=== PATIENT | female | born 1935 | race Caucasian/White ===

== ENCOUNTER 2019-02-26 00:31 | Inpatient (IN) | payer OTHER ==
[~2019-02-26] VITALS: Ht 167.6 cm; Wt 78.0 kg
[2019-02-26] VITALS (73 sets, daily range): BP systolic 69–145; BP diastolic 30–91
[2019-02-26] MEDS ORDERED: KETAMINE 500 MG/5 ML VIAL ONE (01:07)
--- NOTE | 2019-02-26 01:08 | NUR ---
PT BIBA ALS S/P FOUND BY ALF STAFF ALOC NOT TALKING OR RESPONDING TO QUESTIONS. ON ARRIVE TO [facility] PT GCS 12, RESPONDING TO COMMANDS BUT INCOMPREHENSIBLE VERBAL RESPONSES, EYES OPEN SPONTANEOUSLY. RESPIRATIONS TACHYPNEIC AT 43, 90% ON RA PLACED ON 4L NC AT THIS TIME. PT FOUND IN AFIB RVR RATE 140-160. EDMD MADE AWARE. PT PLACED ON FULL MONITOR, 2 LARGE BORE IV'S ESTABLISHED AND PHYSICIAN AT BEDSIDE AT THIS TIME.
--- NOTE | 2019-02-26 01:08 | NUR ---
0028--PT BIB AMBULANCE TO ER BED 7 Addendum: 02/26/19 at 0110 by MEDPatJLuke 0031-- PT BIB AMBULANCE TO ER BED 7. DR. HANDLEY EVALUATING PT BEDSIDE WITH X-RAY AND RESPIRATORY.
[2019-02-26] MEDS ORDERED: DILTIAZEM 25 MG/5 ML VIAL IVP ONE (01:09)
--- NOTE | 2019-02-26 01:13 | NUR ---
0113-- SYNCHRONIZED CARDIOVERSION START, TIME OUT PERFORMED BY DR. HANDLEY AT THIS TIME 0114--40 MG OF KETAMINE GIVEN AT THIS TIME BY DR. HANDLEY HR AFIB RVR 0116-- 200 J SYNCHRONIZED SHOCK GIVEN AT THIS TIME 0118--PROCEDURE STOP, CARDIOVERSION UNSUCCESSFUL
[2019-02-26 01:25] LABS: HEMATOCRIT 43.5 % (36-48); HEMOGLOBIN 13.9 g/dL (12.0-16.0); MEAN CORPUSCULAR HEMOGLOBIN 30 pg (27-31); MEAN CORPUSCULAR HGB CONC 32 g/dL (33-37); MEAN CORPUSCULAR VOLUME 92.9 fL (80-94); PLATELET COUNT (AUTO) 268 K/uL (140-450); RED BLOOD CELL COUNT(AUTO) 4.68 MIL/uL (4.20-5.40); RED CELL DISTRIBUTION WIDTH 14.9 % (11.6-13.7); WHITE BLOOD COUNT (AUTO) 16.4 K/uL (4.8-10.8)
--- NOTE | 2019-02-26 01:26 | NUR ---
3.375 GM OF ZOSYN GIVEN AT 0126 OVER [address] EMMANUELLE TRAVIS.
[2019-02-26 01:27] LABS: APPEARANCE,URINE CLOUDY (CLEAR); BILIRUBIN,URINE 2+ (NEGATIVE); BLOOD, URINE 3+ (NEGATIVE); COLOR,URINE YELLOW (YELLOW); LEUKOCYTE ESTERASE ,URINE TRACE (NEGATIVE); NITRITE, URINE NEGATIVE (NEGATIVE); PH,URINE 5.5 (5.0-9.0); UGLUCOSE NEGATIVE (NEGATIVE)
[2019-02-26] MEDS ORDERED: PIPERACILLIN/TAZOBACTAM 3.375 GM VIAL IV ONE ×2 (01:32→06:23)
--- NOTE | 2019-02-26 01:36 | NUR ---
15MG OF DILTIAZEM GIVEN IVP OVER [address] EMMANUELLE TRAVIS.
[2019-02-26 01:40] LABS: RBC,URINE 11-20 (MOD) /HPF (0-5)
--- NOTE | 2019-02-26 01:41 | NUR ---
NSS 3 L BOLUS STARTED PER ORDER FROM DR. HANDLEY, DISCONTINUED AT 0340. 3000 ML INFUSED
--- NOTE | 2019-02-26 01:42 | NUR ---
PT CONVERTED TO SINUS RHYTHM AFTER DOSE OF DILTIAZEM
[2019-02-26 01:43] LABS: ALBUMIN 2.9 g/dL (3.4-5.0); ANION GAP 20.2 (8-16); ASPARTATE AMINOTRANSFERASE 179 U/L (15-37); CARBON DIOXIDE 19.3 mmol/L (21-32); CHLORIDE 112 mmol/L (98-107); CREATININE 1.9 mg/dL (0.6-1.3); GLUCOSE 150 mg/dL (74-106); POTASSIUM 4.5 mmol/L (3.5-5.1); SODIUM SERUM 147 mmol/L (136-145); TOTAL BILIRUBIN 1.1 mg/dL (0.0-1.0); UREA NITROGEN, BLOOD 31 mg/dL (7-18)
[2019-02-26 01:45] LABS: LYMPHOCYTES % (MANUAL) 2 % (20-46); MONOCYTES % (MANUAL) 6 % (5-12)
[2019-02-26] MEDS ORDERED: DILTIAZEM 125 MG in DEXTROSE 5% 100 ML IV ONE (01:45)
--- NOTE | 2019-02-26 01:53 | NUR ---
1:1000 MG EPI IN 1000 ML NSS STARTED AT 1000ML/HR PER DR. EMMANUELLE TRAVIS, DISCONTINUED AT 0253
[2019-02-26 01:54] LABS: THYROID STIMULATING HORMONE 4.28 uIU/mL (0.34-3.74)
[2019-02-26 01:56] LABS: PROTHROMBIN TIME 13.2 secs (10.8-13.4)
[2019-02-26] MEDS ORDERED: NOREPINEPHRINE 4 MG/4 ML VIAL IV ONE (01:58)
[2019-02-26] MEDS ORDERED: ACETAMINOPHEN 650 MG SUPP RC ONE (02:05)
[2019-02-26] MEDS ORDERED: ACETAMINOPHEN 325 MG SUPP RC ONE (02:09)
--- NOTE | 2019-02-26 02:12 | NUR ---
0130 INTUBATED PATIENT WITH 7.5 TUBE AT LIP 25. PLACED ON VENT AC 18 VT 600 PEEP 5 FIO2 AT 60% ABG PENDING
--- NOTE | 2019-02-26 02:12 | NUR ---
X-RAY AT BEDSIDE FOR OG PLACEMENT COMFIRMATION.
--- NOTE | 2019-02-26 02:14 | NUR ---
0202 ABG DRAWN AND RESULTS GIVEN TO DR HANDLEY. VENT SETTINGS CHANGED TO RR 14 AND INCREASED FIO2 TO 65%
[2019-02-26] MEDS ORDERED: SYN.05 PO (02:18)
[2019-02-26] MEDS ORDERED: TRAM50TA1 PO (02:18)
[2019-02-26] MEDS ORDERED: MULT1SGL58 PO (02:18)
[2019-02-26] MEDS ORDERED: MEMA10TA PO (02:18)
[2019-02-26] MEDS ORDERED: LACT1CAP59 PO (02:18)
[2019-02-26] MEDS ORDERED: MULTI (02:18)
[2019-02-26] MEDS ORDERED: DOCU-299 PO (02:18)
--- NOTE | 2019-02-26 02:21 | NUR ---
0126---RSI PROCEDURE START TIME TIME OUT BY DR FREED 0127-- 40 MG KETAMINE GIVEN BY DR. HANDLEY , 80 MG ROCURONIUM GIVEN BY DR. HANDLEY 0130--PT INTUBATED WITH 7.5 ETT. SEE RT NOTE FOR VENT SETTINGS. 0131--PROCEDURE STOP TIME
[2019-02-26] MEDS ORDERED: EPINEPHRINE IV ONE (02:45)
[2019-02-26] MEDS ORDERED: ROCURONIUM 50 MG/5 ML VIAL IV ONE (02:45)
[2019-02-26] MEDS ORDERED: NACL 0.9% IV ONE (02:45)
[2019-02-26] MEDS ORDERED: KETAMINE 10 MG/ML UD SYR **ER IVP ONE (02:45)
[2019-02-26] MEDS ORDERED: DOCUSATE SODIUM 100 MG GELCAP PO PRN (02:50)
[2019-02-26] MEDS ORDERED: ZOLPIDEM 5 MG TAB PO PRN (02:50)
[2019-02-26] MEDS ORDERED: MORPHINE SULFATE 2 MG/ML SYR IVP PRN (02:50)
[2019-02-26] MEDS ORDERED: ONDANSETRON 4 MG/2 ML VIAL IM/IVP PRN (02:50)
--- NOTE | 2019-02-26 02:54 | NUR ---
PT TAKEN TO CT WITH NURSE BUI AND RT
--- NOTE | 2019-02-26 03:00 | NUR ---
125 ML/HR OF NSS STARTED PER DR. HANDLEY VO. INFUSING ON TRANSFER
--- NOTE | 2019-02-26 03:12 | NUR ---
PT RETURNED FROM CT BACK TO ER BED 7
--- NOTE | 2019-02-26 03:23 | NUR ---
Selina urena in [facility] - 02/26/19 at 0354 by TIGIST REPORT GIVEN TO ROSEMARY CHANEY, TRANSFER OF CARE AT THIS TIME
[2019-02-26 03:33] LABS: MAGNESIUM 2.5 mg/dL (1.8-2.4); PHOSPHORUS 6.1 mg/dL (2.5-4.9); THYROID STIMULATING HORMONE 4.26 uIU/mL (0.34-3.74)
[2019-02-26] MEDS ORDERED: ROCURONIUM 50 MG/5 ML VIAL IV STA (03:38)
[2019-02-26] MEDS ORDERED: VANCOMYCIN 1,000 MG VIAL ONE (03:38)
[2019-02-26] MEDS ORDERED: KETAMINE 500 MG/5 ML VIAL IVP STA ×2 (03:38→03:58)
--- NOTE | 2019-02-26 03:40 | NUR ---
VANCOMYCIN 1000 MG IVPB STARTED ON PT PER DR EMMANUELLE CLAUDIO, INFUSING ON TRANSFER.
--- NOTE | 2019-02-26 03:41 | NUR ---
Patient will be admitted to care of DR. MCINTYRE. Admited to ICU Will go to room 1. Belongings list completed. Report to BEBO CHANEY.
--- NOTE | 2019-02-26 03:55 | NUR ---
RECEIVED REPORT FROM ER NURSE, PT ARRIVED ON GURNEY, ON AMBUBAG AND PLACED ON ETT TO VENT. FIO2 60 ET 7.5 RR 14 FLOW 40 02SAT 100%, S1S2 PRESENT, HR 79, REGULAR, BILATERAL EDEMA ON ANKLES +2 NON PITTING, CAP REFILL <3S, PULSES 2+ BILATERAL UPPER AND LOWER EXTREMITIES, SKIN INTACT, NON TENTING, APPROPRIATE TO ETHNICITY, PERRL 3 MM, SLUGGISH, PT ALOC, ABDOMEN SOFT, ROUND, NONDISTENDED, CHAUDHARI INSERTED AT BEDSIDE 16F, LUNG SOUNDS CLEAR THROUGHOUT, SEVERE WEAKNESS ON BILATERAL LOWER AND UPPER EXTREMITIES, 18 GAUGE AT LEFT AC, IV FLUIDS RUNNING, 22 GAUGE AT LEFT FA SL. HOB 30 DEGREES, SIDE RAILS UP X2, ALARMS IN PLACE, CALL LIGHT WITHIN REACH. Addendum: 02/26/19 at 0556 by Napoleon Azar RN ER NURSE REPORTED 3 LITERS NS BOLUS, 1:1000 EPI, ZOSYN GIVEN, DILTIAZEM 15MG GIVEN
[2019-02-26] MEDS ORDERED: DILTIAZEM 25 MG/5 ML VIAL IVP STA (03:58)
[2019-02-26] MEDS ORDERED: PIPERACILLIN/TAZOBACTAM 3.375 GM in DEXTROSE 5% 50 ML IV SCH (04:30)
[2019-02-26] MEDS: NACL 0.9% 1,000 ML IV SCH ×2 (05:00→07:00)
[2019-02-26] MEDS ORDERED: VANCOMYCIN 1,000 MG in DEXTROSE 5% 250 ML IV SCH (05:00)
[2019-02-26] MEDS ORDERED: MIDAZOLAM MDV 50 MG in NACL 0.9% 40 ML IV PRN (05:15)
--- NOTE | 2019-02-26 05:19 | NUR ---
CALLED BINDERY SUPERVISOR TO NOTIFY REGARDING NEW ORDER FOR VERSED AND FENTANYL DRIP. PER BINDERY SUPERVISOR, WILL CALL THE ON-CALL PHARMACIST. NOTIFIED DR. COATS, WHO IS IN THE UNIT, THAT WE ARE CURRENTLY WAITING OF ON-CALL PHARMACIST TO MIX MEDS.
[2019-02-26] MEDS ORDERED: VANCOMYCIN PER PHARMACY MC PRN (05:20)
--- NOTE | 2019-02-26 05:28 | NUR ---
DR. VERGARA IN THE UNIT TO SEE PT. DR. COATS IN THE UNIT WELL. WILL WAIT FOR ANY ORDERS AT THIS TIME.
--- NOTE | 2019-02-26 05:34 | NUR ---
PER DR. VERGARA, GIVE ONE DOSE OF PRN ATIVAN WHILE WAITING FOR THE VERSED AND FENTANYL TO BE MIXED BY THE PHARMACIST.
[2019-02-26] MEDS: LORazepam 2 MG/ML VIAL IM/IVP PRN (05:36)
--- NOTE | 2019-02-26 05:53 | NUR ---
CALLED DR. COATS TO NOTIFY THAT PT'S BP IS CURRENTLY LOW. WILL WAIT FOR ANY ORDERS.
--- NOTE | 2019-02-26 06:09 | NUR ---
FOLLOWED-UP WITH THE LOGGING RAFTER LABORER REGARDING THE PHARMACIST.
[2019-02-26] MEDS ORDERED: LORazepam 2 MG/ML VIAL IVP ONE (06:15)
[2019-02-26] MEDS ORDERED: HYDROmorphone 1 MG/ML AMP IVP ONE (06:15)
[2019-02-26] MEDS ORDERED: NACL 0.9% 1,000 ML IV ONE ×2 (06:20→07:20)
[2019-02-26] MEDS: PIPER/TAZO 3.375GM/D5W PREMIX 50 ML IV SCH ×3 (06:24→17:44)
--- NOTE | 2019-02-26 06:24 | NUR ---
CALLED THE PHARMACY TO FOLLOW-UP WITH THE NEW MEDICATIONS THAT NEEDS TO BE VERIFIED.
[2019-02-26] MEDS: PANTOPRAZOLE 40 MG INJ VIAL IVP SCH (06:27)
[2019-02-26] MEDS ORDERED: LORazepam 2 MG/ML VIAL ONE (06:56)
--- NOTE | 2019-02-26 07:10 | NUR ---
RECEIVED PT ON DOCUMENTED SETTINGS ALARMS SET AND AUDIBLE, NO DISTRESS NOTED AT THIS TIME, BVM AT BEDSIDE, VENTILATOR PLUGGED INTO RED OUTLET.
--- NOTE | 2019-02-26 07:15 | NUR ---
ADMINISTERED ATIVAN 1MG IVP, HEPARIN 300 UNITS, AND NS BOLUS PER ORDER OF DR. COATS; WAITING FOR PHARMACY TO VERIFY. WILL ATTEMPT AGAIN FOR PHARMACY TO VERIFY.
--- NOTE | 2019-02-26 07:29 | NUR ---
ATTEMPTED TO CALL PHARMACY (IN-HOUSE) TO ASK THEM TO VERIFY THE MEDICATIONS ORDERED.
--- NOTE | 2019-02-26 07:30 | NUR ---
REPORT GIVEN TO HEFLIN FOR CONTINUITY OF CARE.
--- NOTE | 2019-02-26 07:31 | NUR ---
RECEIVED REPORT FROM STREET CLEANING EQUIPMENT OPERATOR RN. PT RESTING IN BED. SEDATED. RESPONSE TO PAINFUL STIMULI. PUPILS REACTIVE TO LIGHT. ON ETT TO VENT. FIO2 50% TV 500 RR 14 PEEP 5. OG-TUBE IN PLACE. POSITIVE PLACEMENT. 0 RESIDUAL. RIJ TRIPLE LUMEN CATH NOTED IN PLACE. DRY DRESSING. PERIPHERAL LINES NOTED ON LAC 18G AND LFA 22G. NS INFUSING AT 160 ML/HR VIA LAC. INTACT LINES. LUNGS CLEAR. ABDOMEN SOFT, ROUND AND NON-TENDER. HYPOACTIVE BOWEL SOUND. BRUISE NOTED ON RIGHT HAND. EDEMATOUS BOTH UPPER AND LOWER EXTREMITIES. KEPT HOB ELEVATED. OFFLOADED PRESSURE AREAS. BED IN LOW POSITION LOCKED.
[2019-02-26] MEDS ORDERED: traMADol 50 MG TAB PO SCH (08:10)
--- NOTE | 2019-02-26 08:10 | NUR ---
PROVIDED MORNING CARE. REPOSITIONED.
--- NOTE | 2019-02-26 08:33 | NUR ---
PATIENT HAS BEEN SCREENED AND CATEGORIZED HIGH NUTRITION RISK. PATIENT WILL BE SEEN WITHIN 1-2 DAYS OF ADMISSION. 02/26/19-02/27/[address]
[2019-02-26] MEDS ORDERED: LEVOTHYROXINE 0.05 MG TAB PO SCH (09:00)
[2019-02-26] MEDS ORDERED: LEVOTHYROXINE 0.025 MG TAB PO SCH (09:00)
[2019-02-26] MEDS ORDERED: MEMANTINE 10 MG TAB PO SCH (09:00)
[2019-02-26] MEDS: LACTOBACILLUS RHAMNOSUS GG 1 EACH CAP PO SCH (09:08)
[2019-02-26] MEDS: VIT-B COMP/VIT-C/FOLIC ACID 1 TAB PO SCH (09:09)
[2019-02-26] MEDS: MEMANTINE 10 MG TAB PO SCH ×2 (09:09→20:25)
[2019-02-26] MEDS: DOCUSATE SODIUM 100 MG GELCAP PO SCH ×2 (09:10→20:25)
[2019-02-26] MEDS ORDERED: hePARIN / DEXT 5% PREMIX 250 ML IV SCH (09:15)
[2019-02-26] MEDS: MIDAZOLAM MDV 100 MG in NACL 0.9% 80 ML IV PRN (09:46)
--- NOTE | 2019-02-26 09:46 | NUR ---
FENTANYL DRIP NOT STARTED. PER DR. GODFREY.
--- NOTE | 2019-02-26 10:00 | NUR ---
NO SOB OR ACUTE RESPIRATORY DISTRESS NOTED. CONTINUE ON SAME VENT SETTING. VSS. CARE PROVIDED NEEDED. HOB ELEVATED. BED IN LOW POSITION LOCKED. CONTINUE TO MONITOR.
[2019-02-26 12:05] LABS: ANION GAP 18.5 (8-16); CARBON DIOXIDE 18.4 mmol/L (21-32); CHLORIDE 120 mmol/L (98-107); CREATININE 1.8 mg/dL (0.6-1.3); GLUCOSE 124 mg/dL (74-106); POTASSIUM 4.9 mmol/L (3.5-5.1); SODIUM SERUM 152 mmol/L (136-145); UREA NITROGEN, BLOOD 33 mg/dL (7-18)
[2019-02-26] MEDS ORDERED: DEXT 5% / NACL 0.45% 1,000 ML IV SCH (12:35)
--- NOTE | 2019-02-26 12:56 | NUR ---
02/26/19 RD INITIAL ASSESSMENT COMPLETED PLEASE REFER TO NUTRITION ASSESSMENT UNDER CARE ACTIVITY FOR ESTIMATED NUTRITIONAL NEEDS. RD RECOMMENDATIONS: 1. CONTINUE NPO MEDICALLY APPROPRIATE. 2. IF PT IS ABLE TO BE EXTUBATED, CONSIDER CONSULTING ST FOR APPROPRIATE DIET TEXTURE/MODIFICATION. 3. IF PT WILL NEED TUBE FEEDING, CONSIDER TWOCAL HN AT 40 ML/HR AND 200 ML OF FREE WATER Q4H TO PROVIDE 960 ML TOTAL VOLUME, 1920 KCAL, 80 GM OF PROTEIN, AND 1872 ML OF FREE WATER (ADEQUATE TO MEET 100% OF ESTIMATED ENERGY NEEDS AND 86% OF ESTIMATED PROTEIN NEEDS). 4. RD WILL F/U 2-3 DAYS; HIGH RISK. ALLEY MOHAMUD, RD
[2019-02-26 13:41] LABS: BASOPHILS % (AUTO) 0.3 % (0.0-2.0); HEMATOCRIT 39.8 % (36-48); HEMOGLOBIN 12.5 g/dL (12.0-16.0); LYMPHOCYTES # (AUTO) 0.7 K/uL (2.5-16.5); LYMPHOCYTES % (AUTO) 5.5 % (20.5-51.1); MEAN CORPUSCULAR HEMOGLOBIN 29 pg (27-31); MEAN CORPUSCULAR HGB CONC 32 g/dL (33-37); MEAN CORPUSCULAR VOLUME 92.6 fL (80-94); MONOCYTES % (AUTO) 8.1 % (1.7-9.3); NEUTROPHILS # (AUTO) 10.5 K/uL (1.8-7.7); NEUTROPHILS % (AUTO) 86.1 % (42.2-75.2); PLATELET COUNT (AUTO) 207 K/uL (140-450); RED CELL DISTRIBUTION WIDTH 14.6 % (11.6-13.7); WHITE BLOOD COUNT (AUTO) 12.2 K/uL (4.8-10.8)
--- NOTE | 2019-02-26 15:38 | NUR ---
CONTINUE ON VERSED DRIP AT 1MG/HR. RASS -3. NO SOB OR ACUTE RESPIRATORY DISTRESS NOTED. CARE PROVIDED NEEDED. HOB ELEVATED. BED IN LOW POSITION LOCKED. CONTINUE TO MONITOR.
[2019-02-26] MEDS: fentaNYL 1 MG in NACL 0.9% 80 ML IV PRN (15:59)
[2019-02-26] MEDS ORDERED: LACTATED RINGERS 1,000 ML IV SCH (16:20)
[2019-02-26] MEDS: DEXT 5% / LACT RING 500 ML IV SCH ×2 (17:10→20:25)
--- NOTE | 2019-02-26 17:20 | NUR ---
DR. GODFREY MADE AWARE OF DECREASING BP.
[2019-02-26] MEDS ORDERED: NOREPINEPHRINE 16 MG in DEXTROSE 5% 250 ML IV PRN (17:25)
--- NOTE | 2019-02-26 18:03 | NUR ---
CONTINUE ON VERSED AND FENTANYL DRIP. ETT TO VENT AC/VC FIO2 21% TV 500 RR 14 PEEP 5. AFEBRILE. FLACC 0. NO SOB OR ACUTE RESPIRATORY DISTRESS NOTED. CONTINUE TO MONITOR.
[2019-02-26] MEDS: HYDROcodone/APAP 5/325 MG 1 TAB TAB PO PRN (18:58)
--- NOTE | 2019-02-26 19:25 | NUR ---
REPORT GIVEN TO COATER OPERATOR RN FOR CONTINUITY OF CARE. PT STABLE.
--- NOTE | 2019-02-26 19:30 | NUR ---
RECEIVED REPORT FROM MORNING RN, LOCO, FOR CONTINUITY OF CARE. VS STABLE AT THIS TIME. AFEBRILE. FLACC 0. RASS -3. PT DOES NOT APPEAR TO BE EXPERIENCING ANY DISCOMFORT AT THIS TIME. EYES ARE CLOSED WITH HOB AT 30 DEGREES. PT SEDATED WITH VERSED RUNNING AT 2MG/HR AND FENTANYL RUNNING AT 40MCG/HR. PERRL. LUNG SOUNDS CLEAR. ETT TO VENT WITH SETTINGS AC14, FIO2 21%, VT 500, AND PEEP 5. RESPIRATIONS ARE EVEN AND UNLABORED. S1+S2 HEARD[address] ST ON MONITOR. PULSES ARE PALPABLE IN ALL EXTREMITIES. ABDOMEN ROUND, SOFT AND NONDISTENDED. HYPOACTIVE. OGT IN PLACE, DRAINING BY GRAVITY. PLACEMENT CHECKED. OGT SECURED IN PLACE. RECEIVED PT WITH RIGHT IJ CENTRAL LINE, LEFT AC 18G PERIPHERAL IV ACCESS AND LEFT FOREARM 22G PERIPHERAL IV ACCESS. ALL IV ACCESS ARE PATENT, INTACT AND ASYMPTOMATIC. PT HAS D5 LR AT 125ML/HR. HOB 30 DEGREES. ALL SAFETY PRECAUTIONS ARE IN PLACE. PT TURNED AND REPOSITIONED. BED AT LOWEST POSSIBLE POSITION. WILL CONTINUE TO MONITOR PT.
[2019-02-26] MEDS: ENOXAPARIN 80 MG/0.8 ML SYR SUBQ SCH (20:27)
--- NOTE | 2019-02-26 22:00 | NUR ---
RASS-3. RESPIRATIONS ARE EVEN AND UNLABORED. PT DOES NOT APPEAR TO BE EXPERIENCING ANY DISCOMFORT AT THIS TIME. PT WAS TURNED AND REPOSITIONED. IV ACCESS ARE PATENT AND ASYMPTOMATIC. WILL CONTINUE TO MONITOR PT.
[2019-02-27] VITALS (98 sets, daily range): BP systolic 83–155; BP diastolic 32–88
--- NOTE | 2019-02-27 00:19 | NUR ---
NO CHANGE IN PT'S CONDITION AT THIS TIME. VS REMAINS STABLE. RASS -3. PT TURNED AND REPOSITIONED. OGT DRAINING BY GRAVITY AND NO OUTPUT NOTED AT THIS TIME. NO BM. AFEBRILE. ORAL CARE PROVIDED. WILL CONTINUE TO MONITOR PT.
[2019-02-27] MEDS: DEXT 5% / LACT RING 500 ML IV SCH ×3 (00:25→08:25)
[2019-02-27] MEDS: PIPER/TAZO 3.375GM/D5W PREMIX 50 ML IV SCH ×5 (00:27→23:49)
--- NOTE | 2019-02-27 02:03 | NUR ---
VS STABLE. RASS -3. PT STILL ON VERSED AND FENTANYL DRIP. RESPIRATIONS ARE EVEN AND UNLABORED. PT DOES NOT APPEAR TO BE EXPERIENCING ANY DISCOMFORT. FLACC 0. ALL SAFETY PRECAUTIONS ARE IN PLACE. WILL CONTINUE TO MONITOR
--- NOTE | 2019-02-27 03:23 | NUR ---
FLACC 0. RESPIRATIONS EVEN AND UNLABORED. PT DOES NOT APPEAR TO BE EXPERIENCING ANY DISCOMFORT AT THIS TIME. RASS -3. PT TURNED AND REPOSITIONED. ALL SAFETY PRECAUTIONS REMAINS IN PLACE. WILL CONTINUE TO MONITOR PT.
--- NOTE | 2019-02-27 04:05 | NUR ---
MORNING CARE PROVIDED TO PT. CHAUDHARI CATHETER CARE WITH ORAL CARE PROVIDED. PT TOLERATED BEING TURNED AND REPOSITIONED FAIRLY. RASS -3. NO SOB OR RESPIRATORY DISTRESS NOTED. WILL CONTINUE TO MONITOR PT.
[2019-02-27] MEDS: PANTOPRAZOLE 40 MG INJ VIAL IVP SCH (05:34)
[2019-02-27] MEDS: LEVOTHYROXINE 0.025 MG TAB PO SCH (05:35)
--- NOTE | 2019-02-27 06:18 | NUR ---
DR. GODFREY IN THE UNIT. UPDATED HER REGARDING PT'S CONDITION. RECEIVED NO NEW ORDERS AT THIS TIME
[2019-02-27 06:49] LABS: BASOPHILS % (AUTO) 0.4 % (0.0-2.0); EOSINOPHILS # (AUTO) 0.2 K/uL (0-0.4); EOSINOPHILS % (AUTO) 1.9 % (0.0-4.0); HEMATOCRIT 33.8 % (36-48); HEMOGLOBIN 11.2 g/dL (12.0-16.0); LYMPHOCYTES # (AUTO) 1.5 K/uL (2.5-16.5); LYMPHOCYTES % (AUTO) 17.7 % (20.5-51.1); MEAN CORPUSCULAR HEMOGLOBIN 30 pg (27-31); MEAN CORPUSCULAR HGB CONC 33 g/dL (33-37); MEAN CORPUSCULAR VOLUME 90.6 fL (80-94); MONOCYTES # (AUTO) 0.6 K/uL (0.8-1.0); MONOCYTES % (AUTO) 7.2 % (1.7-9.3); NEUTROPHILS % (AUTO) 72.8 % (42.2-75.2); PLATELET COUNT (AUTO) 177 K/uL (140-450); RED BLOOD CELL COUNT(AUTO) 3.73 MIL/uL (4.20-5.40); RED CELL DISTRIBUTION WIDTH 14.7 % (11.6-13.7); WHITE BLOOD COUNT (AUTO) 8.3 K/uL (4.8-10.8)
--- NOTE | 2019-02-27 07:10 | NUR ---
RECEIVED REPORT FROM GRIZZLY WORKER RN. PT RESTING IN BED. ON SEDATION. RESPONSE TO STIMULI. NO SOB OR ACUTE RESPIRATORY DISTRESS NOTED. PUPILS REACTIVE TO LIGHT. ON ETT TO VENT. FIO2 21% TV 500 RR 14 PEEP 5. OG-TUBE IN PLACE. POSITIVE PLACEMENT. 0 RESIDUAL. RIJ TRIPLE LUMEN CATH NOTED IN PLACE. DRY DRESSING. PERIPHERAL LINES NOTED ON LAC 18G AND LFA 22G, SALINE LOCK. INTACT LINES. DEX%RL INFUSING AT 125 ML/HR VIA LAC. INTACT LINES. LUNGS CLEAR. ABDOMEN SOFT, ROUND AND NON-TENDER. HYPOACTIVE BOWEL SOUND. BRUISE NOTED ON RIGHT FOREARM AND HAND. EDEMATOUS BOTH UPPER AND LOWER EXTREMITIES. KEPT HOB ELEVATED. OFFLOADED PRESSURE AREAS. BED IN LOW POSITION LOCKED.
--- NOTE | 2019-02-27 07:10 | NUR ---
REPORT GIVEN TO MORNING RN, LOCO, FOR CONTINUITY OF CARE. VS STABLE AT THIS TIME.
[2019-02-27 07:14] LABS: ANION GAP 15.1 (8-16); CHLORIDE 117 mmol/L (98-107); CREATININE 1.7 mg/dL (0.6-1.3); GLUCOSE 80 mg/dL (74-106); POTASSIUM 3.1 mmol/L (3.5-5.1); SODIUM SERUM 148 mmol/L (136-145); UREA NITROGEN, BLOOD 29 mg/dL (7-18)
[2019-02-27 07:18] LABS: MAGNESIUM 1.8 mg/dL (1.8-2.4); PHOSPHORUS 2.4 mg/dL (2.5-4.9)
[2019-02-27] MEDS ORDERED: ALBUTEROL SULFATE/IPRATROPIU 3 ML SOL IH PRN (07:45)
--- NOTE | 2019-02-27 07:50 | NUR ---
PT EVALUATED BY DR. VERGARA. UPDATED PT STATUS.
[2019-02-27] MEDS ORDERED: POTASSIUM CHLORIDE 40 MEQ, LIDOCAINE MPF 1% - 5 mL VIAL 25 MG in NACL 0.9% 250 ML IV SCH (08:30)
--- NOTE | 2019-02-27 08:55 | NUR ---
PAGED DR. MARTITA VERGARA [phone] TO REVIEW [facility] REPORT
--- NOTE | 2019-02-27 08:58 | NUR ---
CALLED ICU [phone] REVIEWED ABG SAMPLE REPORT WITH DR. WORKMAN NO NEW ORDERS
[2019-02-27] MEDS: LACTOBACILLUS RHAMNOSUS GG 1 EACH CAP PO SCH (09:31)
[2019-02-27] MEDS: ENOXAPARIN 80 MG/0.8 ML SYR SUBQ SCH (09:31)
[2019-02-27] MEDS: MEMANTINE 10 MG TAB PO SCH ×2 (09:32→20:07)
[2019-02-27] MEDS: DOCUSATE SODIUM 100 MG GELCAP PO SCH ×2 (09:32→20:07)
[2019-02-27] MEDS: VIT-B COMP/VIT-C/FOLIC ACID 1 TAB PO SCH (09:33)
[2019-02-27] MEDS: VANCOMYCIN 500 MG in DEXTROSE 5% 100 ML IV SCH (09:33)
--- NOTE | 2019-02-27 09:40 | NUR ---
RECEIVED ON A Pneumoflex SystemsSCAPE R860 VENTILATOR PLUGGED INTO RED OUTLET TOLERATING WELL WITHOUT INCIDENT TO AN ENDOTRACHEAL TUBE #7.5 SECURED AT 25cm TEETH/GUM WITH AN ANCHOR FAST CUFF PRESSURE CHECKED NOTED AMBU BAG AT HOB LOC QUIET NO EVIDENCE OF PULMONARY DISTRESS BREATH SOUNDS CLEAR BILATERAL WITH GOOD EQUAL CHEST RISE AND AERATION THROUGHOUT BILATERAL LUNG CABRALES AIRWAY PATENT
--- NOTE | 2019-02-27 09:45 | NUR ---
SATURATION 90% ON FIO2 OF 21% PULSE OXIMETER PROBE CHECKED FOR ADEQUATE PLACEMENT INCREASED FIO2 TO 24% LOCO/RN NOTIFIED
--- NOTE | 2019-02-27 09:50 | NUR ---
RESIDUAL 0. ADMINISTERED MEDICINES PER ORDER. TOLERATING WELL. MAP >60. FIO2 INCREASED TO 24% BY RT. SPO2 92 %. NO SOB OR LABORED BREATHING NOTED. HOB ELEVATED. BED IN LOW POSITION LOCKED.
--- NOTE | 2019-02-27 11:01 | NUR ---
RESIDUAL 0. FEEDING STARTED PER ORDER. HOB ELEVATED TO 30 DEGREE.
[2019-02-27] MEDS: NACL 0.45% 1,000 ML IV SCH ×2 (11:33→21:37)
[2019-02-27] MEDS: BLOOD GLUCOSE MONITORING 1 DEV DEV FS SCH ×3 (11:33→23:49)
--- NOTE | 2019-02-27 12:00 | NUR ---
RESIDUAL 10 ML NOTED. RESUME FEEDING. HOB ELEVATED.
--- NOTE | 2019-02-27 12:01 | NUR ---
GOOD CHEST RISE ENDOTRACHEAL SUCTION FOR MODERATE THICK YELLOW SECRETIONS AIRWAY PATENT REVIEWED CXR DATED 02/26 AND 02/27 HHN PRN THERAPY GIVEN AT THIS TIME
[2019-02-27] MEDS: fentaNYL 1 MG in NACL 0.9% 80 ML IV PRN (12:24)
--- NOTE | 2019-02-27 12:25 | NUR ---
CONTINUE ON SEDATION. RASS -3. NO SOB OR ACUTE RESPIRATORY DISTRESS NOTED. CONTINUE ON SAME VENT SETTING. VSS. CONTINUE TO MONITOR. Addendum: 02/27/19 at 1558 by Katie Lowry RN RASS -2
--- NOTE | 2019-02-27 13:00 | NUR ---
PT EVALUATED BY DR. RODRIGUEZ. UPDATED PT STATUS.
--- NOTE | 2019-02-27 13:38 | NUR ---
RESTING COMFORTABLY GOOD EQUAL CHEST RISE NO SUCTIONING AT THIS TIME PROJECT DEVELOPMENT ENGINEER TO MONITOR
--- NOTE | 2019-02-27 14:29 | NUR ---
PT NOTED WITH BLOOD IN URINE. DR. GODFREY MADE AWARE.
[2019-02-27] MEDS: LORazepam 2 MG/ML VIAL IM/IVP PRN (14:49)
[2019-02-27] MEDS: ALBUTEROL SULFATE/IPRATROPIU 3 ML SOL IH SCH ×2 (15:48→19:07)
--- NOTE | 2019-02-27 15:49 | NUR ---
RESTING WELL NO DISTRESS NOTED GOOD EQUAL CHEST RISE ENDOTRACHEAL SUCTION FOR MODERATE THIN YELLOW SECRETIONS AIRWAY PATENT
[2019-02-27] MEDS: HYDROcodone/APAP 5/325 MG 1 TAB TAB PO PRN (17:26)
--- NOTE | 2019-02-27 17:33 | NUR ---
TOLERATING VENTILATORY SUPPORT WELL WITHOUT INCIDENT BREATH SOUNDS RHONCHI BILATERAL WITH GOOD EQUAL CHEST RISE ENDOTRACHEAL SUCTION FOR SMALL THIN YELLOW SECRETIONS AIRWAY PATENT
--- NOTE | 2019-02-27 17:35 | NUR ---
RT AT THE BEDSIDE.
[2019-02-27] MEDS: MIDAZOLAM MDV 100 MG in NACL 0.9% 80 ML IV PRN (18:10)
--- NOTE | 2019-02-27 18:35 | NUR ---
CONTINUE ON VERSED AND FENTANYL DRIP. RASS -3. NO SOB OR ACUTE RESPIRATORY DISTRESS NOTED. ON OG-TUBE FEEDING. TOLERATING WELL. HOB ELEVATED. BED IN LOW POSITION LOCKED.
--- NOTE | 2019-02-27 19:07 | NUR ---
REPORT GIVEN TO NEUROLOGICAL PHYSIOTHERAPIST RN FOR CONTINUITY OF CARE. PT ON STABLE CONDITION.
--- NOTE | 2019-02-27 19:30 | NUR ---
RECEIVED REPORT FROM MORNING RN, LOCO, FOR CONTINUITY OF CARE. VS STABLE AT THIS TIME. AFEBRILE. FLACC 0. RASS -3. PT DOES NOT APPEAR TO BE EXPERIENCING ANY DISCOMFORT AT THIS TIME. EYES ARE CLOSED WITH HOB AT 30 DEGREES. PT SEDATED WITH VERSED RUNNING AT 4MG/HR AND FENTANYL RUNNING AT 40MCG/HR. PERRL. LUNG SOUNDS CLEAR. ETT TO VENT WITH SETTINGS AC14, FIO2 24%, VT 500, AND PEEP 5. RESPIRATIONS ARE EVEN AND UNLABORED. NO SIGNS OF RESPIRATORY DISTRESS NOTED. S1+S2 HEARD[address] WITH PAC ON MONITOR. PULSES ARE PALPABLE IN ALL EXTREMITIES. ABDOMEN ROUND, SOFT AND NONDISTENDED. BS ACTIVE. OGT IN PLACE. PLACEMENT CHECKED. OGT SECURED IN PLACE. RECEIVED PT WITH VITAL AF RUNNING AT 40ML/HR. RESIDUAL CHECKED AND ASPIRATED 200ML. FEEDING PUT ON HOLD PER PARAMETERS SET. WILL RECHECK. RECEIVED PT WITH RIGHT IJ CENTRAL LINE THAT PATENT, INTACT AND ASYMPTOMATIC. PT HAS 0.45% NS AT 120ML/HR. HOB 30 DEGREES. CHAUDHARI CATHETER IS IN PLACE. URINE IS CLEAR AND YELLOW. ALL SAFETY PRECAUTIONS ARE IN PLACE. PT TURNED AND REPOSITIONED. BED AT LOWEST POSSIBLE POSITION. WILL CONTINUE TO MONITOR PT.
--- NOTE | 2019-02-27 21:58 | NUR ---
NO CHANGE IN PT'S CONDITION AT THIS TIME. MAP IS MORE THAN 60. RASS -3. THERE IS NO SIGN OF ANY DISCOMFORT OBSERVED. RESPIRATIONS ARE EVEN AND UNLABORED. CHEST RISE SYMMETRIC.
--- NOTE | 2019-02-27 23:50 | NUR ---
CHECKED OGT FOR RESIDUAL AND ASPIRATED 100ML OF GASTRIC CONTENTS. RESUMED FEEDING RESIDUAL IS LESS THAN SET IN PARAMETERS. WILL RECHECK AGAIN LATER. PT'S BG WAS 66 BUT THEN RECHECKED AND WAS 74. WILL MONITOR PT CLOSELY.
[2019-02-28] VITALS (97 sets, daily range): BP systolic 57–130; BP diastolic 26–88
--- NOTE | 2019-02-28 00:35 | NUR ---
VS STABLE. MAP REMAINS ABOVE 60. RESPIRATIONS ARE EVEN AND UNLABORED. CHEST RISE SYMMETRIC. NO CHANGE IN PT'S CONDITION. RASS -3 AND FLACC 0. CHAUDHARI CATHETER IS DRAINING CLEAR AND YELLOW URINE.
[2019-02-28] MEDS: ALBUTEROL SULFATE/IPRATROPIU 3 ML SOL IH SCH ×2 (02:30→06:36)
--- NOTE | 2019-02-28 02:50 | NUR ---
RESPIRATIONS ARE EVEN AND UNLABORED. SINUS ARRHYTHMIA ON MONITOR. OGT STILL TO FEEDING. HOB AT 30 DEGREES. FLACC 0. RASS -3. BED AT LOWEST POSSIBLE. ALL SAFETY PRECAUTIONS ARE IN PLACE. WILL CONTINUE TO MONITOR PT.
[2019-02-28] MEDS: NACL 0.45% 1,000 ML IV SCH ×2 (03:55→07:53)
--- NOTE | 2019-02-28 04:05 | NUR ---
MORNING CARE PROVIDED TO PT. TOLERATED BEING TURNED AND REPOSITIONED. CHECKED RESIDUAL AND ASPIRATED 100ML. CONTINUED FEEDING PER ORDER. RESPIRATIONS ARE EVEN AND UNLABORED. KEPT HOB AT 30 DEGREES. PT STILL HAS CLEAR AND YELLOW URINE DRAINING IN CHAUDHARI CATHETER. NO BM NOTED AT THIS TIME. WILL CONTINUE TO MONITOR PT.
[2019-02-28] MEDS: LEVOTHYROXINE 0.025 MG TAB PO SCH (05:46)
[2019-02-28] MEDS: PIPER/TAZO 3.375GM/D5W PREMIX 50 ML IV SCH (05:47)
[2019-02-28] MEDS: PANTOPRAZOLE 40 MG INJ VIAL IVP SCH (05:47)
--- NOTE | 2019-02-28 05:50 | NUR ---
DR. GODFREY AT BEDSIDE. INFORMED HER REGARDING THE PT'S CONDITION. ALSO INFORMED HER REGARDING THE PT'S HEART RATE THAT IS INCREASING. DR. GODFREY WANTS AN EKG
[2019-02-28] MEDS: HYDROcodone/APAP 5/325 MG 1 TAB TAB PO PRN (06:06)
[2019-02-28 06:08] LABS: BASOPHILS % (AUTO) 0.5 % (0.0-2.0); EOSINOPHILS # (AUTO) 0.2 K/uL (0-0.4); EOSINOPHILS % (AUTO) 2.4 % (0.0-4.0); HEMATOCRIT 36.5 % (36-48); LYMPHOCYTES # (AUTO) 1.5 K/uL (2.5-16.5); MEAN CORPUSCULAR HEMOGLOBIN 30 pg (27-31); MEAN CORPUSCULAR HGB CONC 33 g/dL (33-37); MEAN CORPUSCULAR VOLUME 90.2 fL (80-94); MONOCYTES # (AUTO) 0.7 K/uL (0.8-1.0); MONOCYTES % (AUTO) 8.3 % (1.7-9.3); NEUTROPHILS # (AUTO) 5.9 K/uL (1.8-7.7); NEUTROPHILS % (AUTO) 70.8 % (42.2-75.2); PLATELET COUNT (AUTO) 188 K/uL (140-450); RED BLOOD CELL COUNT(AUTO) 4.04 MIL/uL (4.20-5.40); RED CELL DISTRIBUTION WIDTH 14.6 % (11.6-13.7); WHITE BLOOD COUNT (AUTO) 8.3 K/uL (4.8-10.8)
[2019-02-28] MEDS: BLOOD GLUCOSE MONITORING 1 DEV DEV FS SCH ×4 (06:11→23:27)
--- NOTE | 2019-02-28 06:12 | NUR ---
CALLED RT TO NOTIFY THEM THAT THERE IS AN EKG ORDERED FOR PT
[2019-02-28 06:30] LABS: ANION GAP 12.5 (8-16); CARBON DIOXIDE 20.7 mmol/L (21-32); CHLORIDE 112 mmol/L (98-107); CREATININE 1.4 mg/dL (0.6-1.3); GLUCOSE 93 mg/dL (74-106); POTASSIUM 3.2 mmol/L (3.5-5.1); SODIUM SERUM 142 mmol/L (136-145); UREA NITROGEN, BLOOD 21 mg/dL (7-18)
[2019-02-28] MEDS ORDERED: DILTIAZEM 25 MG/5 ML VIAL IVP ONE ×2 (06:35→06:54)
--- NOTE | 2019-02-28 06:35 | NUR ---
DR. WORKMAN AT BEDSIDE. INFORMED HIM REGARDING THE EKG THAT WAS TAKE. RECEIVED NEW ORDERS.
--- NOTE | 2019-02-28 06:36 | NUR ---
RECEIVED ON A [employer] Power DynamicsAPE R860 VENTILATOR PLUGGED INTO RED OUTLET TOLERATING WELL WITHOUT ADVERSE REACTIONS NOTED TO AN ENDOTRACHEAL TUBE #7.5 SECURED AT 25cm WITH AN ANCHOR FAST AMBU BAG AT HOB LOC QUIET RESPONSOVE TO PHYSICAL STIMULUS BREATH SOUNDS COARSE RHONCHI BILATERAL WITH GOOD EQUAL CHEST RISE SUCTIONING WITH NO RETURN AIRWAY PATENT Addendum: 02/28/19 at 0651 by Karel Diaz RT RESPONSOVE = RESPONSIVE
[2019-02-28 06:37] LABS: MAGNESIUM 1.7 mg/dL (1.8-2.4); PHOSPHORUS 2.2 mg/dL (2.5-4.9)
--- NOTE | 2019-02-28 06:46 | NUR ---
CALLED RESIDENT DOCTORS, CLARIFIED IF CARDIZEM IS STILL TO BE GIVEN D/T PT'S CURRENT BP IS 97/63 AND HR STILL BETWEEN 150S TO 160S. WAS INSTRUCTED TO HOLD OFF FOR NOW, AND DOCTOR WILL CALL RIGHT BACK.
--- NOTE | 2019-02-28 06:48 | NUR ---
RECEIVED A CALL FROM DR. HARO, ACCORDING TO HIM OKAY TO GIVE CARDIZEM ALTHOUGH BP IS LOW AT THIS TIME.
--- NOTE | 2019-02-28 07:10 | NUR ---
GAVE REPORT TO MORNING RN, HERBERT, FOR CONTINUITY OF CARE. HR STILL ELEVATED AT THIS TIME.
--- NOTE | 2019-02-28 07:15 | NUR ---
RECEIVED REPORT FROM [facility] NURSE FISHER.
--- NOTE | 2019-02-28 08:25 | NUR ---
STARTED PT ON LEVOPHED 5 MCG/MIN PER LOW BLOOD PRESSURE 81/53.
[2019-02-28] MEDS ORDERED: POTASSIUM CHLORIDE 40 MEQ, LIDOCAINE 1% 25 MG in NACL 0.9% 250 ML IV SCH (08:30)
[2019-02-28] MEDS: MEMANTINE 10 MG TAB PO SCH ×2 (08:31→21:08)
[2019-02-28] MEDS: DOCUSATE SODIUM 100 MG GELCAP PO SCH (08:31)
[2019-02-28] MEDS: LACTOBACILLUS RHAMNOSUS GG 1 EACH CAP PO SCH (08:31)
[2019-02-28] MEDS: VIT-B COMP/VIT-C/FOLIC ACID 1 TAB PO SCH (08:31)
--- NOTE | 2019-02-28 08:40 | NUR ---
HELD TUBE FEEDING. RESIDUAL > 200ML.
--- NOTE | 2019-02-28 08:47 | NUR ---
SCREEN FOR LOW GANGA SCALE AT RISK, SKIN INTACT. PRESSURE INJURY PREVENTION INTERVENTIONS IN PLACE. -TURN AND REPOSITION PATIENT Q 2H OFFLOAD SACRALCOCCYX -ASSESS AND MONITOR SKIN CONDITION DURING POSITION CHANGE -OFFLOAD BILATERAL HEELS BY PLACING PILLOWS UNDER CALVES AT ALL TIMES, UNLESS OTHERWISE CONTRAINDICATED -PRESSURE REDISTRIBUTION BY PLACING PILLOWS -KEEP SKIN CLEAN AND DRY AT ALL TIMES.
[2019-02-28] MEDS ORDERED: MAGNESIUM OXIDE 400 MG TAB NG SCH (09:00)
[2019-02-28] MEDS ORDERED: SODIUM PHOS / POTASSIUM PHOS 1 PKT PDR NG SCH (09:00)
[2019-02-28] MEDS ORDERED: DILTIAZEM 30 MG TAB NG SCH ×2 (09:00→13:00)
[2019-02-28] MEDS: VANCOMYCIN 500 MG in DEXTROSE 5% 100 ML IV SCH (09:20)
[2019-02-28] MEDS: ENOXAPARIN 30 MG/0.3 ML SYR SUBQ SCH (09:22)
--- NOTE | 2019-02-28 09:30 | NUR ---
PER DR. CHA'S ORDER CHANGE FLUIDS TO TKO.
--- NOTE | 2019-02-28 09:54 | NUR ---
NO EVIDENCE OF PULMONARY DISTRESS NOTED GOOD CHEST RISE ENDOTRACHEAL TUBE SUCTION FOR SMALL THICK YELLOW SECRETIONS AIRWAY PATENT
--- NOTE | 2019-02-28 10:00 | NUR ---
CONTINUE TO WITHHOLD FEEDING, RESIDUAL = 300ML.
--- NOTE | 2019-02-28 10:15 | NUR ---
XRAY TECHS AT BEDSIDE FOR ORDERED CHEST XRAY.
--- NOTE | 2019-02-28 11:00 | NUR ---
CONTINUE TO WITHHOLD TUBE FEEDING, RESIDUAL >250ML.
[2019-02-28] MEDS ORDERED: DILTIAZEM 30 MG TAB PO SCH (11:15)
[2019-02-28] MEDS: PIPER/TAZO 2.25GM/D5W PREMIX 50 ML IV SCH ×3 (11:27→23:27)
[2019-02-28] MEDS ORDERED: IPRATROPIUM 0.02% 0.5 MG/2.5 ML NEBU INH PRN (11:55)
--- NOTE | 2019-02-28 11:55 | NUR ---
SEDATED RESTING WELL GOOD EQUAL CHEST RISE PATENT AIRWAY
[2019-02-28] MEDS ORDERED: AMIODARONE 150 MG in DEXTROSE 5% 100 ML IV SCH (12:00)
--- NOTE | 2019-02-28 12:00 | NUR ---
TEMPORARILY D/C FENTANYL AND VERSED FOR SEDATION VACATION PER DR. STRONG.
--- NOTE | 2019-02-28 12:00 | NUR ---
CONTINUE TO WITHHOLD TUBE FEEDING, RESIDUAL >200ML.
--- NOTE | 2019-02-28 12:55 | NUR ---
[facility] FOR CONTINUITY OF CARE. PT DOES NOT APPEAR TO BE EXPERIENCING ANY DISCOMFORT AT THIS TIME . EYES ARE CLOSED, FLACC 0, SEDATED RASS -3. FENTANYL RUNNING AT 40 MCG/HR, VERSED AT 4MG/HR. PT HAS RIJ TRIPLE LUMEN CATH. AFEBRILE. SKIN INTACT, DRY AND WARM. PERRL. CAP REFILL <3SEC. LUNG SOUNDS RHONCHI WITH INSPIRATION & EXPIRATION. BREATHING EFFORT/RHYTHM UNLABORED. ETT TO VENT, 23 LIPLINE, ACVC, 24% FI02, 500VT, FLOW 40, RATE 14, PEEP 5. S1S2 HEART SOUNDS, TACHYCARDIC-144. HYPOTENSIVE- 81/53. PULSES PALPABLE BUE/BLE. ABDOMEN ROUND, SOFT, NONTENDER, BOWEL SOUNDS HYPOACTIVE. PT HAS OGT TO FEEDING AT 40ML/HR. CHECKED FOR PLACEMENT, OGT SECURED IN PLACE. CHAUDHARI CATH IN PLACE, CLEAR YELLOW URINE NOTED. NO PERIPHERAL LINES AT THIS TIME. SCD'S IN PLACE. PT HAS GENERALIZED NONPITTING EDEMA. VAP PREVENTION ORAL CARE GIVEN. BED IN LOWEST POSITION WITH SIDERAILS UP. ALL SAFETY CHECKS ASSESSED. WILL CONTINUE TO MONITOR PT. Addendum: 02/28/19 at 1357 by Vera Mckay RN ABOVE WAS A DELAYED ENTRY, CORRECT TIME OF ASSESSMENT 0800
--- NOTE | 2019-02-28 13:00 | NUR ---
CONTINUE TO WITHHOLD TUBE FEEDING, RESIDUAL 180ML.
[2019-02-28] MEDS: IPRATROPIUM 0.02% 0.5 MG/2.5 ML NEBU INH SCH ×2 (13:10→18:48)
--- NOTE | 2019-02-28 13:11 | NUR ---
NO RESPIRATORY DISTRESS NOTED GOOD EQUAL CHEST RISE AIRWAY PATENT
--- NOTE | 2019-02-28 13:15 | NUR ---
DR. GODFREY AWARE THAT PT'S BP DROPPED TO 77/54 AND THE NEED TO INCREASE LEVOPHED DRIP TO 10 MCG/MIN AFTER AMIODARONE BOLUS. BP 80/49 HR [address] GODFREY, CONTINUE WITH AMIODARONE DRIP. ORDER NOTED.
[2019-02-28] MEDS: AMIODARONE 450 MG in DEXTROSE 5% 250 ML IV SCH (13:23)
--- NOTE | 2019-02-28 13:30 | NUR ---
RESUME PT ON FENTANYL AND VERSED. FOR SEDATION VACATION PT IS NOW EYE OPENING, LABORED BREATHING, AND HAVING MINOR EPISODES OF BODY SPASMS.
--- NOTE | 2019-02-28 14:00 | NUR ---
CONTINUE TO WITHHOLD TUBE FEEDING. RESIDUAL >150 ML.
--- NOTE | 2019-02-28 15:04 | NUR ---
CRITICAL LAB VALUE RECEIVED, PT IS POSITIVE FOR E.COLI OF THE URINE AND ESBL MDRO. REPORTED TO . Addendum: 02/28/19 at 1654 by Vera Mckay RN TEST TAKEN 02/26/19 0051.
--- NOTE | 2019-02-28 15:10 | NUR ---
GASTRIC RESIDUAL 30ML. PT TUBE FEEDING IS RESUMED AT 40 ML/HR, WITH 200 ML FLUSH Q4H. PATIENT TOLERATING WELL.
--- NOTE | 2019-02-28 16:26 | NUR ---
SEDATED NO SOB NOTED GOOD EQUAL CHEST RISE ENDOTRACHEAL SUCTION FOR SMALL THIN YELLOW SECRETIONS AIRWAY PATENT
--- NOTE | 2019-02-28 16:30 | NUR ---
PT'S GASTRIC RESIDUAL 250ML, WITHHOLD FEEDING AT THIS TIME. WILL RECHECK RESIDUAL.
[2019-02-28] MEDS: fentaNYL 1 MG in NACL 0.9% 80 ML IV PRN (16:57)
--- NOTE | 2019-02-28 17:30 | NUR ---
CONTINUE TO WITHHOLD PT. FEEDING, RESIDUAL >200ML.
--- NOTE | 2019-02-28 17:32 | NUR ---
SEDATED NO APPARENT SOB NOTED GOOD CHEST RISE BREATH SOUNDS DIFFUSED RHONCHI BILATERAL ENDOTRACHEAL TUBE SUCTION FOR SMALL THICK YELLOW SECRETIONS AIRWAY PATENT OROPHARYHGEAL SUCTION FOR COPIOUS THICK YELLOW SECRETIONS
--- NOTE | 2019-02-28 17:40 | NUR ---
CENTRAL LINE DRESSING CHANGE-RIJ. NO SIGNS OF DISTRESS AT THIS TIME.
--- NOTE | 2019-02-28 18:00 | NUR ---
CONTINUE TO WITHHOLD FEEDING. RESIDUAL >200.
--- NOTE | 2019-02-28 18:56 | NUR ---
RECEIVED INTUBATED PT WITH A 7.5 ETT SECURED @25 TEETH/GUMS ON VENT. SETTINGS AC/VC 14, VT 500, PEEP 5 AND FIO2 24%. PT NOT ALERT AT THIS TIME BUT NOT IN ANY DISTRESS. AIRWAY IS PATENT. VENT IS PLUGGED INTO A RED OUTLET WITH ALARMS ON AND FUNCTIONING. AMBU IS PRESENT NEAR BEDSIDE. WILL CONTINUE TO MONITOR.
--- NOTE | 2019-02-28 19:30 | NUR ---
REPORT GIVEN TO SPLICING TECHNICIAN RN FOR CONTINUITY OF CARE. NO SIGNS OF DISTRESS NOTED AT THIS TIME.
--- NOTE | 2019-02-28 19:31 | NUR ---
RECEIVED REPORT FROM DAY NURSE, NO ACUTE DISTRESS NOTED. WILL CONTINUE TO OBSERVE.
--- NOTE | 2019-02-28 19:45 | NUR ---
PT SEDATED; RASS -3 RESPONDING TO PAINFUL STIMULI, OPENS EYES OCCASSIONALLY, UNABLE TO FOLLOW COMMANDS. 7.5 ETT TO VENT 23CM @ TEETH, AC 24% TV500 R 14 PEEP 5 DIMINISHED BREATH SOUNDS, SCANT WHITE THIN SPUTUM NOTED. AFIB ON MONITOR 110-130, +2 GENERALIZED EDEMA, +3 BILATERAL HANDS. OGT IN PLACE, >200 ML RESIDUAL FROM TUBE FEEDING, ON HOLD; ACTIVE BOWEL SOUNDS. CHAUDHARI CATH IN PLACE, CLEAR YELLOW URINE. BRUISING TO BILATERAL UPPER EXTREMITIES NOTED, BLANCHABLE REDNESS TO BUTTOCKS AREA. TRIPLE LUMEN RIJ IN PLACE, PATENT INTACT. AMIODARONE DRIP INFUSING PER PROTOCOL @ 0.5 MG/MIN, LEVOPHED @ 10 MCG/MIN, FENTANYL DRIP @ 50 MCG/HR AND VERSED DRIP @ 3 MG/HR. SCDS IN PLACE GENERALIZED WEAKNESS NOTED, FLACC 0. BED LOCKED IN LOWEST POSITION, SAFETY PRECAUTIONS IN PLACE. WILL CONTINUE TO OBSERVE.
--- NOTE | 2019-02-28 21:00 | NUR ---
NOTIFIED DR VAUGHN ABOUT HIGH RESIDUALS >150 FROM OGT FEEDINGS AND +2-3 GENERALIZED EDEMA. MD AWARE, NEW MED ORDERS GIVEN FOR LASIX, REGLAN AND COLACE. ALSO INFORMED MD ABOUT CURRENT VITAL SIGNS; PT AFIB 120-130S ON AMIODARONE DRIP. LEVOPHED @ 10 MCG/MIN INFUSING TO KEEP MAP>65. WILL CONTINUE TO OBSERVE.
[2019-02-28] MEDS ORDERED: FUROSEMIDE 20 MG/2 ML VIAL IVP SCH (22:00)
--- NOTE | 2019-02-28 22:25 | NUR ---
RECHECKED OGT RESIDUALS <50 ML NOW. RESUMING TUBE FEEDING. WILL CONTINUE TO OBSERVE.
[2019-03-01] VITALS (106 sets, daily range): BP systolic 86–126; BP diastolic 37–92
[2019-03-01] MEDS ORDERED: AMIODARONE 450 MG/9 ML VIAL IV ONE (00:14)
[2019-03-01] MEDS: AMIODARONE 450 MG in DEXTROSE 5% 250 ML IV SCH ×2 (00:14→15:54)
[2019-03-01] MEDS: MIDAZOLAM MDV 100 MG in NACL 0.9% 80 ML IV PRN (00:15)
--- NOTE | 2019-03-01 00:15 | NUR ---
VAP ORAL CARE DONE. PT TURNED AND REPOSITIONED. VSS. FLACC 0 WILL CONTINUE TO OBSERVE.
[2019-03-01] MEDS: IPRATROPIUM 0.02% 0.5 MG/2.5 ML NEBU INH SCH ×4 (00:51→18:48)
--- NOTE | 2019-03-01 00:56 | NUR ---
PT SUCTIONED OBTAINED SMALL AMOUNT OF THIN CLEAR SECRETIONS, AIRWAY IS PATENT AND ETT IS SECURE.
--- NOTE | 2019-03-01 04:00 | NUR ---
AM CARE DONE, PT TURNED AND REPOSITIONED. WILL CONTINUE TO OBSERVE
--- NOTE | 2019-03-01 04:30 | NUR ---
DECREASED LEVOPHED TO 6 MCG/MIN, MAP>65. WILL CONTINUE TO OBSERVE
--- NOTE | 2019-03-01 05:18 | NUR ---
PT REMAINS ON DOCUMENTED VENT SETTINGS. PT NOT IN ANY DISTRESS AT THIS TIME. VENT ALARMS REMAIN ON AND FUNCTIONING. ETT REMAINS SECURE WITH PATENT AIRWAY.
--- NOTE | 2019-03-01 05:45 | NUR ---
>250 ML RESIDUALS NOTED FROM OGT, PRN REGLAN GIVEN. TUBE FEEDING ON HOLD. NO ACUTE DISTRESS NOTED @ THIS TIME WILL CONTINUE TO OBSERVE
[2019-03-01] MEDS: BLOOD GLUCOSE MONITORING 1 DEV DEV FS SCH ×3 (06:07→17:30)
[2019-03-01] MEDS: PIPER/TAZO 2.25GM/D5W PREMIX 50 ML IV SCH ×3 (06:07→17:07)
[2019-03-01] MEDS: DOCUSATE 100 MG/10 ML UDC GT PRN (06:08)
[2019-03-01] MEDS: PANTOPRAZOLE 40 MG INJ VIAL IVP SCH (06:08)
[2019-03-01] MEDS: LEVOTHYROXINE 0.025 MG TAB PO SCH (06:08)
[2019-03-01] MEDS: METOCLOPRAMIDE 10 MG/2 ML INJ VIAL IVP PRN ×2 (06:08→17:08)
--- NOTE | 2019-03-01 06:28 | NUR ---
DR GODFREY @ BEDSIDE. NOTIFIED DR GODFREY OF HIGH RESIDUALS. MD STATED TO HOLD TUBE FEEDING AND KUB XRAY TO FOLLOW. UPDATED MD REGARDING HR 90-100S TRENDING DOWN THROUGHOUT NIGHT. NO FURTHER ORDERS. WILL CONTINUE TO OBSERVE.
[2019-03-01 06:31] LABS: ANION GAP 22.5 (8-16); CARBON DIOXIDE 16.6 mmol/L (21-32); CHLORIDE 121 mmol/L (98-107); CREATININE 1.7 mg/dL (0.6-1.3); GLUCOSE 95 mg/dL (74-106); POTASSIUM 5.1 mmol/L (3.5-5.1); SODIUM SERUM 155 mmol/L (136-145); UREA NITROGEN, BLOOD 23 mg/dL (7-18)
--- NOTE | 2019-03-01 06:37 | NUR ---
RECEIVED PT ON CARESCAPE, ON DOCUMENTED SETTINGS, ALARMS ARE ON AND AUDIBLE, PTS ET TUBE SIZE 7.5 IS SECURE 25 CM ANCHOR FAST IN PLACE BS CLEAR , PT IN HF ASLEEP HHN GIVEN I\L WITH 0.5 MG ATROVENT, BMV HOB , VENT PLUGGED INTO RED OUTLET Addendum: 03/02/19 at 0802 by Della Penn RT CORRECT LIP LINE IS 21 CM
[2019-03-01 06:38] LABS: MAGNESIUM 2.1 mg/dL (1.8-2.4); PHOSPHORUS 4.5 mg/dL (2.5-4.9)
--- NOTE | 2019-03-01 07:10 | NUR ---
report given to day shift for continuity of care.
--- NOTE | 2019-03-01 07:13 | NUR ---
RECEIVED BEDSIDE REPORT FROM JAILER/TRAINING OFFICER RN, OSCAR, FOR CONTINUITY OF CARE. PATIENT IS SEDATED WITH FENTANYL AND VERSED, RASS -3, GAG REFLEX NOTED. PATIENT SKIN IS COOL, DRY, INTACT W/ DISCOLORATION TO BUE. PATIENT HAS CENTRAL LINE TO RIJ, TLC, ASYMPTOMATIC AND PATENT. SHE HAS ETT TO VENT, SETTINGS ARE AC MODE RATE 14, FIO2 24, TV 500, PEEP 5. BREATHING IS EVEN AND UNLABORED. PATIENT IS SR ON MONITOR, FLACC 0. PATIENT HAS OGT IN PLACE TO FEEDING. PATIENT HAS CHAUDHARI CATHETER IN PLACE TO YELLOW URINE. SAFETY PRECAUTIONS AND ALARMS ASSESSED AND ENFORCED. HOB IS 30 DEGREES, BED LOCKED, SIDE RAILS UP. NO SIGNS OF DISTRESS NOTED. WILL CONTINUE TO MONITOR
--- NOTE | 2019-03-01 07:40 | NUR ---
LACING CUTTER AT BEDSIDE FOR KUB, NO SIGNS OF DISTRESS NOTED.
[2019-03-01] MEDS: NACL 0.45% 1,000 ML IV SCH (07:44)
--- NOTE | 2019-03-01 07:58 | NUR ---
VAP ORAL CARE PROVIDED, PATIENT TOLERATED WELL
--- NOTE | 2019-03-01 08:00 | NUR ---
DR. MCINTYRE AND RESIDENT PHYSICIANS AT BEDSIDE TO ROUND ON PATIENT, UPDATED ON PATIENT'S CONDITION. WILL FOLLOW UP ON ANY ORDERS.
--- NOTE | 2019-03-01 08:27 | NUR ---
DR. REDMOND AND RESIDENT PHYSICIANS AT BEDSIDE, UPDATED ON PATIENT'S CONDITION. WILL FOLLOW UP ON ANY ORDERS.
--- NOTE | 2019-03-01 08:37 | NUR ---
DR. VERGARA IN TO SEE AND EXAMINE PATIENT, UPDATED ON PATIENT'S CONDITION. WILL FOLLOW UP ON ANY ORDERS.
[2019-03-01] MEDS: LACTOBACILLUS RHAMNOSUS GG 1 EACH CAP PO SCH (09:05)
[2019-03-01] MEDS: VANCOMYCIN 500 MG in DEXTROSE 5% 100 ML IV SCH (09:05)
[2019-03-01] MEDS: MEMANTINE 10 MG TAB PO SCH ×2 (09:06→20:36)
[2019-03-01] MEDS: VIT-B COMP/VIT-C/FOLIC ACID 1 TAB PO SCH (09:06)
[2019-03-01] MEDS: ENOXAPARIN 30 MG/0.3 ML SYR SUBQ SCH (09:07)
--- NOTE | 2019-03-01 09:20 | NUR ---
SCHEDULED MEDS ADMINISTERED, PATIENT TOLERATED WELL.
[2019-03-01] MEDS ORDERED: FUROSEMIDE 20 MG/2 ML VIAL IVP SCH (10:00)
--- NOTE | 2019-03-01 10:28 | NUR ---
DR. GODFREY IN TO EXAMINE PATIENT.
[2019-03-01 10:37] LABS: BASOPHILS % (AUTO) 0.1 % (0.0-2.0); HEMATOCRIT 42.9 % (36-48); HEMOGLOBIN 13.9 g/dL (12.0-16.0); LYMPHOCYTES # (AUTO) 1.1 K/uL (2.5-16.5); LYMPHOCYTES % (AUTO) 7.8 % (20.5-51.1); MEAN CORPUSCULAR HEMOGLOBIN 30 pg (27-31); MEAN CORPUSCULAR HGB CONC 33 g/dL (33-37); MEAN CORPUSCULAR VOLUME 90.9 fL (80-94); MONOCYTES # (AUTO) 1.1 K/uL (0.8-1.0); MONOCYTES % (AUTO) 7.9 % (1.7-9.3); NEUTROPHILS # (AUTO) 11.8 K/uL (1.8-7.7); NEUTROPHILS % (AUTO) 84.2 % (42.2-75.2); PLATELET COUNT (AUTO) 265 K/uL (140-450); RED BLOOD CELL COUNT(AUTO) 4.72 MIL/uL (4.20-5.40); RED CELL DISTRIBUTION WIDTH 14.4 % (11.6-13.7)
--- NOTE | 2019-03-01 11:01 | NUR ---
CHAUDHARI CATHETER CARE PROVIDED, PATIENT TOLERATED WELL.
--- NOTE | 2019-03-01 11:24 | NUR ---
ORAL CARE PROVIDED, PATIENT TOLERATED WELL. NO SIGNS OF DISTRESS NOTED.
--- NOTE | 2019-03-01 13:25 | NUR ---
PATIENT TURNED AND REPOSITIONED, TOLERATED WELL. 75 ML RESIDUAL NOTED FROM OGT.
--- NOTE | 2019-03-01 15:52 | NUR ---
03/01/19 RD FOLLOW UP COMPLETED PLEASE REFER TO NUTRITION ASSESSMENT UNDER CARE ACTIVITY FOR ESTIMATED NUTRITIONAL NEEDS. 1. RECOMMEND VITAL AT 55 ML/HR -THIS WILL PROVIDE 1320ML TOTAL VOLUME, 1584 KCAL, 99 GM OF PROTEIN. IT WILL MEET 100% OF ESTIMATED ENERGY NEEDS AND 100% OF ESTIMATED PROTEIN NEEDS. 2. RECOMMEND 80 ML FWF Q4H 3. WHEN PT IS MEDICALLY STABLE TO RECEIVE NUTRITION, RECOMMEND A REGULAR DIET WITH TEXTURE AND LIQUID CONSISTENCY SUGGESTED BY SWALLOW EVAL 4. RD TO FOLLOW-UP 2-3 DAYS, HIGH RISK JEREMIAS RAMOS RD
--- NOTE | 2019-03-01 16:05 | NUR ---
VAP ORAL CARE PROVIDED, PATIENT TOLERATED WELL.
--- NOTE | 2019-03-01 16:41 | NUR ---
200ML RESIDUAL NOTED FROM OGT, TUBE FEEDING HELD AT THIS TIME. WILL CHECK RESIDUAL IN 1 HR.
[2019-03-01] MEDS: FUROSEMIDE 40 MG/4 ML VIAL IVP SCH (17:08)
[2019-03-01] MEDS: fentaNYL 1 MG in NACL 0.9% 80 ML IV PRN (17:19)
--- NOTE | 2019-03-01 17:33 | NUR ---
SCHEDULED MEDS ADMINISTERED, PATIENT TOLERATED WELL.
--- NOTE | 2019-03-01 18:11 | NUR ---
100ML RESIDUAL NOTED, STARTED PATIENT BACK ON TUBE FEEDING.
[2019-03-01 18:21] LABS: ANION GAP 15.9 (8-16); CARBON DIOXIDE 18.8 mmol/L (21-32); CHLORIDE 108 mmol/L (98-107); CREATININE 1.8 mg/dL (0.6-1.3); GLUCOSE 136 mg/dL (74-106); POTASSIUM 3.7 mmol/L (3.5-5.1); SODIUM SERUM 139 mmol/L (136-145); UREA NITROGEN, BLOOD 24 mg/dL (7-18)
--- NOTE | 2019-03-01 19:02 | NUR ---
ENDORSED CONTINUITY OF CARE TO LICENSED ELECTRICIAN RNOSCAR. NO SIGNS OF DISTRESS AT THIS TIME
--- NOTE | 2019-03-01 19:48 | NUR ---
PT HAS EYES CLOSED; +3 SLUGGISH PERRL, SEDATED; RASS -3 RESPONDING TO PAINFUL STIMULI, OPENS EYES OCCASSIONALLY, UNABLE TO FOLLOW COMMANDS @ THIS TIME. 7.5 ETT TO VENT 23CM @ TEETH, AC 24% TV500 R 14 PEEP 5 DIMINISHED BREATH SOUNDS, SCANT WHITE THIN SPUTUM NOTED. NSR 70-80S WITH FREQUENT WITH PACS, +2-3 GENERALIZED EDEMA. OGT IN PLACE, TUBE FEEDING RUNNING @ 55ML/HR ACTIVE BOWEL SOUNDS. CHAUDHARI CATH IN PLACE, CLEAR YELLOW URINE. BRUISING TO BILATERAL UPPER EXTREMITIES NOTED, BLANCHABLE REDNESS TO BUTTOCKS AREA. TRIPLE LUMEN RIJ IN PLACE, PATENT INTACT. AMIODARONE DRIP INFUSING PER MD ORDER @ 0.5 MG/MIN, LEVOPHED @ 3 MCG/MIN, FENTANYL DRIP @ 50 MCG/HR AND VERSED DRIP @ 1 MG/HR. SCDS IN PLACE GENERALIZED WEAKNESS NOTED, FLACC 0. BED LOCKED IN LOWEST POSITION, SAFETY PRECAUTIONS IN PLACE. WILL CONTINUE TO OBSERVE.
[2019-03-01] MEDS ORDERED: FUROSEMIDE 20 MG/2 ML VIAL IVP ONE (20:05)
--- NOTE | 2019-03-01 20:05 | NUR ---
DR VAUGHN @ BEDSIDE; NEW ORDERS GIVEN. AMIODARONE DRIP D/C'D PT TO START PO AMIODARONE THIS EVENING, LASIX X1 ORDERED.
--- NOTE | 2019-03-01 20:25 | NUR ---
12 LEAD EKG DONE
[2019-03-01] MEDS: AMIODARONE 200 MG TAB PO SCH (21:16)
[2019-03-02] VITALS (102 sets, daily range): BP systolic 81–139; BP diastolic 31–106
--- NOTE | 2019-03-02 00:12 | NUR ---
PT TURNED REPOSITIONED, VAP ORAL CARE DONE. NO ACUTE DISTRESS. WILL CONTINUE TO OBSERVE
[2019-03-02] MEDS: BLOOD GLUCOSE MONITORING 1 DEV DEV FS SCH ×5 (00:28→23:20)
[2019-03-02] MEDS: PIPER/TAZO 2.25GM/D5W PREMIX 50 ML IV SCH ×5 (00:30→23:20)
[2019-03-02] MEDS: IPRATROPIUM 0.02% 0.5 MG/2.5 ML NEBU INH SCH ×4 (01:00→18:40)
--- NOTE | 2019-03-02 03:45 | NUR ---
AM CARE DONE, LINEN CHANGED. PT TURNED REPOSITIONED. VAP ORAL CARE DONE. PT OPENING EYES, UNABLE TO FOLLOW COMMANDS. NO ACUTE DISTRESS NOTED. WILL CONTINUE TO OBSERVE.
[2019-03-02] MEDS: LEVOTHYROXINE 0.025 MG TAB PO SCH (05:57)
[2019-03-02] MEDS: PANTOPRAZOLE 40 MG INJ VIAL IVP SCH (05:57)
--- NOTE | 2019-03-02 06:24 | NUR ---
DR GODFREY @ BEDSIDE. UPDATED MD ABOUT PT CONDITION. NO ACUTE DISTRESS WILL CONTINUE TO OBSERVE.
--- NOTE | 2019-03-02 06:29 | NUR ---
REC'D PT ON CARESCAPE VENT SETTINGS AC14VT 500 PEEP 5 FIO2 24% ALARM ON AND AUDIBLE, AMBU BAG AT HOB AND VENT IS PLUGGED INTO RED OUTLET, I\L TX GIVEN WITH ATROVENT 0.5MG WITH NO ADVERSE REACTION POST TX B\S ARE CLEAR BILATERALLY, SXN PT SMALL AMT OF THIN YELLOW SECRETIONS PT IS ORALLY INTUBATED WITH 7.5 ET TUBE SECURED WITH ANCHOR FAST AT 21 CM AT LIP AND SKIN INTEGRITY IS INTACT PT IS RESTING WITH NO SIGNS OF DISTRESS NOTED
[2019-03-02 06:30] LABS: BASOPHILS % (AUTO) 0.3 % (0.0-2.0); EOSINOPHILS # (AUTO) 0.2 K/uL (0-0.4); EOSINOPHILS % (AUTO) 1.7 % (0.0-4.0); HEMATOCRIT 38.4 % (36-48); HEMOGLOBIN 12.7 g/dL (12.0-16.0); LYMPHOCYTES # (AUTO) 1.1 K/uL (2.5-16.5); LYMPHOCYTES % (AUTO) 10.5 % (20.5-51.1); MEAN CORPUSCULAR HEMOGLOBIN 30 pg (27-31); MEAN CORPUSCULAR HGB CONC 33 g/dL (33-37); MEAN CORPUSCULAR VOLUME 89.9 fL (80-94); MONOCYTES # (AUTO) 0.9 K/uL (0.8-1.0); MONOCYTES % (AUTO) 8.5 % (1.7-9.3); NEUTROPHILS # (AUTO) 8.6 K/uL (1.8-7.7); PLATELET COUNT (AUTO) 239 K/uL (140-450); RED BLOOD CELL COUNT(AUTO) 4.28 MIL/uL (4.20-5.40); RED CELL DISTRIBUTION WIDTH 14.1 % (11.6-13.7); WHITE BLOOD COUNT (AUTO) 10.9 K/uL (4.8-10.8)
[2019-03-02 06:51] LABS: ALBUMIN 1.8 g/dL (3.4-5.0); ANION GAP 13.7 (8-16); ASPARTATE AMINOTRANSFERASE 803 U/L (15-37); CARBON DIOXIDE 22.3 mmol/L (21-32); CHLORIDE 109 mmol/L (98-107); CREATININE 1.7 mg/dL (0.6-1.3); GLUCOSE 143 mg/dL (74-106); MAGNESIUM 1.7 mg/dL (1.8-2.4); PHOSPHORUS 2.9 mg/dL (2.5-4.9); SODIUM SERUM 142 mmol/L (136-145); TOTAL BILIRUBIN 0.4 mg/dL (0.0-1.0); UREA NITROGEN, BLOOD 25 mg/dL (7-18)
--- NOTE | 2019-03-02 07:25 | NUR ---
REPORT GIVEN TO DAY SHIFT FOR CONTINUITY OF CARE.
--- NOTE | 2019-03-02 07:26 | NUR ---
RECEIVED REPORT FROM CHEESE CUTTER NURSE AT BEDSIDE, PT IS SEDATED, RASS -3, VSS, FLACC 0, ETT TO VENT WITH FIO2 24, TV 500, R 14, PEEP 5, CLEAR LUNG SOUNDS LENI, O2 SAT AT 99%, SR WITH PAC'S ON PLANT AND MACHINERY VALUER, SOFT ABDOMEN WITH ACTIVE BOWEL SOUNDS, OGT IN PLACE, 400ML RESIDUALS, MD AWARE, HOLD TUBE FEEDING AT THIS TIME, F/C IN PLACE WITH CLEAR YELLOW VIA GRAVITY, SKIN IS WARM AND DRY TO TOUCH, INTACT, PITTING EDEMA NOTED TO ALL EXTREMITIES, CENTRAL LINE TO RIJ, TLC, PATENT, RUNNING VERSED AT 1MG/HR, FENTANYL AT 50MCG/MIN, AND LEVOPHED AT 3MCG/MIN. HOB ELEVATED TO 30 DEGREES, ORAL CARE PROVIDED, SCD ON, SAFETY MEASURES IN PLACE, POSITION CHANGED FOR OFF LOAD PRESSURE, WILL CONTINUE TO MONITOR.
[2019-03-02] MEDS: NACL 0.9% 500 ML IV SCH (08:00)
--- NOTE | 2019-03-02 08:00 | NUR ---
DR. REDMOND CAME IN TO SEE PT AT BEDSIDE, UPDATED PT'S CONDITION, WILL FOLLOW UP WITH NEW ORDERS.
[2019-03-02] MEDS ORDERED: MAGNESIUM OXIDE 400 MG TAB NG SCH (08:30)
[2019-03-02] MEDS: FUROSEMIDE 40 MG/4 ML VIAL IVP SCH ×2 (08:47→17:29)
[2019-03-02] MEDS: VIT-B COMP/VIT-C/FOLIC ACID 1 TAB PO SCH (08:48)
[2019-03-02] MEDS: AMIODARONE 200 MG TAB PO SCH ×2 (08:48→20:28)
[2019-03-02] MEDS: MEMANTINE 10 MG TAB PO SCH ×2 (08:48→20:29)
[2019-03-02] MEDS: LACTOBACILLUS RHAMNOSUS GG 1 EACH CAP PO SCH (08:48)
[2019-03-02] MEDS: ENOXAPARIN 30 MG/0.3 ML SYR SUBQ SCH (08:50)
[2019-03-02] MEDS: VANCOMYCIN 500 MG in DEXTROSE 5% 100 ML IV SCH (08:59)
[2019-03-02] MEDS ORDERED: POTASSIUM CHLORIDE 40 MEQ, LIDOCAINE MPF 1% - 5 mL VIAL 25 MG in NACL 0.9% 250 ML IV SCH (09:00)
[2019-03-02] MEDS ORDERED: POTASSIUM CHLORIDE 20% 40 MEQ/15 ML UDC PO SCH (09:00)
--- NOTE | 2019-03-02 09:00 | NUR ---
SCHEDULED MEDICATION GIVEN, PT TOLERATED WELL.
--- NOTE | 2019-03-02 10:00 | NUR ---
NO CHANGE OF CONDITION AT THIS TIME, VSS, FLACC 0, POSITION CHANGED FOR OFF LOAD PRESSURE.
[2019-03-02] MEDS: NOREPINEPHRINE 16 MG in DEXTROSE 5% 250 ML IV PRN ×2 (11:05→19:54)
--- NOTE | 2019-03-02 12:00 | NUR ---
NO S/S OF DISTRESS, VSS, FLACC 0, ORAL CARE PROVIDED, POSITION CHANGED FOR OFF LOAD PRESSURE.
--- NOTE | 2019-03-02 12:55 | NUR ---
DR. VERGARA CAME IN TO SEE PT AT BEDSIDE, STOPPED THE VERSED AND FENTANYL DRIP, RT AT BEDSIDE, WILL TRY FOR C-PAP LATER, IF COULD NOT TOLERATED, SEDATED WITH PROPOFOL, WILL FOLLOW UP WITH NEW ORDERS.
[2019-03-02 13:03] LABS: CARBON DIOXIDE 25.2 mmol/L (21-32); CHLORIDE 112 mmol/L (98-107); CREATININE 1.7 mg/dL (0.6-1.3); GLUCOSE 128 mg/dL (74-106); POTASSIUM 4.2 mmol/L (3.5-5.1); SODIUM SERUM 145 mmol/L (136-145); UREA NITROGEN, BLOOD 25 mg/dL (7-18)
[2019-03-02] MEDS ORDERED: PROPOFOL 1000 MG/100 ML PREMIX 100 ML IV PRN (13:05)
--- NOTE | 2019-03-02 14:13 | NUR ---
PT BACK ON AC MODE DUE TO LOW MV SHIV CELAYA NOTIFIED
--- NOTE | 2019-03-02 14:15 | NUR ---
PER RT, PT WAS ON CPAP 4 MINS, COULD NOT TOLERATED, BACK ON AC MODE AGAIN, PT IS STILL LETHARGIC AT THIS TIME, VSS, FLACC 0, WILL CONTINUE TO MONITOR.
--- NOTE | 2019-03-02 16:00 | NUR ---
PM CARE AND F/C PROVIDED, ORAL CARE PROVIDED, SUCTION A LOT OF YELLOW MUCOUS NOTED, PT IS MORE AWARE, BUT NOT FOLLOW COMMANDS, POSITION CHANGED FOR OFF LOAD PRESSURE.
--- NOTE | 2019-03-02 16:05 | NUR ---
OGT CHECKING NO RESIDUALS AT THIS CYNTHIA, BACK ON TUBE FEEDING, STARTED WITH 20 ML/HR. DR. RONQUILLO.
--- NOTE | 2019-03-02 16:45 | NUR ---
PT IS BITING THE TUBES, ELEVATED HR, AND RR, START ON PROPOFOL DRIP, 90 KG DRY WEIGHT USED ON PUMP.
[2019-03-02] MEDS: PROPOFOL 1000 MG/100 ML PREMIX 100 ML IV PRN (16:47)
--- NOTE | 2019-03-02 18:00 | NUR ---
PT IS RESTING IN BED, NO S/S OF DISTRESS, VSS, FLACC 0, POSITION CHANGED FOR OFF LOAD PRESSURE.
--- NOTE | 2019-03-02 19:10 | NUR ---
RECEIVED PATIENT ENDOTRACHEALLY INTUBATED WITH 7.5 ETT AT 21 CM AT TEETH LINE. AIRWAY SECURE AND PATENT. SUCTIONED SMALL AMOUNT OF THICK, YELLOW/PINK TINGED SECRETIONS. VENT CHECK DONE. VENT PLUGGED INTO RED OUTLET. VENT ALARMS ON AND AUDIBLE. AMBU BAG AT [facility]. SCHEDULED BREATHING TREATMENT ADMINISTERED. TOLERATED TX WELL. NO ADVERSE SIDE EFFECTS. ORAL CARE DONE. SUCTION ADRIAN AND HME CHANGED. NO RESPIRATORY DISTRESS NOTED AT THIS TIME. WILL CONTINUE TO MONITOR.
--- NOTE | 2019-03-02 19:17 | NUR ---
REPORT GIVEN TO MILITARY SOURCE OPERATIONS SPECIALIST NURSE FOR CONTINUE OF CARE, PT IS IN STABLE CONDITION AT THIS TIME.
--- NOTE | 2019-03-02 19:20 | NUR ---
RECEIVED BEDSIDE REPORT FROM DAY SHIFT RN YOMI, PATIENT ON CONTACT ISOLATION ESBL/MDRO OF URINE. INTUBATED AND VENTILATED, HOB AT 30 DEGREES, 22 CM NOTED ON INTUBATION TUBING, ORAL CARE PROVIDED, SCANT BLEEDING SEEN, FIO2 24%, VT 500, RR 14, PMAX 40, PEEP 5, FLOW MAX 40, ON ASSISTED CONTROLLED, O2SAT 99%, RR 20, EVEN AND NON LABORED. OG-TUBE IN PLACE INFUSING VITAL AF AT 20 ML/HR WITH H20 FLUSH OF 150 ML Q4H, 20 ML RESIDUALS ASPIRATED. RIGHT IJ, TRIPLE LUMEN, DRESSING INTACT, INFUSING PROPOFOL AT 5 MCG/MIN, DRY WEIGHT 90 KG, RASS -3, LEVOPHED INFUSING AT 4 MCG/MIN, BP 107/49 HR 129 MAP 63. GENERALIZED EDEMA NOTED, LARGE ECCHYMOSIS BRUISE ON RIGHT AC, CHAUDHARI CATH IN PLACE DRAINING CLEAR YELLOW URINE AT 400 ML. REPOSITIONED FOR COMFORT.
--- NOTE | 2019-03-02 19:54 | NUR ---
STARTED NEW BAG LEVOPHED DRIP INFUSING IN RIGHT IJ, MAINTAINING AT 4 MCG/MIN. BP 107/55 HR 122 O2SAT 98%
--- NOTE | 2019-03-02 20:28 | NUR ---
SCHEDULED MEDICATIONS GIVEN, RESIDUALS AT 20 ML.
--- NOTE | 2019-03-02 20:30 | NUR ---
BP 128/69 MAP 86 HR 126, A-FIB ON MONITOR
--- NOTE | 2019-03-02 23:40 | NUR ---
BG 113, DUE ZOSYN GIVEN INFUSING AT 100 ML IN RIGHT IJ. RESIDUALS 0, INCREASED TUBE FEEDING TO 30 ML/HR WITH H20 FLUSH 80 ML Q4H. EMPTED 2000 ML FORM CHAUDHARI, CLEAR, YELLOW URINE. CHAUDHARI CARE PROVED. BP 100/69 MAP 88 HR 125.
[2019-03-03] VITALS (107 sets, daily range): BP systolic 85–143; BP diastolic 38–94
--- NOTE | 2019-03-03 01:17 | NUR ---
BP 97/85 MAP 73 HR 121
[2019-03-03] MEDS: IPRATROPIUM 0.02% 0.5 MG/2.5 ML NEBU INH SCH ×4 (01:31→19:12)
--- NOTE | 2019-03-03 03:05 | NUR ---
RESIDUALS AT 5 ML INCREASED TO 40 ML TUBE FEEDING.
--- NOTE | 2019-03-03 04:16 | NUR ---
AM CARES PROVIDED, MAXIMUM ASSIST X2, PT TOLERATED WELL. NO BM AT THIS TIME. RASS -3 MAINTAINED, VAP ORAL CARE AND SUCTIONING PROVIDED X1, THICK WHITE/YELLOW SECRETIONS NOTED. RT JUNIOR AWARE. URINE IS CLEAR/ YELLOW. HOB ELEVATED ABOVE 30 DEG. PROPOFOL AT 5MCG/MIN, AND LEVOPHED AT 2MCG/MIN.
--- NOTE | 2019-03-03 04:45 | NUR ---
CHANGED TUBE FEEDINGS INFUSING AT 55 ML/HR RESIDUALS AT 0 ML. CHANGED PROPOFOL TUBING, INFUSING AT 5 MCG/MIN.
--- NOTE | 2019-03-03 06:00 | NUR ---
BLOOD GLUCOSE 102, DUE MEDICATIONS GIVEN, EMPTIED 1000 CLEAR YELLOW URINE FROM CHAUDHARI.
[2019-03-03 06:04] LABS: ANION GAP 12.2 (8-16); CHLORIDE 110 mmol/L (98-107); CREATININE 1.6 mg/dL (0.6-1.3); GLUCOSE 109 mg/dL (74-106); POTASSIUM 3.2 mmol/L (3.5-5.1); SODIUM SERUM 145 mmol/L (136-145); UREA NITROGEN, BLOOD 24 mg/dL (7-18)
[2019-03-03] MEDS: PANTOPRAZOLE 40 MG INJ VIAL IVP SCH (06:04)
[2019-03-03] MEDS: LEVOTHYROXINE 0.025 MG TAB PO SCH (06:04)
[2019-03-03] MEDS: PIPER/TAZO 2.25GM/D5W PREMIX 50 ML IV SCH ×4 (06:04→23:08)
[2019-03-03] MEDS: BLOOD GLUCOSE MONITORING 1 DEV DEV FS SCH ×2 (06:08→12:08)
[2019-03-03] MEDS: PROPOFOL 1000 MG/100 ML PREMIX 100 ML IV PRN ×2 (06:08→18:49)
--- NOTE | 2019-03-03 06:08 | NUR ---
STARTED NEW BOTTLE PROPOFOL INFUSING @ 5 MCG IN RIGHT IJ, RASS -3. VSS.
[2019-03-03] MEDS: NACL 0.9% 500 ML IV SCH (06:09)
[2019-03-03 06:13] LABS: BASOPHILS % (AUTO) 0.2 % (0.0-2.0); EOSINOPHILS # (AUTO) 0.2 K/uL (0-0.4); EOSINOPHILS % (AUTO) 1.8 % (0.0-4.0); HEMATOCRIT 37.3 % (36-48); HEMOGLOBIN 12.3 g/dL (12.0-16.0); LYMPHOCYTES # (AUTO) 1.2 K/uL (2.5-16.5); LYMPHOCYTES % (AUTO) 13.1 % (20.5-51.1); MEAN CORPUSCULAR HEMOGLOBIN 29 pg (27-31); MEAN CORPUSCULAR HGB CONC 33 g/dL (33-37); MEAN CORPUSCULAR VOLUME 89.1 fL (80-94); MONOCYTES # (AUTO) 1.1 K/uL (0.8-1.0); MONOCYTES % (AUTO) 11.9 % (1.7-9.3); NEUTROPHILS # (AUTO) 6.8 K/uL (1.8-7.7); PLATELET COUNT (AUTO) 251 K/uL (140-450); RED BLOOD CELL COUNT(AUTO) 4.19 MIL/uL (4.20-5.40); RED CELL DISTRIBUTION WIDTH 14.1 % (11.6-13.7); WHITE BLOOD COUNT (AUTO) 9.3 K/uL (4.8-10.8)
[2019-03-03 06:15] LABS: MAGNESIUM 1.8 mg/dL (1.8-2.4)
--- NOTE | 2019-03-03 06:30 | NUR ---
CALL FROM PHARMACY REGARDING K RIDER WITH LIDOCAINE. CANT BE GIVEN DUE TO PHARMACY NOT OPEN UNTIL 0[address]. CALL[address] ROWELL, EXPLAINED SITUATION, TOLD THEY WILL CHANGE ORDER.
--- NOTE | 2019-03-03 07:00 | NUR ---
POTASSIUM NOT VERIFIED WILL ENDORSE TO DAY SHIFT NURSE
--- NOTE | 2019-03-03 07:10 | NUR ---
RECEIVED INTUBATED PT WITH A 7.5 ETT SECURED @21 TEETH/GUMS ON VENT. SETTINGS AC/VC 14, VT 500, PEEP 5 AND FIO2 24%. PT NOT ALERT AT THIS TIME BUT NOT IN ANY DISTRESS. AIRWAY IS PATENT. VENT IS PLUGGED INTO A RED OUTLET WITH ALARMS ON AND FUNCTIONING. AMBU IS PRESENT NEAR BEDSIDE. WILL CONTINUE TO MONITOR.
--- NOTE | 2019-03-03 07:29 | NUR ---
ENDORSED PATIENT TO DAY SHIFT NURSE FOR CONTINUITY OF CARE.
--- NOTE | 2019-03-03 07:30 | NUR ---
RECEIVED REPORT FROM [facility] NURSE FISHER.
[2019-03-03] MEDS ORDERED: POTASSIUM CHLORIDE 40 MEQ, LIDOCAINE MPF 1% - 5 mL VIAL 25 MG in NACL 0.9% 250 ML IV SCH (08:00)
--- NOTE | 2019-03-03 08:00 | NUR ---
RECEIVED REPORT FROM NIGHT TIME BABYSITTER NURSE NATALIA. PT IS SEDATED RASS -3 ON PROPOFOL @ 5 MCG/MIN. DRY WEIGHT IS 90 KG. PT SEEMS TO BE IN NO DISTRESS AT THIS TIME, SKIN IS WARM AND DRY AND INTACT, RIGHT SIDE BRUISING BY AC. PUPILS PERRL-SLUGGISH, PT IS SLIGHTLY AROUSED TO STIMULATION (SUCTION, ORAL CARE, POSITIONING). AFEBRILE, HR-113, 02-99%, RR-14, BP-87/45, FLACC 0. PT HAS CLEAR LUNG SOUNDS AND 7.5 ETT TO VENT AT 21 TEETH LINE. ACVC 14, FI02 24%, VT 500, RATE 14, PEEP 5. S1S2 HEARD. BILATERAL PULSES UPPER & LOWER EXTREMITIES, CAP REFILL <3 SECS, ABDOMEN ROUND AND SOFT, NONTENDER, HYPOACTIVE BOWEL SOUNDS, PATIENT HAS CHAUDHARI CATHETER, CLEAR YELLOW URINE. PT HAS GENERALIZED EDEMA, LEFT ARM IS SEEPING/OOZING OUT FLUIDS. PT HAS TRIPLE LUMEN RIJ. LEVOPHED 2 MCG/MIN, NS 10ML/HR. OGT TO FEEDING AT 55 ML AND 80 ML FLUSH Q4H. PLACEMENT CHECKED AND CONFIRMED BY AUSCULATION . BED RAILS ARE UP, BED IN LOWEST POSITION, HOB ELEVATED AT 30 DEGREES. WILL CONTINUE TO MONITOR PT.
[2019-03-03] MEDS: ENOXAPARIN 30 MG/0.3 ML SYR SUBQ SCH (08:11)
[2019-03-03] MEDS: VIT-B COMP/VIT-C/FOLIC ACID 1 TAB PO SCH (08:11)
[2019-03-03] MEDS: LACTOBACILLUS RHAMNOSUS GG 1 EACH CAP PO SCH (08:11)
[2019-03-03] MEDS: MEMANTINE 10 MG TAB PO SCH ×2 (08:12→20:06)
[2019-03-03] MEDS: FUROSEMIDE 40 MG/4 ML VIAL IVP SCH ×2 (08:12→16:28)
[2019-03-03] MEDS: SODIUM PHOS / POTASSIUM PHOS 1 PKT PDR NG SCH ×2 (08:12→20:05)
[2019-03-03] MEDS: AMIODARONE 200 MG TAB PO SCH ×2 (08:13→20:05)
--- NOTE | 2019-03-03 10:30 | NUR ---
PATIENT OFF PROPOFOL FOR SEDATION VACATION PER JAI. WILL CONTINUE TO MONITOR PT.
--- NOTE | 2019-03-03 10:33 | NUR ---
PT OFF SEDATION AND PLACED ON 30 MIN SBT, CPAP 5 PS 10 FIO2 24%. WILL CONTINUE TO MONITOR AND WILL OBTAIN WEANING PARAMETERS.
--- NOTE | 2019-03-03 10:59 | NUR ---
03/03/19 RD FOLLOW UP COMPLETED PLEASE REFER TO NUTRITION ASSESSMENT UNDER CARE ACTIVITY FOR ESTIMATED NUTRITIONAL NEEDS. 1. CONTINUE VITAL AT 55 ML/HR -THIS WILL PROVIDE 1320ML TOTAL VOLUME, 1584 KCAL, 99 GM OF PROTEIN. IT WILL MEET 100% OF ESTIMATED ENERGY NEEDS AND 100% OF ESTIMATED PROTEIN NEEDS. 2. CONTINUE 80 ML FWF Q4H 3. WHEN PT IS MEDICALLY STABLE TO RECEIVE NUTRITION, RECOMMEND A REGULAR DIET WITH TEXTURE AND LIQUID CONSISTENCY SUGGESTED BY SWALLOW EVAL 4. RD TO FOLLOW-UP 2-3 DAYS, HIGH RISK JEREMIAS RAMOS RD
--- NOTE | 2019-03-03 11:35 | NUR ---
PHONED DR. ROWELL ABOUT PT's CONDITION ONE HOUR AFTER D/C PROPOFOL, HR REMAINS THE SAME-120'S, BP 129/54 AND SATURATION 100. CONTINUE TO KEEP OFF PROPOFOL PER DR. ROWELL. WILL CONTINUE TO MONITOR PT.
--- NOTE | 2019-03-03 11:50 | NUR ---
PT 30 MIN SBT BECAME TACHYPNEIC WITH INADEQUATE WEANING PARAMETERS. PT OFF SEDATION UNABLE TO OPEN EYES OR FOLLOW COMMANDS. NURSE AWARE.
--- NOTE | 2019-03-03 12:44 | NUR ---
notified dr. dorantes, notified pt BS 153, per dr. Dorantes, we do not have to given humalog, she will d/c BS check.
--- NOTE | 2019-03-03 13:45 | NUR ---
BACK ON PROPOFOL @ 5MCG/MIN, PT IS STILL LETHARGIC, CANNOT OPEN EYES BUT SLUGGISHLY TRACKING, HEART RATE ELEVATED TO 149, 02SAT-77%, PT IS COUGHING, HAD TO SUCTION A LOT OF SECRETIONS, PT BITING TUBE. WILL CONTINUE TO MONITOR PT.
--- NOTE | 2019-03-03 14:15 | NUR ---
DR. TREVINO AND DR. ROWELL IN TO SEE PATIENT, WILL SWITCH OFF LEVOPHED TO MITRA-SYNEPHRINE AND WILL CONTINUE ON PROPOFOL BUT WILL START SEDATION VACATION EARLY 03/04/19. WILL START NEW ORDERS.
[2019-03-03] MEDS ORDERED: PHENYLEPHRINE 10 MG in NACL 0.9% 250 ML IV PRN (15:00)
--- NOTE | 2019-03-03 15:32 | NUR ---
PT SEDATED AT THIS TIME NOT IN ANY DISTRESS. WILL CONTINUE TO MONITOR.
--- NOTE | 2019-03-03 15:45 | NUR ---
PT OFF LEVOPHED PER ORDER.
--- NOTE | 2019-03-03 16:30 | NUR ---
PT STARTED ON MITRA-SYNEPHRINE @ 50 MCG/MIN FOR DROP IN BLOOD PRESSURE. WILL CONTINUE TO MONITOR.
[2019-03-03] MEDS ORDERED: PHENYLEPHRINE 40 MG in NACL 0.9% 250 ML IV PRN (16:50)
--- NOTE | 2019-03-03 17:24 | NUR ---
PT REMAINS ON DOCUMENTED VENT SETTINGS. ETT IS SECURE WITH A PATENT AIRWAY. VENT ALARMS ON AND FUNCTIONING. PT IS SEDATED AT THIS TIME NOT IN ANY DISTRESS.
--- NOTE | 2019-03-03 19:00 | NUR ---
PT RECEIVED FROM DAY SHIFT ON MECHANICAL VENTILATOR WITH SETTINGS VC-AC RR:14, VT: 500, PEEP:5, FIO2:24%. PT INTUBATED WITH A 7.5 ETT SECURED ON THE RIGHT SIDE WITH ANCHORFAST AT 21 CM LIP LINE, LEFT SIDE OF MOUTH. AIRWAY IS PATENT AND SECURE. PT IS SEDATED AND IS IN NO DISTRESS AT THIS TIME. TX WAS GIVEN INLINE PER ORDER WITH 0.5 MG UD ATROVENT VIA NEBULIZER. BREATH SOUNDS ARE COURSE/RHONCHI BILATERALLY. AIRWAY SUCTIONED WITH SMALL SCANT CLEAR/WHITE SECRETIONS RETURNED. VENT IS PLUGGED INTO RED OUTLET. WILL CONTINUE TO MONITOR PT. Addendum: 03/03/19 at 5 by Luis Ty RT ALARMS ARE SET APPROPRIATELY AND AUDIBLE.
--- NOTE | 2019-03-03 19:05 | NUR ---
ENDORSED CARE TO FUR TAILOR NURSE NATALIA.
--- NOTE | 2019-03-03 19:30 | NUR ---
RECEIVED REPORT FROM MORNING RN, YOMI/RAZ, FOR CONTINUITY OF CARE. VS STABLE AT THIS TIME. AFEBRILE. FLACC 0. RASS -3. PT DOES NOT APPEAR TO BE EXPERIENCING ANY DISCOMFORT AT THIS TIME. EYES ARE CLOSED WITH HOB AT 30 DEGREES. PT SEDATED WITH PROPOFOL DRIP RUNNING AT 5MCG/KG/MIN. CURRENT DRY WT 90KG. PERRL. LUNG SOUNDS CLEAR. ETT TO VENT WITH SETTINGS AC14, FIO2 24%, VT 500, AND PEEP 5. RESPIRATIONS ARE EVEN AND UNLABORED. NO SIGNS OF RESPIRATORY DISTRESS NOTED. S1+S2 HEARD. AFIB ON MONITOR. PULSES ARE PALPABLE IN ALL EXTREMITIES. ABDOMEN ROUND, SOFT AND NONDISTENDED. BS ACTIVE. OGT IN PLACE. PLACEMENT CHECKED. OGT SECURED IN PLACE. RECEIVED PT WITH VITAL AF RUNNING AT 55ML/HR. RESIDUAL CHECKED AND ASPIRATED 10ML. RECEIVED PT WITH RIGHT IJ CENTRAL LINE THAT PATENT, INTACT AND ASYMPTOMATIC. PT HAS 0.9% NS AT 10ML/HR. HOB 30 DEGREES. CHAUDHARI CATHETER IS IN PLACE. URINE IS CLEAR AND YELLOW. ALL SAFETY PRECAUTIONS ARE IN PLACE. PT TURNED AND REPOSITIONED. BED AT LOWEST POSSIBLE POSITION. WILL CONTINUE TO MONITOR PT.
--- NOTE | 2019-03-03 21:18 | NUR ---
NO CHANGE IN PT'S CONDITION AT THIS TIME. VS REMAINS STABLE. RESPIRATIONS ARE EVEN AND UNLABORED. CHEST RISE SYMMETRIC. DOES NOT APPEAR TO BE EXPERIENCING ANY DISCOMFORT AT THIS TIME. FLACC 0. RASS -3. WILL CONTINUE TO MONITOR PT.
[2019-03-04] VITALS (58 sets, daily range): BP systolic 82–139; BP diastolic 39–84
--- NOTE | 2019-03-04 00:09 | NUR ---
CHECKED OGT RESIDUAL AT THIS TIME. ONLY ASPIRATED 20ML. PT STILL TOLERATING FEEDING WELL AT THIS TIME. OGT REMAINS SECURE IN PLACE. ALL SAFETY PRECAUTIONS ARE IN PLACE. HOB 30 DEGREES. FLACC 0. RASS -3. PT DOES NOT APPEAR TO BE EXPERIENCING ANY DISCOMFORT AT THIS TIME.
--- NOTE | 2019-03-04 00:21 | NUR ---
DR. VAUGHN IN THE UNIT, DISCUSSED WITH HER THE EARLY SEDATION VACATION THAT WAS ENDORSED BY THE PREVIOUS SHIFT, BUT THERE IS CURRENTLY NO ORDER. DR. VAUGHN WILL FOLLOW-UP REGARDING THIS.
[2019-03-04] MEDS: IPRATROPIUM 0.02% 0.5 MG/2.5 ML NEBU INH SCH ×4 (00:51→19:07)
--- NOTE | 2019-03-04 02:16 | NUR ---
VS STABLE. NO CHANGE IN CONDITION. PT TURNED AND REPOSITIONED. TOLERATED BEING REPOSITIONED FAIRLY. PT REMAINS ON NEOSYNEPHRINE DRIP AND PROPOFOL. RESPIRATIONS ARE EVEN AND UNLABORED. NO BM. WILL CONTINUE TO MONITOR PT.
--- NOTE | 2019-03-04 03:00 | NUR ---
MORNING CARE PROVIDED TO PT. CHAUDHARI CATHETER CARE DONE. PT OPENS HER EYES. PT TOLERATED BEING TURNED FAIRLY. CHAUDHARI CATHETER BAG EMPTIED AND OUTPUT WAS 1800. WILL EMPTY CHAUDHARI CATHETER BAG AGAIN LATER. ALL SAFETY PRECAUTIONS ARE IN PLACE. HOB AT 30 DEGREES. WILL CONTINUE TO MONITOR PT.
--- NOTE | 2019-03-04 03:16 | NUR ---
PT BITING TUBE CAUSING HIGH PRESSURE ALARM. PLACED BITE BLOCK. AIRWAY SECURE AT 21 CM AT THE LIP. WILL MONITOR
--- NOTE | 2019-03-04 05:21 | NUR ---
RECEIVED A CALL FROM DR. VAUGHN, UPDATED HER REGARDING PT'S CONDITION. INFORMED HER THAT NEOSYNEPHRINE HAS BEEN OFF SINCE 299, AND THAT HR WOULD GO UP TO 130S BUT NOT SUSTAINING, SO NO LOPRESSOR WAS GIVEN.
[2019-03-04] MEDS: PANTOPRAZOLE 40 MG INJ VIAL IVP SCH (05:31)
[2019-03-04] MEDS: PIPER/TAZO 2.25GM/D5W PREMIX 50 ML IV SCH ×4 (05:31→23:44)
[2019-03-04] MEDS: LEVOTHYROXINE 0.025 MG TAB PO SCH (05:31)
[2019-03-04 05:38] LABS: BASOPHILS % (AUTO) 0.2 % (0.0-2.0); EOSINOPHILS # (AUTO) 0.2 K/uL (0-0.4); EOSINOPHILS % (AUTO) 1.8 % (0.0-4.0); HEMATOCRIT 36.8 % (36-48); HEMOGLOBIN 12.2 g/dL (12.0-16.0); MEAN CORPUSCULAR HEMOGLOBIN 30 pg (27-31); MEAN CORPUSCULAR HGB CONC 33 g/dL (33-37); MEAN CORPUSCULAR VOLUME 89.1 fL (80-94); MONOCYTES # (AUTO) 1.2 K/uL (0.8-1.0); MONOCYTES % (AUTO) 12.9 % (1.7-9.3); NEUTROPHILS % (AUTO) 74.1 % (42.2-75.2); PLATELET COUNT (AUTO) 252 K/uL (140-450); RED BLOOD CELL COUNT(AUTO) 4.13 MIL/uL (4.20-5.40); RED CELL DISTRIBUTION WIDTH 14.2 % (11.6-13.7); WHITE BLOOD COUNT (AUTO) 9.5 K/uL (4.8-10.8)
[2019-03-04 06:26] LABS: ANION GAP 10.8 (8-16); CARBON DIOXIDE 30.5 mmol/L (21-32); CHLORIDE 108 mmol/L (98-107); CREATININE 1.3 mg/dL (0.6-1.3); GLUCOSE 93 mg/dL (74-106); POTASSIUM 3.3 mmol/L (3.5-5.1); SODIUM SERUM 146 mmol/L (136-145); UREA NITROGEN, BLOOD 24 mg/dL (7-18)
[2019-03-04 06:27] LABS: MAGNESIUM 1.8 mg/dL (1.8-2.4); PHOSPHORUS 3.1 mg/dL (2.5-4.9)
--- NOTE | 2019-03-04 07:09 | NUR ---
RECEIVED BEDSIDE REPORT FROM OCEANOGRAPHER ASSISTANT RN, NATALIA, FOR CONTINUITY OF CARE. PATIENT IS SEDATED WITH PROPOFOL AT 5MCG, RASS -3, PATIENT'S DRY WEIGHT IS 90 KG. PATIENT SKIN IS WARM AND DRY, AFEBRILE, INTACT, + 1 PITTING EDEMA NOTED. SHE HAS CENTRAL LINE TO RIJ, TLC, ASYMPTOMATIC AND PATENT. SHE HAS ETT TO VENT, SETTINGS ARE AC MODE, RATE 14, FIO2 24%, VT 500, PEEP 5. BREATHING IS EVEN AND ASYMPTOMATIC. SHE IS A. FIB ON MONITOR WITH RATE OF 121, FLACC 0. PATIENT HAS OGT TO TUBE FEEDING, VITAL AF AT 55ML/HR WITH H20 FLUSH 80 ML Q4H. PATIENT HAS CHAUDHARI CATHETER IN PLACE WITH CLEAR YELLOW URINE. HOB IS 30 DEGREES, BED LOCKED, SIDE RAILS UP. SAFETY PRECAUTIONS AND ALARMS ASSESSED AND ENFORCED. NO DISTRESS AT THIS TIME, WILL CONTINUE TO MONITOR.
--- NOTE | 2019-03-04 07:11 | NUR ---
REPORT GIVEN TO MORNING RN, CINDY, FOR CONTINUITY OF CARE. VS STABLE AT THIS TIME.
[2019-03-04] MEDS: NACL 0.9% 500 ML IV SCH (07:17)
--- NOTE | 2019-03-04 07:28 | NUR ---
DR. MCINTYRE AND RESIDENT PHYSICIANS AT BEDSIDE, UPDATED ON PATIENT'S CONDITION. WILL FOLLOW UP ON ANY ORDERS.
--- NOTE | 2019-03-04 07:59 | NUR ---
VAP ORAL CARE PROVIDED, PATIENT TOLERATED WELL.
--- NOTE | 2019-03-04 08:11 | NUR ---
DR. VERGARA IN TO SEE PATIENT, UPDATED ON PATIENT'S CONDITION. STATES TO STOP PROPOFOL AND CONTROL SEDATION WITH IVP. PROPOFOL IS HELD AT THIS TIME.
[2019-03-04] MEDS: FUROSEMIDE 40 MG/4 ML VIAL IVP SCH ×2 (08:52→17:37)
[2019-03-04] MEDS: ENOXAPARIN 30 MG/0.3 ML SYR SUBQ SCH (08:56)
[2019-03-04] MEDS: LACTOBACILLUS RHAMNOSUS GG 1 EACH CAP PO SCH (08:56)
[2019-03-04] MEDS: SODIUM PHOS / POTASSIUM PHOS 1 PKT PDR NG SCH ×2 (08:56→20:50)
[2019-03-04] MEDS: VIT-B COMP/VIT-C/FOLIC ACID 1 TAB PO SCH (08:56)
[2019-03-04] MEDS: MEMANTINE 10 MG TAB PO SCH ×2 (08:57→20:50)
[2019-03-04] MEDS: AMIODARONE 200 MG TAB PO SCH ×2 (08:57→20:49)
[2019-03-04] MEDS ORDERED: POTASSIUM CHLORIDE 20% 40 MEQ/15 ML UDC NG SCH (09:20)
[2019-03-04] MEDS: METOPROLOL 5 MG/5 ML VIAL IV PRN (09:37)
[2019-03-04] MEDS: NACL 0.45% 500 ML IV SCH (10:00)
[2019-03-04] MEDS: DOCUSATE 100 MG/10 ML UDC GT PRN (10:00)
--- NOTE | 2019-03-04 10:01 | NUR ---
GAVE PRN LOPRESSOR DUE TO PATIENT'S HR 130-140'S, AND COLACE SINCE PATIENT HAS NOT HAD A BM SINCE THE . PATIENT TOLERATED WELL
--- NOTE | 2019-03-04 11:11 | NUR ---
DR. KNIGHT AND DR. JACKSON AT BEDSIDE TO ROUND ON PATIENT, UPDATED ON PATIENT'S CONDITION
[2019-03-04] MEDS: MORPHINE SULFATE 2 MG/ML SYR IVP PRN ×2 (11:27→15:03)
--- NOTE | 2019-03-04 12:00 | NUR ---
PT ASLEEP AT THIS TIME NOT IN ANY IN ANY DISTRESS. AIRWAYS REMAINS SECURE AND PATENT. WILL CONTINUE TO MONITOR.
--- NOTE | 2019-03-04 12:35 | NUR ---
PER PHARMACY, WE DO NOT HAVE INVANZ ABX. CALLED DR. SQUIRES, STATES OKAY TO USE ABX MERREM INSTEAD. Addendum: 03/04/19 at 1328 by Francy Bean RN WRONG PATIENT
--- NOTE | 2019-03-04 13:38 | NUR ---
PT OPENS EYES UNABLE TO FOLLOW COMMANDS. PT NOT IN ANY DISTRESS. WILL CONTINUE TO MONITOR.
--- NOTE | 2019-03-04 15:16 | NUR ---
PT PLACED ON SBT. CPAP 5 PS 10 FIO2 24%. PT AWAKE UNABLE TO FOLLOW COMMANDS. NURSE MADE AWARE OF SBT. WILL CONTINUE TO MONITOR. VENT ALARMS ON AND FUNCTIONING.
--- NOTE | 2019-03-04 15:24 | NUR ---
PATIENT IS ON CPAP MODE, NO SIGNS OF DISTRESS NOTED. WILL CONTINUE TO MONITOR
--- NOTE | 2019-03-04 15:37 | NUR ---
PT APNEIC DURING SBT VENT WENT INTO BACKUP MODE BACK INTO AC/VC 14, VT 500, PEEP 5 AND FIO2 24%. NURSE MADE AWARE.
--- NOTE | 2019-03-04 17:25 | NUR ---
PT REMAINS ON DOCUMENTED VENT SETTINGS. ETT SECURE WITH A PATENT AIRWAY. PT NOT AWAKE OR ALERT BUT IS NOT IN ANY DISTRESS. VENT ALARMS ON AND FUNCTIONING.
--- NOTE | 2019-03-04 19:10 | NUR ---
FOUND PT RESTING COMFORTABLY ON MECH VENT SETTINGS OF A/C: RR 14, TIDAL VOLUME 500, PEEP OF 5, FIO2 24%. ALARMS WERE ON & AUDIBLE. MECH VENT WAS CONNECTED TO A RED PLUG OUTLET. AMBU BAG AT HEAD OF PT'S BED.GAVE PT A HHNTX , PT ROSE WELL. SUCTIONED A SMALL AMOUNT OF SECRETIONS FROM PT
--- NOTE | 2019-03-04 19:19 | NUR ---
ENDORSED CONTINUITY OF CARE TO SURGICAL DRESSING MAKER RNBEBO. NO SIGNS OF DISTRESS NOTED.
--- NOTE | 2019-03-04 19:25 | NUR ---
RECEIVED REPORT FROM AM NURSE, PT ON ETT TO VENT. FIO2 24 ET 7.5 RR 14 FLOW 40 02SAT 100%, S1S2 PRESENT, HR 92, REGULAR, BILATERAL EDEMA ON ANKLES +2 NON PITTING, EDEMA ON LEFT FOREARM, PITTING +1, CAP REFILL <3S, PULSES 2+ BILATERAL UPPER AND LOWER EXTREMITIES, SKIN INTACT, NON TENTING, APPROPRIATE TO ETHNICITY, PERRLA 3 MM, SLUGGISH, PT AWAKE AT BED, A&O X1, ABDOMEN SOFT, ROUND, NONDISTENDED, TUBE FEEDING RUNNING AT 55 ML/HR, 150 ML WATER FLUSH Q6H, CHAUDHARI IN PLACE, LUNG SOUNDS CLEAR THROUGHOUT, SEVERE WEAKNESS ON BILATERAL LOWER AND UPPER EXTREMITIES, RIGHT IJ TRIPLE LUMEN IN PLACE, IV FLUIDS RUNNING, HOB 30 DEGREES, SIDE RAILS UP X2, ALARMS IN PLACE, CALL LIGHT WITHIN REACH.
--- NOTE | 2019-03-04 20:00 | NUR ---
PERFORMED ORAL CARE ON PT. SUCTIONED PT WITH SCANT AMOUNT OF CLEAR MUCOUS. PT TOLERATED PROCEDURE WELL.
--- NOTE | 2019-03-04 23:37 | NUR ---
RT AT BEDSIDE. SUCTIONED PT X2, MODERATE AMOUNT OF WHITE, CLEAR MUCOUS. PT TOLERATED PROCEDURE WELL. VS STABLE. WILL CONTINUE TO MONITOR.
[2019-03-05] VITALS (24 sets, daily range): BP systolic 94–152; BP diastolic 35–68
--- NOTE | 2019-03-05 | NUR ---
PERFORMED ORAL CARE ON PT. VS WNL. PT TOLERATED PROCEDURE WELL. SIDERAILS UP X2, CALL LIGHT WITHIN REACH, ALARMS IN PLACE. WILL CONTINUE TO MONITOR PT.
[2019-03-05] MEDS: IPRATROPIUM 0.02% 0.5 MG/2.5 ML NEBU INH SCH ×4 (01:24→19:11)
--- NOTE | 2019-03-05 01:38 | NUR ---
RT AT BEDSIDE. SUCTIONED PT X1, MODERATE AMOUNT OF WHITE, CLEAR MUCOUS. PT TOLERATED PROCEDURE WELL. VS STABLE. WILL CONTINUE TO MONITOR.
--- NOTE | 2019-03-05 03:31 | NUR ---
MADE AN ERROR OF DOCUMENTING PT'S TUBE PLACEMENT. PT'S TUBE PLACEMENT IS AT 23 AT THE TEETH NOT 21
--- NOTE | 2019-03-05 04:30 | NUR ---
PT AT BED EYES CLOSED, BREATHING REGULARLY, ETT TO VENT, VS WNL, SIDE RAILS UP X2, ALARMS IN PLACE, HOB AT 30 DEGREES, WILL CONTINUE TO MONITOR.
[2019-03-05] MEDS: PANTOPRAZOLE 40 MG INJ VIAL IVP SCH (06:32)
[2019-03-05] MEDS: LEVOTHYROXINE 0.025 MG TAB PO SCH (06:33)
[2019-03-05] MEDS: DOCUSATE 100 MG/10 ML UDC GT PRN (06:33)
[2019-03-05 06:35] LABS: ANION GAP 9.4 (8-16); CARBON DIOXIDE 31.8 mmol/L (21-32); CHLORIDE 107 mmol/L (98-107); CREATININE 1.3 mg/dL (0.6-1.3); GLUCOSE 109 mg/dL (74-106); POTASSIUM 3.2 mmol/L (3.5-5.1); SODIUM SERUM 145 mmol/L (136-145); UREA NITROGEN, BLOOD 31 mg/dL (7-18)
[2019-03-05 06:40] LABS: MAGNESIUM 1.8 mg/dL (1.8-2.4); PHOSPHORUS 3.6 mg/dL (2.5-4.9)
[2019-03-05 06:45] LABS: BASOPHILS % (AUTO) 0.4 % (0.0-2.0); EOSINOPHILS # (AUTO) 0.3 K/uL (0-0.4); EOSINOPHILS % (AUTO) 3.7 % (0.0-4.0); HEMATOCRIT 35.1 % (36-48); HEMOGLOBIN 11.6 g/dL (12.0-16.0); LYMPHOCYTES # (AUTO) 1.2 K/uL (2.5-16.5); LYMPHOCYTES % (AUTO) 14.2 % (20.5-51.1); MEAN CORPUSCULAR HEMOGLOBIN 30 pg (27-31); MEAN CORPUSCULAR HGB CONC 33 g/dL (33-37); MEAN CORPUSCULAR VOLUME 89.6 fL (80-94); MONOCYTES # (AUTO) 1.1 K/uL (0.8-1.0); MONOCYTES % (AUTO) 12.6 % (1.7-9.3); NEUTROPHILS # (AUTO) 5.9 K/uL (1.8-7.7); NEUTROPHILS % (AUTO) 69.1 % (42.2-75.2); PLATELET COUNT (AUTO) 238 K/uL (140-450); RED BLOOD CELL COUNT(AUTO) 3.91 MIL/uL (4.20-5.40); RED CELL DISTRIBUTION WIDTH 14.3 % (11.6-13.7); WHITE BLOOD COUNT (AUTO) 8.6 K/uL (4.8-10.8)
--- NOTE | 2019-03-05 07:05 | NUR ---
RECEIVED BEDSIDE REPORT FROM ASSEMBLY LINE INSPECTOR RN BEBO FOR CONTINUITY OF CARE. PATIENT IS NONVERBAL, ABLE TO FOLLOW SIMPLE COMMANDS SUCH SQUEEZING HANDS, UNABLE TO MAKE NEEDS KNOWN. PATIENT SKIN IS WARM DRY, AFEBRILE, INTACT, SHE HAS DISCOLORATION TO UPPER EXTREMITIES. PATIENT HAS CENTRAL LINE TO RIJ, TLC, ASYMPTOMATIC AND PATENT. SHE IS ETT TO VENT, SETTINGS ARE AC/VC 14, FIO2 24, TV 500, PEEP 5. PATIENT IS AFIB ON MONITOR, BP IS 108/59, FLACC 0. SHE HAS OGT TO FEEDING. CHAUDHARI CATHETER IN PLACE TO CLEAR YELLOW URINE. SCDS IN PLACE. HOB IS 30 DEGREES, BED LOCKED, SIDE RAILS UP. SAFETY PRECAUTIONS AND ALARMS ASSESSED AND ENFORCED. NO SIGNS OF DISTRESS NOTED. WILL CONTINUE TO MONITOR.
--- NOTE | 2019-03-05 07:15 | NUR ---
CHANGE OF SHIFT REPORT GIVEN TO AM NURSE FOR CONTINUITY OF CARE.
--- NOTE | 2019-03-05 07:47 | NUR ---
RECEIVED PT ON CARESCAPE ON DOCUMENTED PTS ETT SIZE 7.5 IS SECURE 23 CM ANCH[address] FAST IN PLACE, BS RHONCI HHN GVIEN I\L WITH 3 MG DUONEB PT IN HF ASLEEP BMV HOB , VENT PLUGGED INTO RED OUTLET
--- NOTE | 2019-03-05 08:00 | NUR ---
PT PLACED ON SBT NIF -13 VC 392 FOR 30 MINUTES
--- NOTE | 2019-03-05 08:00 | NUR ---
PT PLACED ON CPAP 5 PS 10 FIO2 24 NIF -13 VC 392
--- NOTE | 2019-03-05 08:03 | NUR ---
ORAL CARE PROVIDED, PATIENT TURNED AND REPOSITIONED. TOLERATED WELL. NO SIGNS OF DISTRESS NOTED
[2019-03-05] MEDS: NACL 0.45% 500 ML IV SCH (08:05)
[2019-03-05] MEDS: SODIUM PHOS / POTASSIUM PHOS 1 PKT PDR NG SCH ×2 (08:06→20:14)
[2019-03-05] MEDS: AMIODARONE 200 MG TAB PO SCH ×2 (08:06→20:15)
[2019-03-05] MEDS: LACTOBACILLUS RHAMNOSUS GG 1 EACH CAP PO SCH (08:06)
[2019-03-05] MEDS: MEMANTINE 10 MG TAB PO SCH ×2 (08:07→20:15)
[2019-03-05] MEDS: FUROSEMIDE 40 MG/4 ML VIAL IVP SCH ×2 (08:07)
[2019-03-05] MEDS: VIT-B COMP/VIT-C/FOLIC ACID 1 TAB PO SCH (08:07)
[2019-03-05] MEDS: ENOXAPARIN 30 MG/0.3 ML SYR SUBQ SCH (08:10)
--- NOTE | 2019-03-05 08:23 | NUR ---
SCHEDULED MEDS ADMINISTERED, PATIENT TOLERATED WELL.
[2019-03-05] MEDS ORDERED: BISACODYL 10 MG SUPP RC SCH (09:00)
[2019-03-05] MEDS: KCL 20 MEQ/WATER INJ PREMIX 100 ML IV SCH ×2 (09:52→11:20)
--- NOTE | 2019-03-05 12:00 | NUR ---
DR. ABRAHAM AND RESIDENT PHYSICIANS AT BEDSIDE TO ROUND ON PATIENT, UPDATED ON PATIENT'S CONDITION. WILL FOLLOW UP ON ANY ORDERS
--- NOTE | 2019-03-05 12:05 | NUR ---
VENTILATOR MODE CHANGED BY DR. ELIA ABRAHAM NOTED FOR WEANING TRIAL TOLERATED Addendum: 03/05/19 at 1254 by Karel Diaz RT LOC AWAKE PATIENT UNABLE TO FOLLOW COMMANDS FOR WEANING PARAMETERS
--- NOTE | 2019-03-05 12:17 | NUR ---
DR. NEWSOME IN TO SEE AND EXAMINE PATIENT, UPDATED ON PATIENT'S CONDITION. WILL FOLLOW UP ON ANY ORDERS
--- NOTE | 2019-03-05 12:22 | NUR ---
DANNY FROM DR. ELIA PEDRAZA AFTER 1 HOUR ON WEANING TRIAL CALL WITH RESULTS
--- NOTE | 2019-03-05 13:35 | NUR ---
PAGED DR. ELIA ABRAHAM [phone] TO REVIEW ABG SAMPLE REPORT
--- NOTE | 2019-03-05 13:38 | NUR ---
CALL BACK FROM DR. ELIA ABRAHAM REVIEWED ABG SAMPLE REPORT AND PATIENT STATUS ON WEANING TRIAL NEW ORDER DECREASE PS TO [id number] EXTEND TRIAL FOR [address] BACK ON AC RESUME WEANING TRIAL IN AM
--- NOTE | 2019-03-05 13:46 | NUR ---
03/05/19 RD FOLLOW UP COMPLETED PLEASE REFER TO NUTRITION PROGRESS NOTE UNDER CARE ACTIVITY FOR ESTIMATED NUTRITION NEEDS. RD RECOMMENDATIONS: 1. CONTINUE VITAL AT 55 ML/HR 150MLS H2O FLUSH Q6HRS -THIS WILL PROVIDE 1320ML TOTAL VOLUME, 1584 KCAL, 99 GM OF PROTEIN. IT WILL MEET 100% OF ESTIMATED ENERGY NEEDS AND 100% OF ESTIMATED PROTEIN NEEDS. 2. RD TO FOLLOW-UP 3-5 DAYS, MODERATE RISK BELEM CHURCHILL MBA, RD
--- NOTE | 2019-03-05 14:48 | NUR ---
PATIENT TURNED AND REPOSITIONED, TOLERATED WELL.
--- NOTE | 2019-03-05 16:26 | NUR ---
PT RETURNED T O A/C PER DR ABRAHAM PLACED ON CPAP AT 1205
--- NOTE | 2019-03-05 16:57 | NUR ---
PATIENT TURNED AND REPOSITIONED, ORAL CARE PROVIDED, PATIENT TOLERATED WELL.
[2019-03-05] MEDS: PIPER/TAZO 2.25GM/D5W PREMIX 50 ML IV SCH ×2 (17:08→23:36)
--- NOTE | 2019-03-05 19:15 | NUR ---
found pt resting comfortably on [facility] vent settings of a/c: rr 12, tidal volume of 500, peep of 5, fi02 of 24%. alarms are on and audible. vent is connected to a red plug outlet. ambu bag at bedside of pt. thick blood tinged secretions are being suctioned. will continue to monitor the pt
--- NOTE | 2019-03-05 19:15 | NUR ---
RECEIVED REPORT FROM AM NURSE, PT ON ETT TO VENT. FIO2 24 ET 7.5 RR 14 FLOW 40 02SAT 100%, S1S2 PRESENT, HR 107, REGULAR, BILATERAL EDEMA ON ANKLES +2 NON PITTING, EDEMA ON LEFT FOREARM, PITTING +1, CAP REFILL <3S, PULSES 2+ BILATERAL UPPER AND LOWER EXTREMITIES, SKIN INTACT, NON TENTING, APPROPRIATE TO ETHNICITY, PERRLA 3 MM, SLUGGISH, PT AWAKE AT BED, A&O X1, ABDOMEN SOFT, ROUND, NONDISTENDED, TUBE FEEDING RUNNING AT 55 ML/HR, 100 ML WATER FLUSH Q6H, CHAUDHARI IN PLACE, LUNG SOUNDS CLEAR THROUGHOUT, SEVERE WEAKNESS ON BILATERAL LOWER AND UPPER EXTREMITIES, RIGHT IJ TRIPLE LUMEN IN PLACE, IV FLUIDS RUNNING, HOB 30 DEGREES, SIDE RAILS UP X2, ALARMS IN PLACE, CALL LIGHT WITHIN REACH.
--- NOTE | 2019-03-05 20:30 | NUR ---
PASSED MEDICATIONS VIA OG TUBE, PERFORMED VAP ORAL CARE, SUCTIONED SCANT AMOUNT OF WHITE, THICK MUCOUS, PT GIVEN 0.5 MG ATIVAN PRN FOR SEDATION. PT TOLERATED PROCEDURE WELL. PT AT BED EYES CLOSED, BREATHING REGULARLY, HOB AT 30 DEGREES, SIDE RAILS UP X2, ALARMS IN PLACE, WILL CONTINUE TO MONITOR.
[2019-03-05] MEDS: LORazepam 2 MG/ML VIAL IM/IVP PRN (20:31)
--- NOTE | 2019-03-05 22:15 | NUR ---
PT SUCTIONED WITH SCANT THICK WHITE MUCOUS, PT TOLERATED PROCEDURE WELL. HOB AT 30 DEGREES, SIDE RAILS UP X2, WILL CONTINUE TO MONITOR PT.
[2019-03-06] VITALS (23 sets, daily range): BP systolic 93–140; BP diastolic 35–84
--- NOTE | 2019-03-06 00:27 | NUR ---
PT SUCTIONED X2 WITH MODERATE THICK WHITE MUCOUS, PT TOLERATED PROCEDURE WELL. PT AT BED, EYES CLOSED, BREATHING REGULARLY, HOB AT 30 DEGREES, SIDE RAILS UP X2, ALARMS IN PLACE, WILL CONTINUE TO MONITOR PT
[2019-03-06] MEDS: IPRATROPIUM 0.02% 0.5 MG/2.5 ML NEBU INH SCH ×4 (01:19→19:12)
--- NOTE | 2019-03-06 01:55 | NUR ---
RT AT BEDSIDE. PT SUCTIONED X1 WITH MODERATE THICK WHITE MUCOUS, PT TOLERATED PROCEDURE WELL. PT AT BED, EYES CLOSED, BREATHING REGULARLY, HOB AT 30 DEGREES, SIDE RAILS UP X2, ALARMS IN PLACE, WILL CONTINUE TO MONITOR P
--- NOTE | 2019-03-06 02:15 | NUR ---
PT SLEEP AT THIS TIME, NO S/S OF ANY DISTRESS. SUCTION GIVEN ORDER. Addendum: 03/06/19 at 0652 by Nani Frederick RN SUCTION PRN
--- NOTE | 2019-03-06 04:30 | NUR ---
AM CARE ,ORAL CARE,BED BATH AND F/C CARE GIVEN. KEPT PT CLEAN AND DRY. NO BM AT THIS TIME DULCOLAX SUPP GIVEN ORDER.
[2019-03-06] MEDS: PIPER/TAZO 2.25GM/D5W PREMIX 50 ML IV SCH ×4 (06:04→23:31)
[2019-03-06] MEDS: PANTOPRAZOLE 40 MG INJ VIAL IVP SCH (06:04)
[2019-03-06] MEDS: LEVOTHYROXINE 0.025 MG TAB PO SCH (06:05)
--- NOTE | 2019-03-06 06:49 | NUR ---
AM MEDS GIVEN TOLERATING WELL, NO S/S OF DISTRESS NOTED.
[2019-03-06] MEDS ORDERED: POTASSIUM CHLORIDE 20% 40 MEQ/15 ML UDC GT SCH (07:00)
--- NOTE | 2019-03-06 07:08 | NUR ---
RECEIVED BEDSIDE REPORT FROM CRITICAL POWER TECHNICIAN RNBEBO. PATIENT IS AWAKE, UNABLE TO MAKE NEEDS KNOWN, FOLLOWS SOME COMMANDS. PATIENT SKIN IS WARM, DRY, INTACT WITH DISCOLORATION TO BUE. PATIENT HAS CENTRAL LINE TO RIJ, TLC, ASYMPTOMATIC AND PATENT. PATIENT IS ETT TO VENT, SETTINGS ARE AC/VC 14, FIO2 24%, TV 500, PEEP 5. BREATHING EVEN AND UNLABORED. PATIENT IS A.FIB WITH RATE OF 130, WILL ADMINISTER LOPRESSOR. PATIENT HAS OGT TO FEEDING. PATIENT HAS CHAUDHARI CATHETER IN PLACE TO CLEAR YELLOW URINE. HOB IS 30 DEGREES, BED LOCKED, SIDE RAILS UP. WILL CONTINUE TO MONITOR
[2019-03-06] MEDS: LORazepam 2 MG/ML VIAL IM/IVP PRN (07:14)
[2019-03-06 07:15] LABS: BASOPHILS # (AUTO) 0.1 K/uL (0.00-0.22); BASOPHILS % (AUTO) 0.6 % (0.0-2.0); EOSINOPHILS # (AUTO) 0.4 K/uL (0-0.4); EOSINOPHILS % (AUTO) 3.7 % (0.0-4.0); HEMATOCRIT 36.6 % (36-48); HEMOGLOBIN 12.1 g/dL (12.0-16.0); MEAN CORPUSCULAR HEMOGLOBIN 30 pg (27-31); MEAN CORPUSCULAR HGB CONC 33 g/dL (33-37); MEAN CORPUSCULAR VOLUME 89.7 fL (80-94); NEUTROPHILS # (AUTO) 7.9 K/uL (1.8-7.7); PLATELET COUNT (AUTO) 270 K/uL (140-450); RED BLOOD CELL COUNT(AUTO) 4.08 MIL/uL (4.20-5.40); RED CELL DISTRIBUTION WIDTH 14.4 % (11.6-13.7); WHITE BLOOD COUNT (AUTO) 10.3 K/uL (4.8-10.8)
[2019-03-06 07:27] LABS: ANION GAP 10.9 (8-16); CARBON DIOXIDE 31.3 mmol/L (21-32); CHLORIDE 106 mmol/L (98-107); CREATININE 1.2 mg/dL (0.6-1.3); GLUCOSE 105 mg/dL (74-106); POTASSIUM 3.2 mmol/L (3.5-5.1); SODIUM SERUM 145 mmol/L (136-145); UREA NITROGEN, BLOOD 31 mg/dL (7-18)
--- NOTE | 2019-03-06 07:29 | NUR ---
REC'D PT ON CARESCAPE VENT SETTINGS AC 12 VT 500 PEEP 5 FIO2 24 % ALARMS ON AND AUDIBLE AND AMBU BAG AT HOB VENT IS PLUGGED INTO RED OUTLET AND I\L TX GIVEN WITH ATROVENT 0.5MG WITH NO ADVERSE REACTION POST TX, SXN PT SMALL AMT OF YELLOW SECRETIONS, B\S ARE RHONCHI BILATERALLY, PT IS ORALLY INTUBATED WITH 7.5 ET TUBE SECURED WITH ANCHOR FAST AT 23 CM AT LIP AND SKIN INTEGRITY IS INTACT PS IS NOW RESTING WITH NO SIGNS OF DISTRESS NOTED
[2019-03-06 07:30] LABS: MAGNESIUM 2.1 mg/dL (1.8-2.4); PHOSPHORUS 3.5 mg/dL (2.5-4.9)
[2019-03-06] MEDS: METOPROLOL 5 MG/5 ML VIAL IV PRN (07:34)
--- NOTE | 2019-03-06 07:50 | NUR ---
VENTILATOR RATE CHANGED BACK TO 14 BPM NO COMPELLING EVIDENCE FORM ORAL REPORT AND NOTES DICTATING CHANGE Katlin ELLIS BASEBALL COACH STATED DURING REPORT THAT "SHE DIDN'T KNOW HOW THE RATE WAS CHANGED" BEBO/RN STATED THAT NO MD WAS BESIDE MAKING CHANGES DURING NOC SHIFT DAY SHIFT 03/05 VENTILATOR FLOW SHEET AND NOTES REVIEWED
--- NOTE | 2019-03-06 07:50 | NUR ---
RESIDENT PHYSICIANS AT BEDSIDE, UPDATED ON PATIENT'S CONDITION. WILL FOLLOW UP ON ANY ORDERS
[2019-03-06 08:01] LABS: LYMPHOCYTES % (AUTO) 9.5 % (20.5-51.1); MONOCYTES % (AUTO) 9.9 % (1.7-9.3); NEUTROPHILS % (AUTO) 76.3 % (42.2-75.2)
[2019-03-06] MEDS ORDERED: BISACODYL 10 MG SUPP RC PRN (08:45)
[2019-03-06] MEDS: NACL 0.45% 500 ML IV SCH (09:00)
--- NOTE | 2019-03-06 09:20 | NUR ---
SCHEDULED MEDS ADMINISTERED, PATIENT TOLERATED WELL.
[2019-03-06] MEDS: ENOXAPARIN 30 MG/0.3 ML SYR SUBQ SCH (09:21)
[2019-03-06] MEDS: FUROSEMIDE 40 MG/4 ML VIAL IVP SCH (09:21)
[2019-03-06] MEDS: VIT-B COMP/VIT-C/FOLIC ACID 1 TAB PO SCH (09:22)
[2019-03-06] MEDS: SODIUM PHOS / POTASSIUM PHOS 1 PKT PDR NG SCH ×2 (09:22→20:13)
[2019-03-06] MEDS: AMIODARONE 200 MG TAB PO SCH ×2 (09:22→20:13)
[2019-03-06] MEDS: MEMANTINE 10 MG TAB PO SCH ×2 (09:22→20:13)
[2019-03-06] MEDS: LACTOBACILLUS RHAMNOSUS GG 1 EACH CAP PO SCH (09:22)
--- NOTE | 2019-03-06 10:25 | NUR ---
ASLEEP NO EVIDENCE OF PULMONARY DISTRESS NOTED BREATH SOUNDS DIFFUSED RALES BILATERAL WITH GOOD EQUAL CHEST RISE ENDOTRACHEAL SUCTION FOR SMALL THIN YELLOW SECRETIONS AIRWAY PATENT PLACED ENDOTRACHEAL TUBE AT 25cm REVIEWED ORIGINAL PLACEMENT ON 02/26 CONFIRMATION VIA CXR STARTED ON CPAP/SBT TRIALS OF PEEP 5cmH2O AND PS [id number] SET AT 6 HOURS PATIENT UNABLE TO FOLLOW COMMANDS AND PARTICIPATE IN WEANING PARAMETERS PER EIRENE/RN ATIVAN 0.5mg IVP GIVEN AT 0714
--- NOTE | 2019-03-06 11:15 | NUR ---
PATIENT HAD 1 LARGE SOFT BROWN BM, CLEANED AND REPOSITIONED FOR COMFORT. PATIENT TOLERATED WELL.
--- NOTE | 2019-03-06 12:08 | NUR ---
TOLERATING CPAP/SBT TRIALS WELL WITHOUT INCIDENT BREATH SOUNDS DIFFUSED RALES BILATERAL WITH GOOD EQUAL CHEST RISE ENDOTRACHEAL SUCTION FOR SMALL THIN YELLOW SECRETIONS AIRWAY PATENT
--- NOTE | 2019-03-06 12:23 | NUR ---
DR. ABRAHAM IN TO SEE PATIENT, UPDATED ON PATIENT'S CONDITION. STATES NOT GIVE PATIENT ANY SEDATION SO WE CAN WEAN PATIENT OFF VENT.
--- NOTE | 2019-03-06 13:22 | NUR ---
DUE TO APNEA VENTILATOR DEFAULTED AT 12:24 TO PREVIOUS SETTINGS OF AC 12 VT 500 PEEP 5 FIO2 24% PET CARE TECHNICIAN TO ATTEMPT CPAP/SBT TRIALS AT A LATER TIME
--- NOTE | 2019-03-06 16:31 | NUR ---
PATIENT CLEANED AND REPOSITIONED, ORAL CARE PROVIDED, PATIENT TOLERATED WELL.
--- NOTE | 2019-03-06 17:37 | NUR ---
NO APPARENT SOB NOTED BREATH SOUNDS CLEAR BILATERAL WITH EQUAL CHEST RISE AND AERATION THROUGHOUT LUNG CABRALES PLACED ON CPAP/SBT WEANING TRIALS NOTED EIRENE/RN NOTED
--- NOTE | 2019-03-06 19:09 | NUR ---
ENDORSED CONTINUITY OF CARE TO INSTRUCTOR PROGRAMMABLE CONTROLLERS RNJESSIE. PATIENT'S VITALS ARE STABLE, NO DISTRESS AT THIS TIME.
--- NOTE | 2019-03-06 19:10 | NUR ---
RECEIVED BEDSIDE REPORT FROM MORNING SHIFT RNCINDY. NONVERBAL, UNABLE TO MAKE NEEDS KNOWN, DOES NOT RESPOND TO COMMANDS. PERRL, VSS, BP 108/45, SATING 99%, RR=19, HR=98, TEMP 99.8. AFIB ON VOLUNTEER SERVICES SPECIALIST, ON SBT MODE ON ETT TO VENT, LUNG SOUND CLEAR/DIMINISHED ON UPPER LOWER BILATERAL LOBES. FIO2=24%, PEEP 5, PS 10. RT CHRISTINA AT BEDSIDE ADMINISTERED BREATHING TREATMENT/PROVIDED ORAL CARE. OGT IN PLACE, AUSCULTATED FOR PROPER PLACEMENT, NO RESIDUAL NOTED, ON VITAL AF AT 55ML/HR. BOWEL SOUNDS ACTIVE X4. RIGHT IJ TRIPLE LUMEN CATH IN PLACE, INFUSING 1/2 NS AT 10CC/HR. SKIN IS INTACT AND NORMAL IN COLOR, MILD GENERALIZED EDEMA/NON PITTING. ON CONTACT PRECAUTIONS, ALLERGY TO CHOCOLATE, FALL/ASPIRATION PRECAUTIONS MAINTAINED. HOB ELEVATED ABOVE 30 DEG. [address]ARI CATH IN PLACE, URINE IS YELLOW/CLEAR. SCDS ON BILATERAL LEGS, LEGS ELEVATED, AND PILLOW SUPPORT PROVIDED ON BONY PROMINENCES.
--- NOTE | 2019-03-06 20:28 | NUR ---
PO MEDS GIVEN VIA OGT, OGT FLUSHED NO SIGNS OF CLOGGING, NO RESIDUAL NOTED. SALINE FLUSHED RIGHT IJ TRIPLE LUMEN CATH, ADEQUATE BLOOD RETURN NOTED. PT TOLERATING SBT MODE ON VENT, NO INCREASED WORK OF BREATHING OR COUGHING NOTED, SATING 99%, RR-12. AFIB ON DEMOLITION ENGINEER WITH ELEVATED HR 110-112. AMIODARONE PO ADMINISTERED AT THIS TIME.
--- NOTE | 2019-03-06 22:51 | NUR ---
CHRISTINA INFORMED PT TOLERATING SBT MODE WELL, NO SIGNS OF DISTRESS. REQUESTED FOLLOW-UP ON PLAN OF CARE IF CONTINUE ON SBT MODE OR SWITCH TO AC MODE. CALLED RESIDENT DOC, DR. ARAMBULA REGARDING ISSUE, STATED TO FOLLOW-UP WITH DR SCHROEDER. DR SCHROEDER PAGED AND STATED OK TO SWITCH PT BACK TO AC MODE AND WILL PLAN TO WEAN IN THE MORNING. ENDORSED TO RT CHRISTINA, WILL SWITCH PT BACK TO AC MODE.
[2019-03-07] VITALS (22 sets, daily range): BP systolic 92–144; BP diastolic 38–87
--- NOTE | 2019-03-07 00:59 | NUR ---
PT HAD MODERATE, BOWEL MOVEMENT/LOOSE MUSHY STOOL. FLACC 0, AC MODE FIO2 24%, VSS. SPONGE BATH, AM CARES, AND VAP ORAL CARE PROVIDED.
[2019-03-07] MEDS: IPRATROPIUM 0.02% 0.5 MG/2.5 ML NEBU INH SCH ×4 (01:23→19:17)
--- NOTE | 2019-03-07 02:56 | NUR ---
PT HAD SECOND BOWEL MOVEMENT OF SHIFT, LOOSE/SOFT, LARGE, BROWN IN COLOR. URINE IS LOUISA IN COLOR. PT HAS WHITE THICK ORAL SECRETIONS, MOUTH SUCTIONING PROVIDED INTERMITTENTLY, VAP ORAL CARE GIVEN. PT REPOSITIONED. SKIN REMAINS IN INTACT, VSS. AFIB ON MANAGER NC.
[2019-03-07] MEDS: PIPER/TAZO 2.25GM/D5W PREMIX 50 ML IV SCH ×3 (05:48→17:00)
[2019-03-07] MEDS: PANTOPRAZOLE 40 MG INJ VIAL IVP SCH (05:48)
[2019-03-07] MEDS: LEVOTHYROXINE 0.025 MG TAB PO SCH (05:48)
--- NOTE | 2019-03-07 05:59 | NUR ---
URINE OUTPUT 400CC QSHIFT. FLACC 0, TOLERATED VENT WELL, WHITE THICK ORAL SECRETIONS SUCTIONED OUT. PT REPOSITIONED. SKIN REMAIN IN TACT, NO SIGNS OF PRESSURE SORE/ OPEN SKIN..
[2019-03-07 06:07] LABS: BASOPHILS # (AUTO) 0.1 K/uL (0.00-0.22); BASOPHILS % (AUTO) 0.4 % (0.0-2.0); EOSINOPHILS # (AUTO) 0.3 K/uL (0-0.4); EOSINOPHILS % (AUTO) 1.8 % (0.0-4.0); HEMATOCRIT 33.6 % (36-48); LYMPHOCYTES # (AUTO) 0.8 K/uL (2.5-16.5); LYMPHOCYTES % (AUTO) 5.2 % (20.5-51.1); MEAN CORPUSCULAR HEMOGLOBIN 29 pg (27-31); MEAN CORPUSCULAR HGB CONC 33 g/dL (33-37); MEAN CORPUSCULAR VOLUME 89.5 fL (80-94); MONOCYTES # (AUTO) 1.1 K/uL (0.8-1.0); MONOCYTES % (AUTO) 7.6 % (1.7-9.3); NEUTROPHILS # (AUTO) 12.4 K/uL (1.8-7.7); PLATELET COUNT (AUTO) 256 K/uL (140-450); RED BLOOD CELL COUNT(AUTO) 3.75 MIL/uL (4.20-5.40); RED CELL DISTRIBUTION WIDTH 14.6 % (11.6-13.7); WHITE BLOOD COUNT (AUTO) 14.6 K/uL (4.8-10.8)
[2019-03-07 06:21] LABS: ANION GAP 9.7 (8-16); CARBON DIOXIDE 30.3 mmol/L (21-32); CHLORIDE 108 mmol/L (98-107); CREATININE 1.2 mg/dL (0.6-1.3); GLUCOSE 105 mg/dL (74-106); SODIUM SERUM 145 mmol/L (136-145); UREA NITROGEN, BLOOD 32 mg/dL (7-18)
[2019-03-07 06:23] LABS: MAGNESIUM 2.2 mg/dL (1.8-2.4); PHOSPHORUS 2.7 mg/dL (2.5-4.9)
--- NOTE | 2019-03-07 06:45 | NUR ---
DR. GODFREY IN TO SEE PATIENT, UPDATED ON PT CONDITION.
--- NOTE | 2019-03-07 07:00 | NUR ---
RECEIVED PT ON CARESCAPE ON DOCUMENTED SETTINGS, ALARMS ARE ON AND AUDIBLE, PTS ETT IS SECURE 25 CM LIP ANCHOR FAST IN PLACE, BS DIMINISHED PT IN HF ASLEEP, HHN GIVEN I\L WITH 0.5 MG ATROVENT, BMV HOB, VENT PLUGGED INTO RED OUTLET
--- NOTE | 2019-03-07 07:14 | NUR ---
GAVE BEDSIDE REPORT TO MORNING SHIFT RNSILVIO.
--- NOTE | 2019-03-07 07:14 | NUR ---
PT PLACED ON CPAP 5 PS 10 FIO2 24
--- NOTE | 2019-03-07 07:30 | NUR ---
RECEIVED BEDSIDE REPORT FROM PM NURSE, PT NONVERBAL, UNABLE TO MAKE NEEDS KNOWN. BEDSIDE MONITOR SHOWS A-FIB, ON CPAP, SATING 99%. LUNG SOUND CLEAR. FIO2=24%.RIGHT IJ TRIPLE LUMEN CATH IN PLACE, INFUSING 1/2 NS AT 10CC/HR. . OGT IN PLACE, ON VITAL AF AT 55ML/HR. AUSCULTATED FOR PROPER PLACEMENT, 10CC RESIDUAL NOTED, RETURNED IT BACK. BOWEL SOUNDS ACTIVE X4. SKIN IS INTACT AND NORMAL IN COLOR. ON CONTACT PRECAUTIONS, ALLERGY TO CHOCOLATE. CHAUDHARI CATH IN PLACE, URINE IS YELLOW/CLEAR.HOB ELEVATED ABOVE 30 DEG. SCDS ON BILATERAL LEGS, OFF LOADING PRESSURE AREA. WILL CONTINUE TO MONITOR.
--- NOTE | 2019-03-07 08:10 | NUR ---
TURNED AND REPOSITIONED PT. ORAL CARE GIVEN. LUISA CARE GIVEN.
[2019-03-07] MEDS: VIT-B COMP/VIT-C/FOLIC ACID 1 TAB PO SCH (08:15)
[2019-03-07] MEDS: FUROSEMIDE 40 MG/4 ML VIAL IVP SCH (08:15)
[2019-03-07] MEDS: AMIODARONE 200 MG TAB PO SCH ×2 (08:15→20:29)
[2019-03-07] MEDS: LACTOBACILLUS RHAMNOSUS GG 1 EACH CAP PO SCH (08:16)
[2019-03-07] MEDS: SODIUM PHOS / POTASSIUM PHOS 1 PKT PDR NG SCH ×2 (08:16→20:29)
[2019-03-07] MEDS: MEMANTINE 10 MG TAB PO SCH ×2 (08:16→20:29)
[2019-03-07] MEDS: ENOXAPARIN 30 MG/0.3 ML SYR SUBQ SCH (08:19)
[2019-03-07] MEDS ORDERED: HYDRAGUARD CREAM TP PRN (09:00)
[2019-03-07] MEDS: NACL 0.45% 500 ML IV SCH (09:00)
[2019-03-07] MEDS ORDERED: POTASSIUM CHLORIDE 40 MEQ, LIDOCAINE MPF 1% - 5 mL VIAL 25 MG in NACL 0.9% 250 ML IV SCH (09:30)
--- NOTE | 2019-03-07 09:45 | NUR ---
turned and repositioned pt.pt had large amount of diarrhea, cleaned pt. will continue to monitor.
--- NOTE | 2019-03-07 11:28 | NUR ---
DR. GARCIA IN TO SEE PT. WILL FOLLOW UP. PER DR. GARCIA, PT UNABLE TO FOLLOW COMMANDS, CAN NOT EXTUBATE PT. KEEP SEDATION MEDS OFF. NOTIFIED DR. GARCIA NO SEDATION MEDS IN MY SHIFT.
--- NOTE | 2019-03-07 11:30 | NUR ---
PT RETURNED TO A/C PER DR VERGARA
--- NOTE | 2019-03-07 14:30 | NUR ---
PT HAD LARGE AMOUNT OF DIARRHEA AGAIN , CLEANED WHOLE BED AND PT. PUT CREAM AND RECTAL BAG ON .
[2019-03-07] MEDS: ACETAMINOPHEN 325 MG TAB PO PRN (17:00)
--- NOTE | 2019-03-07 17:00 | NUR ---
PT HAS MILD PAIN FROM HIS FACIAL EXPRESSION. TYLENOL GIVEN.
--- NOTE | 2019-03-07 18:30 | NUR ---
PT RESTING QUIETLY IN BED. NO DISCOMFORT NOTED.
--- NOTE | 2019-03-07 19:11 | NUR ---
ENDORSED PT TO PM NURSE.
--- NOTE | 2019-03-07 19:45 | NUR ---
RECEIVED BEDSIDE REPORT FROM MORNING SHIFT RN, SILVIO. VSS, TEMP 99.6, SATING 99%, BP 119/62, HR=94, RR=18. PT DOES NOT OPEN EYES SPONTANEOUSLY, DOES NOT RESPOND TO COMMANDS OR MAKE NEEDS KNOWN. AFIB ON E COMMERCE ARCHITECT, ETT TO VENT, AC VC MODE, FIO2=24, RU=661, RR=14, FLOW 40L/MIN, PEEP=5, PMAX=40. PT HAS RIGHT IJ, INFUSING 1/2 EARL 10CC/HR. LUNG SOUND CLEAR ON UPPER BILATERAL LOBES. OGT IN PLACE, VITALS AFT FEEDING AT 55CC/HR. CHAUDHARI IN PLACE, URINE IS CLEAR/YELLOW. RECTAL BAG IN PLACE, NO BM AT THIS TIME. CONTACT ISOLATION FOR ESBL/MDRO URINE, FALL RISK AND ASPIRATION PRECAUTIONS MAINTAINED. ALLERGY TO CHOCOLATE NOTED ON WRIST. HOB ABOVE 30 DEG. ORAL MOUTH SUCTIONING PROVIDED ,THICK WHITE SECRETIONS. SKIN IS INTACT, BRUISING ON UPPER BILATERAL EXTREMITIES. SCDS ON BILATERAL LEGS.
--- NOTE | 2019-03-07 22:30 | NUR ---
PT ABLE TO SQUEEZE HANDS PER COMMANDS, AND APPEARS TO OPEN EYES IN RESPONSE TO HEARING NAME. THICK ORAL SECRETIONS SUCTIONED FROM MOUTH . PT REPOSITIONED AND TOLERATED WELL.
[2019-03-08] VITALS (24 sets, daily range): BP systolic 93–134; BP diastolic 38–72
[2019-03-08] MEDS: ACETAMINOPHEN 325 MG TAB PO PRN (00:25)
[2019-03-08] MEDS: PIPER/TAZO 2.25GM/D5W PREMIX 50 ML IV SCH ×5 (00:25→23:46)
--- NOTE | 2019-03-08 01:00 | NUR ---
AM CARES PROVIDED TO PT, RECTAL BAG IN PLACE, EVIDENCE OF LOOSE STOOL BROWN/YELLOW IN COLOR. PT OPENS EYES SPONTANEOUSLY. MITT ON RIGHT ARM, HOB ABOVE 30 DEG. TYLENOL ADMINISTERED FOR MILD PAIN. FIO2 REMAINS AT 24%. ORAL MOUTH SUCTIONING PROVIDED X1. MAX ASSIST X2 FOR REPOSITIONING.
[2019-03-08] MEDS: IPRATROPIUM 0.02% 0.5 MG/2.5 ML NEBU INH SCH ×4 (01:18→18:48)
[2019-03-08] MEDS: METOPROLOL 5 MG/5 ML VIAL IV PRN (02:49)
--- NOTE | 2019-03-08 03:02 | NUR ---
5MG IVP LOPRESSOR GIVEN AT THIS TIME, PT HAD CONSISTENT ELEVATED HR OF 125-136 WITH AFIB ON SIEVE GRADER TENDER. OTHER VITALS REMAIN STABLE WITH BP 111/54, SATING 100%.
--- NOTE | 2019-03-08 04:35 | NUR ---
AT 0349 PT HR REMAINED ELLEVATED AT 112-115, HR IS COMING DOWN RANGING BETWEEN 98-108BPM.
[2019-03-08] MEDS: LEVOTHYROXINE 0.025 MG TAB PO SCH (05:47)
[2019-03-08] MEDS: PANTOPRAZOLE 40 MG INJ VIAL IVP SCH (05:47)
--- NOTE | 2019-03-08 06:12 | NUR ---
DR. GODFREY AT BEDSIDE TO SEE PATIENT, UPDATED THAT PATIENT IS ABLE TO FOLLOW COMMANDS. PLAN TO WEAN OFF ETT TODAY.
--- NOTE | 2019-03-08 06:24 | NUR ---
rec'd pt on carescape vent settings ac 14 vt 500 peep 5 fio2 24% alarms on and audible and vent is plugged into red outlet, ambu bag at [facility] i\l tx given with atrovent 0.5mg with no adverse reaction post tx, b\s are clear bilaterally, snx pt small amt of clear secretions, pt orally intubated with 7.5 et tube at 25 cm at right corner of mouth and secured with anchor fast, skin integrity is intact and pt is sleeping with no signs of distress noted at this time
[2019-03-08 06:50] LABS: MAGNESIUM 2.2 mg/dL (1.8-2.4); PHOSPHORUS 2.6 mg/dL (2.5-4.9)
[2019-03-08 06:52] LABS: BASOPHILS % (AUTO) 0.4 % (0.0-2.0); EOSINOPHILS # (AUTO) 0.3 K/uL (0-0.4); EOSINOPHILS % (AUTO) 2.3 % (0.0-4.0); HEMOGLOBIN 11.4 g/dL (12.0-16.0); LYMPHOCYTES # (AUTO) 0.6 K/uL (2.5-16.5); MEAN CORPUSCULAR HEMOGLOBIN 29 pg (27-31); MEAN CORPUSCULAR HGB CONC 33 g/dL (33-37); MEAN CORPUSCULAR VOLUME 90.3 fL (80-94); MONOCYTES % (AUTO) 7.5 % (1.7-9.3); NEUTROPHILS # (AUTO) 10.9 K/uL (1.8-7.7); NEUTROPHILS % (AUTO) 84.8 % (42.2-75.2); PLATELET COUNT (AUTO) 254 K/uL (140-450); RED BLOOD CELL COUNT(AUTO) 3.87 MIL/uL (4.20-5.40); RED CELL DISTRIBUTION WIDTH 14.8 % (11.6-13.7); WHITE BLOOD COUNT (AUTO) 12.9 K/uL (4.8-10.8)
[2019-03-08 06:56] LABS: ANION GAP 12.6 (8-16); CARBON DIOXIDE 27.1 mmol/L (21-32); CHLORIDE 109 mmol/L (98-107); CREATININE 1.2 mg/dL (0.6-1.3); GLUCOSE 108 mg/dL (74-106); SODIUM SERUM 146 mmol/L (136-145); UREA NITROGEN, BLOOD 32 mg/dL (7-18)
[2019-03-08 07:04] LABS: POTASSIUM 2.7 mmol/L (3.5-5.1)
--- NOTE | 2019-03-08 07:21 | NUR ---
GAVE BEDSIDE REPORT TO MORNING SHIFT YOMI CHANEY.
--- NOTE | 2019-03-08 07:22 | NUR ---
RECEIVED REPORT FROM THICKENER OPERATOR NURSE AT BEDSIDE, PT IS AWAKE, ABLE TO OPEN EYES AND FOLLOW COMMANDS SOMETIMES, VSS, FLACC 0, NO S/S OF DISTRESS, ETT TO VENT WITH FIO2 24, TV 500, R 14, PEEP 5, CLEAR LUNG SOUNDS LENI, O2 SAT AT 96%, A-FIB ON CHARGE COORDINATOR, SOFT ABDOMEN WITH ACTIVE BOWEL SOUNDS, OGT IN PLACE, 100ML RESIDUALS NOTED, FEEDING WITH VITAL AF AT 55 ML/HR, F/C IN PLACE WITH CLEAR YELLOW VIA GRAVITY, RECTAL BAG IN PLACE WITH YELLOW LOOSE STOOL VIA GRAVITY, SKIN IS WARM AND DRY TO TOUCH, INTACT, GENERALIZED NONPITTING EDEMA NOTED, CENTRAL LINE TO RIJ, TLC, PATENT, RUNNING 1/2 NS AT 10ML/HR. HOB ELEVATED TO 30 DEGREES, ORAL CARE PROVIDED, SCD ON, SAFETY MEASURES IN PLACE, POSITION CHANGED FOR OFF LOAD PRESSURE, WILL CONTINUE TO MONITOR.
[2019-03-08] MEDS: FUROSEMIDE 40 MG/4 ML VIAL IVP SCH (08:39)
[2019-03-08] MEDS: POTASSIUM CHLORIDE 20% 40 MEQ/15 ML UDC GT SCH ×2 (08:39→11:48)
[2019-03-08] MEDS: SODIUM PHOS / POTASSIUM PHOS 1 PKT PDR NG SCH ×2 (08:39→21:50)
[2019-03-08] MEDS: VIT-B COMP/VIT-C/FOLIC ACID 1 TAB PO SCH (08:40)
[2019-03-08] MEDS: MEMANTINE 10 MG TAB PO SCH ×2 (08:40→21:51)
[2019-03-08] MEDS: AMIODARONE 200 MG TAB PO SCH ×2 (08:40→21:51)
[2019-03-08] MEDS: ENOXAPARIN 30 MG/0.3 ML SYR SUBQ SCH (08:49)
[2019-03-08] MEDS: NACL 0.45% 500 ML IV SCH (08:51)
[2019-03-08] MEDS ORDERED: POTASSIUM CHLORIDE 40 MEQ, LIDOCAINE 1% 25 MG in NACL 0.9% 250 ML IV SCH (09:00)
--- NOTE | 2019-03-08 09:00 | NUR ---
SCHEDULED MEDICATION GIVEN VIA NGT, NO ADVERSE EFFECTS AT THIS TIME.
--- NOTE | 2019-03-08 09:12 | NUR ---
DR. VERGARA PLACED PT ON CPAP 5 PS 10 LEAVE FOR 45 MINUTES AND CONTINUE WEANING THEN DO ABG AND CALL WITH RESULTS
--- NOTE | 2019-03-08 09:12 | NUR ---
DR. VERGARA CAME IN TO SEE PT AT BEDSIDE, PT IS AWAKE, FOLLOW COMMANDS, DR. VERGARA PUT PT ON C-PAP MODE, RT NOTED, WILL FOLLOW UP WITH NEW ORDERS.
--- NOTE | 2019-03-08 10:00 | NUR ---
PT BACK ON AC DUE TO NOT ABLE TO DO WEANING SHIV KOTHARI NOTIFIED.ALSO NOTIFIED
--- NOTE | 2019-03-08 11:30 | NUR ---
DR. NUNEZ CAME IN TO SEE PT AT BEDSIDE, STATED NOT GOING TO DO SURGERY TODAY. Addendum: 03/08/19 at 1226 by Martín Esteban RN WILL DO ON 03/10 AT NOON.
--- NOTE | 2019-03-08 12:00 | NUR ---
PT IS RESTING IN BED, NO S/S OF DISTRESS, VSS, FLACC 0, ORAL CARE PROVIDED, POSITION CHANGED FOR OFF LOAD PRESSURE.
--- NOTE | 2019-03-08 14:00 | NUR ---
NO CHANGE OF CONDITION, VSS, FLACC 0, POSITION CHANGED FOR OFF LOAD PRESSURE.
[2019-03-08 14:33] LABS: ANION GAP 12.5 (8-16); CARBON DIOXIDE 26.1 mmol/L (21-32); CHLORIDE 112 mmol/L (98-107); CREATININE 1.3 mg/dL (0.6-1.3); GLUCOSE 126 mg/dL (74-106); POTASSIUM 4.6 mmol/L (3.5-5.1); SODIUM SERUM 146 mmol/L (136-145); UREA NITROGEN, BLOOD 30 mg/dL (7-18)
--- NOTE | 2019-03-08 14:33 | NUR ---
CALLED PT'S SON JEFF REGARDING THE CONSENT OF SURGERY, NO ONE ANSWERED, LEFT MESSAGE AT THIS TIME.
--- NOTE | 2019-03-08 15:28 | NUR ---
03/08/19 RD FOLLOW UP COMPLETED PLEASE REFER TO NUTRITION ASSESSMENT UNDER CARE ACTIVITY FOR ESTIMATED NUTRITIONAL NEEDS. 1. CONTINUE VITAL AT 55 ML/HR -THIS WILL PROVIDE 1320ML TOTAL VOLUME, 1584 KCAL, 99 GM OF PROTEIN. IT WILL MEET 100% OF ESTIMATED ENERGY NEEDS AND 100% OF ESTIMATED PROTEIN NEEDS. 2. CONTINUE [address] TO FOLLOW-UP 2-3 DAYS, HIGH RISK JEREMIAS RAMOS RD
--- NOTE | 2019-03-08 16:00 | NUR ---
PM CARE AND ORAL CARE PROVIDED, F/C CARE PROVIDED, POSITION CHANGED FOR OFF LOAD PRESSURE.
--- NOTE | 2019-03-08 18:00 | NUR ---
NO CHANGE OF CONDITION AT THIS TIME, POSITION CHANGED FOR OFF LOAD PRESSURE.
--- NOTE | 2019-03-08 18:56 | NUR ---
Received pt stable on vent support at documented settings, suctioned scant amount of thin clear blood tinged secretions, hhn tx given, tolerated well, no resp distress or SOB noted at this time, 7.5 ETT secured at 25 cm, alarms set and audible, ambu bag at bedside, vent plugged into red outlet, cont pulse ox on, will cont to monitor.
--- NOTE | 2019-03-08 19:14 | NUR ---
REPORT GIVEN TO EDI ARCHITECT NURSE AT BEDSIDE FOR CONTINUE OF CARE, PT IS IN STABLE CONDITION AT THIS TIME.
--- NOTE | 2019-03-08 19:48 | NUR ---
RECEIVED BEDSIDE REPORT FROM MORNING SHIFT RNYOMI. PT IS AWAKE, OPENS EYES SPONTANEOUSLY, OPENS EYES TO NAME. AFIB ON [employer]. TEMP 98.2 BP 109/61, RR=21, SATING 96%, HR 100-109. FLACC 0. ETT TO VENT, FIO2=24%, VT 500, FLOW 40L/MIN, RR=12, PEEP 5, PMAX 50. LUNG SOUNDS CLEAR UPPER BILAT LOBES, DIMINISHED ON LOWER BASES. BOWEL SOUND ACTIVE X4, OGT IN PLACE SET TO FEEDING VITALS AF AT 55CC/HR, NO RESIDUAL NOTED. PT HAS BM, LOOSE/WATER STOOL. HYDRAGUARD APPLIED, MAX ASSIST X2, REPOSITIONED WITH PILLOW SUPPORT. RIGHT IJ, INFUSING 1/2NS AT 10CC/HR, PORTS SALINE FLUSHED WITH BLOOD RETURN NOTED. ORAL CARE PROVIDED. DISCOLORATION ON BILAT UPPER ARMS, MILD GENERALIZED EDEMA. SKIN IS NORMAL IN COLOR. HOB ABOVE 30 DEG, ALLERGY BAND TO CHOCOLATE. CONTACT ISOLATION PRECAUTIONS MAINTAINED.
--- NOTE | 2019-03-08 23:44 | NUR ---
SECOND BM OF SHIFT, BROWN/YELLOW, MALODOROUS, AND LOOSE/MUSCUOSY STOOL. PT REPOSITIONED AND VAP ORAL CARE PROVIDED. FLACC 0, NO SIGNS OF GAGGING OR DISCOMFORT FROM ETT TUBE. AFIB WITH FLUCTUATING HR FROM 100-115.
[2019-03-09] VITALS (17 sets, daily range): BP systolic 90–126; BP diastolic 19–74
[2019-03-09] MEDS: IPRATROPIUM 0.02% 0.5 MG/2.5 ML NEBU INH SCH ×3 (01:04→21:46)
--- NOTE | 2019-03-09 03:29 | NUR ---
VAP ORAL CARE PROVIDED TO PATIENT, WHITE/CLEAR SECRETIONS NOTED. REPOSITIONED AND ELEVATED HOB. NS INFUSING AT 10CC/HR TO RIGHT IJ. AM CARES PROVIDED. NO PAIN MED OR SEDATION GIVEN, FLACC 0. AFEBRILE.
[2019-03-09] MEDS: PIPER/TAZO 2.25GM/D5W PREMIX 50 ML IV SCH ×4 (05:39→23:38)
[2019-03-09] MEDS: LEVOTHYROXINE 0.025 MG TAB PO SCH (05:40)
[2019-03-09] MEDS: PANTOPRAZOLE 40 MG INJ VIAL IVP SCH (05:40)
[2019-03-09 05:55] LABS: BASOPHILS # (AUTO) 0.1 K/uL (0.00-0.22); BASOPHILS % (AUTO) 0.7 % (0.0-2.0); EOSINOPHILS # (AUTO) 0.3 K/uL (0-0.4); EOSINOPHILS % (AUTO) 2.9 % (0.0-4.0); HEMATOCRIT 34.2 % (36-48); HEMOGLOBIN 11.2 g/dL (12.0-16.0); LYMPHOCYTES % (AUTO) 9.9 % (20.5-51.1); MEAN CORPUSCULAR HEMOGLOBIN 30 pg (27-31); MEAN CORPUSCULAR HGB CONC 33 g/dL (33-37); MONOCYTES # (AUTO) 0.9 K/uL (0.8-1.0); MONOCYTES % (AUTO) 9.6 % (1.7-9.3); NEUTROPHILS # (AUTO) 7.4 K/uL (1.8-7.7); NEUTROPHILS % (AUTO) 76.9 % (42.2-75.2); PLATELET COUNT (AUTO) 270 K/uL (140-450); RED CELL DISTRIBUTION WIDTH 14.4 % (11.6-13.7); WHITE BLOOD COUNT (AUTO) 9.6 K/uL (4.8-10.8)
--- NOTE | 2019-03-09 06:09 | NUR ---
THIRD BM OF SHIFT, SMALL/BROWN/MUCOUSY STOOL. HYDRAGUAD APPLIED, AM CARES/CHAUDHARI CATH CARE PROVIDED. REPOSITION ASSIST X2, ORAL SUCTIONING PROVIDED W/ THICK WHITE SECRETIONS.
[2019-03-09 06:24] LABS: ANION GAP 14.1 (8-16); CARBON DIOXIDE 25.2 mmol/L (21-32); CHLORIDE 112 mmol/L (98-107); CREATININE 1.2 mg/dL (0.6-1.3); GLUCOSE 100 mg/dL (74-106); POTASSIUM 3.3 mmol/L (3.5-5.1); SODIUM SERUM 148 mmol/L (136-145); UREA NITROGEN, BLOOD 32 mg/dL (7-18)
[2019-03-09 06:30] LABS: MAGNESIUM 2.2 mg/dL (1.8-2.4); PHOSPHORUS 2.8 mg/dL (2.5-4.9)
--- NOTE | 2019-03-09 07:43 | NUR ---
GAVE BEDSIDE REPORT MORNING SHIFT SHIV CELAYA
--- NOTE | 2019-03-09 07:44 | NUR ---
RECEIVED REPORT FROM CREDIT INTERVIEWER NURSE AT BEDSIDE, PT IS AWAKE, ABLE TO OPEN EYES AND FOLLOW COMMANDS SOMETIMES, VSS, FLACC 0, NO S/S OF DISTRESS, ETT TO VENT WITH FIO2 24, TV 500, R 14, PEEP 5, CLEAR LUNG SOUNDS LENI, O2 SAT AT 98%, A-FIB ON BAND SEWER, SOFT ABDOMEN WITH ACTIVE BOWEL SOUNDS, OGT IN PLACE, 5 ML RESIDUALS NOTED, FEEDING WITH VITAL AF AT 55 ML/HR, F/C IN PLACE WITH CLEAR YELLOW VIA GRAVITY, SKIN IS WARM AND DRY TO TOUCH, INTACT, GENERALIZED WEAKNESS TO ALL EXTREMITIES, CENTRAL LINE TO RIJ, TLC, PATENT, RUNNING 1/2 NS AT 10ML/HR. HOB ELEVATED TO 30 DEGREES, ORAL CARE PROVIDED, SCD ON, SAFETY MEASURES IN PLACE, POSITION CHANGED FOR OFF LOAD PRESSURE, WILL CONTINUE TO MONITOR.
[2019-03-09] MEDS: VIT-B COMP/VIT-C/FOLIC ACID 1 TAB PO SCH (08:23)
[2019-03-09] MEDS: SODIUM PHOS / POTASSIUM PHOS 1 PKT PDR NG SCH ×2 (08:23→21:00)
[2019-03-09] MEDS: MEMANTINE 10 MG TAB PO SCH ×2 (08:24→21:00)
[2019-03-09] MEDS: ENOXAPARIN 30 MG/0.3 ML SYR SUBQ SCH (08:28)
[2019-03-09] MEDS: NACL 0.45% 500 ML IV SCH (08:28)
--- NOTE | 2019-03-09 08:45 | NUR ---
SCHEDULED MEDICATION GIVEN, PT TOLERATED WELL.
[2019-03-09] MEDS ORDERED: POTASSIUM CHLORIDE 20% 40 MEQ/15 ML UDC GT SCH (09:00)
--- NOTE | 2019-03-09 10:00 | NUR ---
NO CHANGE OF CONDITION, VSS, FLACC 0, POSITION CHANGED FOR OFF LOAD PRESSURE
--- NOTE | 2019-03-09 10:26 | NUR ---
INITIATED CPAP/SBT TRIALS AT THIS TIME BREATH SOUNDS DIFFUSED RHONCHI BILATERAL WITH EQUAL CHEST RISE ENDOTRACHEAL SUCTION FOR SMALL THICK YELLOW SECRETIONS AIRWAY PATENT YOMI/RN NOTIFIED
--- NOTE | 2019-03-09 10:27 | NUR ---
ASLEEP EASILY AWAKENS PATIENT UNABLE TO FOLLOW COMMANDS FOR WEANING PARAMETERS
--- NOTE | 2019-03-09 12:12 | NUR ---
TOLERATING CPAP/SBT WELL WITHOUT DISTRESS NOTED BREATH SOUNDS CLEAR BILATERAL WITH EQUAL CHEST RISE AND AERATION THROUGHOUT LUNG CABRALES AIRWAY PATENT
--- NOTE | 2019-03-09 12:25 | NUR ---
DR. VERGARA CAME IN TO SEE PT AT BEDSIDE, STATED HOLD TUBE FEEDING, AND START C-PAP WEANING.
--- NOTE | 2019-03-09 12:25 | NUR ---
OROPHARYNGEAL SUCTION FOR COPIOUS SEMI THICK YELLOW SECRETIONS TOLERATED PROCEDURE WELL WITHOUT INCIDENT
--- NOTE | 2019-03-09 12:28 | NUR ---
ABG SAMPLE REPORT REVIEWED BY DR MARTITA VERGARA NEW ORDER: OK TO EXTUBATE
--- NOTE | 2019-03-09 12:53 | NUR ---
PATIENT EXTUBATED PLACED ON A COOL AEROSOL AT 28%/6LPM TO AEROSOL MASK VENTILATOR ON STANDBY
--- NOTE | 2019-03-09 12:55 | NUR ---
PT EXTUBATED BY RT, DR. VERGARA AND DR. GODFREY AT BEDSIDE, PT TOLERATED WELL ON THE PROCEDURE. Addendum: 03/09/19 at 1350 by Martín Esteban RN OGT PULLED OUT PER DR. VERGARA WELL.
--- NOTE | 2019-03-09 13:48 | NUR ---
PAGED DR MARTITA VERGARA [phone] TO REVIEW ABG SAMPLE REPORT POST EXTUBATION
--- NOTE | 2019-03-09 14:00 | NUR ---
CALLED DR. MARTITA VERGARA [phone] TO REVIEW ABG SAMPLE REPORT POST EXTUBATION
--- NOTE | 2019-03-09 14:00 | NUR ---
NO S/S OF DISTRESS, PT IS RESTING IN BED, VSS, FLACC 0, ON COOL MIST MASK AT FIO2 30, O2 SAT 98%. POSITION CHANGED FOR OFF LOAD PRESSURE.
--- NOTE | 2019-03-09 14:05 | NUR ---
CALL BACK FRO DR. MARTITA VERGARA REVIEWED [facility] SAMPLE REPORT POST EXTUBATION MD STATES "LOOKS GOOD JUST CONTINUE" Addendum: 03/09/19 at 1842 by Karel Diaz RT FRO = FROM
--- NOTE | 2019-03-09 14:07 | NUR ---
CALL DR. JANUSZ GODFREY [phone] REVIEWED ABG SAMPLE REPORT POST EXTUBATION INFORMED MD OF DR MARTITA VERGARA COMMENTS STATED AT 1100
--- NOTE | 2019-03-09 16:00 | NUR ---
NO S/S OF DISTRESS, VSS, FLACC 0, PM CARE AND F/C CARE PROVIDED, POSITION CHANGED FOR OFF LOAD PRESSURE.
[2019-03-09] MEDS: DEXT 5% / NACL 0.45% 500 ML IV SCH (16:19)
--- NOTE | 2019-03-09 18:00 | NUR ---
NO S/S OF DISTRESS, VSS, DENIES PAIN, POSITION CHANGED FOR OFF LOAD PRESSURE.
--- NOTE | 2019-03-09 19:14 | NUR ---
REPORT GIVEN TO CHAINMAN NURSE AT BEDSIDE FOR CONTINUE OF CARE. PT IS IN STABLE CONDITION AT THIS TIME.
--- NOTE | 2019-03-09 19:30 | NUR ---
RECEIVE PT FROM AM SHIFT . PT OPEN HER YES WHEN CALLING HER NAME,NO S/S OF PAIN OR DISCOMFORT NOTED. NO S/S OF RESP DISTRESS, NO SOB. PT EXTUBATED IN AM SHIFT AND TOLERATED WELL,OGT WAS OUT.MD AWARE. PT CONT ON AEROSOL MASK WITH O2 AT 6LPM TOLERATED WELL AT THIS TIME. BILATERAL LUNGS SOUND CLEAR.PRODUCTIVE COUGH NOTED,SUCTION GIVEN PRN. HOB UP 30-45 DEGREES AT ALL THE TIMES. SR ON TECHNOLOGY MANAGER WITH EPISODES OF AFIB. CENTRAL LINE TO RIGHT IJ TRIPLE LUMENS. NO S/S OF INFECTION ON THE SITE, CONT ON IV D5 IN 1/2 NS AT 50 CC/HR TOLERATED WELL.SKIN INTACT. WITH BUE DISCOLORATIONS. F/C IN PLACE WITH YELLOW URINE NOTED IN BSD BAG. GENTLE CARE GIVEN KEPT CLEAN AND DRY.
--- NOTE | 2019-03-09 21:15 | NUR ---
OGT WAS OUT IN AM DURING EXTUBATED, PER DR.FERNANDEZ RANDOLPH TO INSERT NGT. NGT WAS INSERTED TO RIGHT NARES.CONFIRM PLACEMENT WITH 2 RN. X-RAY FOR PLACEMENT IN ORDER WELL. PER PT NPO AT THIS TIME.
[2019-03-10] VITALS (10 sets, daily range): BP systolic 94–140; BP diastolic 35–87
[2019-03-10] MEDS ORDERED: DEXT 5% / NACL 0.45% 500 ML IV SCH
--- NOTE | 2019-03-10 00:05 | NUR ---
IV ABT ZOSYN GIVEN ORDER
--- NOTE | 2019-03-10 01:21 | NUR ---
X-RAY RESULT IS NGT ON THE TIP OF STOMACH. PT STILL NPO AT THIS TIME. PT SLEEP WELL. NO DISTRESS NOTED.
[2019-03-10] MEDS: IPRATROPIUM 0.02% 0.5 MG/2.5 ML NEBU INH SCH ×4 (02:01→19:13)
--- NOTE | 2019-03-10 02:10 | NUR ---
SCHEDULED BREATHING TREATMENT ADMINISTERED. TOLERATED TX WELL, NO ADVERSE SIDE EFFECTS. NO RESPIRATORY DISTRESS NOTED. WILL CONTINUE TO MONITOR.
--- NOTE | 2019-03-10 04:00 | NUR ---
AM CARE GIVEN,ORAL CARE,BED BATH AND PERINEAL CARE. F/C CARE GIVEN. DIARRHEA X1. KEPT PT CLEAN AND DRY.
[2019-03-10] MEDS: DEXT 5% / NACL 0.45% 500 ML IV SCH (05:02)
[2019-03-10] MEDS: PIPER/TAZO 2.25GM/D5W PREMIX 50 ML IV SCH (05:03)
--- NOTE | 2019-03-10 05:16 | NUR ---
IV ABT ZOSYN GIVEN TOLERATED WELL
[2019-03-10] MEDS: PANTOPRAZOLE 40 MG INJ VIAL IVP SCH (06:10)
[2019-03-10] MEDS: LEVOTHYROXINE 0.025 MG TAB PO SCH (06:10)
[2019-03-10 06:20] LABS: MAGNESIUM 2.3 mg/dL (1.8-2.4); PHOSPHORUS 2.9 mg/dL (2.5-4.9)
--- NOTE | 2019-03-10 06:21 | NUR ---
DR.POTLURI JANUSZ GARCIA SEE PT AND UP DATE PT CONDITION AND AWAE PT IS NPO, PER MD PT WILL HAVE SWALLOW EVAL TO DAY.
[2019-03-10 06:56] LABS: ANION GAP 11.8 (8-16); CARBON DIOXIDE 25.6 mmol/L (21-32); CHLORIDE 113 mmol/L (98-107); GLUCOSE 86 mg/dL (74-106); POTASSIUM 3.4 mmol/L (3.5-5.1); SODIUM SERUM 147 mmol/L (136-145); UREA NITROGEN, BLOOD 26 mg/dL (7-18)
--- NOTE | 2019-03-10 07:00 | NUR ---
PT ASLEEP, LETHARGIC, ON AEROSOL MASK AT 28% FIO2. BREATH SOUNDS CLEAR AND DIMINISHED. HHN TX GIVEN, PT IN NAD AT THIS TIME, WILL CONTINUE TO MONITOR.
[2019-03-10 07:08] LABS: BASOPHILS # (AUTO) 0.1 K/uL (0.00-0.22); BASOPHILS % (AUTO) 0.9 % (0.0-2.0); EOSINOPHILS # (AUTO) 0.3 K/uL (0-0.4); EOSINOPHILS % (AUTO) 4.4 % (0.0-4.0); HEMATOCRIT 34.7 % (36-48); HEMOGLOBIN 11.4 g/dL (12.0-16.0); LYMPHOCYTES % (AUTO) 13.9 % (20.5-51.1); MEAN CORPUSCULAR HEMOGLOBIN 30 pg (27-31); MEAN CORPUSCULAR HGB CONC 33 g/dL (33-37); MEAN CORPUSCULAR VOLUME 90.4 fL (80-94); MONOCYTES # (AUTO) 0.8 K/uL (0.8-1.0); MONOCYTES % (AUTO) 11.8 % (1.7-9.3); NEUTROPHILS # (AUTO) 4.8 K/uL (1.8-7.7); PLATELET COUNT (AUTO) 274 K/uL (140-450); RED BLOOD CELL COUNT(AUTO) 3.84 MIL/uL (4.20-5.40); RED CELL DISTRIBUTION WIDTH 14.9 % (11.6-13.7); WHITE BLOOD COUNT (AUTO) 6.9 K/uL (4.8-10.8)
--- NOTE | 2019-03-10 07:15 | NUR ---
RECEIVED REPORT FROM RESIDENTIAL DESIGNER RN. PT RESTING IN BED A/O X2. VERBALIZES NEEDS. ST ON MONITOR. NOTED ON AEROSOL MAS O2 AT 6LTR/MIN. NG TUBE NOTED ON RIGHT NARES. POSITIVE PLACEMENT. 0 RESIDUAL. SKIN DRY AND WARM TO TOUCH. LUNGS DIMINISHED. RIJ IN PLACE, INTACT. HAS GOOD BLOOD RETURNS. D5%1/2 NS INFUSING AT 50 ML/HR. BRUISES NOTED NO BOTH UPPER EXTREMITIES. ABDOMEN SOFT, ROUND AND NON-TENDER. ACTIVE BOWEL SOUND. F/C IN PLACE. EDEMATOUS BOTH LOWER EXTREMITIES. OFF LOADED PRESSURE AREAS. HOB ELEVATED. BED IN LOW POSITION LOCKED.
--- NOTE | 2019-03-10 07:15 | NUR ---
REPORT GIVEN TO LOCO CHANEY,PT IS STABLE AT THIS TIME ,STILL NPO AND WILL HAVE ST EVAL IN AM.
[2019-03-10] MEDS ORDERED: POTASSIUM CHLORIDE 20% 40 MEQ/15 ML UDC GT SCH (08:00)
--- NOTE | 2019-03-10 09:01 | NUR ---
PT EVALUATED BY DR. VERGARA AND DR. GODFREY. MADE AWARE OF HR. DC'D COOL MIST MASK AND PLACED PT ON O2 AT 2 LTR/MIN VIA NC PER DR. VERGARA. SPO2 98%. BREATHING NORMALLY. NO PEG TUBE PLACEMENT PER DR. GODFREY. OKAY TO ADMINISTER MEDS VIA NG-TUBE. MEDS WILL BE ADMINISTERED PER ORDER.
[2019-03-10] MEDS: MEMANTINE 10 MG TAB PO SCH ×2 (09:08→20:20)
[2019-03-10] MEDS: VIT-B COMP/VIT-C/FOLIC ACID 1 TAB PO SCH (09:08)
[2019-03-10] MEDS: ACETAMINOPHEN 325 MG TAB PO PRN ×2 (09:09→17:29)
[2019-03-10] MEDS: ENOXAPARIN 30 MG/0.3 ML SYR SUBQ SCH (09:10)
[2019-03-10] MEDS: SODIUM PHOS / POTASSIUM PHOS 1 PKT PDR NG SCH ×2 (09:11→20:20)
[2019-03-10] MEDS ORDERED: METOPROLOL 50 MG TAB PO SCH ×2 (09:15→21:00)
[2019-03-10] MEDS: DEXT 5% / NACL 0.45% 1,000 ML IV SCH ×2 (09:15→13:22)
--- NOTE | 2019-03-10 10:52 | NUR ---
SPOKE TO STEWART MARTIN [phone] [place] [facility]WARE THAT DC PLANNING FOR PATIENT IS TO GO BACK TOMORROW FOR PT. ALL CLINICALS FAXED AT [phone].
--- NOTE | 2019-03-10 12:56 | NUR ---
PT ALERT. VERBALIZES NEEDS. NO SOB OR ACUTE RESPIRATORY DISTRESS NOTED. AFEBRILE. CONTINUE ON O2 AT 2 LTR/MIN VIA NC. RIJ INTACT.
--- NOTE | 2019-03-10 16:42 | NUR ---
SLEEPING, AROUSABLE. CONTINUE ON O2 AT 2 LTR/MIN VIA NC. VSS. NO SOB OR RESPIRATORY DISTRESS NOTED. NO C/O PAIN.
--- NOTE | 2019-03-10 18:46 | NUR ---
DR. VAUGHN MADE AWARE ABOUT PT STATUS AND URINE OUTPUT.
--- NOTE | 2019-03-10 19:15 | NUR ---
S.T. BEDSIDE SWALLOW EVAL COMPLETED See report for details. Pt presents with moderate-severe oropharyngeal dysphagia c/b disorganized oral phase of swallow with difficulty procuring bolus and propelling posteriorly, delayed pharyngeal swallow initiation resulting in audible (slushy) swallow and throat clearing after swallows of both thin and nectar thick liquids. Pt is at mod-high risk of aspiration. Recommend: 1) Advance to pureed diet, honey thick liquids via spoon only. No straws. 2) P.O. meds crushed and mixed w/ puree. 3) 1:1 feeder w/ aspiration precautions. D/w discharge specialist Mireya results/recommendations. No further tx indicated at this time. DC to [facility]. Time [id number]
[2019-03-10] MEDS ORDERED: NACL 0.9% 2,000 ML IV ONE (19:25)
--- NOTE | 2019-03-10 19:25 | NUR ---
BOLUS ORDERED NOT GIVEN D/T PER ADDITIONAL NOTES, IT WAS ADMINISTERED IN THE AM.
--- NOTE | 2019-03-10 19:30 | NUR ---
RECEIVED REPORT FROM MORNING RN, LOCO, FOR CONTINUITY OF CARE. VS STABLE AT THIS TIME. PERRL. AFEBRILE. DENIES PAIN AT THIS TIME. LUNG SOUNDS CLEAR. PT ON OXYGEN VIA NC AT 2L/MIN. NO SOB NOTED. RESPIRATIONS ARE EVEN AND UNLABORED. S1+S2 HEARD. SR ON MONITOR. BP WNL. ABDOMEN ROUND, SOFT AND NONDISTENDED. BS ACTIVE IN ALL QUADRANTS. NGT IN PLACE. PLACEMENT CHECKED. NO RESIDUAL NOTED. CHAUDHARI CATHETER IN PLACE DRAINING CLEAR AND YELLOW URINE. PT HAS RIGHT IJ TRIPLE LUMEN CENTRAL LINE. LINE IS PATENT, INTACT, AND ASYMPTOMATIC. PT HAS D5 0.45% NS AT 50MLS/HR. BED AT LOWEST POSSIBLE POSITION. HOB AT 30 DEGREES. ALL SAFETY PRECAUTIONS ARE IN PLACE. WILL CONTINUE TO MONITOR PT.
--- NOTE | 2019-03-10 19:35 | NUR ---
REPORT GIVEN TO STRIPPER AND PRINTER RN FOR CONTINUITY OF CARE.
--- NOTE | 2019-03-10 20:30 | NUR ---
PT'S CENTRAL LINE DRESSING WAS CHANGED. NO BLEEDING ON SITE NOTED. LINE WAS FLUSHED AND HAS GOOD BLOOD RETURN. PT DENIES ANY DISCOMFORT AT THIS TIME. NO SOB NOTED.
--- NOTE | 2019-03-10 22:15 | NUR ---
NO CHANGE IN PT'S CONDITION AT THIS TIME. PT TURNED AND REPOSITIONED. DENIES PAIN. VS STABLE AT THIS TIME.
--- NOTE | 2019-03-10 23:59 | NUR ---
VS STABLE AT THIS TIME. PT'S EYES ARE CLOSED. DENIES ANY PAIN. PT DOES NOT APPEAR TO BE EXPERIENCING ANY DISCOMFORT. SR ON MONITOR. BP WNL. PT AFEBRILE. ALL SAFETY PRECAUTIONS ARE IN PLACE. HOB AT 30 DEGREES. WILL CONTINUE TO MONITOR PT.
[2019-03-11 00:09] VITALS: BP 127/66
[2019-03-11] MEDS: IPRATROPIUM 0.02% 0.5 MG/2.5 ML NEBU INH SCH ×3 (01:35→13:54)
--- NOTE | 2019-03-11 02:02 | NUR ---
RESPIRATIONS ARE EVEN AND UNLABORED. PT'S EYES ARE CLOSED. PT DENIES ANY DISCOMFORT AT THIS TIME. ALL SAFETY PRECAUTIONS ARE KEPT IN PLACE. VS STABLE AT THIS TIME. BED AT THE LOWEST POSSIBLE POSITION. WILL CONTINUE TO MONITOR PT.
[2019-03-11 04:00] VITALS: BP 123/55
[2019-03-11 06:29] LABS: ANION GAP 14.1 (8-16); CARBON DIOXIDE 24.6 mmol/L (21-32); CHLORIDE 110 mmol/L (98-107); GLUCOSE 78 mg/dL (74-106); POTASSIUM 3.7 mmol/L (3.5-5.1); SODIUM SERUM 145 mmol/L (136-145); UREA NITROGEN, BLOOD 25 mg/dL (7-18)
[2019-03-11 06:32] LABS: MAGNESIUM 2.1 mg/dL (1.8-2.4); PHOSPHORUS 3.3 mg/dL (2.5-4.9)
[2019-03-11] MEDS: LEVOTHYROXINE 0.025 MG TAB PO SCH (06:33)
[2019-03-11] MEDS: PANTOPRAZOLE 40 MG INJ VIAL IVP SCH (06:33)
[2019-03-11 06:48] LABS: BASOPHILS # (AUTO) 0.1 K/uL (0.00-0.22); EOSINOPHILS # (AUTO) 0.3 K/uL (0-0.4); EOSINOPHILS % (AUTO) 3.9 % (0.0-4.0); HEMATOCRIT 35.8 % (36-48); HEMOGLOBIN 11.5 g/dL (12.0-16.0); LYMPHOCYTES # (AUTO) 1.2 K/uL (2.5-16.5); LYMPHOCYTES % (AUTO) 17.5 % (20.5-51.1); MEAN CORPUSCULAR HEMOGLOBIN 29 pg (27-31); MEAN CORPUSCULAR HGB CONC 32 g/dL (33-37); MEAN CORPUSCULAR VOLUME 91.2 fL (80-94); MONOCYTES # (AUTO) 0.6 K/uL (0.8-1.0); MONOCYTES % (AUTO) 9.4 % (1.7-9.3); NEUTROPHILS # (AUTO) 4.7 K/uL (1.8-7.7); NEUTROPHILS % (AUTO) 68.2 % (42.2-75.2); PLATELET COUNT (AUTO) 337 K/uL (140-450); RED BLOOD CELL COUNT(AUTO) 3.93 MIL/uL (4.20-5.40); RED CELL DISTRIBUTION WIDTH 14.9 % (11.6-13.7); WHITE BLOOD COUNT (AUTO) 6.9 K/uL (4.8-10.8)
--- NOTE | 2019-03-11 07:25 | NUR ---
RECEIVED TELEPHONE REPORT FROM GRADES 7 AND 8 TEACHER NATALIA. WAITING FOR PT TO TRANSFER TO THE UNIT.
[2019-03-11 08:00] VITALS: BP 103/86
[2019-03-11] MEDS ORDERED: NACL 0.9% 1,000 ML IV SCH (08:00)
--- NOTE | 2019-03-11 08:00 | NUR ---
RECEIVED PT FROM ICU. PT STABLE, AWAKE, ALERT AND ORIENTED X1. NO SIGNS OF DISTRESS NOTED. ON 2L O2 VIA NC. NO REDNESS, SWELLING, OR INFLAMMATION NOTED ON IV SITE. CALL BLACKMAN WITHIN REACH. BED IN LOWEST POSITION, BED ALARM ON. SAFETY MEASURES IN PLACE. PLAN OF CARE REVIEWED.
--- NOTE | 2019-03-11 08:25 | NUR ---
[facility] THERAPY AND RESPIRATORY DRUG GIVEN LATE DUE TO PATIENT TRANSFER FROM ICU-1 TO [facility] 107-A
[2019-03-11] MEDS: SODIUM PHOS / POTASSIUM PHOS 1 PKT PDR NG SCH (08:53)
[2019-03-11] MEDS: MEMANTINE 10 MG TAB PO SCH (08:53)
[2019-03-11] MEDS: VIT-B COMP/VIT-C/FOLIC ACID 1 TAB PO SCH (08:54)
[2019-03-11] MEDS: ENOXAPARIN 30 MG/0.3 ML SYR SUBQ SCH (08:56)
[2019-03-11] MEDS ORDERED: AMIODARONE 200 MG TAB PO SCH (09:00)
--- NOTE | 2019-03-11 09:00 | NUR ---
PHYSICAL THERAPIST AT THE BEDSIDE. ADMINISTERED SCHEDULED MEDICATIONS, PT TOLERATED WELL. NO OTHER NEEDS AT THIS TIME. BP TAKEN, 139/63 HR 83. PT STABLE.
--- NOTE | 2019-03-11 10:45 | NUR ---
CALLED NATHAN MARTIN, [facility] [place] [phone], FAXED CLINICALS [phone], PER NATHAN SHE WILL CALL BACK FOR ROOM.
[2019-03-11] MEDS ORDERED: LOV40I SUBQ (10:59)
[2019-03-11] MEDS ORDERED: AMIO200T5 PO (10:59)
--- NOTE | 2019-03-11 11:30 | NUR ---
PT REPOSITIONED, LINENS AND GOWN CHANGED. PT STABLE.
--- NOTE | 2019-03-11 11:30 | NUR ---
CALLED [facility] SPOKE TO NATHAN, TO FOLLOW-UP WITH THE ROOM, SHE SAID SHE WILL CALL BACK.
[2019-03-11 12:00] VITALS: BP 98/52
--- NOTE | 2019-03-11 12:30 | NUR ---
VITAL SIGNS TAKEN, PT STABLE. NO SIGNS OF DISTRESS NOTED. WILL CONTINUE TO MONITOR.
--- NOTE | 2019-03-11 14:00 | NUR ---
CALLED AND SPOKE WITH NATHAN [facility] [phone], PATIENT WILL GO TO ROOM 40B, ACCEPTING MD IS DR CAMARENA.
--- NOTE | 2019-03-11 14:28 | NUR ---
CALLED [facility] [phone] SPOKE TO TOOTIE ORANTES ARRANGE TO [place] [facility] ESTIMATED PRACTICE DIRECTOR TIME IS 1530, RN NICK NANCE MADE AWARE. PCS FAX TO [facility] [phone].
--- NOTE | 2019-03-11 14:30 | NUR ---
PT STABLE, SLEEPING, BUT EASILY AROUSABLE. CHEST RISE AND FALL VISIBLY NOTED.
--- NOTE | 2019-03-11 15:05 | NUR ---
GAVE REPORT TO SANTIAGO FROM [facility]. Addendum: 03/11/19 at 1525 by Rajan Cruz RN LEFT A MESSAGE TO PT'S SON JEFF BENAVIDES ([phone]) REGARDING PT'S TRANSFER BACK TO [facility] TODAY.
--- NOTE | 2019-03-11 15:54 | NUR ---
D/C INSTRUCTIONS AND PAPERWORK GIVEN TO [facility]. PT STABLE, A&OX1, UNABLE TO FOLLOW COMMANDS. ON 2L O2 VIA NC. D/C RIGHT IJ CENTRAL LINE PER MD ORDER, CATHETER TIP INTACT, BLEEDING CONTROLLED. D/C CHAUDHARI CATHETER PER MD ORDER, NO BLEEDING NOTED. SKIN INTACT, PT HAS ALL OF BELONGINGS TO TAKE BACK TO [facility]. PT PICKED UP BY [facility] TRANSPORT TO BE TAKEN BACK TO [facility].
== END 2019-03-11 16:00 | DRG 870 ==
LOC: MED 00:31 → MIC 02:30 → MTU 03-11 07:10
PROVIDERS: ADMIT General Practice; ATTEND General Practice
PROC: 5A1955Z Respiratory Ventilation, Greater than 96 Consecutive Hours (ICD-10-PCS; principal; 2019-02-26)
PROC: 0BH17EZ Insertion of Endotracheal Airway into Trachea, Via Natural or Artificial Opening (ICD-10-PCS; 2019-02-26)
PROC: 02HV33Z Insertion of Infusion Device into Superior Vena Cava, Percutaneous Approach (ICD-10-PCS; 2019-02-26)
PROC: 5A2204Z Restoration of Cardiac Rhythm, Single (ICD-10-PCS; 2019-02-26)
DX: A41.9 Sepsis, unspecified organism (principal); J18.9 Pneumonia, unspecified organism; N17.0 Acute kidney failure with tubular necrosis; J96.01 Acute respiratory failure with hypoxia; I21.A1 Myocardial infarction type 2; E43 Unspecified severe protein-calorie malnutrition; G93.41 Metabolic encephalopathy; J96.21 Acute and chronic respiratory failure with hypoxia; I50.43 Acute on chronic combined systolic (congestive) and diastolic (congestive) heart failure; N39.0 Urinary tract infection, site not specified; E87.1 Hypo-osmolality and hyponatremia; E87.2 Acidosis; R65.20 Severe sepsis without septic shock; E03.9 Hypothyroidism, unspecified; E83.39 Other disorders of phosphorus metabolism; E87.6 Hypokalemia; F02.80 Dementia in other diseases classified elsewhere, unspecified severity, without behavioral disturbance, psychotic disturbance, mood disturbance, and anxiety; G30.9 Alzheimer's disease, unspecified; I48.2 Chronic atrial fibrillation; I50.9 Heart failure, unspecified; N18.9 Chronic kidney disease, unspecified; E83.41 Hypermagnesemia; K59.00 Constipation, unspecified; R13.10 Dysphagia, unspecified; B96.20 Unspecified Escherichia coli [E. coli] as the cause of diseases classified elsewhere; Z68.30 Body mass index [BMI] 30.0-30.9, adult; Z79.01 Long term (current) use of anticoagulants; Z86.711 Personal history of pulmonary embolism; Z86.718 Personal history of other venous thrombosis and embolism
CPT/HCPCS: 36415; 36600; 70450; 71045; 74018; 76604; 76700; 76705; 80048; 80053; 80202; 81001; 82140; 82550; 82553; 82803; 82948; 83036; 83605; 83690; 83735; 83874; 83880; 84100; 84134; 84443; 84484; 85025; 85610; 85730; 87040; 87070; 87081; 87086; 87186; 87205; 89220; 92610; 93005; 94002; 94003; 94640; 96365; 97530; 99291; C9113; J0282; J1642; J1644; J1650; J1940; J2001; J2060; J2250; J2270; J2370; J2543; J2704; J2765; J3010; J3370; J3480; J3490; J7030; J7042; J7060; J7620; J7644; Q0092

== ENCOUNTER 2019-03-22 11:17 | Inpatient (IN) | payer OTHER ==
[~2019-03-22] VITALS: Ht 167.6 cm; Wt 76.2 kg
[~2019-03-22 11:17] MED LIST: AMIO200T5 PO; DOCU-299 PO; LACT1CAP59 PO; LOV40I SUBQ; MEMA10TA PO; MULT1SGL58 PO; SYN.05 PO; TRAM50TA1 PO
--- NOTE | 2019-03-22 11:18 | NUR ---
PATIENT BIBA TO BED 6 AT THIS TIME.
--- NOTE | 2019-03-22 11:43 | NUR ---
URINE COLLECTED AND SENT TO LAB
[2019-03-22 11:44] VITALS: BP 133/76
--- NOTE | 2019-03-22 11:50 | NUR ---
DR. NOEL AT BEDSIDE
--- NOTE | 2019-03-22 11:50 | NUR ---
BERRY FROM [facility] W C/O RESP. DISTRESS 02 SAT 80S ON RA. PER EMS, PT IS SHOWING ALOC, LAST SEEN NORMAL 0900 TODAY. PER EMS, PT TYPICALLY RESPONDS TO COMMUNICATION. PT HAS SHALLOW RESPIRATIONS WITH LABORED BREATHING, TACHYPNEA, TACHYCARDIA: AFIB RVR. INCREASED ALOC. PT IS WARM TO TOUCH W RECTAL TEMP OF 101.3 AT THIS TIME. SKIN IS DRY/PINK. LUNG SOUNDS DIMINISHED IN BILAT BASES, CRACKLES PRESENT IN ANNA, MOIST COUGH PRESENT. PT ON 2LPM NC W O2 SAT 97%. GCS 9 (E4.M4.V1). BED IN LOW POSITION, SIDE RAILS UP X2 FOR PT SAFTEY.
[2019-03-22] MEDS ORDERED: NACL 0.9% 500 ML IV SCH ×2 (11:53→14:05)
[2019-03-22 12:09] LABS: BASOPHILS % (AUTO) 0.3 % (0.0-2.0); HEMATOCRIT 39.4 % (36-48); HEMOGLOBIN 12.6 g/dL (12.0-16.0); LYMPHOCYTES # (AUTO) 1.8 K/uL (2.5-16.5); LYMPHOCYTES % (AUTO) 11.6 % (20.5-51.1); MEAN CORPUSCULAR HEMOGLOBIN 29 pg (27-31); MEAN CORPUSCULAR HGB CONC 32 g/dL (33-37); MEAN CORPUSCULAR VOLUME 89.5 fL (80-94); MONOCYTES # (AUTO) 2.1 K/uL (0.8-1.0); MONOCYTES % (AUTO) 13.4 % (1.7-9.3); NEUTROPHILS # (AUTO) 11.8 K/uL (1.8-7.7); NEUTROPHILS % (AUTO) 74.7 % (42.2-75.2); PLATELET COUNT (AUTO) 403 K/uL (140-450); RED CELL DISTRIBUTION WIDTH 15.5 % (11.6-13.7); WHITE BLOOD COUNT (AUTO) 15.8 K/uL (4.8-10.8)
--- NOTE | 2019-03-22 12:10 | NUR ---
PT HR 134, DR. NOEL AWARE
[2019-03-22 12:15] LABS: BILIRUBIN,URINE NEGATIVE (NEGATIVE); BLOOD, URINE 2+ (NEGATIVE); COLOR,URINE YELLOW (YELLOW); LEUKOCYTE ESTERASE ,URINE 1+ (NEGATIVE); NITRITE, URINE NEGATIVE (NEGATIVE); PH,URINE 5.5 (5.0-9.0); UGLUCOSE NEGATIVE (NEGATIVE)
[2019-03-22 12:20] LABS: PROTHROMBIN TIME 11.9 secs (10.8-13.4)
[2019-03-22 12:31] LABS: ALBUMIN 2.7 g/dL (3.4-5.0); ANION GAP 18.2 (8-16); ASPARTATE AMINOTRANSFERASE 43 U/L (15-37); CARBON DIOXIDE 22.9 mmol/L (21-32); CHLORIDE 119 mmol/L (98-107); CREATININE 1.4 mg/dL (0.6-1.3); GLUCOSE 122 mg/dL (74-106); POTASSIUM 4.1 mmol/L (3.5-5.1); TOTAL BILIRUBIN 0.5 mg/dL (0.0-1.0); UREA NITROGEN, BLOOD 27 mg/dL (7-18)
[2019-03-22 12:34] LABS: SODIUM SERUM 156 mmol/L (136-145)
[2019-03-22] MEDS ORDERED: NACL 0.9% 1,000 ML IV ONE (12:50)
[2019-03-22] MEDS ORDERED: LEVOFLOXACIN 500 MG/D5W PREMIX 100 ML IV ONE (12:50)
[2019-03-22 12:54] LABS: APPEARANCE,URINE HAZY (CLEAR)
[2019-03-22 12:56] LABS: RBC,URINE 0-5 /HPF (0-5)
[2019-03-22 12:57] LABS: URIC ACID CRYSTALS,URINE 0-10 /HPF (None Seen); URINE AMORPHOUS URATE 1+ /HPF (None Seen)
[2019-03-22] MEDS ORDERED: ACETAMINOPHEN 650 MG SUPP RC ONE (13:15)
[2019-03-22] MEDS ORDERED: METOPROLOL 5 MG/5 ML VIAL IVP ONE (13:15)
[2019-03-22] MEDS ORDERED: NACL 0.9% 1,000 ML IV SCH (13:24)
[2019-03-22] MEDS ORDERED: HYDROcodone/APAP 7.5/325 MG 1 TAB PO PRN (13:25)
--- NOTE | 2019-03-22 14:00 | NUR ---
Patient will be admitted to care of DR. MCINTYRE. Admited to TELEMETRY. Will go to room 115A. Belongings list completed. Report to BRIANNA CHANEY.
--- NOTE | 2019-03-22 14:00 | NUR ---
RECEIVED PATIENT FROM ER VIA ARISTEO, REPORT PROVIDED BY SHIV AGUILAR. PATIENT IS RESPONSIVE TO PAIN ONLY, RESPIRATIONS ARE RAPID AT 32 AND LABORED, PATIENT SATURATION IS 95% ON 2L O2 VIA NC. 20 GAUGE IV CATHETER INFUSING WELL. SKIN INTACT BUT REDNESS PRESENT ON INNER THIGHS BILATERALLY. PLACED PATIENT IN FALL RISK YELLOW GOWN, SOCKS, AND WRIST BAND. PATIENT HAS HISTORY OF LEFT MASTECTOMY, PLACED RESTRICTED EXTREMITY WRIST BAND ON LEFT ARM AND NO BP OR LABS ON LEFT ARE SIGN ABOVE BED. PLACED CONTACT PRECAUTIONS AND FALL RISK SIGN ON DOORWAY. SAFETY PRECAUTIONS IN PLACE. CALL LIGHT IN REACH WILL ROUND FREQUENTLY.
--- NOTE | 2019-03-22 15:00 | NUR ---
PATIENT BREATHING REMAINS LABORED. PLACED ON CONTINUOUS SPO2. SPO2 93% ON 2L O2 NC. WILL CONTINUE TO MONITOR. PATIENT IS TACHYCARDIC WITH A-FIB RVR.
[2019-03-22 15:23] LABS: MAGNESIUM 2.4 mg/dL (1.8-2.4); PHOSPHORUS 3.8 mg/dL (2.5-4.9)
[2019-03-22] MEDS: ALBUTEROL SULFATE/IPRATROPIU 3 ML SOL IH PRN (15:34)
[2019-03-22 16:12] LABS: FREE T4 (FREE THYROXINE) 1.96 ng/dL (0.76-1.46); THYROID STIMULATING HORMONE 2.37 uIU/mL (0.34-3.74)
--- NOTE | 2019-03-22 17:12 | NUR ---
PLACED PT ON 5L OXYMIZER PER DR JACKSON SPO2 98 SX PT
[2019-03-22] MEDS ORDERED: DILTIAZEM 25 MG/5 ML VIAL IVP SCH (17:30)
[2019-03-22] MEDS ORDERED: FUROSEMIDE 100 MG/10 ML VIAL IVP SCH (17:30)
--- NOTE | 2019-03-22 17:30 | NUR ---
PATIENT HEART RATE IS NOW CONTROLLED A-FIB. TO DISCONTINUE THE CARDIZEM. PATIENT VITALS ARE STABLE ON 5L O2 VIA OXYMIZER, BUT RESPIRATIONS REMAIN RAPID, IRREGULAR, AND LABORED. DR. RONQUILLO.
--- NOTE | 2019-03-22 18:15 | NUR ---
DR. ABRAHAM AT BEDSIDE. TRANSFERRING PATIENT TO ICU DUE TO RESPIRATORY COMPROMISE. WILL TRANSPORT PATIENT.
--- NOTE | 2019-03-22 18:41 | NUR ---
GAVE REPORT TO ICU NURSE. PATIENT TRANSFERRED VIA GURNEY. PATIENT'S RESPIRATIONS WERE RAPID AND LABORED AND IRREGULAR. PATIENT IS UNRESPONSIVE TO VERBAL COMMANDS BUT RESPONDS TO PAINFUL STIMULI. PATIENT HAS RIGHT AC 20 G IV AND CHAUDHARI IN PLACE.
[2019-03-22 18:50] VITALS: BP 123/61
--- NOTE | 2019-03-22 18:50 | NUR ---
RECEIVED PT TRANSFERRED FROM TELEMETRY ROOM 115, PT OPEN EYES, APHASIC, UNABLE TO FOLLOW COMMANDS, VSS, FLACC 0, LABORED BREATHING NOTED, RT AT BEDSIDE, A-FIB ON MANAGER AUDIT, SOFT ABDOMEN WITH ACTIVE BOWEL SOUNDS, CHAUDHARI CATHETER IN PLACE WITH CLEAR YELLOW URINE VIA GRAVITY, UNABLE TO MOVE ALL EXTREMITIES, SKIN IS WARM AND DRY TO TOUCH, INCONTINENT DERMATITIS NOTED TO LUISA AREA, HOB ELEVATED TO 30 DEGREES, SAFETY MEASURES IN PLACE, ON CONTACT ISOLATION, WILL CONTINUE TO MONITOR.
--- NOTE | 2019-03-22 19:15 | NUR ---
REPORT GIVEN TO INSURANCE SALES AGENT NURSE AT BEDSIDE FOR CONTINUE OF CARE.
--- NOTE | 2019-03-22 19:30 | NUR ---
RECEIVED REPORT FROM MORNING RN, YOMI, FOR CONTINUITY OF CARE. PT AFEBRILE. FLACC 0. PERRL. PT OPENS EYES TO NAME. UNABLE TO COMMUNICATE NEEDS. PT ABLE TO SLIGHTLY MOVE BILATERAL UPPER EXTREMITIES. S1+S2 HEARD. AFIB ON MONITOR. PULSES ARE PALPABLE IN ALL EXTREMITIES. PT HAS EDEMA ON BILATERAL LOWER EXTREMITIES, NON-PITTING. PT ON VENTURI MASK AT 35%. RESPIRATIONS ARE LABORED AND SHALLOW. OXYGEN SATURATION REMAINS WNL AT THIS TIME. PT TACHYPNEIC. LUNG SOUNDS COARSE AND CRACKLES HEARD. ABDOMEN ROUND, SOFT AND NONDISTENDED. CHAUDHARI CATHETER IN PLACE DRAINING CLOUDY, DARK LOUISA URINE. RECEIVED PT WITH PERIPHERAL IV ACCESS ON RIGHT FOREARM 20G. LINE IS PATENT, INTACT, AND ASYMPTOMATIC. HOB KEPT AT 30 DEGREES. ALL SAFETY PRECAUTIONS REMAINS IN PLACE. WILL CONTINUE TO MONITOR PT.
[2019-03-22] MEDS: DEXT 5% / NACL 0.45% 1,000 ML IV SCH (19:45)
--- NOTE | 2019-03-22 19:48 | NUR ---
DR. NEGRO AT BEDSIDE TO SEE PT; ACCORDING TO HER PT TO BE INTUBATED.
[2019-03-22] MEDS ORDERED: MIDAZOLAM MDV 50 MG in NACL 0.9% 40 ML IV PRN (19:55)
[2019-03-22 20:00] VITALS: BP 110/84
--- NOTE | 2019-03-22 20:01 | NUR ---
PATIENT OBTUNDED AND PRESENTS WITH TACHYPNEA WITH AUDIBLE SECRETIONS. DR. NEGRO AND DR. TREVINO AT BEDSIDE. PATIENT PREOXYGENATED WITH 100% OXYGEN VIA AMBU BAG. INTUBATED WITH 7.5 ETT AT 23 CM AT LIP WITHOUT INCIDENT. ETT PLACEMENT CONFIRMED WITH CO2 DETECTOR, EQUAL BILATERAL BREATH SOUNDS AND STAT CHEST XRAY. PLACED ON VENTILATOR AT INITIAL SETTINGS OF 450, 14, +5, 60%. WILL CONTINUE TO MONITOR.
--- NOTE | 2019-03-22 20:05 | NUR ---
PT WAS SUCCESSFULLY INTUBATED AT 2000; OGT INSERTED AT THIS TIME WITH PLACEMENT TO BE CONFIRMED WITH X-RAY. PT SETTLED IN BED AND DOES NOT APPEAR TO BE IN ANY DISTRESS NOR EXPERIENCING ANY DISCOMFORT. PT TO BE MONITORED CLOSELY.
[2019-03-22] MEDS ORDERED: ETOMIDATE 20 MG/10 ML VIAL IVP ONE (20:10)
[2019-03-22] MEDS ORDERED: SUCCINYLCHOLINE CHLORIDE 200 MG/10 ML VIAL IVP ONE (20:10)
[2019-03-22] MEDS ORDERED: LORazepam 2 MG/ML VIAL IVP PRN (20:15)
--- NOTE | 2019-03-22 20:15 | NUR ---
NEW PERIPHERAL IV ACCESS STARTED ON PT'S RIGHT HAND. ATTEMPTED 1X AND SUCCESSFUL.
[2019-03-22 20:40] VITALS: BP 110/84
[2019-03-22] MEDS: ALBUTEROL SULFATE/IPRATROPIU 3 ML SOL IH SCH (20:40)
--- NOTE | 2019-03-22 20:53 | NUR ---
VENT CHECK DONE. VENT ALARMS ON AND AUDIBLE. VENT PLUGGED INTO RED OUTLET. AMBU BAG AT BEDSIDE. SCHEDULED BREATHING TREATMENT DONE. TOLERATED TX WELL WITHOUT ADVERSE SIDE EFFECTS. AIRWAY SECURE AND PATENT. SUCTIONED LARGE AMOUNT OF THICK, YELLOW SECRETIONS. NO ACUTE RESPIRATORY DISTRESS NOTED AT THIS TIME. WILL CONTINUE TO MONITOR.
--- NOTE | 2019-03-22 21:07 | NUR ---
CALLED DR. NEGRO TO INFORM THAT LASIX WAS NOT GIVEN PRIOR TO PT GETTING TRANSFERRED TO THE UNIT FROM THE FLOOR. INFORMED DR. NEGRO THAT PT'S SBP IS AT [address] NEGRO, DO NOT GIVE LASIX AT THIS TIME.
[2019-03-22] MEDS: MEMANTINE 10 MG TAB PO SCH (21:17)
[2019-03-22] MEDS: MEROPENEM 500 MG in NACL 0.9% 50 ML IV SCH (21:17)
--- NOTE | 2019-03-22 21:25 | NUR ---
OGT ADVANCED 10CM PER DR. NEGRO'S ORDER. PT TOLERATED WELL. OGT SECURED IN PLACE.
[2019-03-22] MEDS ORDERED: PIPERACILLIN/TAZOBACTAM 3.375 GM VIAL IV ONE (21:30)
[2019-03-22] MEDS: PIPER/TAZO 3.375GM/D5W PREMIX 50 ML IV SCH (21:55)
[2019-03-22 22:00] VITALS: BP 135/69
--- NOTE | 2019-03-22 23:33 | NUR ---
PT EYES ARE CLOSED. RESPIRATIONS EVEN AND UNLABORED. NO SOB NOTED. CHEST RISE SYMMETRIC. PT DOES NOT APPEAR TO BE EXPERIENCING ANY DISCOMFORT AT THIS TIME. FLACC 0. PT NOT SEDATED AT THIS TIME; WAITING FOR MEDICATIONS FROM PHARMACY.
[2019-03-22 23:43] VITALS: BP 98/67
[2019-03-22] MEDS: fentaNYL 1 MG in NACL 0.9% 80 ML IV PRN (23:51)
[2019-03-23] VITALS (105 sets, daily range): BP systolic 73–149; BP diastolic 36–102
[2019-03-23 00:28] LABS: ANION GAP 14.2 (8-16); CARBON DIOXIDE 26.4 mmol/L (21-32); CHLORIDE 118 mmol/L (98-107); CREATININE 1.4 mg/dL (0.6-1.3); GLUCOSE 151 mg/dL (74-106); POTASSIUM 3.6 mmol/L (3.5-5.1); SODIUM SERUM 155 mmol/L (136-145); UREA NITROGEN, BLOOD 25 mg/dL (7-18)
--- NOTE | 2019-03-23 01:12 | NUR ---
RESPIRATIONS REMAIN EVEN AND UNLABORED. NO SIGNS OF DIFFICULTY BREATHING NOTED. VS STABLE. PT SEDATED WITH VERSED AND FENTANYL. RASS -3. FLACC 0.
[2019-03-23] MEDS: ALBUTEROL SULFATE/IPRATROPIU 3 ML SOL IH SCH ×4 (01:17→19:26)
--- NOTE | 2019-03-23 01:27 | NUR ---
VENT CHECK DONE. VENT ALARMS ON AND AUDIBLE. SCHEDULED BREATHING TREATMENT ADMINISTERED. TOLERATED TX WELL WITHOUT ADVERSE SIDE EFFECT. SUCTIONED LARGE AMOUNT OF THICK, YELLOW SECRETIONS. WILL CONTINUE TO MONITOR.
--- NOTE | 2019-03-23 03:30 | NUR ---
MORNING CARE PROVIDED TO PT. NO BM NOTED AT THIS TIME. PT TOLERATED BEING TURNED AND REPOSITIONED FAIRLY. VS REMAINS STABLE. AFIB TO SR ON MONITOR. RESPIRATIONS EVEN AND UNLABORED. FLACC 0 AND RASS -3. NO CHANGE IN PT'S CONDITION. WILL CONTINUE TO MONITOR.
--- NOTE | 2019-03-23 03:55 | NUR ---
CALLED RESIDENT DOCTORS, SPOKE WITH DR. ARAMBULA; NEEDED AN ORDER FOR GI PROPHYLAXIS PART OF VAP BUNDLE. ALSO INFORMED THEM REGARDING THE NEED FOR FNS/WOUND CONSULT D/T LOW GANGA SCORE.
[2019-03-23] MEDS: PIPER/TAZO 3.375GM/D5W PREMIX 50 ML IV SCH ×2 (04:55→12:18)
--- NOTE | 2019-03-23 05:00 | NUR ---
STARTED PT ON FEEDING. VITAL AF RUNNING AT 35ML/HR WITH WATER FLUSH ON 200ML Q4H. WILL REASSESS RESIDUAL
[2019-03-23] MEDS: LEVOTHYROXINE 0.025 MG TAB PO SCH (05:58)
[2019-03-23 06:10] LABS: T4 (THYROXINE) 9.8 ug/dL (4.5-12.0)
--- NOTE | 2019-03-23 06:14 | NUR ---
CHECKED FOR RESIDUAL AT THIS TIME. NONE ASPIRATED. PT TOLERATING FEEDING WELL SO FAR. WILL CONTINUE TO MONITOR.
--- NOTE | 2019-03-23 06:20 | NUR ---
DR. JACKSON AT BEDSIDE TO SEE PT. UPDATED HIM REGARDING PT'S CONDITION.
[2019-03-23] MEDS ORDERED: NOREPINEPHRINE 4 MG in DEXTROSE 5% 250 ML IV PRN (06:25)
[2019-03-23 07:01] LABS: BASOPHILS % (AUTO) 0.3 % (0.0-2.0); EOSINOPHILS # (AUTO) 0.1 K/uL (0-0.4); EOSINOPHILS % (AUTO) 0.4 % (0.0-4.0); HEMATOCRIT 35.9 % (36-48); HEMOGLOBIN 11.2 g/dL (12.0-16.0); LYMPHOCYTES # (AUTO) 1.8 K/uL (2.5-16.5); LYMPHOCYTES % (AUTO) 14.2 % (20.5-51.1); MEAN CORPUSCULAR HEMOGLOBIN 28 pg (27-31); MEAN CORPUSCULAR HGB CONC 31 g/dL (33-37); MEAN CORPUSCULAR VOLUME 90.2 fL (80-94); MONOCYTES # (AUTO) 1.4 K/uL (0.8-1.0); MONOCYTES % (AUTO) 10.9 % (1.7-9.3); NEUTROPHILS # (AUTO) 9.3 K/uL (1.8-7.7); NEUTROPHILS % (AUTO) 74.2 % (42.2-75.2); PLATELET COUNT (AUTO) 294 K/uL (140-450); RED BLOOD CELL COUNT(AUTO) 3.98 MIL/uL (4.20-5.40); RED CELL DISTRIBUTION WIDTH 15.7 % (11.6-13.7); WHITE BLOOD COUNT (AUTO) 12.5 K/uL (4.8-10.8)
[2019-03-23 07:24] LABS: POTASSIUM 3.7 mmol/L (3.5-5.1); SODIUM SERUM 159 mmol/L (136-145)
[2019-03-23 07:25] LABS: CARBON DIOXIDE 26.7 mmol/L (21-32); CHLORIDE 121 mmol/L (98-107); CREATININE 1.3 mg/dL (0.6-1.3); GLUCOSE 100 mg/dL (74-106); UREA NITROGEN, BLOOD 24 mg/dL (7-18)
--- NOTE | 2019-03-23 07:25 | NUR ---
RECEIVED BEDSIDE REPORT FROM DIRECTOR PRODUCT NATALIA CHANEY. PT IS SEDATED, RESPONDS TO TOUCH. ETT TO VENT, AFEBRILE 97.8F TEMPORAL. NO S/S OF RESPIRATORY DISTRESS AT THIS TIME, FLACC 0. PERRL. LUNG SOUND CLEAR BILATERALLY, HR 99, S1+S2 HEARD. AFIB ON MONITOR. PULSES ARE PALPABLE IN ALL EXTREMITIES. ABDOMEN SOUNDS ACTIVE ALL QUADRANTS, SOFT AND NONDISTENDED. CHAUDHARI CATHETER IN PLACE DRAINING CLOUDY YELLOW URINE WITH SEDIMENTS. PERIPHERAL IV ACCESS ON RIGHT FOREARM 20G, FLUSHED, INFILTRATED, DC'D, TIP INTACT. 2ND IV ON RIGHT HAND 22G, ASYMPTOMATIC AND PATENT, RUNNING VERSED 3MG/HR, FENTANYL 2.9ML/HR. HOB AT 30 DEGREES. ALL SAFETY PRECAUTIONS IN PLACE. WILL CONTINUE TO MONITOR PT. Addendum: 03/23/19 at 1210 by Kingsley Adrian RN SKIN INTACT Addendum: 03/23/19 at 1804 by Kingsley Adrian RN DRY WEIGHT 73KG
--- NOTE | 2019-03-23 07:26 | NUR ---
REPORT GIVEN TO MORNING RN, HERBERT/BILLIE, FOR CONTINUITY OF CARE. VS STABLE AT THIS TIME.
--- NOTE | 2019-03-23 07:30 | NUR ---
G TUBE FEEDING IS RUNNING VITAL AF 1.2 AT 35 ML/HR, RESIDUAL 0ML. PT TOLERATED WELL.
--- NOTE | 2019-03-23 08:10 | NUR ---
ORAL CARE DONE, CHAUDHARI CARE DONE.
[2019-03-23] MEDS: MEMANTINE 10 MG TAB PO SCH ×2 (08:20→21:04)
--- NOTE | 2019-03-23 08:30 | NUR ---
WOUND CARE EVAL. PENDING. PT. IS PREPING FOR A PROCEDURE
--- NOTE | 2019-03-23 08:44 | NUR ---
PATIENT HAS BEEN SCREENED AND CATEGORIZED HIGH NUTRITION RISK. PATIENT WILL BE SEEN WITHIN 1-2 DAYS OF ADMISSION. 03/23/19-03/24/[address]
[2019-03-23] MEDS ORDERED: AMIODARONE 200 MG TAB PO SCH (09:00)
[2019-03-23] MEDS ORDERED: LEVOTHYROXINE 0.05 MG TAB PO SCH (09:00)
[2019-03-23] MEDS ORDERED: CLINICAL MONITORING MC SCH (09:00)
--- NOTE | 2019-03-23 09:30 | NUR ---
DR JACKSON CAME AND WAS DOING CENTRAL LINE INSERTION. TIME OUT DONE, ALL STERIL TECHNIQUES USED BY .
[2019-03-23] MEDS: FUROSEMIDE 40 MG/4 ML VIAL IVP SCH ×2 (09:42→16:15)
[2019-03-23] MEDS: FAMOTIDINE 20 MG/2 ML VIAL IV SCH (09:42)
[2019-03-23] MEDS: ENOXAPARIN 30 MG/0.3 ML SYR SUBQ SCH (09:49)
[2019-03-23] MEDS: MEROPENEM 500 MG in NACL 0.9% 50 ML IV SCH ×2 (09:53→20:43)
--- NOTE | 2019-03-23 10:30 | NUR ---
PT'S HR FLUCTUATING B/T 130 TO 150 A FIB, NOTIFIED MD DR GODFREY. WILL PUT IN ORDER.
[2019-03-23] MEDS ORDERED: DILTIAZEM 25 MG/5 ML VIAL IVP SCH (11:00)
--- NOTE | 2019-03-23 11:14 | NUR ---
CALLED PHARM TO GET LEVOPHED
--- NOTE | 2019-03-23 11:30 | NUR ---
WOUND CARE NURSE YOMI WISE, EVALUATED PT.
[2019-03-23] MEDS: NOREPINEPHRINE 8 MG in DEXTROSE 5% 250 ML IV PRN (11:46)
--- NOTE | 2019-03-23 11:55 | NUR ---
LEVOPHED HAS BEEN STARTED TO MAINTAIN SBP>90. DR JACKSON CAME, ORDERED AMIODARONE DRIP TO CONTROL HR. WILL START SOON PHARM DELIVER IT.
--- NOTE | 2019-03-23 12:06 | NUR ---
WOUND CARE EVALUATION NOTE: REASON FOR EVALUATION: LOW GANGA SCALE SKIN ASSESSMENT DONE WITH PRIMARY RN ON THIS 83 Y/O FEMALE PT ADMITTED FROM [facility] [place] [facility] WITH INITIAL DX ALOC. PAST MEDICAL HX INCLUDES HYPOTHYROIDISM, LEFT LE DVT, ALZHEIMER DEMENTIA, CHF, A-fib, Type II NM. ALL ABOVE INFORMATION OBTAINED FROM ADMISSION H&P. PT IS SEDATED, TF WITH CENTRAL LINE TO LEFT JV, DRESSING DCI. PT. SKIN IS WARM AND DRY, BLE NO HAIR GROWTH, GENERAL EDEMA TO UPPER AND LOWER EXTREMITIES. DORSAL PEDAL PULSES PRESENT AND NORMAL. CAPILLARY REFILLED < 2 SEC. X 10 TOES. F/C PATENT WITH SMALL AMOUNT YELLOW COLOR URINE OUT PUT OBSERVED. PLAN OF CARE DISCUSSED WITH PRIMARY RN. INTEGUMENTARY: -LEFT BUTTOCK BLANCHABLE REDNESS -INCONTINENT ASSOCIATE DERMATITIS (IAD) TO: PERINEUM, LUISA-ANAL SKIN REDNESS, INTACT -R/L HEELS BLANCHABLE REDNESS RECOMMENDATIONS: -FREQUENT LUISA-CARE, KEEP DRY AND CLEAN -APPLY Z-GUARD TO PERINEUM AND LUISA-ANAL IAD BIDWC AND PRN IF SOILING -APPLY FORM DRESSING TO SACROCOCCYX AND RIGHT HEEL Q7 DAYS AND PRN IF SOILING PREVENTION -APPLY HEEL PROTECTORS TO BOTH HEELS AT ALL TIMES -OFFLOAD BILATERAL HEELS BY PLACING PILLOWS UNDER CALVES UNLESS OTHERWISE CONTRAINDICATED -PRESSURE REDISTRIBUTION SURFACE THERAPY -TURN AND REPOSITION Q2H, OFFLOAD SACRALCOCCYX AND BUTTOCKS BY TURNING RIGHT AND LEFT -CONTINUE TO FOLLOW RD RECOMMENDATIONS ALL ABOVE RECOMMENDATIONS DISCUSSED WITH PRIMARY RN. WILL FOLLOW UP PT Q7-10 DAYS. PLEASE CONTACT WOUND CARE NURSE FOR ANY QUESTION AND CHANGE OF WOUND CONDITION
[2019-03-23] MEDS: Z-GUARD PASTE TP SCH (12:13)
--- NOTE | 2019-03-23 12:28 | NUR ---
ORAL CARE DONE. SUCTION PERFORMED WITH YELLOW SPUTUM CAME OUT.
--- NOTE | 2019-03-23 12:33 | NUR ---
PHARM ONLY SENT THE MAINTENANCE DOSE OF AMIODARONE. CALLED PHARM ASKING FOR BOLUS DOSE OF AMIODARONE. PHARM STATED THEY NEED AN ORDER. CALLED DR JACKSON FOR ORDER. WILL PUT IT IN.
--- NOTE | 2019-03-23 12:45 | NUR ---
CALLED PHARM TO VERIFY AMIODARONE AND SEND MAGY.
[2019-03-23] MEDS ORDERED: AMIODARONE 150 MG in DEXTROSE 5% 100 ML IV SCH (12:50)
[2019-03-23] MEDS: AMIODARONE 450 MG in DEXTROSE 5% 250 ML IV SCH ×2 (13:25→20:48)
[2019-03-23] MEDS: MIDAZOLAM MDV 100 MG in NACL 0.9% 80 ML IV PRN (14:25)
[2019-03-23] MEDS: DEXT 5% / NACL 0.45% 1,000 ML IV SCH ×2 (14:27→16:14)
--- NOTE | 2019-03-23 14:49 | NUR ---
03/23/19 RD INITIAL ASSESSMENT COMPLETED PLEASE REFER TO NUTRITION ASSESSMENT UNDER CARE ACTIVITY FOR ESTIMATED NUTRITIONAL NEEDS. 1. RECOMMEND VITAL 1.2 AT 55 ML/HR -THIS WILL PROVIDE 1320 ML OF VOLUME, 1584 KCAL, AND 99 GM OF PROTEIN. IT MEETS 100% OF PT�S ESTIMATED ENERGY AND PROTEIN NEEDS. 2. RECOMMEND FWF [address] TO FOLLOW-UP 2-3 DAYS, HIGH RISK JEREMIAS RAMOS RD
--- NOTE | 2019-03-23 15:35 | NUR ---
DR REDMOND CAME TO SEE THE PT.
--- NOTE | 2019-03-23 15:45 | NUR ---
CALLED RT KAMERON, MADE HER AWARE THAT VENTILATOR METAL ARM DOESN'T HOLD IN PLACE AND IT KEEPS FALLING DOWN. KAMERON CAME AND ASSESSED, STATED IT STILL OK BUT ONLY ENGINEERING CAN FIX THE METAL ARM. TOLD CHARGE NURSE JN, ENGINEERING WAS PAGED.
--- NOTE | 2019-03-23 15:50 | NUR ---
ADJUSTED IVF D5NS FROM 50ML TO 75ML/HR
--- NOTE | 2019-03-23 16:00 | NUR ---
ADJUSTED G TUBE FEEDING RATE TO 55ML/HR, AND H2O FLUSH TO 200ML Q6H.
--- NOTE | 2019-03-23 16:26 | NUR ---
CALLED TOMASA BURGOS TO HOLD LASIX.
--- NOTE | 2019-03-23 16:44 | NUR ---
ORAL CARE DONE. PT TOLERATED OK. G TUBE RESIDUAL 25ML AT THIS TIME.
--- NOTE | 2019-03-23 18:50 | NUR ---
DR NEGRO CAME AND ASSESSED PT. Addendum: 03/23/19 at 1923 by Kingsley Adrian RN NO NEW ORDERS AT THIS TIME
--- NOTE | 2019-03-23 19:20 | NUR ---
REPORT GIVEN TO FINAL CANOE INSPECTOR SHIV STALEY. PT IN STABLE CONDITION.
--- NOTE | 2019-03-23 19:30 | NUR ---
RECEIVED BEDSIDE REPOT FROM MORNING SHIFT RN, MERCEDES. PT IS NONVERBAL, DOES NOT RESPOND TO COMMANDS. 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 BP 88/56, HR 103, SATING 99%, RR=16. ETT TO VENT, [id number] VT 450, RR=14, FLOW 35L/MIN, PEEP 5. LUNG SOUNDS CLEAR ON UPPER-LOWER BILATERAL LOBES. HOB ABOVE 30 DEG, VAP ORAL CARE PROVIDED. BOWEL SOUNDS ACTIVE X4, NO RESIDUAL, ON VITALS AF AT 55ML/HR TO OGT. AUSCULTATED FOR PROPER PLACEMENT. CHAUDHARI IN PLACE, URINE IS YELLOW/CLOUDY. PT HAS LEFT IJ AND RIGHT HAND 22 GAUGE, INFUSING FENTANYL AT 29MCG/MIN, VERSED AT 3MG/HR, LEVOPHED AT 4MCG/MIN, AND D51/2 NS AT 75CC/HR, AND AMIODARONE AT 33ML/HR. SKIN IS NORMAL IN COLOR, MILD GENERALIZED NON PITTING EDEMA. CONTACT ISOLATION, FALL, ASPIRATION PRECAUTIONS MAINTAINED. ALLERGY BAND TO CHOCOLOATE. ON CONTACT ISOLATION
--- NOTE | 2019-03-23 19:37 | NUR ---
RECEIVED PATIENT ENDOTRACHEALLY INTUBATED WITH 7.5 ETT AT 23 CM AT LIP LINE TO MECHANICAL VENTILATOR AT SETTINGS: AC/VC 450, 14, +5, 30%. VENT CHECK DONE. VENT PLUGGED INTO RED OUTLET. VENT ALARMS ON AND AUDIBLE. AMBUBAG AT BEDSIDE. AIRWAY SECURE AND PATENT. SCHEDULED BREATHING TREATMENT ADMINISTERED. TOLERATED TREATMENT WELL WITHOUT ADVERSE SIDE EFFECTS. NO RESPIRATORY DISTRESS NOTED AT THIS TIME. WILL CONTINUE TO MONITOR.
--- NOTE | 2019-03-23 19:45 | NUR ---
DR JON AND DR. HOOVER AT BEDSIDE TO SEE PATIENT, UPDATED ON PT CONDITIONS. AMIODARONE TITRATED TO 17ML/HR PER PROTOCOL. BP 96/57, HR 122, SATING 99%, RR=24.
[2019-03-24] VITALS (108 sets, daily range): BP systolic 91–134; BP diastolic 39–72
--- NOTE | 2019-03-24 00:27 | NUR ---
AFEBRILE, BP 118/42 ON 6MCG/MIN LEVOPHED DRIP. VAP ORAL CARE PROVIDED. FLACC 0, PT DOES NOT RESPOND TO NAME. SKIN REMAINS INTACT, HYDRAGUARD APPLIED AND PT REPOSITIONED. HOB ABOVE 30 DEG.
[2019-03-24] MEDS: Z-GUARD PASTE TP SCH ×2 (01:36→13:33)
[2019-03-24] MEDS: ALBUTEROL SULFATE/IPRATROPIU 3 ML SOL IH SCH ×4 (01:53→20:05)
--- NOTE | 2019-03-24 02:49 | NUR ---
TOLERATED TUBE FEEDINGS WITH NO RESIDUAL NOTED, PT REPOSITOINED, HOB ELEVATED. VSS.
[2019-03-24] MEDS: DEXT 5% / NACL 0.45% 1,000 ML IV SCH ×3 (03:19→23:59)
[2019-03-24] MEDS: LEVOTHYROXINE 0.025 MG TAB PO SCH (05:41)
[2019-03-24] MEDS: fentaNYL 1 MG in NACL 0.9% 80 ML IV PRN (05:43)
--- NOTE | 2019-03-24 05:45 | NUR ---
NO BM, URINE OUTPUT IS YELLOW/CLOUDY 435ML QSHIFT. Addendum: 03/24/19 at 0631 by Anay German RN CORRECTION, URINE OUTPUT OF 500ML QSHIFT.
[2019-03-24 06:36] LABS: ANION GAP 12.1 (8-16); CARBON DIOXIDE 25.9 mmol/L (21-32); CHLORIDE 115 mmol/L (98-107); CREATININE 1.2 mg/dL (0.6-1.3); GLUCOSE 140 mg/dL (74-106); SODIUM SERUM 150 mmol/L (136-145); UREA NITROGEN, BLOOD 26 mg/dL (7-18)
[2019-03-24 06:39] LABS: MAGNESIUM 2.1 mg/dL (1.8-2.4); PHOSPHORUS 2.6 mg/dL (2.5-4.9)
[2019-03-24 06:57] LABS: BASOPHILS # (AUTO) 0.1 K/uL (0.00-0.22); BASOPHILS % (AUTO) 0.4 % (0.0-2.0); EOSINOPHILS # (AUTO) 0.6 K/uL (0-0.4); EOSINOPHILS % (AUTO) 3.8 % (0.0-4.0); HEMATOCRIT 35.2 % (36-48); HEMOGLOBIN 11.3 g/dL (12.0-16.0); LYMPHOCYTES # (AUTO) 1.5 K/uL (2.5-16.5); MEAN CORPUSCULAR HEMOGLOBIN 29 pg (27-31); MEAN CORPUSCULAR HGB CONC 32 g/dL (33-37); MEAN CORPUSCULAR VOLUME 89.8 fL (80-94); MONOCYTES % (AUTO) 6.9 % (1.7-9.3); NEUTROPHILS # (AUTO) 11.7 K/uL (1.8-7.7); NEUTROPHILS % (AUTO) 78.9 % (42.2-75.2); PLATELET COUNT (AUTO) 282 K/uL (140-450); RED BLOOD CELL COUNT(AUTO) 3.92 MIL/uL (4.20-5.40); WHITE BLOOD COUNT (AUTO) 14.8 K/uL (4.8-10.8)
--- NOTE | 2019-03-24 07:32 | NUR ---
RECEIVED INTUBATED PT WITH A 7.5 ETT SECURED @22 TEETH/GUMS ON VENT. SETTINGS AC/VC 14, VT 450, PEEP 5 AND FIO2 30%. PT SUCTIONED OBTAINED SMALL AMOUNT OF THICK YELLOW SECRETIONS, AIRWAY IS PATENT AND ETT IS SECURE. THERE IS NO BITING OR KINKING OF ETT. VENT IS PLUGGED INTO A RED OUTLET WITH ALARMS ON AND FUNCTIONING. WILL CONTINUE TO MONITOR.
--- NOTE | 2019-03-24 07:32 | NUR ---
GAVE BEDSIDE REPORT TO MORNING SHIFT MISAEL CHANEY.
--- NOTE | 2019-03-24 08:00 | NUR ---
PATIENT INTUBATED 7.5 ETT 23 IN THE TEETH, ON VENTILATOR AC 14 FIO2 30% VT 450 PEEP5, WHOLE BODY SHAKES TO LIGHT PAIN, NO EYE OPENING, ON VERSED 3MGS/HR, FENTANYL 29MCG/HR., SINUS RHYTHM AT THIS TIME ON AMIODARONE DRIP MAINTENANCE DOSE, LEVOPHED 4 MCG/MIN., WITH OGT TUBE ON ENTERAL VITAL AF 55ML/HR., SOFT ABDOMEN, CHAUDHARI CATHETER IN SITU, LEFT INTERNAL JUGULAR CENTRAL LINE, ON D5 HALF NS 75ML/HR., GAUGE 22 At RIGHT HAND, BILATERAL HEEL PROTECTORS ON, SKIN INTACT
--- NOTE | 2019-03-24 08:56 | NUR ---
DR. MEYER AT BEDSIDE. ACCORDING TO PHYSICIAN MAY CONTINUE CURRENT RATE OF IV AMIODARONE DRIP OVER 24 HOURS AND WILL RE ASSESS TOMORROW Addendum: 03/24/19 at 1057 by Jennifer Morin RN [id number] HEALTH SERVICESMarita HEEL BUILDER AWARE PATIENT HAS EPISODES OF SINUS, PAROXYSMAL ATRIAL FIBRILLATION, HEART RATE 60-70s BPM
[2019-03-24] MEDS: FAMOTIDINE 20 MG/2 ML VIAL IV SCH (09:08)
[2019-03-24] MEDS: FUROSEMIDE 40 MG/4 ML VIAL IVP SCH ×2 (09:08→17:09)
[2019-03-24] MEDS: MEMANTINE 10 MG TAB PO SCH ×2 (09:08→20:24)
[2019-03-24] MEDS: ENOXAPARIN 30 MG/0.3 ML SYR SUBQ SCH (09:11)
[2019-03-24] MEDS: KCL 20 MEQ/WATER INJ PREMIX 100 ML IV SCH ×2 (09:12→11:29)
[2019-03-24] MEDS: MEROPENEM 500 MG in NACL 0.9% 50 ML IV SCH ×2 (09:14→20:24)
[2019-03-24] MEDS ORDERED: CLINICAL MONITORING MC PRN (09:33)
[2019-03-24] MEDS ORDERED: PROBIOTIC SCREEN 1 EA MISC MC PRN (09:50)
--- NOTE | 2019-03-24 10:56 | NUR ---
ECHO BEING DONE AT BEDSIDE. CO DIRECTOR AT BEDSIDE
[2019-03-24] MEDS: AMIODARONE 450 MG in DEXTROSE 5% 250 ML IV SCH (11:29)
--- NOTE | 2019-03-24 11:38 | NUR ---
VENT CHECK COMPLETED. PT NOT IN ANY DISTRESS AT THIS TIME. WILL CONTINUE TO MONITOR.
[2019-03-24] MEDS: NOREPINEPHRINE 8 MG in DEXTROSE 5% 250 ML IV PRN (13:35)
--- NOTE | 2019-03-24 14:06 | NUR ---
SW attempted to conduct assessment with patient. Patient was on a mechanical ventilator and was unable to respond to verbal stimuli. SW called [facility] and spoke to Shannon. Shannon stated that patient is on a 7-day bed hold. Patient does not have an existing Advance Directive for healthcare and that patient�s son, Kingston Cotto [phone], is her healthcare decision maker. SW attempted to call patient�s son, Kingston Cotto. SW called Kingston schwartz and left a voice mail. ALBA/MARIO will follow up as needed.
--- NOTE | 2019-03-24 16:26 | NUR ---
PHARMACIST JIM MADE AWARE THAT IN EMAR AMIODARONE ORDERED AT 17 ML/HR. IN THE IV PUMP 17ML/HR WILL REVEAL 0.51 MG/MIN. PER JIM "IT'S A ROUND OFF 17 ML OR 16.66 ML/HR BOTH SHOULD BE FINE"
--- NOTE | 2019-03-24 17:15 | NUR ---
PT REMAINS ON DOCUMENTED VENT SETTINGS TOLERATING WELL. PT NOT IN ANY DISTRESS AT THIS TIME. VENT ALARMS ON AND FUNCTIONING. Addendum: 03/24/19 at 1716 by Forrest Bear RT AIRWAY IS PATENT AND SECURE.
--- NOTE | 2019-03-24 18:00 | NUR ---
ROUTINE PM CARE RENDERED, ORAL CARE AND REPOSITIONING Q 2HOURLY. SKIN INTACT
--- NOTE | 2019-03-24 19:01 | NUR ---
REPORT GIVEN TO NIGHT RN
--- NOTE | 2019-03-24 19:15 | NUR ---
RECEIVED REPORT FROM DAY SHIFT NURSE AT BEDSIDE, WILL CONTINUE TO MONITOR.
--- NOTE | 2019-03-24 19:35 | NUR ---
DR. NEGRO AT BEDSIDE TO ASSESS PATIENT, WILL FOLLOWUP ON ANY NEW ORDERS.
--- NOTE | 2019-03-24 19:50 | NUR ---
PATIENT IS RESTING COMFORTABLY IN BED, SEDATED WITH FENTANYL 29 MCG/HR, VERSED 3MGAL/HR. PATIENT ANOx0, DOES NOT OPEN EYES, PERRL, BRISK 3MM. PATIENT IS AFEBRILE, SR ON MONITOR WITH PAC'S, BLOOD PRESSURE WNL, PATIENT IS ON AMIODARONE @ 0.5MG/MIN AND LEVOPHED @4 MCG/MIN. S1S2 AUSCULTATED, CAP REFILL <3SEC. PATIENT HAS GENERALIZED NONPITTING EDEMA IN LOWER EXTREMITIES. LUNG SOUNDS CLEAR, LOWER LOBES DIMINISHED. PATIENT IS 7.5 ETT TO VENT, 23 @ THE LIP LINE, FI02 30%, TV 450, RATE 14 PEEP 5. PATIENT SATURATING 98%. BOWELS ACTIVE IN ALL QUADRANTS, ABDOMEN SOFT AND TENDER, OGT IN PLACE TO FEEDING-VITAL AF AT 55ML/HR WITH 200 ML FWF Q6H. POSITIVE PLACEMENT BY AUSCULTATION, RESIDUAL 50 ML AT THIS TIME. PATIENT HAS A LEFT IJ TRIPLE LUMEN CENTRAL LINE, AND A PERIPHERAL RT HAND 22 G. CHAUDHARI CATHETER IN PLACE, URINE CLEAR, AND YELLOW. SCD'S IN PLACE, FALL RISK BANDS APPLIED AND SIGNS POSTED, BEDRAILS UP AND BED IN LOWEST POSITION, HOB ELEVATED 30 DEGREES. SAFETY ALARMS CHECKED, WILL CONTINUE TO MONITOR PATIENT.
--- NOTE | 2019-03-24 20:00 | NUR ---
DR. VERGARA IN TO ASSESS PATIENT. WILL FOLLOWUP ON ANY NEW ORDERS.
--- NOTE | 2019-03-24 20:20 | NUR ---
RECEIVED PATIENT ENDOTRACHEALLY INTUBATED WITH 7.5 ETT AT 22 CM AT TEETH/GUM LINE TO MECHANICAL VENTILATOR AT SETTINGS: AC/VC450, 14, +5, 30%. VENT CHECK DONE. VENT ALARMS ON AND AUDIBLE. VENT PLUGGED INTO RED OUTLET. AMBU BAG AT [facility]. SCHEDULED BREATHING TREATMENT ADMINISTERED. TOLERATED TX WELL, NO ADVERSE SIDE EFFECTS. AIRWAY SECURE AND PATENT. SUCTIONED MODERATE AMOUNT OF THICK, YELLOW SECRETIONS. NO RESPIRATORY DISTRESS NOTED AT THIS TIME. WILL CONTINUE TO MONITOR.
--- NOTE | 2019-03-24 21:20 | NUR ---
VENT CHECK DONE. VENT ALARMS ON AND AUDIBLE. AMBUBAG AT BEDSIDE. FIO2 TITRATED TO 28%, PULSE OX SAT 98%. RN NOTIFIED. NO RESPIRATORY DISTRESS NOTED AT THIS TIME. WILL CONTINUE TO MONITOR.
--- NOTE | 2019-03-24 22:30 | NUR ---
VAP PROTOCOL ORAL CARE PROVIDED FOR PATIENT. SUCTIONED NEEDED-WHITE TO CLEAR THICH SECRETIONS. PATIENTS SKIN IS WARM AND DRY, AFEBRILE. NO SIGNS OF DISTRESS NOTED AT THIS TIME.
--- NOTE | 2019-03-24 23:51 | NUR ---
VENT CHECK DONE; ALARMS ON AND AUDIBLE. SUCTIONED SMALL AMOUNT OF THICK, YELLOW SECRETIONS. NO RESPIRATORY DISTRESS NOTED AT THIS TIME. WILL CONTINUE TO MONITOR.
[2019-03-25] VITALS (107 sets, daily range): BP systolic 86–165; BP diastolic 38–84
[2019-03-25] MEDS: MIDAZOLAM MDV 100 MG in NACL 0.9% 80 ML IV PRN (00:02)
--- NOTE | 2019-03-25 00:10 | NUR ---
PATIENT IS REPOSITIONED AT THIS TIME, BACK AND BONY PROMINENCES ARE ASSESSED FOR PRESSURE INJURIES, SKIN CARE PROVIDED TO THE BACK AND BOTTOM OF HEELS AND FEET. PATIENT RESTING COMFORTABLY, WILL CONTINUE TO MONITOR.
[2019-03-25] MEDS: ALBUTEROL SULFATE/IPRATROPIU 3 ML SOL IH SCH ×4 (01:24→19:35)
--- NOTE | 2019-03-25 01:33 | NUR ---
VENT CHECK DONE. ALARMS ON AND AUDIBLE. SCHEDULED BREATHING TREATMENT ADMINISTERED. TOLERATED TX WELL WITHOUT ADVERSE SIDE EFFECTS. NO RESPIRATORY DISTRESS NOTED AT THIS TIME. WILL CONTINUE TO MONITOR.
--- NOTE | 2019-03-25 02:30 | NUR ---
REPOSITIONED PATIENT, SUCTIONED NEEDED AND CHECKED OGT FOR GASTRIC RESIDUAL, < 60 ML. PATIENT IS SATURATING WELL ON 28% FI02, HEART RATE IS CONSISTENTLY <110, AND SBP IS > 90. WILL CONTINUE TO FOLLOWUP CARE.
[2019-03-25] MEDS: Z-GUARD PASTE TP SCH ×2 (02:38→13:22)
[2019-03-25] MEDS: AMIODARONE 450 MG in DEXTROSE 5% 250 ML IV SCH ×2 (02:42→17:54)
[2019-03-25] MEDS ORDERED: AMIODARONE 450 MG/9 ML VIAL IV ONE (03:20)
--- NOTE | 2019-03-25 04:00 | NUR ---
PROVIDED WARM SPONGE BATH, CHANGED GOWN AND LINENS, REPOSITIONED PATIENT TO OFFLOAD PRESSURE AND CHECKED GASTRIC RESIDUAL-0. PATIENT IS TOLERATING WELL, CANNOT OPEN EYES OR MAKE NEEDS KNOWN. PATIENT HAS SLIGHT COUGH REFLEX WHEN SUCTIONING AND GRIMACES TO LIGHT PAIN. WILL CONTINUE TO MONITOR.
--- NOTE | 2019-03-25 05:10 | NUR ---
CHANGED PATIENTS FEEDING TUBES PER PROTOCOL AND VAP ORAL CARE WAS GIVEN. PATIENT'S VITAL SIGNS ARE WITHIN NORMAL LIMITS AND PATIENT IS AFEBRILE.
[2019-03-25] MEDS: LEVOTHYROXINE 0.025 MG TAB PO SCH (05:53)
[2019-03-25 06:19] LABS: PHOSPHORUS 2.5 mg/dL (2.5-4.9)
--- NOTE | 2019-03-25 06:20 | NUR ---
DR. JACKSON IN TO ASSESS PATIENT, CONFIRMED TO DECREASE LEVOPHED TO 2 MCG/MIN
[2019-03-25 06:25] LABS: BASOPHILS % (AUTO) 0.3 % (0.0-2.0); EOSINOPHILS # (AUTO) 0.5 K/uL (0-0.4); EOSINOPHILS % (AUTO) 3.6 % (0.0-4.0); HEMATOCRIT 34.9 % (36-48); HEMOGLOBIN 11.5 g/dL (12.0-16.0); LYMPHOCYTES # (AUTO) 1.5 K/uL (2.5-16.5); LYMPHOCYTES % (AUTO) 11.4 % (20.5-51.1); MEAN CORPUSCULAR HEMOGLOBIN 29 pg (27-31); MEAN CORPUSCULAR HGB CONC 33 g/dL (33-37); MONOCYTES # (AUTO) 1.1 K/uL (0.8-1.0); MONOCYTES % (AUTO) 7.8 % (1.7-9.3); NEUTROPHILS # (AUTO) 10.4 K/uL (1.8-7.7); NEUTROPHILS % (AUTO) 76.9 % (42.2-75.2); PLATELET COUNT (AUTO) 308 K/uL (140-450); RED BLOOD CELL COUNT(AUTO) 3.96 MIL/uL (4.20-5.40); RED CELL DISTRIBUTION WIDTH 15.4 % (11.6-13.7); WHITE BLOOD COUNT (AUTO) 13.5 K/uL (4.8-10.8)
--- NOTE | 2019-03-25 08:00 | NUR ---
PATIENT INTUBATED 7.5 ETT 23 IN THE TEETH, ON VENTILATOR AC 14 FIO2 30% VT 450 PEEP5, WITHDRAWS TO LIGHT PAIN, SLIGHT BILATERAL EYE OPENING, ON VERSED 3MGS/HR, FENTANYL 29MCG/HR., SINUS RHYTHM WITH PACs AT THIS TIME ON AMIODARONE DRIP MAINTENANCE DOSE 0.5 MG/MIN., LEVOPHED 2 MCG/MIN., WITH OGT TUBE ON ENTERAL VITAL AF 55ML/HR., SOFT ABDOMEN, CHAUDHARI CATHETER IN SITU, LEFT INTERNAL JUGULAR CENTRAL LINE, ON D5 HALF NS 75ML/HR., GAUGE 22 At RIGHT HAND, BILATERAL HEEL PROTECTORS ON, SKIN INTACT
[2019-03-25 08:38] LABS: ANION GAP 13.7 (8-16); CARBON DIOXIDE 27.2 mmol/L (21-32); CHLORIDE 112 mmol/L (98-107); GLUCOSE 125 mg/dL (74-106); SODIUM SERUM 150 mmol/L (136-145); UREA NITROGEN, BLOOD 19 mg/dL (7-18)
--- NOTE | 2019-03-25 08:41 | NUR ---
DR. MEYER AT BEDSIDE. INFORMED PATIENT BEEN SINUS RHYTHM THE WHOLE NIGHT WITH PACs. PER PHYSICIAN "KEEP AMIODARONE IV PATIENT STILL ON PRESSORS WITH ONGOING PNEUMONIA"
--- NOTE | 2019-03-25 08:41 | NUR ---
RECEIVED ON A [email or web address] R860 PLUGGED INTO RED OUTLET TOLERATING WELL WITHOUT ADVERSE REACTIONS NOTED TO AN ENDOTRACHEAL TUBE #7.5 SECURED AT 22cm WITH ANCHOR FAST CUFF PRESSURE CHECKED NOTED AMBU BAG AT BEDSIDE RESTING COMFORTABLY NO EVIDENCE OF PULMONARY DISTRESS NOTED EQUAL CHEST RISE ENDOTRACHEAL SUCTION FOR SMALL THICK YELLOW SECRETIONS AIRWAY PATENT
[2019-03-25 08:45] LABS: POTASSIUM 2.9 mmol/L (3.5-5.1)
[2019-03-25] MEDS: MEROPENEM 500 MG in NACL 0.9% 50 ML IV SCH ×2 (08:50→20:37)
[2019-03-25] MEDS: FAMOTIDINE 20 MG/2 ML VIAL IV SCH (08:53)
[2019-03-25] MEDS: FUROSEMIDE 40 MG/4 ML VIAL IVP SCH (08:53)
[2019-03-25] MEDS: DOCUSATE SODIUM 100 MG GELCAP PO PRN (08:55)
[2019-03-25] MEDS: MEMANTINE 10 MG TAB PO SCH ×2 (08:56→20:38)
[2019-03-25] MEDS: ENOXAPARIN 30 MG/0.3 ML SYR SUBQ SCH (08:57)
[2019-03-25] MEDS: NACL 0.45% 1,000 ML IV SCH ×2 (10:05→13:52)
--- NOTE | 2019-03-25 10:27 | NUR ---
RESTING WELL NO EVIDENCE OF PULMONARY DISTRESS NOTED EQUAL CHEST RISE ENDOTRACHEAL SUCTION FOR LARGE THICK YELLOW SECRETIONS AIRWAY PATENT
[2019-03-25] MEDS: KCL 20 MEQ/WATER INJ PREMIX 100 ML IV SCH ×2 (10:35→12:40)
[2019-03-25] MEDS: FLUCONAZOLE 100 MG/NS PREMIX 50 ML IV SCH (11:12)
--- NOTE | 2019-03-25 11:53 | NUR ---
NO DISTRESS NOTED AT THIS TIME EQUAL CHEST RISE AIRWAY PATENT
--- NOTE | 2019-03-25 11:57 | NUR ---
DR. REDMOND AT BEDSIDE. INFORMED PHYSICIAN OF PATIENT'S Na AND K+ LEVELS TODAY AND POTASSIUM CORRECTION. CONTINUE SAME TREATMENT PER DR. REDMOND
--- NOTE | 2019-03-25 13:22 | NUR ---
03/25/19 RD FOLLOW UP COMPLETED PLEASE REFER TO NUTRITION ASSESSMENT UNDER CARE ACTIVITY FOR ESTIMATED NUTRITIONAL NEEDS. 1. CONTINUE VITAL 1.2 AT 55 ML/HR -THIS WILL PROVIDE 1320 ML OF VOLUME, 1584 KCAL, AND 99 GM OF PROTEIN. IT MEETS 100% OF PT�S ESTIMATED ENERGY AND PROTEIN NEEDS. 2. CONTINUE FWF [address] TO FOLLOW-UP 2-3 DAYS, HIGH RISK JEREMIAS RAMOS RD
--- NOTE | 2019-03-25 16:05 | NUR ---
NO APPARENT RESPIRATORY DISTRESS NOTED GOOD CHEST RISE AND AERATION THROUGHOUT BILATERAL LUNG CABRALES AIRWAY PATENT
[2019-03-25] MEDS: FUROSEMIDE 20 MG/2 ML VIAL IVP SCH (17:20)
--- NOTE | 2019-03-25 17:29 | NUR ---
RESTING WELL WITHOUT SOB NOTED EQUAL CHEST RISE ENDOTRACHEAL SUCTION FOR MODERATE THICK YELLOW SECRETIONS AIRWAY PATENT
--- NOTE | 2019-03-25 17:35 | NUR ---
PM CARE RENDERED
--- NOTE | 2019-03-25 18:46 | NUR ---
DR. VERGARA AT BEDSIDE. CONTINUE SAME TREATMENT PER PHYSICIAN.
--- NOTE | 2019-03-25 19:30 | NUR ---
RECEIVED REPORT FROM MORNING RN, MISAEL, FOR CONTINUITY OF CARE. VS STABLE AT THIS TIME. AFEBRILE. FLACC 0. PT DOES NOT APPEAR TO BE EXPERIENCING ANY DISCOMFORT AT THIS TIME. PERRL. RECEIVED PT ON FENTANYL AT 29MCG/HR AND VERSED AT 3MG/HR. RASS -3. LUNG SOUNDS CLEAR. ETT TO VENT WITH SETTINGS: AC14, FIO2 28%, TV 450 AND PEEP 5. RESPIRATIONS EVEN AND UNLABORED. CHEST RISE SYMMETRIC. S1+S2 HEARD. SR ON MONITOR. PULSES PALPABLE IN ALL EXTREMITIES. ABDOMEN ROUND, SOFT AND NONDISTENDED. OGT IN PLACE. RECEIVED PT ON VITAL AF AT 55ML/HR. RESIDUAL CHECKED AND WAS 180ML. FEEDING HELD PER PARAMETER AT THIS TIME. NO BM NOTED AT THIS TIME. CHAUDHARI CATHETER IN PLACE THAT IS DRAINING CLEAR AND YELLOW URINE. SCD IN PLACE. RECEIVED PT WITH 0.45% NS AT 40ML/HR. PT HAS LEFT IJ CENTRAL LINE. LINE IS PATENT, INTACT, AND ASYMPTOMATIC. SKIN IS WARM, DRY, AND ASYMPTOMATIC. ALL SAFETY PRECAUTIONS ARE IN PLACE. HOB 30 DEGREES. WILL CONTINUE TO MONITOR PT.
[2019-03-25] MEDS: fentaNYL 1 MG in NACL 0.9% 80 ML IV PRN (22:07)
--- NOTE | 2019-03-25 22:32 | NUR ---
NO CHANGE IN PT'S CONDITION AT THIS TIME. ALL SAFETY PRECAUTIONS REMAINS IN PLACE. RASS -3. VS REMAINS STABLE. WILL CONTINUE TO MONITOR PT.
[2019-03-26] VITALS (101 sets, daily range): BP systolic 84–133; BP diastolic 35–78
--- NOTE | 2019-03-26 00:08 | NUR ---
RESPIRATIONS EVEN AND UNLABORED. CHEST RISE SYMMETRIC. VS STABLE. FLACC 0. RASS -3. FEEDING RESUMED AT THIS TIME. RESIDUAL AT 40ML ONLY. WILL RECHECK AGAIN LATER. ALL SAFETY PRECAUTIONS ARE IN PLACE WITH BED AT LOWEST POSSIBLE POSITION.
[2019-03-26] MEDS: Z-GUARD PASTE TP SCH ×2 (01:16→14:00)
[2019-03-26] MEDS: ALBUTEROL SULFATE/IPRATROPIU 3 ML SOL IH SCH ×4 (01:44→19:15)
[2019-03-26] MEDS: NOREPINEPHRINE 8 MG in DEXTROSE 5% 250 ML IV PRN (01:55)
--- NOTE | 2019-03-26 02:20 | NUR ---
ALL SAFETY PRECAUTIONS ARE IN PLACE. FLACC 0. NO SIGNS OF ANY DISCOMFORT OBSERVED. PT'S EYES ARE CLOSED. RASS REMAINS -3.
--- NOTE | 2019-03-26 04:00 | NUR ---
MORNING CARE PROVIDED TO PT. TOLERATED BEING TURNED AND REPOSITIONED FAIRLY. NO BM NOTED AT THIS TIME. RASS -3. PT REMAINS ON FENTANYL AND VERSED DRIP. ALL SAFETY PRECAUTIONS ARE IN PLACE. NO CHANGE IN VS. WILL CONTINUE TO MONITOR.
[2019-03-26] MEDS: LEVOTHYROXINE 0.025 MG TAB PO SCH (05:49)
[2019-03-26 06:17] LABS: BASOPHILS # (AUTO) 0.1 K/uL (0.00-0.22); BASOPHILS % (AUTO) 0.4 % (0.0-2.0); EOSINOPHILS # (AUTO) 0.6 K/uL (0-0.4); EOSINOPHILS % (AUTO) 3.6 % (0.0-4.0); HEMATOCRIT 35.8 % (36-48); HEMOGLOBIN 11.4 g/dL (12.0-16.0); LYMPHOCYTES # (AUTO) 1.9 K/uL (2.5-16.5); LYMPHOCYTES % (AUTO) 11.4 % (20.5-51.1); MEAN CORPUSCULAR HEMOGLOBIN 28 pg (27-31); MEAN CORPUSCULAR HGB CONC 32 g/dL (33-37); MEAN CORPUSCULAR VOLUME 89.1 fL (80-94); MONOCYTES # (AUTO) 1.2 K/uL (0.8-1.0); MONOCYTES % (AUTO) 7.5 % (1.7-9.3); NEUTROPHILS # (AUTO) 12.5 K/uL (1.8-7.7); NEUTROPHILS % (AUTO) 77.1 % (42.2-75.2); PLATELET COUNT (AUTO) 292 K/uL (140-450); RED BLOOD CELL COUNT(AUTO) 4.02 MIL/uL (4.20-5.40); RED CELL DISTRIBUTION WIDTH 15.5 % (11.6-13.7); WHITE BLOOD COUNT (AUTO) 16.3 K/uL (4.8-10.8)
--- NOTE | 2019-03-26 06:28 | NUR ---
RECEIVED A CALL FROM DR. GODFREY AT THIS TIME. UPDATED HER REGARDING THE DRIPS THAT PT IS ON. PER DR. GODFREY, SHE WILL COME TO SEE THE PT LATER.
[2019-03-26 06:37] LABS: ANION GAP 10.2 (8-16); CARBON DIOXIDE 30.3 mmol/L (21-32); CHLORIDE 110 mmol/L (98-107); CREATININE 0.9 mg/dL (0.6-1.3); GLUCOSE 83 mg/dL (74-106); POTASSIUM 3.5 mmol/L (3.5-5.1); SODIUM SERUM 147 mmol/L (136-145); UREA NITROGEN, BLOOD 17 mg/dL (7-18)
[2019-03-26 06:40] LABS: PHOSPHORUS 2.9 mg/dL (2.5-4.9)
--- NOTE | 2019-03-26 07:06 | NUR ---
RECEIVED INTUBATED PT WITH A 7.5 ETT SECURED @22 TEETH/GUMS ON VENT. SETTINGS AC/VC 14, VT 450, PEEP 5 AND FIO2 28%. PT NOT ALERT BUT NOT IN ANY DISTRESS AT THIS TIME. AIRWAY IS SECURE WITH ANCHOR FAST DEVICE, AIRWAY IS PATENT. THERE IS NO BITING OR KINKING OF ETT. VENT IS PLUGGED INTO A RED OUTLET WITH ALARMS ON AND FUNCTIONING. AMBU BAG IS PRESENT NEAR BEDSIDE. WILL CONTINUE TO MONITOR.
--- NOTE | 2019-03-26 07:18 | NUR ---
REPORT GIVEN TO MORNING RNBRIANNE, FOR CONTINUITY OF CARE. VS STABLE AT THIS TIME.
--- NOTE | 2019-03-26 08:00 | NUR ---
PATIENT INTUBATED 7.5 ETT 23 IN THE TEETH, ON VENTILATOR AC 14 FIO2 28% VT 450 PEEP5, WITHDRAWS TO LIGHT PAIN, SLIGHT BILATERAL EYE OPENING, ON VERSED 3MGS/HR, FENTANYL 29MCG/HR., SINUS RHYTHM AT THIS TIME ON AMIODARONE DRIP MAINTENANCE DOSE 0.5 MG/MIN., LEVOPHED 1 MCG/MIN., WITH OGT TUBE ON ENTERAL VITAL AF 55ML/HR., SOFT ABDOMEN, CHAUDHARI CATHETER IN SITU, LEFT INTERNAL JUGULAR CENTRAL LINE, ON HALF NS 40ML/HR., GAUGE 22 At RIGHT HAND, BILATERAL HEEL PROTECTORS ON
[2019-03-26] MEDS: DOCUSATE SODIUM 100 MG GELCAP PO PRN (08:38)
[2019-03-26] MEDS: FUROSEMIDE 20 MG/2 ML VIAL IVP SCH ×2 (08:38→17:25)
[2019-03-26] MEDS: MEMANTINE 10 MG TAB PO SCH ×2 (08:38→20:23)
[2019-03-26] MEDS: MEROPENEM 500 MG in NACL 0.9% 50 ML IV SCH ×2 (08:39→20:22)
[2019-03-26] MEDS: FAMOTIDINE 20 MG/2 ML VIAL IV SCH (08:39)
[2019-03-26] MEDS: ENOXAPARIN 30 MG/0.3 ML SYR SUBQ SCH (08:42)
--- NOTE | 2019-03-26 09:03 | NUR ---
DR. GODFREY MADE AWARE POTASSIUM TODAY IS 3.5 AND PATIENT WILL BE GIVEN LASIX THIS MORNING, PATIENT'S HAS NO BM IN THE LAST 3 DAYS. PER PHYSICIAN "OK I WILL ORDER ULTRASOUND AND CHECK SERUM POTASSIUM THIS AFTERNOON"
--- NOTE | 2019-03-26 09:15 | NUR ---
COSMETIC CONSULTANT AT BEDSIDE FOR ABDOMINAL XRAY
--- NOTE | 2019-03-26 10:18 | NUR ---
DR. MEYER AT BEDSIDE. UOPDATED OF PATIENT'S STATUS. PER PHYSICIAN " CONTINUE AMIODARONE DRIP UNTIL PATIENT IS OFF LEVOPHED. IF PATIENT IS WEANED OFF LEVOPHED LATER MAY KEEP AMIODARONE DRIP OVERNIGHT AND MAY TURN OFF AMIODARONE TOMORROW. WILL REASSESS"
[2019-03-26] MEDS: AMIODARONE 450 MG in DEXTROSE 5% 250 ML IV SCH (10:24)
[2019-03-26] MEDS: FLUCONAZOLE 100 MG/NS PREMIX 50 ML IV SCH (10:27)
--- NOTE | 2019-03-26 12:00 | NUR ---
CHECKED GASTRIC RESIDUAL ASPIRATED 50 ML OF FEEDING WILL CONTINUE TO MONITOR
--- NOTE | 2019-03-26 12:29 | NUR ---
RECEIVED CALL FROM DR. FARRAR. UPDATED PT STATUS. SAID WILL BE HERE TO SEE THE PT LATER.
[2019-03-26] MEDS ORDERED: BISACODYL 10 MG SUPP RC SCH (13:00)
--- NOTE | 2019-03-26 13:40 | NUR ---
PT SUCTIONED OBTAINED SMALL AMOUNT OF THICK CLEAR SECRETIONS, AIRWAY IS PATENT AND ETT IS SECURE.PT SEDATED AT THIS TIME NOT IN ANY DISTRESS. WILL CONTINUE TO MONITOR.
--- NOTE | 2019-03-26 15:00 | NUR ---
FENTANYL DRIP ON HOLD DR. ABRAHAM AT BEDSIDE AND ASSESSED THE PATIENT. PER PHYSICIAN PATIENT IS NOT MOVING, MAY TURN OFF FENTANYL AT THIS TIME AND RESUME IF NEEDED
[2019-03-26] MEDS: MIDAZOLAM MDV 100 MG in NACL 0.9% 80 ML IV PRN (15:20)
--- NOTE | 2019-03-26 15:20 | NUR ---
PATIENT BARELY OPENING EYES AND MOVING TO PAIN SO DECREASED VERSED TO 2MGS/HR. WILL CONTINUE TO MONITOR
--- NOTE | 2019-03-26 16:00 | NUR ---
DR. FARRAR AT BEDSIDE
--- NOTE | 2019-03-26 17:05 | NUR ---
PT REMAINS ON DOCUMENTED VENT SETTINGS. ALARMS ON AND FUNCTIONING. ETT IS SECURE WITH A PATENT AIRWAY. PT IS NOT IN ANY DISTRESS AT THIS TIME.
--- NOTE | 2019-03-26 18:30 | NUR ---
CHECKED GASTRIC RESIDUAL ASPIRATED 150 ML OF FEEDING. WILL TURN OFF FEEDING FOR NOW
[2019-03-26 18:53] LABS: ANION GAP 10.3 (8-16); CHLORIDE 107 mmol/L (98-107); CREATININE 0.9 mg/dL (0.6-1.3); GLUCOSE 127 mg/dL (74-106); POTASSIUM 3.3 mmol/L (3.5-5.1); SODIUM SERUM 143 mmol/L (136-145); UREA NITROGEN, BLOOD 18 mg/dL (7-18)
--- NOTE | 2019-03-26 19:10 | NUR ---
RECEIVED PATIENT ON CURRENT SETTINGS: AC/VC 450 RATE 14 PEEP 5 FIO2 28%. PATIENT IS INTUBATED WITH A SIZE 7.5 ET TUBE THAT IS SECURED AT 22CM AT THE LIP WITH AN ANCHORFAST. ET TUBE IS AT ORAL RIGHT, OBSERVED NO REDNESS OR SKIN BREAKDOWN. B/S: CLEAR IN THE UPPER LOBES, DIMINISHED IN THE BASES. SUCTIONED PATIENT AND RECEIVED SMALL, THICK, GUZMAN SECRETIONS. INLINE TREATMENT GIVEN WITH NO INCIDENT. VENT AND ALARM SETTINGS VERIFIED. AMBU BAG AT BEDSIDE.
--- NOTE | 2019-03-26 19:17 | NUR ---
REPORT GIVEN TO NIGHT RN
--- NOTE | 2019-03-26 19:25 | NUR ---
RECEIVED REPORT FROM AM NURSE. PT AT BED EYES CLOSED, BREATHING REGULARLY, PERRL 3MM, SLUGGISH, PT IS LETHARGIC, HR IRREGULAR, A. FIB ON MONITOR, S1S2 PRESENT, PULSES 2+ BILATERAL UPPER AND LOWER EXTREMITIES, ETT TO VENT, 7.5, FIO2 28%, TV 450, RR 14, PEEP 5, LUNG SOUNDS CLEAR THROUGHOUT, ABDOMEN SOFT, ROUND, NONDISTENDED, BOWEL SOUNDS HYPOACTIVE IN ALL QUADRANTS, BLADDER NONDISTENDED, FC IN PLACE, CLEAR YELLOW URINE, SKIN INTACT, COLOR APPROPRIATE TO ETHNICITY, GENERALIZED WEAKNESS, RIGHT IJ IN PLACE, IV FLUIDS RUNNING, RIGHT HAND IV 22 GAUGE, HOB AT 30 DEGREES, SIDERAILS UP X2, CALL LIGHT WITHIN REACH, WILL CONTINUE TO MONITOR PT. Addendum: 03/26/19 at 2249 by Napoleon Azar RN DRY WEIGHT. 74 KG Addendum: 03/26/19 at 2315 by Napoleon Azar RN AMIODARONE DRIP RUNNING AT 0.5 MG/MIN, VERSED RUNNING AT 2MG/HR LEVOPHED RUNNING AT 2MCG/MIN Addendum: 03/27/19 at 0429 by Napoleon Azar RN BILATERAL HEEL PROTECTORS ON Addendum: 03/27/19 at 0431 by Napoleon Azar RN CORRECTION. PT HAS LEFT INTRAJUGULAR CENTRAL LINE WITH TRIPLE LUMEN.
--- NOTE | 2019-03-26 20:10 | NUR ---
PERFORMED VAP ORAL CARE. SUCTIONED PT WITH SCANT, WHITE MUCOUS, PT TOLERATED PROCEDURE WELL. VS WNL. HOB 30 DEGREES, SIDE RAILS UP X2, CALL LIGHT WITHIN REACH.
[2019-03-26] MEDS: DOCUSATE SODIUM 100 MG GELCAP PO SCH (20:23)
--- NOTE | 2019-03-26 21:10 | NUR ---
CHECKED OG TUBE RESIDUAL. 5 ML. RESTARTED FEEDING AT 55 ML/HR, WATER FLUSH 200 CC Q6H. PT AT STABLE CONDITION AT THIS TIME. WILL CONTINUE TO MONITOR.
--- NOTE | 2019-03-26 21:43 | NUR ---
CALLED [facility], SPOKE WITH DR. KOCH. INFORMED HER REGARDING THE CURRENT POTASSIUM LEVEL OF THE PT. PER DR. KOCH, SHE WILL ORDER POTASSIUM REPLACEMENT
[2019-03-26] MEDS ORDERED: KCL 20 MEQ/WATER INJ PREMIX 100 ML IV SCH (22:00)
[2019-03-27] VITALS (105 sets, daily range): BP systolic 92–147; BP diastolic 41–97
[2019-03-27] MEDS: Z-GUARD PASTE TP SCH ×2 (00:50→13:40)
--- NOTE | 2019-03-27 01:30 | NUR ---
ROUTINE VENT CHECK AND PATIENT ASSESSMENT. B/S: CLEAR IN THE UPPER LOBES AND DIMINISHED IN THE BASES. SUCTIONED PATIENT AND RECEIVED SMALL, THIN, PALE YELLOW SECRETIONS. MOVED ET TUBE FROM RIGHT TO MIDLINE, OBSERVED A SMALL RED SPOT ON TOP LIP IN THE RIGHT CORNER, ADVISED RN BEBO. PLACED PROTECTIVE MICRO FOAM BETWEEN TOP LIP AND ANCHORFAST. TREATMENT GIVEN INLINE WITH NO INCIDENT. CHANGED HME.
[2019-03-27] MEDS: ALBUTEROL SULFATE/IPRATROPIU 3 ML SOL IH SCH ×4 (01:36→19:29)
--- NOTE | 2019-03-27 02:20 | NUR ---
PT AT BED EYES CLOSED, BREATHING REGULARLY. PT IS AT STABLE CONDITION AT THIS TIME. WILL CONTINUE TO MONITOR. HOB 30 DEGREES, SIDE RAILS UP X2, CALL LIGHT WITHIN REACH.
--- NOTE | 2019-03-27 03:36 | NUR ---
ROUTINE VENT CHECK AND PATIENT ASSESSMENT. B/S: COARSE IN THE UPPER LOBES AND DIMINISHED IN THE BASES. SUCTIONED PATIENT AND RECEIVED SMALL, THIN, PALE YELLOW/BLOOD TINGED SECRETIONS. NO CHANGES TO VENT SETTINGS.
[2019-03-27] MEDS: AMIODARONE 450 MG in DEXTROSE 5% 250 ML IV SCH ×2 (04:48→16:39)
[2019-03-27] MEDS: LEVOTHYROXINE 0.025 MG TAB PO SCH (05:33)
[2019-03-27 05:46] LABS: ANION GAP 9.4 (8-16); CARBON DIOXIDE 30.5 mmol/L (21-32); CHLORIDE 106 mmol/L (98-107); CREATININE 0.8 mg/dL (0.6-1.3); GLUCOSE 113 mg/dL (74-106); POTASSIUM 3.9 mmol/L (3.5-5.1); SODIUM SERUM 142 mmol/L (136-145); UREA NITROGEN, BLOOD 20 mg/dL (7-18)
[2019-03-27 05:49] LABS: MAGNESIUM 2.1 mg/dL (1.8-2.4); PHOSPHORUS 3.5 mg/dL (2.5-4.9)
[2019-03-27 05:54] LABS: BASOPHILS % (AUTO) 0.2 % (0.0-2.0); EOSINOPHILS # (AUTO) 0.3 K/uL (0-0.4); EOSINOPHILS % (AUTO) 2.4 % (0.0-4.0); HEMATOCRIT 33.9 % (36-48); LYMPHOCYTES # (AUTO) 1.3 K/uL (2.5-16.5); LYMPHOCYTES % (AUTO) 9.3 % (20.5-51.1); MEAN CORPUSCULAR HEMOGLOBIN 29 pg (27-31); MEAN CORPUSCULAR HGB CONC 32 g/dL (33-37); MEAN CORPUSCULAR VOLUME 88.3 fL (80-94); MONOCYTES % (AUTO) 7.7 % (1.7-9.3); NEUTROPHILS # (AUTO) 10.9 K/uL (1.8-7.7); NEUTROPHILS % (AUTO) 80.4 % (42.2-75.2); PLATELET COUNT (AUTO) 265 K/uL (140-450); RED BLOOD CELL COUNT(AUTO) 3.84 MIL/uL (4.20-5.40); RED CELL DISTRIBUTION WIDTH 15.3 % (11.6-13.7); WHITE BLOOD COUNT (AUTO) 13.6 K/uL (4.8-10.8)
[2019-03-27] MEDS ORDERED: SODIUM PHOSPHATE 118 ML ENEM RC SCH (07:00)
--- NOTE | 2019-03-27 07:10 | NUR ---
RECEIVED REPORT FROM GIS ADMINISTRATOR SHIV LAGUNAS. PT IN BED, NO SIGNS OF ACUTE RESPIRATORY DISTRESS AT THIS TIME. LUNG SOUNDS CLEAR THROUGHOUT, ABDOMEN SOFT, ROUND, NONDISTENDED, BOWEL SOUNDS HYPOACTIVE IN ALL QUADRANTS. PERRL, BRISK 3MM. PT IS SEDATED WITH VERSED DRIP. SR ON MONITOR. RIGHT HAND IV 22 GAUGE, PATENT AND INTACT, SL. LEFT IJ TRIPLE LUMEN, PATENT AND INTACT. AMIODARONE 450MG/250ML DRIP RUNNING AT 16.66 ML/HR. PULSES 2+ BILATERAL UPPER AND LOWER EXTREMITIES. NON PITTING EDEMA BLE. ETT TO VENT, 7.5, FIO2 28%, TV 450, RR 14, PEEP 5, BLADDER NONDISTENDED, FC IN PLACE, DRAINING CLOUDY YELLOW URINE. SKIN INTACT. GENERALIZED WEAKNESS, RIGHT IJ IN PLACE, IVF 1/2NS RUNNING. HOB AT 30 DEGREES, SIDERAILS UP X2, CALL LIGHT WITHIN REACH, WILL CONTINUE TO MONITOR PT. Addendum: 03/31/19 at 1028 by Kingsley Adrian RN LEFT IJ ONLY.
--- NOTE | 2019-03-27 07:26 | NUR ---
CHANGE OF SHIFT REPORT GIVEN TO NURSE GODINEZ FOR CONTINUITY OF CARE.
--- NOTE | 2019-03-27 08:01 | NUR ---
ORAL CARE DONE. CHAUDHARI CARE DONE. OGT AUSCULTATED, POSITIVE PLACEMENT, RESIDUAL 50ML.
[2019-03-27] MEDS: DOCUSATE SODIUM 100 MG GELCAP PO SCH (08:40)
[2019-03-27] MEDS: MEMANTINE 10 MG TAB PO SCH ×2 (08:40→20:04)
[2019-03-27] MEDS: FAMOTIDINE 20 MG/2 ML VIAL IV SCH (08:40)
[2019-03-27] MEDS: FUROSEMIDE 20 MG/2 ML VIAL IVP SCH ×2 (08:41→16:40)
[2019-03-27] MEDS: ENOXAPARIN 30 MG/0.3 ML SYR SUBQ SCH (08:43)
[2019-03-27] MEDS: MEROPENEM 500 MG in NACL 0.9% 50 ML IV SCH (08:54)
--- NOTE | 2019-03-27 10:10 | NUR ---
PT SEEN AND EXAMINED BY DR. MEYER. PER DR. MEYER, CONTINUE AMIODARONE DRIP UNTIL TOMORROW MORNING, AND WILL START PO AMIODARONE AFTER. DR. GODFREY IN THE UNIT AWARE.
[2019-03-27] MEDS: FLUCONAZOLE 100 MG/NS PREMIX 50 ML IV SCH (11:19)
--- NOTE | 2019-03-27 12:00 | NUR ---
VAP ORAL CARE GIVEN. TURNED AND REPOSITIONED FOR COMFORT AND OFF LOADED PRESSURE AREAS.
--- NOTE | 2019-03-27 12:21 | NUR ---
VENT CHECK COMPLETED.PT NOT IN ANY DISTRESS AT THIS TIME. WILL CONTINUE TO MONITOR.
--- NOTE | 2019-03-27 14:10 | NUR ---
PT HAD A SMEAR OF LIQUID BOWEL MOVEMENT. CLEANED AND REPOSITIONED. Z-GUARD APPLIED. SKIN INTACT, BLANCHABLE REDNESS TO SACROCOCCYX AREA NOTED. WILL CONTINUE TO MONITOR.
[2019-03-27] MEDS: NACL 0.45% 1,000 ML IV SCH (14:29)
[2019-03-27] MEDS: MIDAZOLAM MDV 100 MG in NACL 0.9% 80 ML IV PRN (15:26)
--- NOTE | 2019-03-27 16:50 | NUR ---
MADE DR GODFREY AWARE THAT PT HAD VERY TINY BM WHICH IS A SMEAR OF YELLOW LIQ. DR GODFREY SAID MIGHT TRY FLEET ENEMA AGAIN TOMORROW.
--- NOTE | 2019-03-27 17:23 | NUR ---
NO CHANGE IN CONDITION AT THIS TIME. VSS. BREATHING EVEN AND UNLABORED. NO S/SX OF DISTRESS NOTED. ALL SAFETY PRECAUTIONS IN PLACE.
--- NOTE | 2019-03-27 18:00 | NUR ---
PT REMAINS ON DOCUMENTED VENT SETTINGS. ETT IS SECURE WITH A PATENT AIRWAY. VENT ALARMS ON AND FUNCTIONING. PT IS NOT ALERT BUT NOT IN ANY DISTRESS.
--- NOTE | 2019-03-27 18:05 | NUR ---
G TUBE RESIDUAL CHECKED, 10ML RESIDUAL.
--- NOTE | 2019-03-27 19:20 | NUR ---
REPORT GIVEN TO FRONT DESK SPECIALIST CLAIRE. PT IN STABLE CONDITION.
--- NOTE | 2019-03-27 19:25 | NUR ---
RECEIVED PATIENT ON CURRENT SETTINGS: AC/VC 450 RATE 14 PEEP 5 FIO2 28%. PATIENT IS INTUBATED WITH A SIZE 7.5 ET TUBE THAT IS SECURED AT 22CM AT THE LIP WITH AN ANCHORFAST. ET TUBE IS AT ORAL MIDLINE, OBSERVED NO REDNESS OR SKIN BREAKDOWN AT LOCATION OF ET TUBE. B/S: CLEAR IN THE UPPER LOBES, DIMINISHED IN THE BASES. SUCTIONED PATIENT AND RECEIVED SCANT, WHITE, THIN SECRETIONS. INLINE TREATMENT GIVEN WITH NO INCIDENT. VENT AND ALARM SETTINGS VERIFIED. AMBU BAG AT BEDSIDE.
--- NOTE | 2019-03-27 19:30 | NUR ---
RECEIVED REPORT FROM MORNING RN, HERBERT, FOR CONTINUITY OF CARE. VS STABLE AT THIS TIME. FLACC 0. PT UNABLE TO FOLLOW VERBAL COMMANDS OR MAKE NEEDS KNOWN. RASS -3. PT SEDATED WITH VERSED 100MG/ NS 80ML THAT IS RUNNING AT 2MG/HR. LUNG SOUNDS CLEAR. ETT TO VENT WITH SETTINGS: FIO2 28%, TV 450, RR14, AND PEEP 5. RESPIRATIONS EVEN AND UNLABORED. CHEST RISE SYMMETRIC. S1+S2 HEARD. PULSES ARE PALPABLE. SR ON MONITOR. PT STILL ON AMIODARONE 450MG/ D5W 250ML RUNNING AT 0.5MG/MIN. ABDOMEN ROUND, SOFT AND NONDISTENDED. BS ACTIVE IN ALL QUADRANTS. OGT IN PLACE. RESIDUAL 15ML. RESUMED FEEDING. PT ON VITAL AF AT 55ML/HR WITH WATER FLUSH 200ML Q6H. NO BM NOTED AT THIS TIME. CHAUDHARI CATHETER IN PLACE. DRAINING CLEAR AND YELLOW URINE. CHAUDHARI CATHETER SECURED IN PLACE. RECEIVED PT WITH LEFT IJ CENTRAL LINE TRIPLE LUMEN. DRESSING CLEAN, DRY AND INTACT. PT HAS PERIPHERAL IV ACCESS ON RIGHT HAND 22G. HOB 30 DEGREES. ALL SAFETY PRECAUTIONS ARE IN PLACE. BED AT LOWEST POSSIBLE POSITION. WILL CONTINUE TO MONITOR PT.
[2019-03-27] MEDS ORDERED: DOCUSATE 100 MG/10 ML UDC GT PRN (20:00)
--- NOTE | 2019-03-27 20:00 | NUR ---
CALLED RESIDENT DOCTORS, SPOKE WITH DR. KOCH. CLARIFIED COLACE ORDER.
--- NOTE | 2019-03-27 20:15 | NUR ---
REMOVED PERIPHERAL IV ACCESS ON RIGHT HAND. CATHETER WAS INTACT. NO BLEEDING NOTED FROM THE INSERTION SITE. COVERED WITH GAUZE AND APPLIED A BIT OF PRESSURE. SECURED GAUZE IN PLACE.
--- NOTE | 2019-03-27 21:24 | NUR ---
VS STABLE. REMAINS SR ON MONITOR. FLACC 0. RASS -3. NO CHANGE IN PT'S CONDITIONS. RESPIRATIONS EVEN AND UNLABORED. PT TURNED AND REPOSITIONED. ALL SAFETY PRECAUTIONS REMAINS IN PLACE.
--- NOTE | 2019-03-27 21:46 | NUR ---
DR. FARRAR IN THE UNIT. UPDATED HIM REGARDING PT'S CONDITION. INFORMED DR. FARRAR THAT MERREM WAS D/C IN THE AM. PER DR. FARRAR, MERREM TO BE CONTINUED. MERREM 500MG IV Q12H. NOTED AND CARRIED OUT
[2019-03-27] MEDS ORDERED: MEROPENEM 500 MG VIAL IV ONE (22:49)
[2019-03-27] MEDS ORDERED: MEROPENEM 500 MG in NACL 0.9% 50 ML IV SCH (23:00)
--- NOTE | 2019-03-27 23:42 | NUR ---
ROUTINE VENT CHECK AND PATIENT ASSESSMENT. CHANGED HME. NO CHANGES TO VENT SETTINGS. AIRWAY IS PATENT.
[2019-03-28] VITALS (89 sets, daily range): BP systolic 104–158; BP diastolic 41–97
--- NOTE | 2019-03-28 00:09 | NUR ---
NO CHANGE IN PT'S CONDITION AT THIS TIME. PT REMAINS SR ON MONITOR. VS STABLE. RESPIRATIONS ARE EVEN AND UNLABORED. FLACC 0. PT DOES NOT APPEAR TO BE EXPERIENCING ANY DISCOMFORT AT THIS TIME. RASS -3. ALL SAFETY PRECAUTIONS ARE IN PLACE. HOB AT 30 DEGREES. NO RESIDUAL NOTED. WILL CONTINUE TO MONITOR
--- NOTE | 2019-03-28 01:10 | NUR ---
ROUTINE VENT CHECK AND PATIENT ASSESSMENT. SUCTIONED PATIENT AND RECEIVED SMALL, THIN, WHITE/PALE YELLOW SECRETIONS. MOVED ET TUBE FROM MIDLINE TO ORAL LEFT. TREATMENT GIVEN INLINE WITH NO INCIDENT.
[2019-03-28] MEDS: ALBUTEROL SULFATE/IPRATROPIU 3 ML SOL IH SCH ×4 (01:12→19:08)
[2019-03-28] MEDS: Z-GUARD PASTE TP SCH ×2 (01:31→13:05)
--- NOTE | 2019-03-28 01:52 | NUR ---
RESPIRATIONS EVEN AND UNLABORED. CHEST RISE SYMMETRIC. PT DOES NOT APPEAR TO BE HAVING DIFFICULTY BREATHING. NO SOB. VS STABLE. SR ON MONITOR WITH OCCASIONAL PAC. PT REMAINS ON AMIODARONE DRIP. PT STILL ADEQUATELY SEDATED EVIDENCED BY RASS -3. WILL CONTINUE TO MONITOR PT.
--- NOTE | 2019-03-28 03:12 | NUR ---
MORNING CARE PROVIDED TO PT. TOLERATED BEING TURNED AND REPOSITIONED FAIRLY. RESPIRATIONS REMAIN EVEN AND UNLABORED. PT SUCTION THROUGH ETT AND SCANT CREAMY SPUTUM ASPIRATED. VS REMAINS STABLE. WILL CONTINUE TO MONITOR PT.
--- NOTE | 2019-03-28 04:13 | NUR ---
CALLED DR. KOCH TO CLARIFY THE AMIODARONE DRIP. PER DR. KOCH, AMIODARONE PO AND THE DRIP SHOULD OVERLAP. TO FOLLOW-UP WITH TEMPER MILL OPERATOR.
--- NOTE | 2019-03-28 05:30 | NUR ---
RECHECKED OGT RESIDUAL. ONLY ASPIRATED 30ML. PT TOLERATING FEEDING WELL. VS STABLE. FLACC 0. PT REMAINS SR ON MONITOR. RESPIRATIONS ARE EVEN AND UNLABORED. PT DOES NOT APPEAR TO BE EXPERIENCING ANY DISCOMFORT AT THIS TIME. ALL SAFETY PRECAUTIONS REMAIN IN PLACE. WILL CONTINUE TO MONITOR PT.
[2019-03-28] MEDS: LEVOTHYROXINE 0.025 MG TAB PO SCH (05:38)
[2019-03-28 06:07] LABS: ANION GAP 11.7 (8-16); CARBON DIOXIDE 31.4 mmol/L (21-32); CHLORIDE 104 mmol/L (98-107); CREATININE 0.8 mg/dL (0.6-1.3); GLUCOSE 123 mg/dL (74-106); POTASSIUM 4.1 mmol/L (3.5-5.1); SODIUM SERUM 143 mmol/L (136-145); UREA NITROGEN, BLOOD 21 mg/dL (7-18)
[2019-03-28 06:11] LABS: MAGNESIUM 2.3 mg/dL (1.8-2.4); PHOSPHORUS 3.4 mg/dL (2.5-4.9)
[2019-03-28] MEDS ORDERED: BISACODYL 5 MG TABEC PO PRN (06:20)
[2019-03-28 06:33] LABS: BASOPHILS % (AUTO) 0.3 % (0.0-2.0); EOSINOPHILS # (AUTO) 0.3 K/uL (0-0.4); EOSINOPHILS % (AUTO) 1.9 % (0.0-4.0); HEMATOCRIT 34.5 % (36-48); LYMPHOCYTES # (AUTO) 1.2 K/uL (2.5-16.5); LYMPHOCYTES % (AUTO) 8.9 % (20.5-51.1); MEAN CORPUSCULAR HEMOGLOBIN 28 pg (27-31); MEAN CORPUSCULAR HGB CONC 32 g/dL (33-37); MEAN CORPUSCULAR VOLUME 88.5 fL (80-94); MONOCYTES # (AUTO) 1.1 K/uL (0.8-1.0); MONOCYTES % (AUTO) 8.3 % (1.7-9.3); NEUTROPHILS # (AUTO) 11.1 K/uL (1.8-7.7); NEUTROPHILS % (AUTO) 80.6 % (42.2-75.2); PLATELET COUNT (AUTO) 292 K/uL (140-450); RED CELL DISTRIBUTION WIDTH 15.4 % (11.6-13.7); WHITE BLOOD COUNT (AUTO) 13.8 K/uL (4.8-10.8)
--- NOTE | 2019-03-28 07:02 | NUR ---
RECEIVED BEDSIDE REPORT FROM BOILERMAKER INDUSTRIAL BOILERS RN, NATALIA, FOR CONTINUITY OF CARE. PATIENT IS SEDATED WITH VERSED AT 2MG/HR, RASS -3. SKIN IS WARM, DRY, INTACT, AFEBRILE. PATIENT HAS CENTRAL LINE TO LIJ, ASYMPTOMATIC AND PATENT. SHE HAS ETT TO VENT, SETTINGS ARE AC MODE, RATE 14, FIO2 28%, TV 450, BREATHING IS EVEN AND UNLABORED. SR ON MONITOR, FLACC 0. PATIENT HAS OGT IN PLACE TO TUBE FEEDING, VITAL AF AT 55 ML/HR WITH H20 FLUSH 200ML Q6H. PATIENT HAS CHAUDHARI CATHETER IN PLACE TO CLEAR YELLOW URINE. SAFETY PRECAUTIONS AND ALARMS ASSESS AND ENFORCED. HOB IS 30 DEGREES, BED LOCKED, SIDE RAILS UP. NO SIGNS OF DISTRESS NOTED, WILL CONTINUE TO MONITOR
--- NOTE | 2019-03-28 07:15 | NUR ---
REPORT GIVEN TO MORNING RN, CINDY, FOR CONTINUITY OF CARE. VS STABLE AT THIS TIME.
[2019-03-28] MEDS ORDERED: ALBUMIN HUMAN 25% 100 ML IV ONE (07:50)
--- NOTE | 2019-03-28 08:26 | NUR ---
DR. MCINTYRE AND RESIDENT PHYSICIANS AT BEDSIDE TO ROUND ON PATIENT. WILL FOLLOW UP ON ANY ORDERS.
[2019-03-28] MEDS: AMIODARONE 200 MG TAB PO SCH ×2 (08:36→20:09)
[2019-03-28] MEDS: FAMOTIDINE 20 MG/2 ML VIAL IV SCH (08:37)
[2019-03-28] MEDS: MEMANTINE 10 MG TAB PO SCH ×2 (08:37→20:09)
[2019-03-28] MEDS: DOCUSATE 100 MG/10 ML UDC GT SCH ×2 (08:37→20:08)
[2019-03-28] MEDS: ENOXAPARIN 30 MG/0.3 ML SYR SUBQ SCH (08:42)
[2019-03-28] MEDS: MEROPENEM 500 MG in NACL 0.9% 50 ML IV SCH ×2 (09:02→20:09)
--- NOTE | 2019-03-28 09:20 | NUR ---
DR. REDMOND IN TO SEE AND EXAMINE PATIENT, UPDATED ON PATIENT'S CONDITION. WILL FOLLOW UP WITH ANY ORDERS.
--- NOTE | 2019-03-28 11:09 | NUR ---
PT PLACED ON SBT. CPAP 5 PS 10 FIO2 28%. NURSE MADE AWARE. WILL CONTINUE TO MONITOR.
[2019-03-28] MEDS: FLUCONAZOLE 100 MG/NS PREMIX 50 ML IV SCH (11:22)
--- NOTE | 2019-03-28 11:50 | NUR ---
SBT UNSUCCESSFUL PT BECAME TACHYPNEIC RR MID TO HIGH 30'S. VT INADEQUATE FOR PT HT/IBW. NIF (-9) AND VC 238 ml. PT UNABLE TO FOLLOW COMMANDS. NURSE MADE AWARE. PT RETURNED TO AC/VC 14, VT 450 ,PEEP 5 AND FIO2 28%.
--- NOTE | 2019-03-28 13:54 | NUR ---
PT TOLERATING VENT SETTINGS WELL, NOT IN ANY DISTRESS. WILL CONTINUE TO MONITOR.
--- NOTE | 2019-03-28 14:26 | NUR ---
03/28/19 RD FOLLOW UP COMPLETED PLEASE REFER TO NUTRITION ASSESSMENT UNDER CARE ACTIVITY FOR ESTIMATED NUTRITIONAL NEEDS. 1. CONTINUE VITAL 1.2 AT 55 ML/HR -THIS WILL PROVIDE 1320 ML OF VOLUME, 1584 KCAL, AND 99 GM OF PROTEIN. IT MEETS 100% OF PT�S ESTIMATED ENERGY AND PROTEIN NEEDS. 2. CONTINUE FWF 200 ML Q6H OR PER MD 3. RD TO FOLLOW-UP 2-3 DAYS, HIGH RISK JEREMIAS RAMOS RD
--- NOTE | 2019-03-28 14:40 | NUR ---
DR. MEYER IN TO SEE PATIENT, UPDATED ON PATIENT'S CONDITION. WILL FOLLOW UP ON ANY ORDERS.
--- NOTE | 2019-03-28 15:53 | NUR ---
PT OPENS HER EYES BUT IS NOT ABLE TO FOLLOW COMMANDS. PT NOT IN ANY DISTRESS AT THIS TIME. WILL CONTINUE TO MONITOR.
--- NOTE | 2019-03-28 17:51 | NUR ---
PT REMAINS ON DOCUMENTED VENT SETTINGS NO CHANGES AT THIS TIME. PT SUCTIONED OBTAINED SMALL AMOUNT OF THICK CLEAR SECRETIONS, AIRWAY IS PATENT AND ETT IS SECURE. VENT ALARMS ON AND FUNCTIONING. PT NOT IN ANY DISTRESS AT THIS TIME.
--- NOTE | 2019-03-28 18:20 | NUR ---
DR. JACKSON IN TO SEE PATIENT.
--- NOTE | 2019-03-28 18:49 | NUR ---
DR. NEGRO AT BEDSIDE,UPDATED ON PATIENT'S CONDITION
--- NOTE | 2019-03-28 19:20 | NUR ---
RECEIVED REPORT ROM DAYSHIFT NURSE AT PATIENTS BEDSIDE, WILL CONTINUE TO MONITOR.
--- NOTE | 2019-03-28 19:50 | NUR ---
PATIENT IS RESTING WELL AT THIS TIME, FLACC 0, AFEBRILE, EQUAL AND UNLABORED CHEST RISE. PATIENT RESPONDS/OPENS EYES TO PAIN/SUCTIONING, PERRL BRISK 3MM. PATIENT IS ETT TO VENT, FI02 28% RATE 14 VT 450 AND PEEP OF 5. LUNG SOUNDS ARE CLEAR IN UPPER LOBES. S1 S2, CAP REFILL < 3 SEC. PATIENT HAS A LIJ TRIPLE LUMEN WITH 1/2 NS RUNNING AT 10 ML/HR. OGT TO FEEDING AT 55ML PER HR AND 200 ML WATER FLUSH Q6H. POSITIVE PLACEMENT BY AUSCULTATION. BOWEL SOUNDS ACTIVE WITH FLATUS, ABDOMEN SOFT AND NONTENDER. CHAUDHARI CATH IN PLACE WITH CLEAR YELLOW URINE. BED IS IN LOWEST POSITION And HOB 30 DEGREES, FALL RISK SIGNS, GOWN, AND SOCKS ARE APPLIED. WILL CONTINUE TO MONITOR PATIENT.
--- NOTE | 2019-03-28 21:25 | NUR ---
DR. VERGARA IN TO ASSESS PATIENT, NO NEW ORDERS AT THIS TIME. WILL CONTINUE TO MONITOR PATIENT.
--- NOTE | 2019-03-28 21:40 | NUR ---
DR. FARRAR IN TO ASSESS PATIENT AND TO GET UPDATE. ORDERS ARE TO KEEP THE SAME ANTIBIOTICS AND CONTINUE TO MONITOR.
--- NOTE | 2019-03-28 23:00 | NUR ---
AT PATIENTS BEDSIDE FOR NEURO CHECK, EYES ARE OPEN AND ARE SLOWLY BLINKING, NO TRACKING. PATIENT CANNOT FOLLOW COMMANDS OR MAKE NEEDS KNOWN. PATIENT WITHDRAWS TO LIGHT PAIN/SUCTIONING. NO SIGNS OF DISTRESS AT THIS TIME, WILL CONTINUE TO MONITOR.
[2019-03-29] VITALS (24 sets, daily range): BP systolic 105–150; BP diastolic 46–106
--- NOTE | 2019-03-29 00:05 | NUR ---
PATIENT CHECKED FOR GASTRIC RESIDUAL AT THIS TIME-0 MLS. NEW FEEDING RESTARTED, NEW BAGS APPLIED, POSITIVE PLACEMENT BY AUSCULTATION. PATIENT TOLERATING WELL.
[2019-03-29] MEDS: Z-GUARD PASTE TP SCH ×2 (00:47→12:45)
[2019-03-29] MEDS: ALBUTEROL SULFATE/IPRATROPIU 3 ML SOL IH SCH ×4 (01:02→19:16)
--- NOTE | 2019-03-29 02:00 | NUR ---
PATIENT REPOSITIONED AND SUCTIONED NEEDED. CANNOT OBEY COMMANDS, BLINKS EYES AND OPENS TO SLIGHT PAIN. NO SIGNS OF DISTRESS AT THIS TIME.
--- NOTE | 2019-03-29 04:00 | NUR ---
VAP PROTOCOL ORAL CARE PROVIDED, PATIENT HAS A SLIGHT GAG REFLEX. SECRETIONS ARE CLEAR/CREAM COLORED. PATIENT IS AFEBRILE NO CHILLS OR FEVER. FLACC 0 WILL CONTINUE TO MONITOR.
--- NOTE | 2019-03-29 05:00 | NUR ---
SPONGE BATH GIVEN, SKIN CARE AND CHAUDHARI CARE PROVIDED, PATIENT REPOSITION. PATIENT SUCTIONED NEEDED, NO SIGNS OF DISTRESS AT THIS TIME.
[2019-03-29] MEDS: LEVOTHYROXINE 0.025 MG TAB PO SCH (06:32)
--- NOTE | 2019-03-29 06:34 | NUR ---
RECEIVED PT ON CARESCAPE ON DOCUMENTED SETTINGS, PTS EET SIZE 7.5 IS SECURE [address] IN [address], BS DIMINISHED, ORALLY SX LG AMTS WHITE SECRETIONS, PT IN HF QUIET HHN GIVEN I\L WITH 3 MG DUONEB BMV HOB, VENT PLUGGED INTO RED OUTLET
[2019-03-29 06:41] LABS: BASOPHILS % (AUTO) 0.3 % (0.0-2.0); EOSINOPHILS # (AUTO) 0.3 K/uL (0-0.4); HEMATOCRIT 33.8 % (36-48); HEMOGLOBIN 10.8 g/dL (12.0-16.0); LYMPHOCYTES % (AUTO) 7.5 % (20.5-51.1); MEAN CORPUSCULAR HEMOGLOBIN 28 pg (27-31); MEAN CORPUSCULAR HGB CONC 32 g/dL (33-37); MEAN CORPUSCULAR VOLUME 88.6 fL (80-94); MONOCYTES # (AUTO) 1.3 K/uL (0.8-1.0); MONOCYTES % (AUTO) 9.9 % (1.7-9.3); NEUTROPHILS # (AUTO) 10.2 K/uL (1.8-7.7); NEUTROPHILS % (AUTO) 80.3 % (42.2-75.2); PLATELET COUNT (AUTO) 309 K/uL (140-450); RED BLOOD CELL COUNT(AUTO) 3.82 MIL/uL (4.20-5.40); RED CELL DISTRIBUTION WIDTH 15.4 % (11.6-13.7); WHITE BLOOD COUNT (AUTO) 12.7 K/uL (4.8-10.8)
[2019-03-29 07:19] LABS: CARBON DIOXIDE 28.2 mmol/L (21-32); CHLORIDE 105 mmol/L (98-107); CREATININE 0.8 mg/dL (0.6-1.3); GLUCOSE 143 mg/dL (74-106); POTASSIUM 4.2 mmol/L (3.5-5.1); SODIUM SERUM 141 mmol/L (136-145); UREA NITROGEN, BLOOD 23 mg/dL (7-18)
[2019-03-29 07:26] LABS: MAGNESIUM 2.5 mg/dL (1.8-2.4); PHOSPHORUS 3.2 mg/dL (2.5-4.9)
--- NOTE | 2019-03-29 07:30 | NUR ---
RECEIVED BEDSIDE REPORT FROM PREMIX CONCRETE BATCHER RN, PT IS LETHARGIC, RESPOND TO PAINFUL STIMULI, UNABLE TO FOLLOW COMMANDS AND MAKE NEEDS KNOWN, VSS, FLACC 0, NO S/S OF DISTRESS, ETT TO VENT WITH FIO2 28, TV 450, R 14, PEEP 5. DIMINISHED LUNG SOUNDS LENI, O2 SAT 97%, A-FIB ON MODEL HOME SALES GREETER, CAP REFILL <3 SEC, SOFT ABDOMEN WITH ACTIVE BOWEL SOUNDS, OGT IN PLACE, FEEDING WITH VITAL AF AT 55ML/HR, 5ML RESIDUALS NOTED, SKIN IS WARM AND DRY TO TOUCH, INTACT,SEVERE WEAKNESS TO ALL EXTREMITIES, CENTRAL LINE TO LIJ, TLC,PATENT AND KVO, HOB ELEVATED TO 30 DEGREES, SAFETY MEASURES IN PLACE, CALL LIGHT WITHIN REACH, ORAL CARE PROVIDED, POSITION CHANGED FOR OFF LOAD PRESSURE, WILL CONTINUE TO MONITOR.
[2019-03-29] MEDS: LISINOPRIL 5 MG TAB PO SCH (08:33)
[2019-03-29] MEDS: AMIODARONE 200 MG TAB PO SCH ×2 (08:33→20:11)
[2019-03-29] MEDS: DOCUSATE 100 MG/10 ML UDC GT SCH ×2 (08:33→20:10)
[2019-03-29] MEDS: MEMANTINE 10 MG TAB PO SCH ×2 (08:33→20:11)
[2019-03-29] MEDS: FAMOTIDINE 20 MG/2 ML VIAL IV SCH (08:34)
[2019-03-29] MEDS: ENOXAPARIN 30 MG/0.3 ML SYR SUBQ SCH (08:46)
[2019-03-29] MEDS: MEROPENEM 500 MG in NACL 0.9% 50 ML IV SCH ×2 (08:46→20:11)
--- NOTE | 2019-03-29 10:00 | NUR ---
NO CHANGE OF CONDITION AT THIS TIME, VSS, FLACC 0, POSITION CHANGED FOR OFF LOAD PRESSURE.
[2019-03-29] MEDS: FLUCONAZOLE 100 MG/NS PREMIX 50 ML IV SCH (10:58)
--- NOTE | 2019-03-29 11:19 | NUR ---
CHANGE PT BACK TO A\C WITH PREVIOUS SETTINGS RR HIGH INCREASED HEART RATE ON CPAP 5 PS 10
--- NOTE | 2019-03-29 12:00 | NUR ---
NO S/S OF DISTRESS, VSS, FLACC 0, ORAL CARE PROVIDED, POSITION CHANGED FOR OFF LOAD PRESSURE.
--- NOTE | 2019-03-29 14:00 | NUR ---
NO CHANGE OF CONDITION, VSS, FLACC 0, POSITION CHANGED FOR OFF LOAD PRESSURE
--- NOTE | 2019-03-29 16:00 | NUR ---
PM CARE AND ORAL CARE PROVIDED, F/C CARE DONE, SUCTION PROVIDED, POSITION CHANGED FOR OFF LOAD PRESSURE.
--- NOTE | 2019-03-29 18:00 | NUR ---
NO CHANGE OF CONDITION AT THIS TIME, VSS , FLACC 0, POSITION CHANGED FOR OFF LOAD PRESSURE.
--- NOTE | 2019-03-29 19:05 | NUR ---
REPORT GIVEN TO ORTHOPEDIC DESIGNER NURSE AT BEDSIDE FOR CONTINUE OF CARE.
--- NOTE | 2019-03-29 19:15 | NUR ---
RECEIVED REPORT FROM AM NURSE. PT AT BED EYES CLOSED, BREATHING REGULARLY, PERRL 3MM, SLUGGISH, PT IS LETHARGIC, HR 77 REGULAR, SR ON MONITOR , S1S2 PRESENT, PULSES 2+ BILATERAL UPPER AND LOWER EXTREMITIES, CAP REFILL <3S, ETT TO VENT, 7.5, FIO2 28%, TV 450, RR 14, PEEP 5, LUNG SOUNDS CLEAR THROUGHOUT, ABDOMEN SOFT, ROUND, NONDISTENDED, BOWEL SOUNDS HYPOACTIVE IN ALL QUADRANTS, BLADDER NONDISTENDED, FC IN PLACE, CLEAR YELLOW URINE, SKIN INTACT, COLOR APPROPRIATE TO ETHNICITY, GENERALIZED WEAKNESS, RIGHT IJ IN PLACE, IV FLUIDS RUNNING 0.45% NS AT 10ML/HR, HOB AT 30 DEGREES, SIDERAILS UP X2, CALL LIGHT WITHIN REACH, WILL CONTINUE TO MONITOR PT. Addendum: 03/29/19 at 2117 by Napoleon Azar RN ETT 23 CM ON THE LIP, OGT IN PLACE, RESIDUAL 0, VITAL AF RUNNING AT 55 ML/HR FLUSH WITH H20 200CC Q6HR.
--- NOTE | 2019-03-29 19:20 | NUR ---
DR TREVINO ON BEDSIDE, UPDATED MD ON PT CONDITION. NO NEW ORDERS.
--- NOTE | 2019-03-29 19:23 | NUR ---
Received pt stable on vent support at documented settings, suctioned moderate amounts of thick white secretions, hhn tx given, tolerated well, no resp distress or SOB noted at this time, 7.5 ETT secured at 23 cm at the lip, alarms set and audible, ambu bag at bedside, vent plugged into red outlet, cont pulse ox on, will cont to monitor.
--- NOTE | 2019-03-29 21:00 | NUR ---
DR FARRAR ON BEDSIDE, UPDATED MD ON PT CONDITION. NO NEW ORDERS.
--- NOTE | 2019-03-29 21:14 | NUR ---
DR VERGARA ON BEDSIDE, UPDATED MD ON PT CONDITION. NO NEW ORDERS.
--- NOTE | 2019-03-29 23:08 | NUR ---
SHIV ROMAN TO TAKE OVER PATIENT CARE AT THIS TIME.
[2019-03-30] VITALS (31 sets, daily range): BP systolic 97–155; BP diastolic 43–80
--- NOTE | 2019-03-30 00:35 | NUR ---
VAP ORAL CARE PROVIDED TO PATIENT AT BEDSIDE, ORAL SUCTIONING. PT APPEARS TO OPEN EYES IN RESPONSE TO NAME. WHEN ASKED "SQUEEZE MY FINGERS" PT APPEARS TO UNDERSTAND COMMANDS AND IS ABLE TO SQUEEZE MY HANDS WITH RIGHT HAND.
[2019-03-30] MEDS: ALBUTEROL SULFATE/IPRATROPIU 3 ML SOL IH SCH ×4 (01:04→19:10)
--- NOTE | 2019-03-30 01:07 | NUR ---
RT JULIAN AT BEDSIDE TO SEE PATIENT.VSS AT THIS TIME. AFEBRILE, TEMP 97.6.
[2019-03-30] MEDS: Z-GUARD PASTE TP SCH ×2 (01:14→12:53)
--- NOTE | 2019-03-30 02:45 | NUR ---
PATIENT CARE RETURN TO RNBEBO, AT THIS TIME.
--- NOTE | 2019-03-30 04:21 | NUR ---
PERFORMED VAP ORAL CARE. PT TOLERATED PROCEDURE WELL. VS HOME.
[2019-03-30] MEDS: LEVOTHYROXINE 0.025 MG TAB PO SCH (05:45)
[2019-03-30 06:11] LABS: CARBON DIOXIDE 29.4 mmol/L (21-32); CHLORIDE 104 mmol/L (98-107); CREATININE 0.8 mg/dL (0.6-1.3); GLUCOSE 115 mg/dL (74-106); POTASSIUM 4.4 mmol/L (3.5-5.1); SODIUM SERUM 139 mmol/L (136-145); UREA NITROGEN, BLOOD 24 mg/dL (7-18)
[2019-03-30 06:13] LABS: HEMATOCRIT 33.8 % (36-48); HEMOGLOBIN 10.9 g/dL (12.0-16.0); MEAN CORPUSCULAR HEMOGLOBIN 28 pg (27-31); MEAN CORPUSCULAR HGB CONC 32 g/dL (33-37); MEAN CORPUSCULAR VOLUME 88.1 fL (80-94); PLATELET COUNT (AUTO) 296 K/uL (140-450); RED BLOOD CELL COUNT(AUTO) 3.84 MIL/uL (4.20-5.40); RED CELL DISTRIBUTION WIDTH 16.1 % (11.6-13.7); WHITE BLOOD COUNT (AUTO) 14.6 K/uL (4.8-10.8)
[2019-03-30 06:23] LABS: MAGNESIUM 2.5 mg/dL (1.8-2.4); PHOSPHORUS 3.6 mg/dL (2.5-4.9)
--- NOTE | 2019-03-30 06:29 | NUR ---
rec'd pt on carescape vent settings ac 14 vt450 peep 5 fio2 28% alarms on and audible and ambu bag at side of vent and vent is plugged into red outlet, i\l tx given with duoneb 3ml with no adverse reaction post tx b\s are clear bilaterally, sxn pt small amt of white secretions, pt is orally intubated with 7.5 et tube secured with anchor fast at 23 cm and skin integrity is intact
[2019-03-30 06:42] LABS: EOSINOPHILS % (MANUAL) 2 % (0-4); LYMPHOCYTES % (MANUAL) 8 % (20-46); MONOCYTES % (MANUAL) 10 % (5-12)
--- NOTE | 2019-03-30 07:07 | NUR ---
CHANGE OF SHIFT REPORT GIVEN AT BEDSIDE TO HERBERT CHANEY AM NURSE. PT AT STABLE CONDITION AT THIS TIME.
--- NOTE | 2019-03-30 07:30 | NUR ---
RECEIVED BEDSIDE REPORT FROM FIRST HELPER RN. PT OPENS EYES TO LIGHT PAIN, UNABLE TO FOLLOW COMMANDS AND MAKE NEEDS KNOWN. AFEBRILE, FLACC 0. NORMAL SINUS RHYTHM ON MONITOR. ETT TO VENT W/ SETTINGS: AC/VC FIO2 28%, TV 450, R 14, PEEP 5. LUNGS SOUND CLEAR BILATERALLY, DIMINISHED LOWER LOBES. NO SOB OR ANY OTHER SIGNS OF RESPIRATORY DISTRESS NOTED. ABDOMEN SOFT, NONTENDER WITH ACTIVE BOWEL SOUNDS, OGT IN PLACE, PLACEMENT CHECKED. PT IS RECEIVING TUBE FEEDING VITAL AF AT 55ML/HR, NO RESIDUALS NOTED. CENTRAL LINE TLC TO LIJ PATENT AND INTACT, RUNNING 1/2 NS TKO. CHAUDHARI CATH IN PLACE, DRAINING CLEAR YELLOW URINE TO GRAVITY. SKIN IS INTACT, WARM AND DRY TO TOUCH. VAP ORAL CARE AND CHAUDHARI CARE GIVEN. HOB AT 30 DEGREES, BED IN LOWEST POSITION LOCKED. SAFETY PRECAUTIONS IN PLACE. CALL LIGHT WITHIN REACH. NO S/SX OF ACUTE DISTRESS NOTED AT THIS TIME. WILL CONTINUE TO MONITOR.
--- NOTE | 2019-03-30 07:30 | NUR ---
DR. MCINTYRE AND RESIDENT GROUP IN TO SEE PT. WILL FOLLOW UP ON ORDERS.
--- NOTE | 2019-03-30 08:40 | NUR ---
DR. TREVINO IN TO SEE PATIENT, UPDATED ON PATIENT'S CONDITION. WILL FOLLOW UP ON ANY ORDERS
--- NOTE | 2019-03-30 08:52 | NUR ---
PT PLACED ON CPAP 5 PS 10 FOR WEANING PT WENT APNEIC PLACED PT BACK CPAP WITH SAME SETTINGS AND PT LASTED UNTIL 855 AND WENT APNEIC
[2019-03-30] MEDS: FAMOTIDINE 20 MG/2 ML VIAL IV SCH (08:55)
[2019-03-30] MEDS: MEMANTINE 10 MG TAB PO SCH ×2 (08:56→20:23)
[2019-03-30] MEDS: DOCUSATE 100 MG/10 ML UDC GT SCH ×2 (08:56→20:23)
[2019-03-30] MEDS: AMIODARONE 200 MG TAB PO SCH ×2 (08:56→20:23)
[2019-03-30] MEDS: LISINOPRIL 5 MG TAB PO SCH (08:57)
[2019-03-30] MEDS: MEROPENEM 500 MG in NACL 0.9% 50 ML IV SCH ×2 (09:36→20:28)
[2019-03-30] MEDS: ENOXAPARIN 30 MG/0.3 ML SYR SUBQ SCH (09:37)
--- NOTE | 2019-03-30 09:45 | NUR ---
MEDICATIONS ADMINISTERED ORDERED. PT TOLERATED WELL. VSS. WILL CONTINUE TO MONITOR.
[2019-03-30] MEDS: FLUCONAZOLE 100 MG/NS PREMIX 50 ML IV SCH (10:59)
--- NOTE | 2019-03-30 12:25 | NUR ---
VAP ORAL CARE GIVEN. TURNED AND REPOSITIONED FOR COMFORT AND OFF LOADED PRESSURE AREAS. PT'S SKIN INTACT, BLANCHABLE REDNESS NOTED TO SACRAL AREA AND BUTTOCKS. Z GUARD APPLIED ORDERED. ALL SAFETY PRECAUTIONS IN PLACE.
--- NOTE | 2019-03-30 13:03 | NUR ---
DR. FARRAR IN TO SEE PT. UPDATES GIVEN ON PT'S CONDITION. WILL FOLLOW UP ON ORDERS.
--- NOTE | 2019-03-30 15:30 | NUR ---
NO CHANGE IN CONDITION AT THIS TIME. PT OPENS EYES TO VOICE, FOLLOWS SIMPLE COMMANDS. VSS. NO SIGNS OF DISTRESS NOTED AT THIS TIME.
--- NOTE | 2019-03-30 16:38 | NUR ---
DR. SANTOS IN TO SEE AND EXAMINE PATIENT, UPDATED ON PATIENT'S CONDITION. SPOKE WITH RESIDENT PHYSICIAN DR. GODFREY REGARDING PLAN FOR TRACHEOSTOMY.
--- NOTE | 2019-03-30 17:54 | NUR ---
RESIDENT PHYSICIAN DR. TROY AT BEDSIDE TO SEE AND EXAMINE PT. WILL FOLLOW UP ON ORDERS.
--- NOTE | 2019-03-30 19:21 | NUR ---
REPORT GIVEN TO BLOOD COLLECTOR RN FOR CONTINUITY OF CARE. PT IS IN STABLE CONDITION.
--- NOTE | 2019-03-30 19:23 | NUR ---
RCV'D PT INTUBATED WITH 7.5 ETT AT 23 CM AT LIP. VENT SETTINGS CHARTED. TUBE IS IN PLACE AND SECURED WITH ANCHOR-FAST. SKIN INTACT. VENT IS CONNECTED TO RED OUTLET. ALARMS AUDIBLE. AMBU BAG AT BEDSIDE. HHN TX GIVEN WITH NO ADVERSE REACTION. BREATH SOUNDS DIMINISHED ON RT UPPER LOBE, CLEAR ON LEFT SIDE. SXN'D SML AMT OF THIN WHITE SECRETIONS. SXN'S MOUTH WELL. RN AT BEDSIDE. PT IS AWAKE AND QUIET. NO SOB OR DISTRESS NOTED. WILL CONTINUE TO MONITOR.
--- NOTE | 2019-03-30 19:25 | NUR ---
RECEIVED REPORT FROM DAYSHIFT NURSE AT PATIENT'S BEDSIDE. WILL FOLLOWUP CARE.
--- NOTE | 2019-03-30 19:26 | NUR ---
IN TO GET UPDATE ON PATIENT. OK TO RESTART/CONTINUE PATIENT ON FENTANYL AND VERSED DRIPS. PATIENT IS MORE ALERT, OPENS EYES TO VOICE, PATIENT BITES TUBE AND HAS GAG REFLEX TO TUBES.
[2019-03-30] MEDS ORDERED: fentaNYL 1 MG in NACL 0.9% 80 ML IV PRN (19:40)
--- NOTE | 2019-03-30 20:00 | NUR ---
PATIENT IS ANOX1, PATIENT OPENS EYES SIMULTANEOUSLY, RESPONDS TO VOICE/NAME. WITHDRAWS TO LIGHT PAIN. BRISK,PERRL 3MM. FLACC 0 SKIN IS WARM AND DRY, AFEBRILE. 7.5 ETT TO VENT, 23 AT THE LIP LINE, AC/VC FI02 28% TV 450 RATE 14 PEEP 5, BILATERAL LUNG SOUNDS CLEAR UPPER AND LOWER LOBES, EQUAL CHEST RISE, RESPIRATIONS UNLABORED. S1S2, SR ON MONITOR. BOWEL SOUNDS ARE ACTIVE IN ALL QUADRANTS, ABDOMEN SOFT AND NONTENDER. PATIENT IS ON OGT FEEDING AT 55ML/HR. POSITIVE PLACEMENT BY AUSCULTATION. LEFT IJ TRIPLE LUMEN WITH 1/2 NS RUNNING AT 10 ML/HR. PATIENT HAS GENERALIZED NONPITTING EDEMA TO BUE BLE. CHAUDHARI CATHETER IN PLACE, YELLOW CLEAR URINE. BED IS LOCKED AND IN LOWEST POSITION, HOB 30 DEGREES, SIDERAILS UP. FALL RISK SIGNS, BANDS, GOWN AND SOCKS ARE IN PLACE. WILL CONTINUE TO MONITOR
--- NOTE | 2019-03-30 21:20 | NUR ---
CALLED RESIDENT DOCTORS, SPOKE WITH DR. TROY. CLARIFIED VERSED AND FENTANYL ORDER. PER DR. TROY, START WITH VERSED FOR NOW, AND THEN FENTANYL TO BE STARTED IF VERSED IS INADEQUATE FOR SEDATION. WILL START PT ON VERSED AND CONTINUE TO MONITOR.
[2019-03-30] MEDS: MIDAZOLAM MDV 100 MG in NACL 0.9% 80 ML IV PRN (21:41)
--- NOTE | 2019-03-30 21:41 | NUR ---
PATIENT STARTED ON VERSED DRIP AT 1MG/HR, WILL CONTINUE TO MONITOR PATIENT.
--- NOTE | 2019-03-30 22:11 | NUR ---
PATIENT RESPONDS TO VOICE, OPENS EYES, WITHDRAWS TO LIGHT PAIN/SUCTIONING. INCREASED VERSED DRIP TO 2MG/HR. VITAL SIGNS STABLE AT THIS TIME.
--- NOTE | 2019-03-30 23:00 | NUR ---
VENT CHECK. PT ASLEEP COMFORTABLY. NO SOB OR DISTRESS NOTED. WILL CONTINUE TO MONITOR.
[2019-03-31] VITALS (102 sets, daily range): BP systolic 85–139; BP diastolic 33–98
--- NOTE | 2019-03-31 | NUR ---
VAP ORAL CARE GIVEN AT THIS TIME, PATIENT SLIGHTLY WITHDRAWS TO PAIN/SUCTIONING. DOES NOT OPEN EYES TO VOICE. VITAL SIGNS STABLE, TEMPERATURE 97.3, FLACC 0. REPOSITIONED PATIENT TO OFFLOAD PRESSURE AREAS.
[2019-03-31] MEDS: Z-GUARD PASTE TP SCH ×2 (01:13→13:16)
[2019-03-31] MEDS: ALBUTEROL SULFATE/IPRATROPIU 3 ML SOL IH SCH ×4 (01:40→19:49)
--- NOTE | 2019-03-31 02:00 | NUR ---
PATIENT REPOSITIONED TO OFFLOAD PRESSURE AREAS, VITAL SIGNS WITHIN NORMAL LIMITS, PATIENT ON VERSED 2MG, NO RESPONSE TO VOICE OR LIGHT PAIN, PATIENT DOES NOT OPEN EYES/FOLLOW COMMANDS.SR ON MONITOR, WILL CONTINUE TO MONITOR.
[2019-03-31] MEDS ORDERED: MIDAZOLAM MDV 50 MG in NACL 0.9% 40 ML IV PRN (02:10)
--- NOTE | 2019-03-31 04:00 | NUR ---
PATIENT PROVIDED AM CARE, SPONGE BATH, SKIN CARE, PERINEAL AND CHAUDHARI CARE. PATIENT REPOSITIONED, SKIN INTACT AND NO SIGNS OF DISTRESS AT THIS TIME.
--- NOTE | 2019-03-31 04:20 | NUR ---
PATIENTS CENTRAL LINE DRESSING IS CHANGED. DRY AND INTACT AND SIGNED/DATED. GASTRIC RESIDUALS CHECKED-0ML AT THIS TIME. FLACC 0 AND SUCTIONED NEEDED.
[2019-03-31 05:41] LABS: ANION GAP 9.9 (8-16); CARBON DIOXIDE 29.8 mmol/L (21-32); CHLORIDE 104 mmol/L (98-107); CREATININE 0.9 mg/dL (0.6-1.3); GLUCOSE 122 mg/dL (74-106); POTASSIUM 4.7 mmol/L (3.5-5.1); SODIUM SERUM 139 mmol/L (136-145); UREA NITROGEN, BLOOD 25 mg/dL (7-18)
[2019-03-31 05:45] LABS: MAGNESIUM 2.6 mg/dL (1.8-2.4); PHOSPHORUS 3.8 mg/dL (2.5-4.9)
[2019-03-31] MEDS: LEVOTHYROXINE 0.025 MG TAB PO SCH (05:45)
--- NOTE | 2019-03-31 05:52 | NUR ---
VENT CHECK. PT IS ASLEEP COMFORTABLY. NO SOB OR DISTRESS NOTED. NO CHANGES TO VENT SETTINGS. AMBU BAG AT BEDSIDE. ETT IS IN PLACE AND SECURED. VENT CONNECTED TO RED OUTLET. ALARMS AUDIBLE.
[2019-03-31] MEDS ORDERED: DEXT 5% / NACL 0.45% 500 ML IV SCH (06:15)
--- NOTE | 2019-03-31 06:15 | NUR ---
IN TO ASSESS PATIENT, CONFIRMED TO HOLD FEEDING FOR POSSIBLE TRACH/PEG TUBE OPERATION TODAY. ALSO ORDERED TO SWITCH FLUIDS TO D5 1/2NS @ 40ML/HR. WILL FOLLOWUP CARE.
[2019-03-31 07:05] LABS: BASOPHILS % (AUTO) 0.2 % (0.0-2.0); EOSINOPHILS # (AUTO) 0.2 K/uL (0-0.4); EOSINOPHILS % (AUTO) 1.7 % (0.0-4.0); HEMOGLOBIN 10.3 g/dL (12.0-16.0); LYMPHOCYTES # (AUTO) 1.3 K/uL (2.5-16.5); LYMPHOCYTES % (AUTO) 8.8 % (20.5-51.1); MEAN CORPUSCULAR HEMOGLOBIN 29 pg (27-31); MEAN CORPUSCULAR HGB CONC 32 g/dL (33-37); MEAN CORPUSCULAR VOLUME 88.9 fL (80-94); MONOCYTES # (AUTO) 1.3 K/uL (0.8-1.0); MONOCYTES % (AUTO) 8.6 % (1.7-9.3); NEUTROPHILS # (AUTO) 11.7 K/uL (1.8-7.7); NEUTROPHILS % (AUTO) 80.7 % (42.2-75.2); PLATELET COUNT (AUTO) 297 K/uL (140-450); RED CELL DISTRIBUTION WIDTH 16.2 % (11.6-13.7); WHITE BLOOD COUNT (AUTO) 14.6 K/uL (4.8-10.8)
--- NOTE | 2019-03-31 07:30 | NUR ---
REPORT GIVEN TO [facility] FOR CONTINUITY OF CARE. VITAL SIGNS STABLE AT THIS TIME. ENDORSED TO CONTACT DR. JAMIL WHEN OR FROM HIS GROUP COMES IN SO THEY CAN DISCUSS UPDATES.
--- NOTE | 2019-03-31 07:30 | NUR ---
RECEIVED PT REPORT FROM CHRI[employer]IST RN AT BEDSIDE. VITALS STABLE.
--- NOTE | 2019-03-31 07:45 | NUR ---
PT IN BED, SEDATED WITH VERSED DRIP 2MG/HR. RESPONDS TO TOUCH. PERRL, BRISK 3MM. NO SIGNS OF ACUTE RESPIRATORY DISTRESS AT THIS TIME. BREATHING EVEN AND UNLABORED, LUNG SOUNDS CLEAR THROUGHOUT. ABDOMEN SOFT, ROUND, NONDISTENDED, BOWEL SOUNDS HYPOACTIVE IN ALL QUADRANTS. SR ON MONITOR. LEFT IJ TRIPLE LUMEN, PATENT AND INTACT. PULSES 2+ BILATERAL UPPER AND LOWER EXTREMITIES. MILD NON PITTING EDEMA BLE. ETT TO VENT, 7.5, LIP LINE 23, FIO2 28%, TV 450, RR 14, PEEP 5. CHAUDHARI IN PLACE, DRAINING CLEAR YELLOW URINE. G TUBE RESIDUAL 0ML. AUSCULTATED FOR PLACEMENT. SKIN INTACT. HOB AT 30 DEGREES, SIDE RAILS UP X2, WILL CONTINUE TO MONITOR PT.
--- NOTE | 2019-03-31 07:46 | NUR ---
RECEIVED INTUBATED PT WITH A 7.5 ETT SECURED @22 TEETH/GUMS ON VENT. SETTINGS: AC/VC 14, VT 450, PEEP 5 AND FIO2 28%. PT IS ON VERSED AT THIS TIME NOT ALERT BUT NOT IN ANY DISTRESS. PT HAS ACTIVE GAG REFLEX. ETT IS SECURE WITH A PATENT AIRWAY. VENT IS PLUGGED INTO A RED OUTLET WITH ALARMS ON AND FUNCTIONING. AMBU BAG IS PRESENT NEAR BEDSIDE. WILL CONTINUE TO MONITOR.
[2019-03-31] MEDS ORDERED: DEXT 5% / NACL 0.45% 1,000 ML IV SCH (07:50)
--- NOTE | 2019-03-31 08:05 | NUR ---
CHAUDHARI CARE DONE, ORAL CARE DONE. PT TOLERATED OK.
[2019-03-31] MEDS: MEROPENEM 500 MG in NACL 0.9% 50 ML IV SCH ×2 (08:21→20:27)
[2019-03-31] MEDS: FAMOTIDINE 20 MG/2 ML VIAL IV SCH (08:24)
[2019-03-31] MEDS: DOCUSATE 100 MG/10 ML UDC GT SCH ×2 (08:24→20:26)
[2019-03-31] MEDS: MEMANTINE 10 MG TAB PO SCH ×2 (08:24→20:25)
[2019-03-31] MEDS: LISINOPRIL 5 MG TAB PO SCH (08:24)
[2019-03-31] MEDS: AMIODARONE 200 MG TAB PO SCH ×2 (08:24→20:27)
[2019-03-31] MEDS ORDERED: MILD SOAP AND WATER MC ONE (08:25)
[2019-03-31] MEDS: ENOXAPARIN 30 MG/0.3 ML SYR SUBQ SCH (08:27)
--- NOTE | 2019-03-31 09:55 | NUR ---
SOAP GERALDINE ENEMA WAS GIVEN. PT HAD A BOWEL MOVEMENT, YELLOW STOOL SOFT BALL SIZE. CHANGED CHUX. PT WAS CLEANED AND REPOSITIONED.
--- NOTE | 2019-03-31 10:01 | NUR ---
CALLED JEFF BENAVIDES (PT'S SON), LEFT HIM A MESSAGE REGARDING CONSENT FOR A PROCEDURE NEEDED FOR HIS MOTHER. LEFT CALL BACK NUMBER.
[2019-03-31] MEDS: FLUCONAZOLE 100 MG/NS PREMIX 50 ML IV SCH (11:35)
--- NOTE | 2019-03-31 11:53 | NUR ---
LUISA WAS CLEANED, SMALL AMOUNT OF YELLOW STOOL, CLEANED AND Z GUARD APPLIED. AND PT WAS REPOSITIONED.
--- NOTE | 2019-03-31 13:31 | NUR ---
03/31/19 RD FOLLOW UP COMPLETED PLEASE REFER TO NUTRITION ASSESSMENT UNDER CARE ACTIVITY FOR ESTIMATED NUTRITIONAL NEEDS. 1. WHEN MEDICALLY APPROPRIATE CONTINUE VITAL 1.2 AT 55 ML/HR -THIS WILL PROVIDE 1320 ML OF VOLUME, 1584 KCAL, AND 99 GM OF PROTEIN. IT MEETS 109% OF PT�S ESTIMATED ENERGY AND 100% PROTEIN NEEDS. 2. FREE WATER FLUSH PER MD 3. RD TO FOLLOW-UP 2-3 DAYS, HIGH RISK JEREMIAS RAMOS RD
--- NOTE | 2019-03-31 14:24 | NUR ---
NO SOB OR ACUTE RESPIRATORY DISTRESS NOTED. CONTINUE ON SEDATION. RASS -3. VSS. HOB ELEVATED. SHIV WISE AT THE BEDSIDE PROVIDING CARE.
--- NOTE | 2019-03-31 14:45 | NUR ---
DR TREVINO CAME TO SEE PT. NO NEW ORDERS AT THIS TIME.
--- NOTE | 2019-03-31 15:25 | NUR ---
PT TOLERATING VENT SETTINGS WELL, PT NOT IN ANY DISTRESS OR SOB AT THIS TIME. WILL CONTINUE TO MONITOR.
[2019-03-31] MEDS ORDERED: LIDOCAINE/EPI 1% 1:100000 20 ML VIAL INJ ONE ×2 (16:07→16:38)
[2019-03-31 16:13] LABS: PROTHROMBIN TIME 9.7 secs (10.8-13.4)
--- NOTE | 2019-03-31 16:15 | NUR ---
PT MANUALLY VENTILATED TO OR FOR TRACHEOSTOMY WITHOUT INCIDENT.
--- NOTE | 2019-03-31 16:15 | NUR ---
PT TAKEN TO OR VIA BED FOR TRACHEOSTOMY AND PEG TUBE PLACEMENT. ACCOMPANIED BY RT.
[2019-03-31] MEDS ORDERED: KETAMINE 500 MG/5 ML VIAL ONE (16:20)
--- NOTE | 2019-03-31 17:38 | NUR ---
PT IS BACK TO ICU8 FROM OR. TRACHEOSTOMY WAS PLACED, SIZE 8. CONNECTED PT TO MONITOR. RT CONNECTED PT TO VENT. O2 SAT 97%. TRACH IS SECURED WITH SUTURES ON BOTH SIDE OF THE NECK, MINIMAL BLOOD NOTED. G TUBE SITE HAS MINIMAL BLOOD. DRESSING IS INTACT. WILL CONTINUE TO MONITOR. Addendum: 03/31/19 at 1843 by Kingsley Adrian RN ABOUT 850ML LR HAS BEEN INFUSED DURING PROCEDURE.
--- NOTE | 2019-03-31 17:38 | NUR ---
ACCORDING TO OR NURSE SILVERIO Santos HE CHANGED THE CENTRAL LINE DRESSING AND THE SUTURE ON ONE SIDE IS LOOSE AND HE REMOVED IT AND THE SUTURE ON THE OTHER SIDE IS GOOD. CENTRAL LINE DRESSING IS INTACT, NO BLEEDING.
--- NOTE | 2019-03-31 17:39 | NUR ---
PT RETURNED FROM OR WITH PORTEX 8 TRACHEOSTOMY. PT PLACED ON ORIGINAL VENT SETTINGS: AC/VC 14, VT 450, PEEP 5 AND FIO2 28%. VENT ALARMS ON AND FUNCTIONING. THERE IS MINIMAL BLEEDING NOTED AROUND STOMA NO REDNESS OR SKIN BREAKDOWN. PT IS NOT IN ANY DISTRESS OR SOB AT THIS TIME. NURSE AWARE OF PT STATUS.
--- NOTE | 2019-03-31 18:01 | NUR ---
CALLED DR GODFREY, DR GODFREY SAID WILL START G TUBE FEEDING TOMORROW, CONTINUE D5 1/2NS AT 40ML/HR. MADE AWARE LEFT NECK CENTRAL LINE MISSING A SUTURE. DR GODFREY SAID DR CORONEL WILL COME AND FIX IT.
--- NOTE | 2019-03-31 19:25 | NUR ---
REPORT GIVEN TO [facility] SPECIALIST SHIV RANGEL. PT IN STABLE CONDITION.
--- NOTE | 2019-03-31 19:30 | NUR ---
RECEIVED REPORT FROM MORNING RN, LOCO, FOR CONTINUITY OF CARE. VS STABLE AT THIS TIME. FLACC 0. AFEBRILE. PT UNABLE TO FOLLOW VERBAL COMMANDS OR MAKE NEEDS KNOWN. PERRL. RASS -3. PT SEDATED WITH VERSED 100MG/ NS 80ML THAT IS RUNNING AT 2MG/HR. LUNG SOUNDS CLEAR ALL THROUGHOUT. S/P TRACHEOSTOMY. NO BLEEDING NOTED FROM THE TRACH SITE. DRESSING IS INTACT. TRACH TO VENT WITH SETTINGS: FIO2 28%, TV 450, RR14, AND PEEP 5. RESPIRATIONS EVEN AND UNLABORED. CHEST RISE SYMMETRIC. S1+S2 HEARD. PULSES ARE PALPABLE. SR ON MONITOR. ABDOMEN ROUND, SOFT AND NONDISTENDED. BS ACTIVE IN ALL QUADRANTS. S/P PEG TUBE PLACEMENT. NO BLEEDING NOTED ON INSERTION SITE. DRESSING INTACT. NO FEEDING AT THIS TIME. CHAUDHARI CATHETER IN PLACE. DRAINING CLEAR AND YELLOW URINE. CHAUDHARI CATHETER IS SECURED IN PLACE. RECEIVED PT WITH LEFT IJ CENTRAL LINE TRIPLE LUMEN. DRESSING CLEAN, DRY AND INTACT. PT HAS D5 0.45%NS AT 40ML/HR. HOB 30 DEGREES. ALL SAFETY PRECAUTIONS ARE IN PLACE. BED AT LOWEST POSSIBLE POSITION. WILL CONTINUE TO MONITOR PT.
--- NOTE | 2019-03-31 20:01 | NUR ---
RECEIVED PATIENT TRACH PORTEX 8 TO MECHANICAL VENTILATOR AT SETTINGS: AC/VC 450, 14, +5, 28%. VENT CHECK DONE. VENT ALARMS ON AND AUDIBLE. VENT PLUGGED INTO RED OUTLET. AMBU BAG AT BEDSIDE. SCHEDULED BREATHING TREATMENT ADMINISTERED. TOLERATED TX WELL, NO ADVERSE SIDE EFFECTS. AIRWAY SECURE AND PATENT. NO RESPIRATORY DISTRESS NOTED AT THIS TIME. WILL CONTINUE TO MONITOR.
--- NOTE | 2019-03-31 20:15 | NUR ---
dr bhakta in the unit; as per md, ok to give medications via new peg, will restart feeding in am. pts bp 104/41; dr bhakta said to hold 2100 amiodarone tablet dose.
--- NOTE | 2019-03-31 20:57 | NUR ---
DR. FARRAR AT BEDSIDE TO SEE PT. UPDATED HIM REGARDING THE PT'S CONDITION. RECEIVED NO NEW ORDERS AT THIS TIME.
--- NOTE | 2019-03-31 21:24 | NUR ---
VENT CHECK DONE. VENT ALARMS ON AND AUDIBLE. NO RESPIRATORY DISTRESS NOTED AT THIS TIME. WILL CONTINUE TO MONITOR.
[2019-03-31] MEDS: MIDAZOLAM MDV 100 MG in NACL 0.9% 80 ML IV PRN (21:50)
--- NOTE | 2019-03-31 21:50 | NUR ---
CHANGED THE VERSED BAG; WASTED THE LEFT MEDICATION IN THE BAG. 56ML WASTED IN THE RX DESTROYER AND WITNESSED BY ANOTHER RN.
--- NOTE | 2019-03-31 22:10 | NUR ---
DR. ARAMBULA AT BEDSIDE TO SECURE THE LEFT IJ WITH SUTURE. PT TOLERATED THE PROCEDURE WELL. NEW DRESSING WAS PUT IN PLACE. NO BLEEDING OR ANY SIGNS OF INFECTION NOTED FROM THE CENTRAL LINE SITE.
--- NOTE | 2019-03-31 23:21 | NUR ---
VENT CHECK DONE. VENT ALARMS ON AND AUDIBLE. SUCTIONED SMALL AMOUNT OF THICK, CLEAR/BLOOD STREAKED SECRETIONS. NO RESPIRATORY DISTRESS NOTED AT THIS TIME. WILL CONTINUE TO MONITOR.
[2019-04-01] VITALS (107 sets, daily range): BP systolic 89–153; BP diastolic 34–94
--- NOTE | 2019-04-01 00:30 | NUR ---
PEG TUBE DRESSING INTACT. NO BLEEDING NOTED. SAME WITH THE TRACHEOSTOMY. LEFT IJ REMAINS SECURED IN PLACE. NO BLEEDING NOTED. VS REMAINS STABLE. SR ON MONITOR. FLACC 0 AND RASS -3. ALL SAFETY PRECAUTIONS ARE IN PLACE. WILL CONTINUE TO MONITOR PT.
[2019-04-01] MEDS: Z-GUARD PASTE TP SCH ×2 (00:45→13:21)
--- NOTE | 2019-04-01 01:41 | NUR ---
NO CHANGE IN PT'S CONDITION AT THIS TIME. RESPIRATIONS EVEN AND UNLABORED. BP WNL. SR ON MONITOR. ALL IV SITES ARE PATENT, INTACT, AND ASYMPTOMATIC.
[2019-04-01] MEDS: ALBUTEROL SULFATE/IPRATROPIU 3 ML SOL IH SCH ×4 (01:52→19:26)
--- NOTE | 2019-04-01 02:01 | NUR ---
VENT CHECK DONE. VENT ALARMS ON AND AUDIBLE. SCHEDULED BREATHING TREATMENT ADMINISTERED. TOLERATED TREATMENT WELL; NO ADVERSE SIDE EFFECTS. SUCTIONED SCANT AMOUNT OF THICK, YELLOW/BLOOD STREAKED SECRETIONS. NO RESPIRATORY DISTRESS NOTED AT THIS TIME. WILL CONTINUE TO MONITOR.
--- NOTE | 2019-04-01 04:30 | NUR ---
MORNING CARE PROVIDED TO PT. TOLERATED BEING TURNED AND REPOSITIONED FAIRLY. ORAL CARE PROVIDED. CHAUDHARI CATHETER CARE PROVIDED. VS REMAINS STABLE. SR ON MONITOR. RESPIRATIONS EVEN AND UNLABORED. TRACH AND PEG TUBE ARE IN PLACE, NO BLEEDING NOTED. AFEBRILE.
[2019-04-01] MEDS: LEVOTHYROXINE 0.025 MG TAB PO SCH (05:33)
--- NOTE | 2019-04-01 05:42 | NUR ---
VENT CHECK DONE. VENT ALARMS ON AND AUDIBLE. VENT PLUGGED INTO RED OUTLET. SUCTIONED SCANT AMOUNT OF THICK, WHITE/BLOOD TINGED SECRETIONS. TRACH CARE DONE WITHOUT INCIDENT. NO RESPIRATORY DISTRESS NOTED AT THIS TIME. WILL CONTINUE TO MONITOR.
[2019-04-01 05:49] LABS: CARBON DIOXIDE 28.2 mmol/L (21-32); CHLORIDE 106 mmol/L (98-107); CREATININE 0.9 mg/dL (0.6-1.3); GLUCOSE 83 mg/dL (74-106); POTASSIUM 4.2 mmol/L (3.5-5.1); SODIUM SERUM 142 mmol/L (136-145); UREA NITROGEN, BLOOD 22 mg/dL (7-18)
[2019-04-01 05:54] LABS: MAGNESIUM 2.6 mg/dL (1.8-2.4)
[2019-04-01] MEDS ORDERED: DEXT 5% / NACL 0.45% 1,000 ML IV SCH (06:15)
[2019-04-01 06:33] LABS: BASOPHILS # (AUTO) 0.1 K/uL (0.00-0.22); BASOPHILS % (AUTO) 0.7 % (0.0-2.0); EOSINOPHILS # (AUTO) 0.3 K/uL (0-0.4); EOSINOPHILS % (AUTO) 2.7 % (0.0-4.0); HEMATOCRIT 32.1 % (36-48); HEMOGLOBIN 10.3 g/dL (12.0-16.0); LYMPHOCYTES # (AUTO) 1.3 K/uL (2.5-16.5); LYMPHOCYTES % (AUTO) 12.4 % (20.5-51.1); MEAN CORPUSCULAR HEMOGLOBIN 29 pg (27-31); MEAN CORPUSCULAR HGB CONC 32 g/dL (33-37); MEAN CORPUSCULAR VOLUME 88.8 fL (80-94); MONOCYTES % (AUTO) 9.8 % (1.7-9.3); NEUTROPHILS # (AUTO) 7.8 K/uL (1.8-7.7); NEUTROPHILS % (AUTO) 74.4 % (42.2-75.2); PLATELET COUNT (AUTO) 306 K/uL (140-450); RED BLOOD CELL COUNT(AUTO) 3.62 MIL/uL (4.20-5.40); RED CELL DISTRIBUTION WIDTH 16.2 % (11.6-13.7); WHITE BLOOD COUNT (AUTO) 10.5 K/uL (4.8-10.8)
--- NOTE | 2019-04-01 06:35 | NUR ---
PT RESTARTED ON TUBE FEEDING PER ORDER. STARTED AT 10ML/HR PER DR. GODFREY START SLOWLY AND THEN INCREASE PT TOLERATED.
--- NOTE | 2019-04-01 07:29 | NUR ---
REPORT GIVEN TO MORNING RN FOR CONTINUITY OF CARE. VS STABLE AT THIS TIME.
--- NOTE | 2019-04-01 07:35 | NUR ---
RECEIVED PATIENT ON BED.TRACHE TO VENT WITH VENT SETTING FOLLOWS: AC =28 PERCENT,EC=089,AC=14,PEEP=5.PT IS NOT IN ANY CARDIORESPIRATORY DISTRESS.TRACHE SITE NO ACTIVE BLEEDING .WHEN SUCTIONED NO BLOOD NOTED.PT IS NOT IN ANY CARDIOPRESPIRATORY DISTRESS.CHAUDHARI TO GRAVITY.GTUBE SITE CLEAN AND DRY.NO RESIDUAL NOTED.FEEDING AT 10 ML/H.PT WITH LEFT IJ TRIPLE LUMEN INTACT AND PATENT WITH VERSED DRIP AT 2 MG/H WITH RASS-3 ORDERED.NSR ON THE MONITOR.WILL MONITOR.
--- NOTE | 2019-04-01 08:03 | NUR ---
RECEIVED ON A [employer]APE R860 VENTILATORY VENTILATOR PLUGGED INTO RED OUTLET TOLERATING WELL WITHOUT ADVERSE REACTIONS NOTED TO A PORTEX DCT #8 AIRWAY SECURED WITH A ROBBIN TRACH TIE CUFF PRESSURE CHECKED NOTED AMBU BAG AT BEDSIDE RESTING COMFORTABLY EQUAL CHEST RISE DEEP TRACHEAL SUCTION FOR SMALL THICK PALE YELLOW WITH BLOOD STREAK (TRACHEOSTOMY 03/31) SECRETIONS AIRWAY PATENT
--- NOTE | 2019-04-01 08:31 | NUR ---
IN TO SEE AND EXAMINE PATIENT, UPDATED ON PATIENT'S CONDITION.
[2019-04-01] MEDS: LISINOPRIL 5 MG TAB PO SCH (09:01)
[2019-04-01] MEDS: FAMOTIDINE 20 MG/2 ML VIAL IV SCH (09:01)
[2019-04-01] MEDS: AMIODARONE 200 MG TAB PO SCH ×2 (09:02→20:39)
[2019-04-01] MEDS: MEMANTINE 10 MG TAB PO SCH ×2 (09:03→20:39)
[2019-04-01] MEDS: ENOXAPARIN 30 MG/0.3 ML SYR SUBQ SCH (09:04)
[2019-04-01] MEDS: DOCUSATE 100 MG/10 ML UDC GT SCH ×2 (09:05→20:38)
[2019-04-01] MEDS: MEROPENEM 500 MG in NACL 0.9% 50 ML IV SCH ×2 (09:07→20:40)
--- NOTE | 2019-04-01 09:54 | NUR ---
PLACED ON CPAP/SBT TRIALS NOTED EQUAL CHEST RISE BREATH SOUNDS DIFFUSED RHONCHI BILATERAL DEEP TRACHEAL SUCTION FOR SMALL THICK PALE YELLOW SECRETIONS NOTED AIRWAY PATENT
--- NOTE | 2019-04-01 10:30 | NUR ---
INCREASED FEEDING TO 20 ML/H PER DR GODFREY TO INCREASE FEEDING TO 10 ML Q 4 HOURS.
[2019-04-01] MEDS: FLUCONAZOLE 100 MG/NS PREMIX 50 ML IV SCH (10:41)
--- NOTE | 2019-04-01 11:51 | NUR ---
RESTING WELL TOLERATING CPAP/SBT TRIALS WELL EQUAL CHEST RISE GOOD AERATION THROUGHOUT BILATERAL LUNG CABRALES
--- NOTE | 2019-04-01 13:44 | NUR ---
TOLERATING CPAP/SBT TRIALS WITHOUT INCIDENT GOOD EQUAL CHEST RISE BREATH SOUNDS CLEAR BILATERAL WITH GOOD AERATION THROUGHOUT LUNG CABRALES AIRWAY PATENT
--- NOTE | 2019-04-01 13:55 | NUR ---
TOLERATED CPAP/SBT WEANING TRIAL OF PEEP 5cmH2O PS [id number] x 4 HOURS DOUPER TO REST PATIENT AT THIS TIME Addendum: 04/01/19 at 1400 by Karel Diaz RT POST WEANING AT 4 HOURS MODE DEFAULTED TO AC AT THIS TIME
--- NOTE | 2019-04-01 14:30 | NUR ---
INCREASED FEEDING TO 30 ML/H PER DR GODFREY INCREASE TO 10 ML/H Q 4 HOURS.
--- NOTE | 2019-04-01 15:36 | NUR ---
NO EVIDENCE OF RESPIRATORY DISTRESS NOTED EQUAL CHEST RISE AIRWAY PATENT
--- NOTE | 2019-04-01 17:31 | NUR ---
NO SOB NOTED GOOD CHEST RISE DEEP TRACHEAL SUCTION FOR SMALL THICK PALE YELLOW SECRETIONS AIRWAY PATENT PLACED ON CPAP/SBT WEANING TRIALS NOTED BRIANNE/RN NOTIFIED
--- NOTE | 2019-04-01 18:30 | NUR ---
INCREASED FEEDING TO 40 ML/H ORDERED.
--- NOTE | 2019-04-01 19:20 | NUR ---
RECEIVED REPORT FROM AM NURSE. PT AT BED, EYES CLOSED, BREATHING REGULARLY, PERRL, 3MM, BRISK, PT IS LETHARGIC, DOES NOT FOLLOW COMMANDS, HEART RATE REGULAR, S1S2 PRESENT, CAP REFILL < 3S, BILATERAL PITTING EDEMA 2+ AT UPPER AND LOWER EXTREMITIES, LUNG SOUNDS, CLEAR THROUGHOUT, TRACH TO VENT. SIZE 8 CORTEX, AC/VC, FIO2 28%. TV 450, RR 14, FLOW 35, PEEP 5, ABDOMEN SOFT, ROUND, NONDISTENDED, NONTENDER, ACTIVE BOWEL SOUNDS IN ALL QUADRANTS, GTUBE IN PLACE, VITAL AF RUNNING AT 10 ML/HR AT 200 ML WATER FLUSH Q6HR, BLADDER NONTENDER, NONDISTENDED, CHAUDHARI CATHETER IN PLACE, URINE CLEAR, YELLOW, SKIN INTACT, WARM, DRY, COLOR APPROPRIATE FOR ETHNICITY, GENERALIZED WEAKNESS. LEFT IJ TRIPLE LUMEN RUNNING 5 ML/HR HOB AT 30 DEGREES, SIDE RAILS UP X2, CALL LIGHT WITHIN REACH. Addendum: 04/01/19 at 2226 by Napoleon Azar RN CORRECTION: BILATERAL NON PITTING EDEMA 2+ AT UPPER AND LOWER EXTREMITIES, SKIN DISCOLORATION ON LEFT NECK Addendum: 04/02/19 at 0119 by Napoleon Von Toney L. Kramer RN VERSED RUNNING AT 3MG/HR, RASS -3, NO RESIDUAL NOTED ON GTUBE. Addendum: 04/02/19 at 0122 by Napoleon Azar RN CORRECTION: VERSED RUNNING AT 2MG/HR AT LEFT IJ.
--- NOTE | 2019-04-01 19:22 | NUR ---
REPORT GIVEN TO [facility].PT IS NOT IN ANY CARDIORESPIRATORY DISTRESS.
--- NOTE | 2019-04-01 19:32 | NUR ---
Received pt stable on vent support at documented settings, suctioned scant amounts of clear thin secretions, hhn tx given, tolerated well, no resp distress or SOB noted at this time, Portex 8 trach sutured/patent/midline, alarms set and audible, ambu bag at bedside, vent plugged into red outlet, cont pulse ox on, will cont to monitor.
--- NOTE | 2019-04-01 20:00 | NUR ---
VAP ORAL CARE PERFORMED. PT TOLERATED PROCEDURE WELL. PT AT STABLE CONDITION AT THIS TIME. HOB 30 DEGREES, SIDE RAILS UP X2, CALL LIGHT WITHIN REACH.
[2019-04-02] VITALS (41 sets, daily range): BP systolic 95–156; BP diastolic 42–78
--- NOTE | 2019-04-02 00:12 | NUR ---
VAP ORAL CARE PERFORMED. PT TOLERATED PROCEDURE WELL. PT AT STABLE CONDITION AT THIS TIME. HOB 30 DEGREES, SIDE RAILS UP X2, CALL LIGHT WITHIN REACH.
[2019-04-02] MEDS: ALBUTEROL SULFATE/IPRATROPIU 3 ML SOL IH SCH ×4 (01:00→18:48)
[2019-04-02] MEDS: Z-GUARD PASTE TP SCH ×2 (01:12→13:00)
--- NOTE | 2019-04-02 02:30 | NUR ---
PT AT BED, EYES CLOSED, BREATHING REGULARLY. PT AT STABLE CONDITION AT THIS TIME. HOB 30 DEGREES, SIDE RAILS UP X2, CALL LIGHT WITHIN REACH. WILL CONTINUE TO MONITOR.
[2019-04-02] MEDS: MIDAZOLAM MDV 100 MG in NACL 0.9% 80 ML IV PRN (04:47)
[2019-04-02] MEDS: LEVOTHYROXINE 0.025 MG TAB PO SCH (05:41)
--- NOTE | 2019-04-02 06:25 | NUR ---
RECEIVED PT ON CARESCAPE ON DOCUMENTED SETTINGS, PTS TRACH PORTEX 8 IS SECURE PT IN HF QUIET BS CL\DIM HHN GIVEN I\L WITH 3 MG DUONEB BMV HOB, VENT PLUGGED INTO RED OUTLET
[2019-04-02 06:57] LABS: BASOPHILS # (AUTO) 0.1 K/uL (0.00-0.22); BASOPHILS % (AUTO) 0.7 % (0.0-2.0); EOSINOPHILS # (AUTO) 0.3 K/uL (0-0.4); EOSINOPHILS % (AUTO) 3.1 % (0.0-4.0); HEMATOCRIT 31.2 % (36-48); HEMOGLOBIN 10.3 g/dL (12.0-16.0); LYMPHOCYTES # (AUTO) 1.1 K/uL (2.5-16.5); LYMPHOCYTES % (AUTO) 10.8 % (20.5-51.1); MEAN CORPUSCULAR HEMOGLOBIN 29 pg (27-31); MEAN CORPUSCULAR HGB CONC 33 g/dL (33-37); MEAN CORPUSCULAR VOLUME 88.1 fL (80-94); MONOCYTES # (AUTO) 0.9 K/uL (0.8-1.0); MONOCYTES % (AUTO) 9.1 % (1.7-9.3); NEUTROPHILS # (AUTO) 7.8 K/uL (1.8-7.7); NEUTROPHILS % (AUTO) 76.3 % (42.2-75.2); PLATELET COUNT (AUTO) 312 K/uL (140-450); RED BLOOD CELL COUNT(AUTO) 3.55 MIL/uL (4.20-5.40); RED CELL DISTRIBUTION WIDTH 16.1 % (11.6-13.7); WHITE BLOOD COUNT (AUTO) 10.2 K/uL (4.8-10.8)
--- NOTE | 2019-04-02 07:13 | NUR ---
REPORT GIVEN TO AM NURSE FOR CONTINUITY OF CARE. PT AT STABLE CONDITION AT THIS TIME.
[2019-04-02 07:14] LABS: ANION GAP 13.8 (8-16); CHLORIDE 105 mmol/L (98-107); CREATININE 0.8 mg/dL (0.6-1.3); GLUCOSE 107 mg/dL (74-106); POTASSIUM 3.8 mmol/L (3.5-5.1); SODIUM SERUM 141 mmol/L (136-145); UREA NITROGEN, BLOOD 22 mg/dL (7-18)
[2019-04-02 07:18] LABS: MAGNESIUM 2.5 mg/dL (1.8-2.4); PHOSPHORUS 3.3 mg/dL (2.5-4.9)
--- NOTE | 2019-04-02 08:00 | NUR ---
PATIENT OPENS EYES TO VOICE, OBEYS COMMAND LIKE WHEN PROMPTED TO OPEN HER EYES, OR SQUEEZE RN'S HANDS, PATIENT NOTED TO BE DROWSY, WITH TRACHEOSTOMY ON VENTILATOR FIO2 28% AC14 VT 450 PEEP5, SO2 100%, SINUS RHYTHM ON MONITOR, SOFT ABDOMEN, WITH PEG TUBE IN SITU AND CONNECTED TO VITAL AF FEEDING 50 ML/HR., WITH CHAUDHARI CATHETER, CLEAR YELLOW URINE NOTED, LEFT INTERNAL JUGULAR CENTRAL LINE TRIPLE LUMEN WITH BLOOD BACK FLOW EXCEPT THE WHITE PORT, DR. JACKSON MADE AWARE, NO IV DRIPS, SKIN INTACT
[2019-04-02] MEDS: DOCUSATE 100 MG/10 ML UDC GT SCH ×2 (08:08→20:13)
[2019-04-02] MEDS: FAMOTIDINE 20 MG/2 ML VIAL IV SCH (08:08)
[2019-04-02] MEDS: LISINOPRIL 5 MG TAB PO SCH (08:09)
[2019-04-02] MEDS: MEMANTINE 10 MG TAB PO SCH ×2 (08:09→20:13)
[2019-04-02] MEDS: AMIODARONE 200 MG TAB PO SCH ×2 (08:09→20:13)
[2019-04-02] MEDS: MEROPENEM 500 MG in NACL 0.9% 50 ML IV SCH (08:11)
[2019-04-02] MEDS: ENOXAPARIN 30 MG/0.3 ML SYR SUBQ SCH (08:13)
[2019-04-02] MEDS ORDERED: ALTEPLASE 2 MG VIAL MC SCH (09:15)
--- NOTE | 2019-04-02 09:30 | NUR ---
PATIENT HAD SMALL BROWN SOFT BM, PERINEAL ANAL CARE DONE
[2019-04-02] MEDS: FLUCONAZOLE 100 MG/NS PREMIX 50 ML IV SCH (10:14)
--- NOTE | 2019-04-02 11:07 | NUR ---
PT PLACED ON CPAP 5 PS 10 HR85 O2 SAT OF 100% RR 16
--- NOTE | 2019-04-02 12:30 | NUR ---
DR. FARRAR IN TO SEE PT. UPDATES GIVEN ON PT'S CONDITION. WILL FOLLOW UP ON ORDERS.
--- NOTE | 2019-04-02 13:22 | NUR ---
RETURNED PT TO A/C
--- NOTE | 2019-04-02 15:34 | NUR ---
04/02/19 RD FOLLOW UP COMPLETED PLEASE REFER TO NUTRITION PROGRESS NOTE UNDER CARE ACTIVITY FOR ESTIMATED NUTRITION NEEDS. RECOMMENDATION: 1. CONTINUE VITAL AT 50 ML/HR TO MEET 98% OF ESTIMATED ENERGY AND 100% OF ESTIMATED PROTEIN NEEDS (ADEQUATE). 2. RD TO FOLLOW-UP 2-3 DAYS, HIGH RISK ALLEY MOHAMUD, RD
--- NOTE | 2019-04-02 17:20 | NUR ---
PATIENT HAD SMALL BROWN SOFT BM, PERINEAL ANAL CARE DONE. ROUTINE TURNING AND ORAL CARE DONE. PATIENT TOLERATED.
[2019-04-02] MEDS: MORPHINE SULFATE 2 MG/ML SYR IVP PRN ×2 (17:58→22:21)
--- NOTE | 2019-04-02 19:18 | NUR ---
PATIENT OPENS EYES TO VOICE, OBEYS COMMAND LIKE WHEN PROMPTED TO OPEN HER EYES, OR SQUEEZE RN'S HANDS, PATIENT NOTED TO BE DROWSY, WITH TRACHEOSTOMY ON VENTILATOR FIO2 28% AC14 VT 450 PEEP5, SO2 100%, SINUS RHYTHM ON MONITOR, SOFT ABDOMEN, WITH PEG TUBE IN SITU AND CONNECTED TO VITAL AF FEEDING 50 ML/HR., WITH CHAUDHARI CATHETER, CLEAR YELLOW URINE NOTED, LEFT INTERNAL JUGULAR CENTRAL LINE TRIPLE LUMEN WITH BLOOD BACK FLOW EXCEPT THE WHITE PORT, DR. JACKSON MADE AWARE, NO IV DRIPS, SKIN INTACT. Addendum: 04/02/19 at 1938 by Marine Moy RN PATIENT OPENS EYES TO VOICE, OBEYS COMMAND LIKE WHEN PROMPTED TO OPEN HER EYES, OR SQUEEZE RN'S HANDS, PATIENT NOTED TO BE DROWSY, WITH TRACHEOSTOMY ON VENTILATOR FIO2 28% AC14 VT 450 PEEP5, SO2 100%, SINUS RHYTHM ON MONITOR, SOFT ABDOMEN, WITH PEG TUBE IN SITU AND CONNECTED TO VITAL AF FEEDING 50 ML/HR., WITH CHAUDHARI CATHETER, CLEAR YELLOW URINE NOTED, LEFT INTERNAL JUGULAR CENTRAL LINE TRIPLE LUMEN WITH BLOOD BACK FLOW FROM ALL PORT, NO IV DRIPS, SKIN INTACT
--- NOTE | 2019-04-02 22:25 | NUR ---
PATIENT HAD SMALL BROWN SOFT BM, PT HAS PAIN, PAIN MEDS GIVEN.
[2019-04-03] VITALS (18 sets, daily range): BP systolic 125–158; BP diastolic 52–91
--- NOTE | 2019-04-03 00:30 | NUR ---
PATIENT STABLE, NO S/S OF ANY DISTRESS, WILL CONTINUE TO CARE
[2019-04-03] MEDS: ALBUTEROL SULFATE/IPRATROPIU 3 ML SOL IH SCH ×4 (00:50→19:04)
[2019-04-03] MEDS: Z-GUARD PASTE TP SCH ×2 (01:07→13:00)
--- NOTE | 2019-04-03 02:45 | NUR ---
PATIENT STABLE, NO S/S OF ANY DISTRESS, WILL CONTINUE TO CARE
--- NOTE | 2019-04-03 04:30 | NUR ---
PATIENT STABLE, NO S/S OF ANY DISTRESS, WILL CONTINUE TO CARE
[2019-04-03] MEDS: LEVOTHYROXINE 0.025 MG TAB PO SCH (05:54)
--- NOTE | 2019-04-03 06:07 | NUR ---
PATIENT STABLE, NO S/S OF ANY DISTRESS, WILL CONTINUE TO CARE, AM CARE PROVIDED, FREQUENT ORAL AND TRACHEAL SUCTIONING THROUGH OUT THE NIGHT.
--- NOTE | 2019-04-03 06:29 | NUR ---
REC'D PT ON CARESCAPE VENT SETTING AC14 VT 450 PEEP 5 FIO2 28% ALARMS ON AND FUNCTIONING PROPERLY, AMBU BAG AT SIDE OF VENT AND VENT IS PLUGGED INTO RED OUTLET, I\L TX GIVEN WITH DUONEB 3ML WITH NO ADVERSE REACTION POST TX B\S ARE CLEAR BILATERALLY, SXN PT NO RETURN OF SECRETIONS, PT IS TRACH WITH PORTEX 8 AND STILL HAS STITCHES ON BOTH SIDES OF TRACH PT IS SLEEPING WITH NO SIGNS OF DISTRESS NOTES
--- NOTE | 2019-04-03 07:19 | NUR ---
SBAR REPORT GIVEN TO SHIV DOUGLAS, PT REMAINS FAIR. NO S/S OF ANY DISTRESS, WILL CONTINUE TO MONITOR CLOSELY.
--- NOTE | 2019-04-03 08:00 | NUR ---
PATIENT OPENS EYES TO VOICE, OBEYS SIMPLE COMMANDS LIKE WHEN PROMPTED TO OPEN HER EYES, OR SQUEEZE RN'S HANDS, WITH TRACHEOSTOMY ON VENTILATOR FIO2 28% AC14 VT 450 PEEP5, SINUS RHYTHM ON MONITOR, SOFT ABDOMEN, WITH PEG TUBE IN SITU AND CONNECTED TO VITAL AF FEEDING 50 ML/HR., WITH CHAUDHARI CATHETER, CLEAR YELLOW URINE NOTED, LEFT INTERNAL JUGULAR CENTRAL LINE TRIPLE LUMEN WITH BLOOD BACK FLOW ALL 3 PORTS, NO IV DRIPS, SKIN INTACT
[2019-04-03] MEDS: DOCUSATE 100 MG/10 ML UDC GT SCH ×2 (09:02→20:02)
[2019-04-03] MEDS: ENOXAPARIN 30 MG/0.3 ML SYR SUBQ SCH (09:03)
[2019-04-03] MEDS: LISINOPRIL 5 MG TAB PO SCH (09:04)
[2019-04-03] MEDS: ACETAMINOPHEN 325 MG TAB PO PRN (09:04)
[2019-04-03] MEDS: FAMOTIDINE 20 MG/2 ML VIAL IV SCH (09:05)
[2019-04-03] MEDS: MEMANTINE 10 MG TAB PO SCH ×2 (09:05→20:02)
[2019-04-03] MEDS: AMIODARONE 200 MG TAB PO SCH (09:05)
[2019-04-03] MEDS: ONDANSETRON 4 MG/2 ML VIAL IM/IVP PRN (14:29)
[2019-04-03] MEDS: MORPHINE SULFATE 2 MG/ML SYR IVP PRN (14:30)
--- NOTE | 2019-04-03 15:45 | NUR ---
DR. TREVINO AT BEDSIDE
--- NOTE | 2019-04-03 17:00 | NUR ---
ZERO PEG TUBE ASPIRATES UPON CHECKING AT THIS TIME. PM CARE RENDERED ROUTINE, SPONGE BATH, ORAL, CATHETER CARE, PATIENT TURNED TO RIGHT SIDED POSITION. PATIENT TOLERATED WELL
--- NOTE | 2019-04-03 19:09 | NUR ---
REPORT GIVEN TO NIGHT RN
--- NOTE | 2019-04-03 19:11 | NUR ---
Received pt stable on vent support at documented settings, suctioned scant amount of thin clear secretions, hhn tx given, tolerated well, no resp distress or SOB noted at this time, Portex 8 trach sutured/midline/patent, alarms set and audible, ambu bag at bedside, vent plugged into red outlet, cont pulse ox on, will cont to monitor.
--- NOTE | 2019-04-03 19:15 | NUR ---
RECEIVED REPORT FROM AM NURSE. PT AT BED, EYES CLOSED, BREATHING REGULARLY, PERRL, 3MM, BRISK, PT IS AWAKE, FOLLOWS SIMPLE COMMANDS, HEART RATE REGULAR, S1S2 PRESENT, CAP REFILL < 3S, BILATERAL PITTING EDEMA 2+ AT UPPER AND LOWER EXTREMITIES, LUNG SOUNDS, CLEAR THROUGHOUT, TRACH TO VENT. SIZE 8 CORTEX, AC/VC, FIO2 24%. TV 450, RR 14, FLOW 35, PEEP 5, ABDOMEN SOFT, ROUND, NONDISTENDED, NONTENDER, ACTIVE BOWEL SOUNDS IN ALL QUADRANTS, GTUBE IN PLACE, VITAL AF RUNNING AT 50 ML/HR AT 200 ML WATER FLUSH Q6HR, BLADDER NONTENDER, NONDISTENDED, CHAUDHARI CATHETER IN PLACE, URINE CLEAR, YELLOW, SKIN INTACT, WARM, DRY, COLOR APPROPRIATE FOR ETHNICITY, GENERALIZED WEAKNESS. LEFT IJ TRIPLE LUMEN RUNNING 5 ML/HR NS, HOB AT 30 DEGREES, SIDE RAILS UP X2, CALL LIGHT WITHIN REACH.
--- NOTE | 2019-04-03 20:12 | NUR ---
MEDICATIONS GIVEN. VAP ORAL CARE PERFORMED. PT TOLERATED PROCEDURE WELL. PT AT STABLE CONDITION AT THIS TIME. SIDE RAILS UP X2, HOB 30 DEGREES, CALL LIGHT WITHIN REACH, BED AT LOWEST POSITION.
--- NOTE | 2019-04-03 21:30 | NUR ---
DR. FARRAR AT BEDSIDE. NO NEW ORDERS
--- NOTE | 2019-04-03 22:39 | NUR ---
DR. VERGARA AT BEDSIDE, RECOMMEND REMOVAL OF LEFT IJ CENTRAL LINE BEFORE TRANSFER TO [facility] AT AM.
[2019-04-04] VITALS (16 sets, daily range): BP systolic 112–149; BP diastolic 48–76
[2019-04-04] MEDS: ALBUTEROL SULFATE/IPRATROPIU 3 ML SOL IH SCH ×4 (01:17→18:53)
[2019-04-04] MEDS: Z-GUARD PASTE TP SCH ×2 (01:21→13:02)
--- NOTE | 2019-04-04 02:27 | NUR ---
AM CARE PROVIDED. PT TOLERATED PROCEDURE WELL. PT AT STABLE CONDITION AT THIS TIME. SIDE RAILS UP X2, HOB 30 DEGREES, CALL LIGHT WITHIN REACH, BED AT LOWEST POSITION.
--- NOTE | 2019-04-04 03:03 | NUR ---
PT AT BED EYES CLOSED, BREATHING REGULARLY. PT AT STABLE CONDITION AT THIS TIME. SIDE RAILS UP X2, HOB 30 DEGREES, CALL LIGHT WITHIN REACH, BED AT LOWEST POSITION.
[2019-04-04] MEDS: LEVOTHYROXINE 0.025 MG TAB PO SCH (05:43)
--- NOTE | 2019-04-04 06:22 | NUR ---
DR. GODFREY AT BEDSIDE, UPDATED MD ON PATIENT CONDITION, NOW NEW ORDERS.
--- NOTE | 2019-04-04 06:29 | NUR ---
RECEIVED PT ON CARESCAPE ON DOCUMENTED SETTINGS, ALARMS ARE ON AND AUDIBLE, PTS TRACH PORTEX IS SECURE, PT IN HF QUIET, BS GLORIAI HHN GVIEN I\L WITH 3 MG DUONEB, BMV HOB ,VENT PLUGGED INTO RED OUTLET
--- NOTE | 2019-04-04 07:10 | NUR ---
RECEIVED BEDSIDE REPORT FROM RAILCAR FOREMAN RN, MARK. BURTON, OTHER VITALS STABLE. Addendum: 04/04/19 at 0933 by Kingsley Adrian RN HR 112
--- NOTE | 2019-04-04 07:25 | NUR ---
PT IS TRACK TO VENT, VOMITED YELLOW EMESIS, LOOKS LIKE THE FEEDING FORMULA. PT WAS SUCTIONED ORALLY AND THEN SUCTIONED FROM THE TRACH. CHANGED TRACH DRESSING. FEEDING HELD. CHECKED G TUBE RESIDUAL, 500ML OF AIR AND 20ML FEEDING FORMULA.
--- NOTE | 2019-04-04 07:50 | NUR ---
BED BATH GIVEN. ORAL CARE DONE. CHAUDHARI CARE DONE. PT WAS REPOSITIONED. PT HAD BMX1, SMALL BROWN SOFT STOOL. PT WAS CLEANED. CHUX AND GOWN WERE CHANGED. PT TOLERATED OK.
--- NOTE | 2019-04-04 07:55 | NUR ---
PT OPENS EYES SPONTANEOUSLY, PERRL, BRISK 3MM. ABLE TO FOLLOW SOME SIMPLE COMMANDS. NO SIGNS OF ACUTE RESPIRATORY DISTRESS AT THIS TIME. BREATHING EVEN AND UNLABORED, LUNG SOUNDS RHONCHI BILATERALLY. ABDOMEN SOFT, LARGE, NONDISTENDED. BOWEL SOUNDS ACTIVE IN ALL QUADRANTS. SR ON MONITOR AT THIS TIME. HR 90. LEFT IJ TRIPLE LUMEN, FLUSHED, PATENT AND INTACT, GOOD BLOOD RETURN. PULSES 2+ BILATERAL UPPER AND LOWER EXTREMITIES. MILD NON PITTING EDEMA BLE. TRACH TO VENT, SIZE 8, FIO2 24%, TV 450, RR 14, PEEP 5. CHAUDHARI IN PLACE, DRAINING CLEAR YELLOW URINE. SKIN INTACT. PURPLE DISCOLORATION ON LEFT NECK. HOB AT 32 DEGREES, SIDE RAILS UP X2, WILL CONTINUE TO MONITOR PT.
[2019-04-04] MEDS: DOCUSATE 100 MG/10 ML UDC GT SCH ×2 (08:07→20:38)
[2019-04-04] MEDS: FAMOTIDINE 20 MG/2 ML VIAL IV SCH (08:07)
[2019-04-04] MEDS: ONDANSETRON 4 MG/2 ML VIAL IM/IVP PRN (08:07)
[2019-04-04] MEDS: LISINOPRIL 5 MG TAB PO SCH (08:08)
[2019-04-04] MEDS: MEMANTINE 10 MG TAB PO SCH ×2 (08:08→20:38)
[2019-04-04] MEDS: AMIODARONE 200 MG TAB PO SCH (08:08)
[2019-04-04] MEDS: ENOXAPARIN 30 MG/0.3 ML SYR SUBQ SCH (08:10)
--- NOTE | 2019-04-04 09:05 | NUR ---
CALLED DR HANKS. MADE HER AWARE THAT PT VOMITED THIS MORNING. G TUBE FORMULA RESIDUAL 20ML BUT ALSO 500ML OF AIR. ZOFRAN WAS GIVEN. ASKED IF CAN CONTINUE FEEDING, DR HANKS SAID TO START FROM 10ML AND SLOWLY INCREASE.
--- NOTE | 2019-04-04 09:10 | NUR ---
CHANGE FEEDING RATE TO 10ML/HR. WILL INCREASE Q2H IF PT CAN TOLERATE.
--- NOTE | 2019-04-04 09:33 | NUR ---
SBT TRIAL FAILED MACHINE RETURNED TO A/C
[2019-04-04] MEDS: MORPHINE SULFATE 2 MG/ML SYR IVP PRN ×3 (10:23→22:56)
--- NOTE | 2019-04-04 11:05 | NUR ---
G TUBE RESIDUAL 0ML, HOWEVER, THERE'S 500ML OF AIR TAKEN OUT OF THE G TUBE. INCREASED FEEDING TO 20ML/HR. WATER FLUSH IS STILL 200ML Q6H.
--- NOTE | 2019-04-04 12:25 | NUR ---
DR GODFREY CAME AND SEE THE PT. NO NEW ORDERS.
--- NOTE | 2019-04-04 13:14 | NUR ---
DR VERGARA HAS SEEN THE PT. NO NEW ORDERS.
--- NOTE | 2019-04-04 13:28 | NUR ---
RESIDUAL 0ML, ABOUT 500ML AIR TAKEN OUT OF THE G TUBE. INCREASED FEEDING RATE TO 30ML/HR. H2O FLUSH STILL 200ML Q6H.
--- NOTE | 2019-04-04 17:00 | NUR ---
VITALS BEFORE TRANSFERRING HR 83, BP 128/62, O2 SAT 100%, RR14, FLACC 0.
--- NOTE | 2019-04-04 17:38 | NUR ---
TRANSFERRED PATIENT VIA BED TO [facility], ACCOMPANIED BY JOSS NOLASCO AND SHIV WISE. NO SIGNS OF DISTRESS ON TRANSFER.
--- NOTE | 2019-04-04 17:40 | NUR ---
PT TRANSFERRED TO [facility] [[email or web address]] RM [id number]. VITALS TAKEN. HR 94, BP 141/77, O2 SAT 100%, RR23, FLACC 0. TEMP 98.8 ORAL.
--- NOTE | 2019-04-04 17:45 | NUR ---
G TUBE RESIDUAL 0ML, STILL A LOT OF AIR. INCREASED FEEDING TO 40ML/HR. NO VOMITING NOTED SINCE THE EPISODE IN THE MORNING.
--- NOTE | 2019-04-04 17:50 | NUR ---
[facility] PROVIDED. PT WAS REPOSITIONED. NO S/S OF DISTRESS NOTED.
--- NOTE | 2019-04-04 19:10 | NUR ---
REPORT GIVEN TO [employer]ER RN CAMPBELL. PT IN STABLE CONDITION. RT IS GIVING BREATHING TX.
--- NOTE | 2019-04-04 19:11 | NUR ---
RECEIVED BEDSIDE REPORT FROM DAY SHIFT NURSE BILLIE RN, PT STABLE, NO DISTRESS NOTED, CENTRAL LINE TO T L IJ TRIPLE LUMEN CATH, PATENT INTACT, DRESSING CLEAN DRY AND INTACT, PT ON TRACH TO VENT, NO SOB NOTED, PO2 100%, PT NONVERBAL, UNABLE TO LET NEEDS KNOWN, NO DISTRESS NOTED, FLACC 0, G TUBE IN PLACE WITH TUBE FEEDINGS, TOLERATED WELL, CHAUDHARI CATH IN PLACE, DRAINING YELLOW URINE, INITIAL ASSESSMENT DONE, ALL SAFETY PRECAUTION MET, CALL LIGHT WITHIN REACH, WILL CONTINUE TO MONITOR.
--- NOTE | 2019-04-04 20:38 | NUR ---
DUE MEDICATION ADMINISTERED, PT TOLERATED WELL, PT HAS NO RESIDUAL AT THIS MOMENT, G TUBE FEEDINGS INCREASED TO 50ML/HR, PT RESTING, NO DISTRESS NOTED, CALL LIGHT WITHIN REACH, WILL CONTINUE TO MONITOR. Addendum: 04/04/19 at 2046 by Hallie Crespo RN ROSINA RIVERA, PT HAD 3 BM THROUGH OUT DAY SHIFT PER AM NURSE.
--- NOTE | 2019-04-04 22:56 | NUR ---
PT HAD FACIAL GRIMACING, CRYING AND IRRITABILITY,PT RESTLESS AND WAS TOUCHING HER TRACH, FLACC 9, MORPHINE PER DR ORDER ADMINISTERED, PT TOLERATED WELL, NO DISTRESS NOTED, WILL CONTINUE TO MONITOR.
--- NOTE | 2019-04-04 23:30 | NUR ---
CHECKED ON PT, ORAL CARE ADMINISTERED, PT TOLERATED WELL, NO DISTRESS NOTED, CALL LIGHT WITHIN REACH, WILL CONTINUE TO MONITOR.
[2019-04-05] MEDS: ALBUTEROL SULFATE/IPRATROPIU 3 ML SOL IH SCH ×2 (01:40→06:47)
[2019-04-05] MEDS: Z-GUARD PASTE TP SCH ×2 (01:51→14:04)
--- NOTE | 2019-04-05 02:30 | NUR ---
CHECKED ON PT, PT RESTING, NO DISTRESS NOTED, CALL LIGHT WITHIN REACH, WILL CONTINUE TO MONITOR.
--- NOTE | 2019-04-05 03:45 | NUR ---
CHECKED ON PT, V/S TAKEN, WITHIN PT BASELINE, CALL LIGHT WITHIN REACH, WILL CONTINUE TO MONITOR.
[2019-04-05 04:00] VITALS: BP 134/55
[2019-04-05] MEDS: LEVOTHYROXINE 0.025 MG TAB PO SCH (05:12)
--- NOTE | 2019-04-05 06:47 | NUR ---
rec'd pt on carescape vent settings ac14 vt 450 peep 5 fio2 24% alarms on and audible and ambu bag at side of vent and vent is plugged into red outlet, i\l tx given with duoneb 3ml with no adverse reaction post tx b\s are clear bilaterally, sxn pt small amt of clear secretions, pt is trach with portex 8 and still has stitches at side of trach and skin integrity is intact pt is resting with no signs of distress noted at this time
[2019-04-05 07:08] LABS: ANION GAP 11.5 (8-16); CARBON DIOXIDE 25.5 mmol/L (21-32); CHLORIDE 105 mmol/L (98-107); CREATININE 0.9 mg/dL (0.6-1.3); GLUCOSE 114 mg/dL (74-106); SODIUM SERUM 139 mmol/L (136-145); UREA NITROGEN, BLOOD 24 mg/dL (7-18)
[2019-04-05 07:14] LABS: MAGNESIUM 2.2 mg/dL (1.8-2.4); PHOSPHORUS 3.1 mg/dL (2.5-4.9)
--- NOTE | 2019-04-05 07:17 | NUR ---
ENDORSED PT TO DAY SHIFT NURSE BONY CHANEY, PT STABLE, NO DISTRESS NOTED, CALL LIGHT WITHIN REACH.
--- NOTE | 2019-04-05 07:18 | NUR ---
RECEIVED REPORT FROM RETURNED GOODS INSPECTOR NURSE FOR CONTINUITY OF CARE. PT IN STABLE CONDITION. RESPIRATIONS EVEN AND UNLABORED. TRACH TO VENT INTACT AND PATENT. PICC LINE TRIPLE LUMEN INTACT AND PATENT. G-TUBE INTACT AND PATENT. SAFETY MEASURES IN PLACE. CALL LIGHT AT BEDSIDE. BED IN LOW POSITION. BED ALARM ON. WILL CONTINUE TO MONITOR.
[2019-04-05 07:24] LABS: BASOPHILS # (AUTO) 0.1 K/uL (0.00-0.22); BASOPHILS % (AUTO) 0.5 % (0.0-2.0); EOSINOPHILS # (AUTO) 0.2 K/uL (0-0.4); EOSINOPHILS % (AUTO) 1.9 % (0.0-4.0); HEMATOCRIT 29.4 % (36-48); HEMOGLOBIN 9.7 g/dL (12.0-16.0); LYMPHOCYTES # (AUTO) 1.2 K/uL (2.5-16.5); LYMPHOCYTES % (AUTO) 9.7 % (20.5-51.1); MEAN CORPUSCULAR HEMOGLOBIN 29 pg (27-31); MEAN CORPUSCULAR HGB CONC 33 g/dL (33-37); MEAN CORPUSCULAR VOLUME 87.4 fL (80-94); MONOCYTES # (AUTO) 1.3 K/uL (0.8-1.0); MONOCYTES % (AUTO) 10.1 % (1.7-9.3); NEUTROPHILS # (AUTO) 9.8 K/uL (1.8-7.7); NEUTROPHILS % (AUTO) 77.8 % (42.2-75.2); PLATELET COUNT (AUTO) 382 K/uL (140-450); RED BLOOD CELL COUNT(AUTO) 3.36 MIL/uL (4.20-5.40); WHITE BLOOD COUNT (AUTO) 12.5 K/uL (4.8-10.8)
[2019-04-05 08:00] VITALS: BP 102/68
[2019-04-05] MEDS: LISINOPRIL 5 MG TAB PO SCH (09:00)
[2019-04-05] MEDS ORDERED: POTASSIUM CHLORIDE 40 MEQ, LIDOCAINE MPF 1% - 5 mL VIAL 25 MG in NACL 0.9% 250 ML IV SCH (09:00)
--- NOTE | 2019-04-05 09:00 | NUR ---
GAVE DUE MEDICATIONS AT THIS TIME. PT TOLERATED WELL. RESPIRATIONS EVEN AND UNLABORED. BED IN LOW POSITION. BED ALARM ON. WILL CONTINUE TO MONITOR.
[2019-04-05] MEDS: DOCUSATE 100 MG/10 ML UDC GT SCH ×2 (09:02→20:40)
[2019-04-05] MEDS: AMIODARONE 200 MG TAB PO SCH (09:02)
[2019-04-05] MEDS: MEMANTINE 10 MG TAB PO SCH ×2 (09:03→20:40)
[2019-04-05] MEDS: FAMOTIDINE 20 MG/2 ML VIAL IV SCH (09:03)
[2019-04-05] MEDS: ENOXAPARIN 30 MG/0.3 ML SYR SUBQ SCH (09:06)
--- NOTE | 2019-04-05 11:10 | NUR ---
PT LYING IN BED IN STABLE CONDITION. TRACH TO VENT INTACT AND PATENT. RESPIRATIONS EVEN AND UNLABORED. BED IN LOW POSITION. CALL LIGHT AT BEDSIDE. BED ALARM ON. WILL CONTINUE TO MONITOR.
[2019-04-05 12:00] VITALS: BP 161/77
--- NOTE | 2019-04-05 13:00 | NUR ---
BRUSHED AND SUCTIONED OUT MOUTH. PT TOLERATED WELL. RESPIRATIONS EVEN AND UNLABORED. WILL CONTINUE TO MONITOR. BED IN LOW POSITION. BED ALARM ON. CALL LIGHT AT BEDSIDE.
--- NOTE | 2019-04-05 15:39 | NUR ---
CHANGED AND REPOSITIONED AFTER BOWEL MOVEMENT. PT TOLERATED WELL . BED IN LOW POSITION. BED ALARM ON. WILL CONTINUE TO MONITOR.
[2019-04-05 16:00] VITALS: BP 116/72
--- NOTE | 2019-04-05 16:11 | NUR ---
04/05/19 RD FOLLOW UP COMPLETED PLEASE REFER TO NUTRITION ASSESSMENT UNDER CARE ACTIVITY FOR ESTIMATED NUTRITIONAL NEEDS. 1. CONTINUE VITAL 1.2 AT 50 ML/HR -THIS WILL PROVIDE 1200 ML OF VOLUME, 1440 KCAL, AND 90 GM OF PROTEIN. IT MEETS 97% OF PT�S ESTIMATED ENERGY AND 100% PROTEIN NEEDS. 2. FREE WATER FLUSH PER MD; OF [address] TO FOLLOW-UP 2-3 DAYS, HIGH RISK JEREMIAS RAMOS RD
--- NOTE | 2019-04-05 17:45 | NUR ---
PT LYING IN BED SLEEPING AT THIS TIME IN STABLE CONDITION. WILL CONTINUE TO MONITOR.
--- NOTE | 2019-04-05 19:22 | NUR ---
GAVE REPORT TO SUPERVISOR GEAR REPAIR NURSE FOR CONTINUITY OF CARE PT IN STABLE CONDITION.
--- NOTE | 2019-04-05 19:23 | NUR ---
RECEIVED REPORT AT PT BEDSIDE FROM SHIV ÁLVAREZ. PT IS AAOX4, ON ROOM AIR WITH SOME EXPIRATORY WHEEZING TO UPPER LOBES BL AND DIMINISHED LOWER LOBES BL. ABLE TO FOLLOW COMMANDS, AND ABLE TO MAKE NEEDS KNOWN. PT AMBULATES WITH STEADY GAIT INDEPENDENTLY. SKIN IS CLEAN, DRY, AND INTACT. PT HAS A 20G IV TO LEFT AC, ASYMPTOMATIC AND INTACT WITH IV FLUIDS INFUSING. NO SIGNS OR SYMPTOMS OF DISTRESS NOTED. DBP SLIGHTLY ELEVATED AT 107. OTHER VITAL SIGNS STABLE, DENIES HAVING ANY TYPE OF PAIN AT THIS MOMENT. BED IN LOWEST POSITION, CALL LIGHT WITHIN REACH. SAFETY MEASURES IN PLACE. WILL CONTINUE TO MONITOR. Addendum: 04/05/19 at 6916 by Bryanna Carrillo RN DISREGARD. WRONG PT.
--- NOTE | 2019-04-05 19:24 | NUR ---
RECEIVED REPORT AT PT BEDSIDE FROM SHIV LOVETT. PT IS APHASIC, ABLE TO TRACK WITH EYES AND MOUTH SOME WORDS. ABLE TO FOLLOW SIMPLE COMMANDS, BUT UNABLE TO MAKE NEEDS KNOWN. PT IS BEDBOUND, PLANTAR FLEXION NOTED, HEEL PROTECTOR IN PLACE, BL ARMS CONTRACTED AGAINST PT'S CHEST. SKIN IS CLEAN, DRY, AND INTACT BUT THERE IS SOME REDNESS/IRRITATION TO LUISA AREA, HYDRAGUARD IN PLACE. PT HAS A TRIPLE LUMEN LEFT IJ, ASYMPTOMATIC AND INTACT WITH IV FLUIDS INFUSING TO KEEP OPEN. G-TUBE IN PLACE WITH NO RESIDUAL. TUBE FEEDING RUNNING AT DESIRED GOAL RATE. CHAUDHARI CATHETER IN PLACE, DRAINING CLOUDY DARK LOUISA URINE WITH SEDIMENTS, TO GRAVITY. CHAUDHARI CATHETER CARE PROVIDED AT THIS TIME BY CURLING MACHINE OPERATOR. NO SIGNS OR SYMPTOMS OF DISTRESS NOTED. VITAL SIGNS STABLE, DENIES HAVING ANY TYPE OF PAIN AT THIS MOMENT. BED IN LOWEST POSITION, CALL LIGHT WITHIN REACH. SAFETY MEASURES IN PLACE. WILL CONTINUE TO MONITOR.
[2019-04-05 20:00] VITALS: BP 106/55
--- NOTE | 2019-04-05 20:15 | NUR ---
RECEIVED PATIENT TRACH PORTEX 8 TO MECHANICAL VENTILATOR AT SETTINGS: AC/VC 450, 14, +5, 24%. VENT CHECK DONE. VENT ALARMS ON AND AUDIBLE. AMBU BAG AT BEDSIDE. AIRWAY SECURE AND PATENT. SUCTIONED SMALL AMOUNT OF THICK, WHITE/CLEAR SECRETIONS. PATIENT CONNECTED TO CONTINUOUS PULSE OX MONITOR. NO RESPIRATORY DISTRESS NOTED AT THIS TIME. WILL CONTINUE TO MONITOR.
--- NOTE | 2019-04-05 20:45 | NUR ---
ADMINISTERED MEDICATIONS VIA G-TUBE. FLUSHED 10ML WATER AFTER EACH MEDICATION, AND THEN WITH ABOUT 50ML WATER AFTER LAST MEDICATION. PT TOLERATED WELL. RESUMED TUBE FEEDING. BED IN LOWEST POSITION, CALL LIGHT WITHIN REACH. SAFETY MEASURES IN PLACE. WILL CONTINUE TO MONITOR.
--- NOTE | 2019-04-05 21:20 | NUR ---
PT HAD BM. PT WAS CLEANED AND HYDRAGUARD WAS REAPPLIED AT THIS TIME. BM WAS SMALL IN SIZE, AND DARK GREEN IN COLO, SOFT AND PART LIQUID. BED IN LOWEST POSITION, CALL LIGHT WITHIN REACH. SAFETY MEASURES IN PLACE. WILL CONTINUE TO MONITOR.
--- NOTE | 2019-04-05 22:35 | NUR ---
REAPPLIED NEW LEAD WIRES AND STICKERS BECAUSE TELE RHYTHM SEEMS TO HAVE A LOT OF ARTIFACTS. PT WAS SWEATY, DRIED PT OFF BEFORE APPLYING NEW STICKERS. RHYTHM DIDN'T CHANGE ON TELE MONITOR. WILL CONTINUE TO MONITOR.
[2019-04-06] VITALS (7 sets, daily range): BP systolic 103–152; BP diastolic 44–96
--- NOTE | 2019-04-06 | NUR ---
VITAL SIGNS STABLE, NONVERBAL PAIN SCALE SCORE 0. BED IN LOWEST POSITION, CALL LIGHT WITHIN REACH. SAFETY MEASURES IN PLACE. WILL CONTINUE TO MONITOR.
[2019-04-06] MEDS: Z-GUARD PASTE TP SCH ×2 (00:41→12:55)
--- NOTE | 2019-04-06 02:08 | NUR ---
VENT ALARM WENT OFF, SUCTIONED PT THROUGH TRACH AND ALARM STOPPED. PROVIDED PT WITH SOME ORAL SUCTIONING WELL, AND PT SEEMED MORE COMFORTABLE AFTER THAT.
--- NOTE | 2019-04-06 04:00 | NUR ---
VITAL SIGNS STABLE, NO SIGNS OF PAIN NOTICED. PT ASLEEP, BUT EASILY AROUSABLE. BED IN LOWEST POSITION, CALL LIGHT WITHIN REACH. SAFETY MEASURES IN PLACE. WILL CONTINUE TO MONITOR.
[2019-04-06] MEDS: LEVOTHYROXINE 0.025 MG TAB PO SCH (05:50)
--- NOTE | 2019-04-06 05:54 | NUR ---
ADMINISTERED SCHEDULED MEDICATION AND FLUSHED WITH WATER, PT TOLERATED WELL. NO SIGNS OR SYMPTOMS OF DISTRESS NOTED. BED IN LOWEST POSITION, CALL LIGHT WITHIN REACH. SAFETY MEASURES IN PLACE. WILL CONTINUE TO MONITOR.
[2019-04-06 07:11] LABS: ANION GAP 12.3 (8-16); CARBON DIOXIDE 23.5 mmol/L (21-32); CHLORIDE 107 mmol/L (98-107); CREATININE 0.8 mg/dL (0.6-1.3); GLUCOSE 139 mg/dL (74-106); POTASSIUM 3.8 mmol/L (3.5-5.1); SODIUM SERUM 139 mmol/L (136-145); UREA NITROGEN, BLOOD 23 mg/dL (7-18)
--- NOTE | 2019-04-06 07:26 | NUR ---
ENDORSED PT TO DAY SHIFT SHIV LOVETT FOR CONTINUITY OF CARE, PT IN STABLE CONDITION.
--- NOTE | 2019-04-06 07:27 | NUR ---
RECEIVED REPORT FROM REFERRAL MANAGEMENT LIAISON NURSE AYE. PT IN STABLE CONDITION. TRACH TO VENT INTACT AND PATENT. RESPIRATIONS EVEN AND UNLABORED. PICC LINE LEFT IJ INTACT AND PATENT. G-TUBE INTACT AND PATENT. SAFETY MEASURES IN PLACE. BED IN LOW POSITION. BED ALARM ON. CALL LIGHT AT BEDSIDE. WILL CONTINUE TO MONITOR.
[2019-04-06] MEDS: ALBUTEROL SULFATE/IPRATROPIU 3 ML SOL IH PRN ×2 (08:20→14:04)
--- NOTE | 2019-04-06 08:20 | NUR ---
RECEIVED ON A [employer] R860 VENTILATOR PLUGGED INT RED OUTLET TOLERATING WELL WITHOUT INCIDENT TO A PORTEX DCT #8 AIRWAY PLATE REMAINS SUTURED TO SKIN CUFF PRESSURE CHECKED NOTED AMBU BAG AT BEDSIDE EQUAL CHEST RISE DEEP TRACHEAL SUCTION FOR SMALL THICK YELLOW SECRETINS AIRWAY PATENT
--- NOTE | 2019-04-06 08:25 | NUR ---
[facility]-7 CONTINUOS PULSE OXIMETER AT BEDSIDE ON AND FUNCTIONING WELL LOW SATURATION ALARM SET AT 90%
[2019-04-06] MEDS: DOCUSATE 100 MG/10 ML UDC GT SCH ×2 (09:00→21:22)
--- NOTE | 2019-04-06 09:50 | NUR ---
GAVE ORDERED DUE MEDICATIONS PT TOLERATED WELL. WILL CONTINUE TO MONITOR.
[2019-04-06] MEDS: FAMOTIDINE 20 MG/2 ML VIAL IV SCH (09:59)
[2019-04-06] MEDS: AMIODARONE 200 MG TAB PO SCH (10:00)
[2019-04-06] MEDS: LISINOPRIL 5 MG TAB PO SCH (10:00)
[2019-04-06] MEDS: MEMANTINE 10 MG TAB PO SCH ×2 (10:00→21:21)
[2019-04-06] MEDS: CHLORHEXADINE GLUC 2% CLOTH TP SCH (10:02)
--- NOTE | 2019-04-06 10:20 | NUR ---
RESTING WELL NO RESPIRATORY DISTRESS NOTED EQUAL CHEST RISE BREATH SOUNDS RHONCHI BILATERAL DEEP TRACHEAL SUCTION FOR SMALL TICK PALE YELLOW SECRETIONS AIRWAY PATENT PLACED ON CPAP/SBT WEANING TRIALS LOC AWAKE UNABLE TO FOLLOW CARDIAC CATH LAB TECHNOLOGIST VERBAL COMMANDS BUT HAD A GOOD WEANING PARAMETERS BONY/SHIV NOTIFIED OF SBT TRIAL Addendum: 04/06/19 at 1031 by Karel Diaz RT TICK = THICK
--- NOTE | 2019-04-06 10:20 | NUR ---
NO SOB NOTED EQUAL CHEST RISE DEEP TRACHEAL SUCTION FOR SMALL THICK YELLOW SECRETIONS AIRWAY PATENT PLACED ON CPAP/SBT WEANING TRIAL THOUGH UNABLE TO FOLLOW COMMANDS GOOD WEANING PARAMETERS BONY/RN NOTIFIED
[2019-04-06] MEDS: ENOXAPARIN 30 MG/0.3 ML SYR SUBQ SCH (10:24)
--- NOTE | 2019-04-06 10:30 | NUR ---
CLEANED AND REPOSITIONED AFTER BOWEL MOVEMENT (DIARRHEA). RESPIRATIONS EVEN AND UNLABORED. BED IN LOW POSITION. BED ALARM ON. WILL CONTINUE TO MONITOR.
--- NOTE | 2019-04-06 10:51 | NUR ---
CONTACTED CHILO EVANS'S CORKING MACHINE OPERATOR AT [phone] MADE HER AWARE THAT DC PLANNING TO GO BACK IS ON THURSDAY. ALL CLINICALS FAXED.
--- NOTE | 2019-04-06 11:30 | NUR ---
BRUSHED TEETH AND SUCTIONED AT THIS TIME. PT IN STABLE CONDITION. WILL CONTINUE TO MONITOR.
--- NOTE | 2019-04-06 11:40 | NUR ---
TOLERATING CPAP /SBT WEANING TRIALS WELL WITHOUT PULMONARY DISTRESS NOTED EQUAL CHEST RISE DEEP TRACHEAL SUCTION FOR MODERATE THIN YELLOW SECRETIONS AIRWAY PATENT
[2019-04-06] MEDS: MORPHINE SULFATE 2 MG/ML SYR IVP PRN ×2 (12:49→18:55)
--- NOTE | 2019-04-06 13:45 | NUR ---
CLEANED PT MOUTH WITH ORAL CARE KIT. PT TOLERATED WELL. WILL CONTINUE TO MONITOR.
--- NOTE | 2019-04-06 14:05 | NUR ---
STABLE NO DISTRESS NOTED EQUAL CHEST RISE DEEP TRACHEAL SUCTION FOR MODERATE THIN YELLOW SECRETIONS NOTED AIRWAY PATENT
--- NOTE | 2019-04-06 15:45 | NUR ---
PT SLEEPING AT THIS TIME. RESPIRATIONS EVEN AND UNLABORED. TRACH TO VENT INTACT AND PATENT. BED IN LOW POSITION. BED ALARM ON. CALL LIGHT AT BEDSIDE. WILL CONTINUE TO MONITOR.
--- NOTE | 2019-04-06 15:46 | NUR ---
CLEANED PT MOUTH WITH ORAL CARE KIT. PT TOLERATED WELL. WILL CONTINUE TO MONITOR. Addendum: 04/06/19 at 1548 by Martha Winston RN DISREGARD ENTRY NOTE FOR 1504
--- NOTE | 2019-04-06 16:05 | NUR ---
NO APPARENT PULMONARY DISTRESS NOTED EQUAL CHEST RISE TOLERATING CPAP/SBT WEANING BREATH SOUNDS CLEAR BILATER WITH GOOD AERATION THROUGHOUT BILATERAL LUNG CABRALES
--- NOTE | 2019-04-06 17:04 | NUR ---
AWAKE AND ALERT RESPONSIVE TO VIDEO MACHINES MECHANIC VERBAL COMMANDS AND CONVERSATION NO DISTRESS NOTED FRO CPAP/SBT TRIALS (30 MINS REMAINING IN 6 HRS) EQUAL CHEST RISE BREATH SOUNDS CLEAR BILATERAL WITH GOOD AERATION THROUGHOUT LUNG CABRALES
--- NOTE | 2019-04-06 19:28 | NUR ---
GAVE REPORT TO SILICATOR NURSE ALF FOR CONTINUITY OF CARE. PT IN STABLE CONDITION.
--- NOTE | 2019-04-06 19:30 | NUR ---
RECEIVED PT FROM BONY RN, PT HOB 30 DEGREE TRACH TO VENT SETTING TV 450 FI02 24% RR 14 PEEP5 NOT DISTRESS NOTEDS IV ON LEFT IJCENTRAL LINE ON TELMETRY SR REPOSITIONED G TUBE FEEDINT WELL TOLERATED INITIAL ASSESSMENT DONE
--- NOTE | 2019-04-06 21:00 | NUR ---
PT IS REPOSITIONED AND SUCTIONED NECESSARY NOT DISTRESS NOTED
--- NOTE | 2019-04-06 23:00 | NUR ---
A BIG BM LIQUID STOOL SPONGE BATH GIVEN AND LINEN CHANGED TRACH TO VENT REMAIN SAME SETTING
[2019-04-07] VITALS: BP 146/63
--- NOTE | 2019-04-07 01:00 | NUR ---
A NEW IV IS INSERTED ON RT WRIST FOR CHARGE NURSE AND CENTRAL LINE FROM LEFT IJ IS REMOVED AND TIP OF CENTRAL LINE IS SENT TO LAB FOR ANAEROBIUS AND AEROBIC CULTURE
[2019-04-07] MEDS: Z-GUARD PASTE TP SCH ×2 (01:27→14:21)
[2019-04-07 04:00] VITALS: BP 120/59
--- NOTE | 2019-04-07 04:00 | NUR ---
PT HAS BEEN MONITORING CLOSE, ON TELEMETRY SR TRACH TO MARIANA REMAIN SAME SETTING NOT DISTRESS NOTED , REPOSITIONED Q2H
[2019-04-07] MEDS: LEVOTHYROXINE 0.025 MG TAB PO SCH (06:01)
--- NOTE | 2019-04-07 06:26 | NUR ---
PT HOB 30 DEGREE TRACH TO MARIANA REMAIN STABLE NOT DISTRESS NOTED G TUBE FEEDING WELL TOLERATED REPOSITIONED Q2H
--- NOTE | 2019-04-07 06:26 | NUR ---
PT WILLBE ENDORSED TO DAY SHIFT NURSE FOR CONTINUE OF CARE
--- NOTE | 2019-04-07 06:27 | NUR ---
RECEIVED PT FROM THE NURSE TRANSITIONAL NURSE. PT IS SLEEPING. PT IS ON TRACH TO VENT. SETTINGS:FIO2 24%; TV 450; RATE 14; FLOW 35L; PEEP 5. LUNG SOUNDS: LLL RHONCHI; ALL OVER DIMINISHED. PT IV ON R HAND 24G TKO, AND R FA 24G SL. PT HAS A GTUBE. FEEDING: VITAL AF1.2 AT 5OML/HR, H20 FLUSH 200 ML Q 6HR. GTUBE SITE CLEAN AND DRY. PT HAS CHAUDHARI CATH IN PLACE. LOUISA URINE IN BAG. PER NURSE TRANSITIONAL NURSE PT HAS REDNESS IN LUISA AREA D/T INCONTINENT DERMATITIS. ZGUARD TO BE USED. LAST BM WAS EARLY TODAY, LIQUIDY AND MODERATE SIZE. BUE CONTRACTED, HANDS CONTRACTED. BLE IS FLACCID AND FOOT DROP PRESENT. NO EDEMA NOTED. WILL CONTINUE TO MONITOR PT.
--- NOTE | 2019-04-07 07:30 | NUR ---
R/T IS HERE. ASSESSED PT. CHANGED REG VENT TO CPAP SETTING. PT IS TOLERATING WELL. V/S WITHIN NORMAL RANGE. WILL CONTINUE TO MONITOR PT.
--- NOTE | 2019-04-07 07:30 | NUR ---
PT PLACED ON CPAP. PT IN NAD AT THIS TIME. PEEP 5, PS 10. RN UPDATED. ALARMS AND PARAMETERS VERIFIED ON CPAP.
[2019-04-07 08:00] VITALS: BP 149/76
[2019-04-07] MEDS: CHLORHEXADINE GLUC 2% CLOTH TP SCH (09:00)
[2019-04-07] MEDS: DOCUSATE 100 MG/10 ML UDC GT SCH ×2 (09:00→21:45)
[2019-04-07] MEDS: AMIODARONE 200 MG TAB PO SCH (09:19)
[2019-04-07] MEDS: FAMOTIDINE 20 MG/2 ML VIAL IV SCH (09:19)
[2019-04-07] MEDS: ACETAMINOPHEN 325 MG TAB PO PRN (09:20)
[2019-04-07] MEDS: LISINOPRIL 5 MG TAB PO SCH (09:20)
[2019-04-07] MEDS: MEMANTINE 10 MG TAB PO SCH ×2 (09:20→21:44)
[2019-04-07] MEDS: ENOXAPARIN 30 MG/0.3 ML SYR SUBQ SCH (09:23)
--- NOTE | 2019-04-07 09:28 | NUR ---
PT STILL ON CPAP. PT WAS SLEEPING BUT WAS WOKEN WHILE LISTENING TO BREATH SOUNDS (CLEAR/DIMINISHED). PT C/O PAIN. RN BEDSIDE WITH PAIN MEDS. WILL CONTINUE ON CPAP BUT IF PAIN BECOMES WORSE RN ADVISED TO CALL SO WE CAN PLACE HER BACK ON THE VENT IF NEEDED.
--- NOTE | 2019-04-07 09:36 | NUR ---
ADMINISTERED MORNING MEDS VIA GTUBE. CHECKED FOR PLACEMENT AND RESIDUAL, 0, AND PATENCY. TOTAL MEDS AND FLUSH 200ML. WILL CONTINUE TO MONITOR PT. NOTICED SOME DISTRESS. ADDED TYLENOL TO MORNING MEDS.
[2019-04-07] MEDS: MORPHINE SULFATE 2 MG/ML SYR IVP PRN (11:10)
--- NOTE | 2019-04-07 11:16 | NUR ---
PER R/T PT IS IN PAIN. PT IS NO LONGER ON THE CPAP AND NOW JUST REG VENTILATION. ADMINISTERED MORPHINE. PT IS RESTING NOW. WILL CONTINUE TO MONITOR PT.
[2019-04-07 12:00] VITALS: BP 135/73
--- NOTE | 2019-04-07 14:40 | NUR ---
DR FARRAR IS HERE TO ASSESS PT.
[2019-04-07] MEDS: HYDROcodone/APAP 7.5/325 MG 1 TAB PO PRN (15:09)
[2019-04-07 16:00] VITALS: BP 138/70
--- NOTE | 2019-04-07 19:10 | NUR ---
RECIEVED PT AWAKE , BUT LIMITED ORIENTATION TO STIMULI AND SORROUNDINGS ,NO VERBAL . NOT IN DISTRESS AT THIS TIME 02 SAT 100%, ON TRACH TO VENT 35 FLOW/MIN, FI02 24% , 240 TIDAL VOL. V/S WNL , IV SITE INTACT , ON G TUBE FEEDING 1.2/L/50ML/HR,WATER FLUSHING 200 ML PER q 6HRS , WITH F/C DARINING CLEAR YELLOW URINE , SKIN INTACT , WITH REDNESS ON SURFACE ON PERINEAL AREA NEAR IN INGUINAL , CALL LIGHT WITHIN REACH , BED IN LOW POSITION , SIDE RAILS UP X2 .WILL CONTINUE TO MONITOR. Addendum: 04/08/19 at 0556 by Marii Hess RN WITH SURGICAL DRESSING TO THE LATERAL LEFT OF NECK DRY AND INTACT, G TUBE INTACT AND PATENT
[2019-04-07 20:00] VITALS: BP 120/59
--- NOTE | 2019-04-07 22:00 | NUR ---
MADE ROUNDS , CHANGE POSITION , SECURE LEG SEQUENTIAL COMPRESSOR , OFF LOAD PRESSURE AREAS , IVF INFUSING WELL , GOWN CHANGED, PERINEAL / CATH . CARE DONE , , LEAD PROCESS ENGINEER ON PLACE .WILL CONTINUE TO MONITOR Addendum: 04/08/19 at 0546 by Marii Hess RN PT IS SLEEPING , NOT IN DISTRESS , 02 SAT.100%
--- NOTE | 2019-04-07 22:05 | NUR ---
RECEIVED PATIENT TRACH PORTEX 8 TO MECHANICAL VENTILATOR AT SETTINGS: AC/VC 450, 14, +5, 24%. VENT CHECK DONE. VENT ALARMS ON AND AUDIBLE. VENT PLUGGED INTO RED OUTLET. AMBU BAG AT BEDSIDE. AIRWAY SECURE AND PATENT. SUCTIONED SMALL AMOUNT OF THICK, PALE YELLOW SECRETIONS. NO ACUTE RESPIRATORY DISTRESS NOTED AT THIS TIME. WILL CONTINUE TO MONITOR.
[2019-04-08] VITALS: BP 120/60
--- NOTE | 2019-04-08 | NUR ---
MADE ROUNDS , PT. SLEEPING , NOT IN DISTRESS , V/S WNL . WILL CONTINUE TO MONITOR.
[2019-04-08] MEDS: Z-GUARD PASTE TP SCH ×2 (01:00→13:37)
--- NOTE | 2019-04-08 02:00 | NUR ---
MADE ROUNDS , PT. GRIMACING , IV SITE INFILTRATED , WILL MEDICATE WITH PRN NARCO ORDERED. ,WILL CONTINUE TO MONITOR.
[2019-04-08] MEDS: HYDROcodone/APAP 7.5/325 MG 1 TAB PO PRN ×3 (02:27→17:52)
--- NOTE | 2019-04-08 02:27 | NUR ---
PT AWAKE , NID ,O2 SAT 100% BP 120 /60 MMHG RR 16 , NARCO GIVEN ORDERED , WILL CONTINUE TO MONITOR.
--- NOTE | 2019-04-08 02:30 | NUR ---
PT IV SITE INFILTRATED, REMOVE IV CANNULA -INTACT ,WITH MINIMAL BLEEDING. NEW IV CANNULA RE INSERTED AT LEFT ARM 24G. PROCEDURE TOLERATED WELL. WILL CONTINUE TO MONITOR.
[2019-04-08 04:00] VITALS: BP 120/60
--- NOTE | 2019-04-08 04:00 | NUR ---
MADE ROUNDS , PT. NOT IN RESP. DISTRESS , O2 SAT. 1OO% ,V/S WNL ,WILL CONTINUE TO MONITOR.
--- NOTE | 2019-04-08 06:00 | NUR ---
MAKE ROUNDS , CHANGE POSITION , OFF LOAD PRESSURE AREA , PERINEAL / CATH CARE - DONE . PT. IS NOT ON RESP. DISTRESS AT THIS TIME. WILL CONTINUE TO MONITOR.
[2019-04-08] MEDS: LEVOTHYROXINE 0.025 MG TAB PO SCH (06:44)
--- NOTE | 2019-04-08 07:04 | NUR ---
PT. GRIMACING , HEAD TRACKING SIDE TO SIDE , PAIN ASSESSMENT DONE -03/21 ,NARCO GIVEN / G TUBE OREDERED FOR PRN FOR PAIN , IVF D/C, THEN IV SITE PUT ON SALINE LOCK - PATENT AND INTACT .WILL CONTINUE TO MONITOR,
--- NOTE | 2019-04-08 07:43 | NUR ---
RECEIVED TRACH PT WITH A PORTEX 8 TRACH ON VENT. SETTINGS :AC/VC 14, VT 450, PEEP 5 AND FIO2 24%. PT IS APHASIC BUT NOT IN ANY DISTRESS AT THIS TIME. AIRWAY IS SECURE AND PATENT. VENT IS PLUGGED INTO A RED OUTLET WITH ALARMS ON AND FUNCTIONING. WILL CONTINUE TO MONITOR.
--- NOTE | 2019-04-08 07:44 | NUR ---
RECEIVED HAND OFF REPORT FROM WASTE PAPER HAMMERMILL OPERATOR NURSE. PT IS AWAKE AND STABLE. PT IS SALINE LOCKED IV FLUSHED IV IS PATENT AND SHOWS NO SIGNS OF INFILTRATION OR INFLAMMATION. PT IS TRACH TO VENT. GTUBE IS INFUSING AT 50ML/HR. HEAD OF THE BED RAISED TO GREATER THAN 30 DEGREES. ALL SAFETY MEASURES ARE IN PLACE. WILL CONTINUE TO MONITOR.
--- NOTE | 2019-04-08 07:44 | NUR ---
ENDORSED TO AM SHIFT NURSE FOR CONTINUITY OF CARE . V/S WNL , NID LATEST O2 SAT 100%. FOR RE ASSESSMENT OF PAIN .
[2019-04-08 08:00] VITALS: BP 110/74
--- NOTE | 2019-04-08 09:16 | NUR ---
FREQUENT ROUNDING ON PT PT IS STABLE AND IN NO APPARENT DISTRESS. ALL SAFETY MEASURES ARE IN PLACE.
[2019-04-08] MEDS: DOCUSATE 100 MG/10 ML UDC GT SCH ×2 (09:24→21:12)
[2019-04-08] MEDS: CHLORHEXADINE GLUC 2% CLOTH TP SCH (09:25)
[2019-04-08] MEDS: LISINOPRIL 5 MG TAB PO SCH (09:25)
[2019-04-08] MEDS: FAMOTIDINE 20 MG/2 ML VIAL IV SCH (09:25)
[2019-04-08] MEDS: MEMANTINE 10 MG TAB PO SCH ×2 (09:25→21:12)
[2019-04-08] MEDS: AMIODARONE 200 MG TAB PO SCH (09:25)
[2019-04-08] MEDS: ENOXAPARIN 30 MG/0.3 ML SYR SUBQ SCH (09:28)
[2019-04-08 09:34] LABS: BASOPHILS % (AUTO) 0.3 % (0.0-2.0); EOSINOPHILS # (AUTO) 0.5 K/uL (0-0.4); EOSINOPHILS % (AUTO) 3.5 % (0.0-4.0); HEMATOCRIT 32.2 % (36-48); HEMOGLOBIN 10.4 g/dL (12.0-16.0); LYMPHOCYTES # (AUTO) 1.3 K/uL (2.5-16.5); MEAN CORPUSCULAR HEMOGLOBIN 28 pg (27-31); MEAN CORPUSCULAR HGB CONC 32 g/dL (33-37); MEAN CORPUSCULAR VOLUME 87.2 fL (80-94); MONOCYTES % (AUTO) 7.5 % (1.7-9.3); NEUTROPHILS # (AUTO) 10.5 K/uL (1.8-7.7); NEUTROPHILS % (AUTO) 78.7 % (42.2-75.2); PLATELET COUNT (AUTO) 505 K/uL (140-450); RED BLOOD CELL COUNT(AUTO) 3.69 MIL/uL (4.20-5.40); RED CELL DISTRIBUTION WIDTH 16.2 % (11.6-13.7); WHITE BLOOD COUNT (AUTO) 13.4 K/uL (4.8-10.8)
--- NOTE | 2019-04-08 10:32 | NUR ---
PT HAD BOWEL MOVEMENT. CLEANED PT REPOSITIONED PT. PROVIDED CHAUDHARI CATH CARE. APPLIED HYDRAGUARD PER ORDERS TO AREAS OF REDNESS. PROVIDED ORAL CARE. ALL SAFETY MEASURES ARE IN PLACE. PT IS STABLE AND IN NO APPARENT DISTRESS. ALL SAFETY MEASURES ARE IN PLACE. WILL CONTINUE TO MONITOR.
[2019-04-08 11:20] LABS: BILIRUBIN,URINE NEGATIVE (NEGATIVE); BLOOD, URINE TRACE-I (NEGATIVE); COLOR,URINE YELLOW (YELLOW); LEUKOCYTE ESTERASE ,URINE 2+ (NEGATIVE); NITRITE, URINE POSITIVE (NEGATIVE); UGLUCOSE NEGATIVE (NEGATIVE)
--- NOTE | 2019-04-08 11:20 | NUR ---
FREQUENT ROUNDING ON PT PT IS STABLE AND IN NO APPARENT DISTRESS. ALL SAFETY MEASURES ARE IN PLACE WILL CONTINUE TO MONITOR.
--- NOTE | 2019-04-08 11:31 | NUR ---
PT SUCTIONED OBTAINED SMALL AMOUNT OF THICK WHITE SECRETIONS, AIRWAY IS PATENT AND TRACH IS SECURE. WILL CONTINUE TO MONITOR.
--- NOTE | 2019-04-08 11:56 | NUR ---
ALBA attempted to call patient's son 3 times: Kingston Cotto [phone]. SW called Kingston to let him know that SW was informed that [facility] is unsure if they are able to accommodate patient's needs when patient is medically cleared for discharge. SW will seek other subacute SNFs. Kingston's voicemail is full. SW was unable to leave voicemail.
[2019-04-08 12:00] VITALS: BP 134/76
--- NOTE | 2019-04-08 12:12 | NUR ---
CALLED RADIOLOGY TO SEE WHEN THEY WERE COMING TO DO THE STAT KUB. GARDEN[facility] STATED THAT BOTH XRAY MACHINES ARE OUT AND THAT THEY SHOULD BE HERE SOON. WILL CONTINUE TO MONITOR PT
[2019-04-08 12:17] LABS: APPEARANCE,URINE SLIGHTLY HAZY (CLEAR)
[2019-04-08 12:18] LABS: RBC,URINE 0-5 /HPF (0-5)
[2019-04-08 12:19] LABS: CALCIUM OXALATE CRYSTALS,UR 0-10 /HPF (None Seen)
[2019-04-08] MEDS: PIPER/TAZO 3.375GM/D5W PREMIX 50 ML IV SCH ×2 (13:28→21:12)
--- NOTE | 2019-04-08 13:45 | NUR ---
FREQUENT ROUNDING ON PT PT IS STABLE AND APPEARS IN NO APPARENT DISTRESS. ALL SAFETY MEASURES ARE IN PLACE. WILL CONTINUE TO MONITOR.
--- NOTE | 2019-04-08 13:50 | NUR ---
KUB RESULTS ARE IN. NOTIFIED RESIDENTS PER DR. GODFREY REQUEST. SPOKE WITH DR. PAULINO.
--- NOTE | 2019-04-08 15:06 | NUR ---
FREQUENT ROUNDING ON PT PT IS ASLEEP IN BED. NOTABLE CHEST RISE AND FALL. PT FLACC 0 PT APPEARS STABLE AND IN NO APPARENT DISTRESS. ALL SAFETY MEASURES ARE IN PLACE. HEAD OF THE BED ELEVATED ABOVE 30 DEGREES. IV INFUSING IV SITE SHOWS NO SIGNS OF INFECTION AND NO SIGNS OF INFLAMMATION. ALL SAFETY MEASURES ARE IN PLACE. WILL CONTINUE TO MONITOR.
--- NOTE | 2019-04-08 15:07 | NUR ---
Discharge Planning Note SW contacted the following sub-acute facilities and faxed over clinical information: [facility] - PH: [phone] FX: [phone]; [facility] stated that no female beds were available. [facility] - PH: [phone] FX: [phone]; Call disconnected [facility] - PH: [phone] FX: [phone]; [facility] stated that they would not be able to assist unless a plan was developed after sub-acute days were used. [facility] - PH: [phone]; Left voicemail with Chief Passenger Ship Steward/[facility] - PH: [phone] FX: [phone]; [facility] stated that she would be able to accept patient for 04/10 discharge. Azra stated that she will call back with additional information after verification of insurance. ALBA/CM will follow up as needed.
--- NOTE | 2019-04-08 15:34 | NUR ---
ALBA was contacted by Financial Assistance Advisor Azra [phone]. Azra stated that she would be able to coordinate transportation for 04/10/2019 discharge with nursing station. Azra stated that patient would be in room: 122A and accepting physician will be Dr. Esteban. ALBA/MARIO will follow up as needed.
--- NOTE | 2019-04-08 15:45 | NUR ---
ARRANGED TRANSPORT WITH [facility] FOR THURSDAY AND PLACE IT WILL CALL , NOTIFIED CHARGE NURSE KEVIN.
--- NOTE | 2019-04-08 15:47 | NUR ---
PT SUCTIONED OBTAINED SMALL AMOUNT OF THICK WHITE SECRETIONS, AIRWAY IS PATENT AND TRACH IS SECURE. PT IS NOT IN ANY DISTRESS AT THIS TIME. WILL CONTINUE TO MONITOR.
--- NOTE | 2019-04-08 15:58 | NUR ---
PT PLACED ON SBT CPAP 5 PS 10 FIO2 24%. PT RESTING COMFORTABLY IN BED NOT IN ANY DISTRESS. VENT ALARMS SET APPROPRIATELY. NURSE MADE AWARE. WILL CONTINUE TO MONITOR.
[2019-04-08 16:00] VITALS: BP 141/71
--- NOTE | 2019-04-08 16:01 | NUR ---
04/08/19 RD FOLLOW UP COMPLETED PLEASE REFER TO NUTRITION ASSESSMENT UNDER CARE ACTIVITY FOR ESTIMATED NUTRITIONAL NEEDS. 1. CONTINUE VITAL 1.2 AT 50 ML/HR -THIS WILL PROVIDE 1200 ML OF VOLUME, 1440 KCAL, AND 90 GM OF PROTEIN. IT MEETS 97% OF PT�S ESTIMATED ENERGY AND 100% PROTEIN NEEDS. 2. RECOMMEND FREE WATER FLUSH [address] TO FOLLOW-UP 2-3 DAYS, HIGH RISK JEREMIAS RAMOS RD
--- NOTE | 2019-04-08 16:28 | NUR ---
PT LASTED ABOUT HALF HOUR SBT BEFORE RESPIRATORY RATE INCREASED TO 30'S , VT DECREASED AND PT BECAME ANXIOUS. VENTILATOR WENT INTO BACKUP MODE: AC/VC 14 VT 450, PEEP 5 AND FIO2 24%.
--- NOTE | 2019-04-08 17:55 | NUR ---
VENT CHECK COMPLETED. PT C/O PAIN NURSE AWARE AND BEDSIDE. VENT ALARMS ON AND FUNCTIONING. AIRWAY REMAINS SECURE WITH A PATENT AIRWAY.
--- NOTE | 2019-04-08 19:09 | NUR ---
ENDORSED PT TO RESEARCH SCIENTIST NURSE PT IS ASLEEP IN BED ALL SAFETY MEASURES ARE IN PLACE. HEAD OF BED ELEVATED ABOVE 30 DEGREES. VENT INTACT AND WORKING. SPO2 MONITORING. ALL SAFETY MEASURES ARE IN PLACE. WILL CONTINUE TO MONITOR.
--- NOTE | 2019-04-08 19:10 | NUR ---
RECEIVED REPORT FROM DAY SHIFT NURSE JACQUI-SHIV AT BEDSIDE. PT RESTING IN BED, APHASIC, TRACH TO VENT, WITH RIGHT WRIST #[id number]. UNABLE TO DISCUSS PLAN OF CARE. NO S/S OF RESPIRATORY DISTRESS OR DISCOMFORT NOTED AT THIS TIME. VENT SETTINGS FLOW 40, FIO2 24. G-TUBE FEEDING VITAL AF 1.2 RUNNING AT 50ML/HR, WATER FLUSH 200ML Q6H WITH ZERO RESIDUAL. CHAUDHARI CATHETER IN PLACE. INCONTINENT DERMATITIS IN PERINEAL AREA. BED IN LOWEST POSITION, BED BREAKS ON BOTH SIDE RAILS UP AND FALL PRECAUTIONS IN PLACE. BEDSIDE TABLE AND CALL LIGHT ARE IN PLACE. WILL CONTINUE TO MONITOR.
[2019-04-08] MEDS: ALBUTEROL SULFATE/IPRATROPIU 3 ML SOL IH PRN (19:25)
[2019-04-08 19:45] VITALS: BP 89/59
--- NOTE | 2019-04-08 20:00 | NUR ---
VITAL SIGNS TAKEN AND TOLERATED WELL. NO S/S OF RESPIRATORY DISTRESS OR DISCOMFORT NOTED AT THIS TIME. WILL CONTINUE TO MONITOR.
--- NOTE | 2019-04-08 21:12 | NUR ---
SCHEDULED MEDICATIONS GIVEN AND TOLERATED WELL. NO S/S OF RESPIRATORY DISTRESS OR DISCOMFORT NOTED AT THIS TIME. WILL CONTINUE TO MONITOR.
--- NOTE | 2019-04-08 22:00 | NUR ---
PT SLEEPING IN BED. NO S/S OF RESPIRATORY DISTRESS OR DISCOMFORT NOTED AT THIS TIME. WILL CONTINUE TO MONITOR.
[2019-04-09] VITALS: BP 113/48
--- NOTE | 2019-04-09 | NUR ---
VITAL SIGNS TAKEN AND TOLERATED WELL. NO S/S OF RESPIRATORY DISTRESS OR DISCOMFORT NOTED AT THIS TIME. WILL CONTINUE TO MONITOR.
--- NOTE | 2019-04-09 00:35 | NUR ---
NEW G-TUBE FEEDING SET UP. PT TOLERATING WELL. NO S/S OF RESPIRATORY DISTRESS OR DISCOMFORT NOTED AT THIS TIME. WILL CONTINUE TO MONITOR.
[2019-04-09] MEDS: Z-GUARD PASTE TP SCH ×2 (01:04→13:29)
--- NOTE | 2019-04-09 02:00 | NUR ---
PT CONTINUES TO SLEEP IN BED. NO S/S OF RESPIRATORY DISTRESS OR DISCOMFORT NOTED AT THIS TIME. WILL CONTINUE TO MONITOR.
[2019-04-09 04:00] VITALS: BP 101/43
--- NOTE | 2019-04-09 04:00 | NUR ---
VITAL SIGNS TAKEN AND TOLERATED WELL. NO S/S OF RESPIRATORY DISTRESS OR DISCOMFORT NOTED AT THIS TIME. WILL CONTINUE TO MONITOR.
[2019-04-09] MEDS: PIPER/TAZO 3.375GM/D5W PREMIX 50 ML IV SCH ×3 (04:24→19:55)
--- NOTE | 2019-04-09 04:24 | NUR ---
SCHEDULED MEDICATION ZOSYN GIVEN AND TOLERATED WELL. NO S/S OF RESPIRATORY DISTRESS OR DISCOMFORT NOTED AT THIS TIME. WILL CONTINUE TO MONITOR.
--- NOTE | 2019-04-09 06:00 | NUR ---
PT SLEEPING IN BED. NO S/S OF RESPIRATORY DISTRESS OR DISCOMFORT NOTED AT THIS TIME. WILL CONTINUE TO MONITOR.
[2019-04-09] MEDS: LEVOTHYROXINE 0.025 MG TAB PO SCH (06:10)
--- NOTE | 2019-04-09 06:10 | NUR ---
SCHEDULED MEDICATION SYNTHROID GIVEN AND TOLERATED WELL. NO S/S OF RESPIRATORY DISTRESS OR DISCOMFORT NOTED AT THIS TIME. WILL CONTINUE TO MONITOR.
[2019-04-09 07:38] LABS: BASOPHILS % (AUTO) 0.2 % (0.0-2.0); EOSINOPHILS # (AUTO) 0.4 K/uL (0-0.4); EOSINOPHILS % (AUTO) 3.2 % (0.0-4.0); HEMATOCRIT 32.8 % (36-48); HEMOGLOBIN 10.6 g/dL (12.0-16.0); LYMPHOCYTES # (AUTO) 1.2 K/uL (2.5-16.5); LYMPHOCYTES % (AUTO) 10.6 % (20.5-51.1); MEAN CORPUSCULAR HEMOGLOBIN 28 pg (27-31); MEAN CORPUSCULAR HGB CONC 32 g/dL (33-37); MEAN CORPUSCULAR VOLUME 87.2 fL (80-94); MONOCYTES # (AUTO) 0.8 K/uL (0.8-1.0); MONOCYTES % (AUTO) 7.5 % (1.7-9.3); NEUTROPHILS # (AUTO) 8.6 K/uL (1.8-7.7); NEUTROPHILS % (AUTO) 78.5 % (42.2-75.2); PLATELET COUNT (AUTO) 533 K/uL (140-450); RED BLOOD CELL COUNT(AUTO) 3.77 MIL/uL (4.20-5.40)
[2019-04-09 08:00] VITALS: BP 154/64
--- NOTE | 2019-04-09 08:08 | NUR ---
RECEIVED HAND OFF REPORT FROM ELECTRONIC SCIENCE TEACHER NURSE PT IS STABLE AND IN NO APPARENT DISTRESS. ALL SAFETY MEASURES ARE IN PLACE. WILL CONTINUE TO MONITOR
[2019-04-09] MEDS: AMIODARONE 200 MG TAB PO SCH (08:50)
[2019-04-09] MEDS: LISINOPRIL 5 MG TAB PO SCH (08:50)
[2019-04-09] MEDS: FAMOTIDINE 20 MG/2 ML VIAL IV SCH (08:50)
[2019-04-09] MEDS: MEMANTINE 10 MG TAB PO SCH ×2 (08:50→19:55)
[2019-04-09] MEDS: ENOXAPARIN 30 MG/0.3 ML SYR SUBQ SCH (08:56)
[2019-04-09] MEDS: DOCUSATE 100 MG/10 ML UDC GT SCH ×2 (08:57→19:55)
[2019-04-09] MEDS: CHLORHEXADINE GLUC 2% CLOTH TP SCH (08:58)
--- NOTE | 2019-04-09 10:06 | NUR ---
FREQUENT ROUNDING ON PATIENT PT IS STABLE AND IN NO APPARENT DISTRESS. IV FLUID IS INFUSING IV SITE IS PATENT. ALL SAFETY MEASURES ARE IN PLACE. WILL CONTINUE TO MONITOR.
[2019-04-09 12:00] VITALS: BP 137/64
--- NOTE | 2019-04-09 12:35 | NUR ---
PT HAD A BOWEL MOVEMENT. CHANGED PT LINENS REPOSITIONED PT PROVIDED ORAL CARE. GTUBE FEEDING RUNNING HEAD OF THE BED ELEVATED ABOVE 30 DEGREES. ALL SAFETY MEASURES ARE IN PLACE WILL CONTINUE TO MONITOR.
--- NOTE | 2019-04-09 13:36 | NUR ---
PT SUCTIONED OBTAINED SMALL AMOUNT OF THICK PALE YELLOW SECRETIONS, AIRWAY IS PATENT AND TRACH IS SECURE. PT NOT IN ANY DISTRESS AT THIS TIME. WILL CONTINUE TO MONITOR.
--- NOTE | 2019-04-09 13:53 | NUR ---
PT PLACED ON SBT CPAP 5 PS 10 FIO2 24%. NURSE BEDSIDE AND MADE AWARE. VENT ALARMS SET FOR PT SAFETY. BACKUP MODE WILL BE INITIATED IF ALARMS OUT OF SET PARAMETERS. WILL CONTINUE TO MONITOR.
--- NOTE | 2019-04-09 14:35 | NUR ---
FREQUENT ROUNDING ON PT PT IS STABLE IN BED. FLACC 0. NO SIGNS OF DISTRESS, ALL SAFETY MEASURES ARE IN PLACE WILL CONTINUE TO MONITOR.
--- NOTE | 2019-04-09 15:26 | NUR ---
PT REMAINS ON SBT CPAP 5 PS 10, FIO2 24% TOLERATING WELL AT THIS TIME. PT IS NOT IN ANY DISTRESS. WILL CONTINUE TO MONITOR.
[2019-04-09 16:00] VITALS: BP 147/70
--- NOTE | 2019-04-09 17:25 | NUR ---
PT RETURNED TO AC/VC 14, VT 450, PEEP 5 AND FIO2 24%. PT NOT IN ANY DISTRESS AT THIS TIME. VENT ALARMS REMAIN ON AND FUNCTIONING. TRACH REMAINS SECURE WITH A PATENT AIRWAY.
--- NOTE | 2019-04-09 18:14 | NUR ---
FREQUENT ROUNDING ON PT PT IS STABLE AND IN NO APPARENT DISTRESS ALL SAFETY MEASURES ARE IN PLACE WILL CONTINUE TO MONITOR. GTUBE IS ON AT 50/HR. HEAD OF THE BED ELEVATED ABOVE [address] O2 MONITORING O2 SATURATION. ALL SAFETY MEASURES ARE IN PLACE. WILL CONTINUE TO MONITOR.
--- NOTE | 2019-04-09 19:16 | NUR ---
ENDORSED PT TO PM RN. PT IS STABLE AND IN NO APPARENT DISTRESS. ALL SAFETY MEASURES ARE IN PLACE. GTUBE FEEDING RUNNING IV PATENT WITH NO SIGNS OF INFILTRATION OR INFLAMMATION. VENT RUNNING PLUGGED INTO RED OUTLET. ALL SAFETY MEASURES ARE IN PLACE.
--- NOTE | 2019-04-09 19:30 | NUR ---
RECEIVED BEDSIDE REPORT FROM DAY SHIFT RN, PATIENT ON AC, FIO2 24%, VT 450, RR 14, PEEP 5, FLOW 40, HOB AT 45 DEGREES, NO SIGNS OF RESPIRATORY DISTRESS, IV IN RIGHT WRIST 24 G TKO, G-TUBE IN PLACE INFUSING VITAL AF 1.2 AT 50 ML/HR WITH WATER FLUSH 200 ML/HR Q6H, NOTED UPPER EXTREMITY EDEMA, 1+ PITTING, CHAUDHARI CATH IN PLACE, HEEL PROTECTORS ON, SKIN INTACT, UPPER EXTREMITY CONTRACTURES, PILLOWS PLACED FOR COMFORT. BED ALARM ON, V/S STABLE, FLACC-0.
--- NOTE | 2019-04-09 19:55 | NUR ---
DUE ZOSYN AND NAMENDA GIVEN, RESIDUALS AT 0 ML. HELD COLACE DUE TO DAY SHIFT NURSE REPORTING DIARRHEA. CHANGED G-TUBE DRESSING AND APPLIED NEW ONE WITH TAPE TO SECURE IN PLACE. NO RESPIRATORY DISTRESS NOTED AT THIS TIME.
[2019-04-09 20:00] VITALS: BP 150/54
--- NOTE | 2019-04-09 20:00 | NUR ---
PATIENT WAS REPOSITIONED FOR COMFORT, WILL CONTINUE TO MONITOR
--- NOTE | 2019-04-09 22:00 | NUR ---
CHANGED PATIENT, REPOSITIONED FOR COMFORT, WILL CONTINUE TO MONITOR
[2019-04-10] VITALS: BP 148/66
--- NOTE | 2019-04-10 | NUR ---
V/S WITHIN BASELINE, FLACC-0, SUCTIONED PATIENT X 2, GREEN THICK SECRETIONS NOTED
--- NOTE | 2019-04-10 01:00 | NUR ---
Z GUARD APPLIED TO PERINEAL AND BUTTOCKS, SKIN INTACT
[2019-04-10] MEDS: Z-GUARD PASTE TP SCH ×2 (01:15→14:00)
--- NOTE | 2019-04-10 02:00 | NUR ---
CHANGED TUBE FEEDING AND IV TUBING. PROVIDED ORAL CARE AND APPLIED MOUTH MOISTURIZER. SUCTIONED PATIENT ORALLY AND THROUGH TRACH, SLIGHT GREENISH FOAMY SECTIONS NOTED
[2019-04-10 04:00] VITALS: BP 125/55
--- NOTE | 2019-04-10 04:00 | NUR ---
SCD APPLIED, V/S WITHIN BASELINE, WILL CONTINUE TO MONITOR
[2019-04-10] MEDS: PIPER/TAZO 3.375GM/D5W PREMIX 50 ML IV SCH ×2 (05:31→13:59)
[2019-04-10] MEDS: LEVOTHYROXINE 0.025 MG TAB PO SCH (05:31)
--- NOTE | 2019-04-10 05:37 | NUR ---
DUE ZOSYN AND SYNTHROID GIVEN
--- NOTE | 2019-04-10 05:38 | NUR ---
RESIDUALS AT 10 ML
--- NOTE | 2019-04-10 07:25 | NUR ---
ENDORSED PATIENT TO DAY SHIFT NURSE SILVIO CHEEMA STABLE
--- NOTE | 2019-04-10 07:27 | NUR ---
RECEIVED BEDSIDE REPORT FROM SOURCER RN SUMMER FOR CONTINUITY OF CARE. PT IN STABLE CONDITION. APHASIC. EYES OPEN TO TOUCH. FLACC 0. NO S/S DISTRESS. RESPIRATIONS EVEN AND UNLABORED. HEART RHYTHM REGULAR. ACTIVE BS IN ALL QUADRANTS. ABDOMEN SOFT AND NON-DISTENDED. SKIN INTACT WITH SACRAL REDNESS. PT IS BEDBOUND AND INCONTINENT. CHAUDHARI CATH IN PLACE, DRAINING URINE. CONTINUOUS G-TUBE FEEDINGS, GASTRIC RESIDUAL LESS THAN 5 ML AT THIS TIME. TRACH TO VENT. FIO2 24%, VT 450ML, RATE 14/MIN, FLOW 40L/MIN, PEEP 5. IV SITE PATENT AND ASYMPTOMATIC, INFUSING IVF PER MD ORDERS. ALL SAFETY PRECAUTIONS IN PLACE, WILL CONTINUE TO MONITOR. Addendum: 04/10/19 at 1443 by Lizzie Jenkins Meng RN PER SOURCER RN, PATIENT HAS BEEN HAVING DIARRHEA AND THE IS AWARE.
--- NOTE | 2019-04-10 07:52 | NUR ---
RECEIVED TRACH PT WITH A PORTEX 8 TRACH ON VENT. SETTINGS :AC/VC 14, VT 450, PEEP 5 AND FIO2 24%. PT IS ASLEEP NOT IN ANY DISTRESS AT THIS TIME. AIRWAY IS SECURE AND PATENT. BS CLEAR BILATERALLY UPON AUSCULTATION. VENT IS PLUGGED INTO A RED OUTLET WITH ALARMS ON AND FUNCTIONING. WILL CONTINUE TO MONITOR.
[2019-04-10 08:00] VITALS: BP 137/53
[2019-04-10] MEDS: LISINOPRIL 5 MG TAB PO SCH (08:28)
[2019-04-10] MEDS: AMIODARONE 200 MG TAB PO SCH (08:30)
[2019-04-10] MEDS: MEMANTINE 10 MG TAB PO SCH (08:30)
--- NOTE | 2019-04-10 08:32 | NUR ---
SCHEDULED MEDICATIONS ADMINISTERED. PT IN STABLE CONDITION, NO S/S DISTRESS. EYES OPENED SPONTANEOUSLY.
[2019-04-10] MEDS: ENOXAPARIN 30 MG/0.3 ML SYR SUBQ SCH (08:33)
[2019-04-10] MEDS: CHLORHEXADINE GLUC 2% CLOTH TP SCH (08:34)
[2019-04-10] MEDS: FAMOTIDINE 20 MG/2 ML VIAL IV SCH (08:36)
[2019-04-10] MEDS: DOCUSATE 100 MG/10 ML UDC GT SCH (08:37)
--- NOTE | 2019-04-10 10:05 | NUR ---
PT SUCTIONED OBTAINED SMALL AMOUNT OF THICK WHITE SECRETIONS, AIRWAY IS PATENT AND TRACH IS SECURE. PT RESPONDS TO SUCTIONING WITH ACTIVE GAG REFLEX. NOT ABLE TO FOLLOW COMMANDS. PT NOT IN ANY DISTRESS. WILL CONTINUE TO MONITOR.
[2019-04-10] MEDS ORDERED: PIPE1PDS26 IV (11:49)
[2019-04-10] MEDS ORDERED: LACT-2 (11:58)
[2019-04-10 12:00] VITALS: BP 130/46
--- NOTE | 2019-04-10 13:52 | NUR ---
VENT CHECK COMPLETED. PT ASLEEP AT THIS TIME NOT IN ANY DISTRESS. WILL CONTINUE TO MONITOR.
--- NOTE | 2019-04-10 14:02 | NUR ---
PATIENT RESTING IN BED, NO S/S DISTRESS. RESPIRATIONS EVEN AND UNLABORED.
--- NOTE | 2019-04-10 15:48 | NUR ---
FOLLOW UP EXECUTIVE DIRECTOR OF NURSING TO STEPHY SOLORIO AND SPOKE TO CONNOR , NOTIFY HER REGARDING ISOLATION ESBL AND MDRO URINE SHE SAID SHE CAN GO TO THE SAME ROOM 122.
[2019-04-10 16:00] VITALS: BP 125/63
--- NOTE | 2019-04-10 16:11 | NUR ---
[facility] CALLED WITH NEW TIME OF PICKUP- 1900.
--- NOTE | 2019-04-10 16:15 | NUR ---
04/10/19 RD FOLLOW UP COMPLETED PLEASE REFER TO NUTRITION PROGRESS NOTE UNDER CARE ACTIVITY FOR ESTIMATED NUTRITION NEEDS. RD RECOMMENDATIONS: 1. CONTINUE VITAL 1.2 AT 50 ML/HR -THIS WILL PROVIDE 1200 ML OF VOLUME, 1440 KCAL, AND 90 GM OF PROTEIN. IT MEETS 97% OF PT�S ESTIMATED ENERGY AND 100% PROTEIN NEEDS. 2. RD TO FOLLOW-UP 3-5 DAYS, MODERATE RISK BELEM CHURCHILL MBA, RD
--- NOTE | 2019-04-10 17:11 | NUR ---
ATTEMPTED TO NOTIFY SON JEFF BENAVIDES ([phone]) ABOUT PLANS TO TRANSFER PATIENT TO [facility]. VOICE MAILBOX IS FULL. WILL ATTEMPT AGAIN LATER.
--- NOTE | 2019-04-10 17:58 | NUR ---
PT REMAINS ON DOCUMENTED VENT SETTINGS . PT IS NOT IN ANY DISTRESS AT THIS TIME. TRACH REMAINS SECURE WITH A PATENT AIRWAY. VENT ALARMS ON AND FUNCTIONING.
--- NOTE | 2019-04-10 18:13 | NUR ---
REPORT GIVEN TO SHIV TOMPKINS AT [facility].
--- NOTE | 2019-04-10 19:04 | NUR ---
CHAUDHARI CATH REMOVED. TIP INTACT. [facility] HERE TO DIRECTOR [facility] RETAIL TRANSFER TO TRANSFER TO [place]. PT IN STABLE CONDITION.
--- NOTE | 2019-04-10 19:07 | NUR ---
PT LEFT MST WITH [facility] STAFF.
== END 2019-04-10 19:08 | DRG 4 ==
LOC: MED 11:17 → MTU 13:24 → MIC 18:38 → MTU 04-04 17:38
PROVIDERS: ADMIT General Practice; ATTEND General Practice
PROC: 0BH17EZ Insertion of Endotracheal Airway into Trachea, Via Natural or Artificial Opening (ICD-10-PCS; principal; 2019-03-22)
PROC: 5A1955Z Respiratory Ventilation, Greater than 96 Consecutive Hours (ICD-10-PCS; 2019-03-22)
PROC: 05HM33Z Insertion of Infusion Device into Right Internal Jugular Vein, Percutaneous Approach (ICD-10-PCS; 2019-03-23)
PROC: B543ZZA Ultrasonography of Right Jugular Veins, Guidance (ICD-10-PCS; 2019-03-23)
PROC: 0B110F4 Bypass Trachea to Cutaneous with Tracheostomy Device, Open Approach (ICD-10-PCS; 2019-03-31)
PROC: 3E0G76Z Introduction of Nutritional Substance into Upper GI, Via Natural or Artificial Opening (ICD-10-PCS; 2019-03-31)
PROC: 0DB68ZZ Excision of Stomach, Via Natural or Artificial Opening Endoscopic (ICD-10-PCS; 2019-03-31)
PROC: 0DH63UZ Insertion of Feeding Device into Stomach, Percutaneous Approach (ICD-10-PCS; 2019-03-31)
DX: A41.9 Sepsis, unspecified organism (principal); G93.41 Metabolic encephalopathy; J96.21 Acute and chronic respiratory failure with hypoxia; B37.1 Pulmonary candidiasis; J69.0 Pneumonitis due to inhalation of food and vomit; I50.43 Acute on chronic combined systolic (congestive) and diastolic (congestive) heart failure; N17.0 Acute kidney failure with tubular necrosis; N39.0 Urinary tract infection, site not specified; E87.0 Hyperosmolality and hypernatremia; I42.9 Cardiomyopathy, unspecified; I13.0 Hypertensive heart and chronic kidney disease with heart failure and stage 1 through stage 4 chronic kidney disease, or unspecified chronic kidney disease; I48.91 Unspecified atrial fibrillation; E11.22 Type 2 diabetes mellitus with diabetic chronic kidney disease; G20 Parkinson's disease; R13.10 Dysphagia, unspecified; R65.20 Severe sepsis without septic shock; G30.9 Alzheimer's disease, unspecified; N18.3 Chronic kidney disease, stage 3 (moderate); G30.1 Alzheimer's disease with late onset; J44.9 Chronic obstructive pulmonary disease, unspecified; I48.2 Chronic atrial fibrillation; F02.80 Dementia in other diseases classified elsewhere, unspecified severity, without behavioral disturbance, psychotic disturbance, mood disturbance, and anxiety; E03.9 Hypothyroidism, unspecified; R47.02 Dysphasia; I25.10 Atherosclerotic heart disease of native coronary artery without angina pectoris; E78.5 Hyperlipidemia, unspecified; R74.0 Nonspecific elevation of levels of transaminase and lactic acid dehydrogenase [LDH]; B37.9 Candidiasis, unspecified; K59.00 Constipation, unspecified; E87.6 Hypokalemia; K29.70 Gastritis, unspecified, without bleeding; B96.20 Unspecified Escherichia coli [E. coli] as the cause of diseases classified elsewhere; Z91.018 Allergy to other foods; Z87.891 Personal history of nicotine dependence; Z86.718 Personal history of other venous thrombosis and embolism; I25.2 Old myocardial infarction; E87.8 Other disorders of electrolyte and fluid balance, not elsewhere classified
CPT/HCPCS: 31500; 36415; 36600; 51702; 71045; 74018; 80048; 80053; 81001; 82150; 82803; 83036; 83605; 83690; 83735; 83880; 84100; 84436; 84439; 84443; 84479; 84484; 85025; 85610; 85730; 87040; 87070; 87081; 87086; 87186; 87205; 88305; 88312; 88313; 89220; 93005; 94003; 94640; 96361; 96365; 99291; J0282; J1450; J1642; J1650; J1940; J1956; J2001; J2185; J2250; J2270; J2405; J2543; J2997; J3010; J3480; J3490; J7030; J7060; J7620; Q0092

== ENCOUNTER 2021-01-07 11:55 | Inpatient (IN) | payer OTHER, MEDICAID, SELFPAY ==
[~2021-01-07] VITALS: Ht 165.1 cm; Wt 68.0 kg
[2021-01-07 11:50] VITALS: BP 130/60
--- NOTE | 2021-01-07 11:50 | NUR ---
PT BIBIA FOR HIGH WBC PLACED ON CARESCAPE VENT SETTINGS AC 14 VT450 ITIME 0.91 PEEP 5 FIO2 40% ALARMS ON AND AUDIBLE AND VENT IS PLUGGED INTO RED OUTLET, BVM AT HOB B\S ARE DIMINISHED BILATERALLY, AND PT IS TRACH WITH PORTEX 8 AND PT IS RESTING WILL CONTINUE TO MONITOR
[~2021-01-07 11:55] MED LIST changes: -AMIO200T5 PO; +AMIO200T70 PO; +LACT-2; +PIPE1PDS26 IV
--- NOTE | 2021-01-07 11:55 | NUR ---
Patient BIBA CCT from [facility], transferred to bed 8. RN and RT are evaluating the patient at bedside.
--- NOTE | 2021-01-07 11:55 | NUR ---
85 y/o F BERRY from [facility] c/o elevated WBC. Per EMS, patient transported to ER for evaluation of WBC 17.4. Pt presents with G-tube, diaper, and trach to vent. RT at bedside at time of arrival for respiratory care. Patient placed onto supplier quality. Bed locked in lowest position, side rails x 1, call light in reach. ERMD made aware of patient condition. PMH: respiratory failure, htn, afib, hypothyroid, chf Meds: Chart Allergies: Chocolate
[2021-01-07 11:56] VITALS: BP 130/60
--- NOTE | 2021-01-07 12:00 | NUR ---
Blood cultures/sample collected, handed to dolores Alas tech in ER bedside.
[2021-01-07] MEDS ORDERED: cefTRIAXone 1,000 MG in DEXT 5% MINI-BAG PLUS 50 ML IV ONE (12:05)
[2021-01-07] MEDS ORDERED: NACL 0.9% 1,000 ML IV SCH (12:05)
[2021-01-07] MEDS ORDERED: MEMA10TA GT (12:09)
[2021-01-07] MEDS ORDERED: DOCU-299 GT (12:09)
[2021-01-07] MEDS ORDERED: MULT-2253 GT (12:09)
[2021-01-07] MEDS ORDERED: SYN.05 GT (12:09)
[2021-01-07] MEDS ORDERED: LOV40I SUBQ (12:09)
[2021-01-07] MEDS ORDERED: TRAM50TA1 GT (12:09)
[2021-01-07] MEDS ORDERED: AMIO200T66 GT (12:09)
--- NOTE | 2021-01-07 12:14 | NUR ---
Xray at bedside
--- NOTE | 2021-01-07 12:15 | NUR ---
Lab at bedside
[2021-01-07] MEDS ORDERED: cefTRIAXone 1,000 MG VIAL ONE (12:21)
[2021-01-07 12:23] LABS: BASOPHILS % (AUTO) 0.2 % (0.0-2.0); EOSINOPHILS # (AUTO) 0.6 K/uL (0-0.4); EOSINOPHILS % (AUTO) 3.8 % (0.0-4.0); HEMATOCRIT 31.6 % (36-48); HEMOGLOBIN 10.2 g/dL (12.0-16.0); LYMPHOCYTES # (AUTO) 1.8 K/uL (2.5-16.5); LYMPHOCYTES % (AUTO) 11.1 % (20.5-51.1); MEAN CORPUSCULAR HEMOGLOBIN 30 pg (27-31); MEAN CORPUSCULAR HGB CONC 32 g/dL (33-37); MEAN CORPUSCULAR VOLUME 92.7 fL (80-94); MONOCYTES # (AUTO) 1.2 K/uL (0.8-1.0); MONOCYTES % (AUTO) 7.8 % (1.7-9.3); NEUTROPHILS # (AUTO) 12.2 K/uL (1.8-7.7); NEUTROPHILS % (AUTO) 77.1 % (42.2-75.2); PLATELET COUNT (AUTO) 368 K/uL (140-450); RED BLOOD CELL COUNT(AUTO) 3.41 MIL/uL (4.20-5.40); RED CELL DISTRIBUTION WIDTH 14.4 % (11.6-13.7); WHITE BLOOD COUNT (AUTO) 15.9 K/uL (4.8-10.8)
--- NOTE | 2021-01-07 12:25 | NUR ---
Patient resting in semi-fowlers in position of comfort. library monitor remains in place. Patient SpO2 100% on ventilator, RR 15. No distress noted at this time. Bed locked in lowest position, side rails x 2 for patient safety.
--- NOTE | 2021-01-07 12:33 | NUR ---
Fany alvarez collected, walked to lab, handed to German veterinarian laboratory animal care.
--- NOTE | 2021-01-07 13:00 | NUR ---
# 14 FR Straight catheter utilizing sterile technique. Immediate return of 95 ml clear/yellow urine noted. Pt tolerated procedure well.
[2021-01-07 13:05] VITALS: BP 144/108
--- NOTE | 2021-01-07 13:05 | NUR ---
Urine sample collected via straight catheter, walked to lab, handed to dolores Alas tech.
--- NOTE | 2021-01-07 13:10 | NUR ---
Patient cleaned and new diaper applied after straight catheter procedure.
[2021-01-07 13:14] LABS: BILIRUBIN,URINE NEGATIVE (NEGATIVE); BLOOD, URINE 3+ (NEGATIVE); COLOR,URINE YELLOW (YELLOW); LEUKOCYTE ESTERASE ,URINE 1+ (NEGATIVE); NITRITE, URINE POSITIVE (NEGATIVE); UGLUCOSE NEGATIVE (NEGATIVE)
--- NOTE | 2021-01-07 13:15 | NUR ---
Patient resting in high-fowlers with mechanical venilator in place. teletypesetter monitor remains in place. Patient SpO2 100% on ventilator, RR 14. No distress noted at this time. Bed locked in lowest position, side rails x 2 for patient safety.
[2021-01-07 13:16] LABS: ANION GAP 10.8 (8-16); ASPARTATE AMINOTRANSFERASE 18 U/L (15-37); CARBON DIOXIDE 29.3 mmol/L (21-32); CHLORIDE 104 mmol/L (98-107); CREATININE 0.9 mg/dL (0.6-1.3); GLUCOSE 93 mg/dL (74-106); POTASSIUM 4.1 mmol/L (3.5-5.1); SODIUM SERUM 140 mmol/L (136-145); TOTAL BILIRUBIN 0.3 mg/dL (0.0-1.0); UREA NITROGEN, BLOOD 32 mg/dL (7-18)
[2021-01-07 13:18] LABS: RBC,URINE 11-20 (MOD) /HPF (0-5)
[2021-01-07 13:21] LABS: APPEARANCE,URINE HAZY (CLEAR)
[2021-01-07] MEDS ORDERED: LORazepam 2 MG/ML VIAL IM/IVP PRN (13:45)
[2021-01-07] MEDS ORDERED: HYDROcodone/APAP 5/325 MG 1 TAB TAB PO PRN (13:45)
[2021-01-07] MEDS ORDERED: MORPHINE SULFATE 2 MG/ML SYR IVP PRN (13:45)
[2021-01-07] MEDS ORDERED: MAG SULF 2000 MG/WATER PREMIX 50 ML IV PRN (13:45)
[2021-01-07] MEDS ORDERED: DOCUSATE SODIUM 100 MG GELCAP PO PRN (13:45)
[2021-01-07] MEDS ORDERED: POTASSIUM CHLORIDE 10 MEQ TABER PO PRN (13:45)
[2021-01-07] MEDS ORDERED: ACETAMINOPHEN 325 MG TAB PO PRN (13:45)
[2021-01-07] MEDS ORDERED: ONDANSETRON 4 MG/2 ML VIAL IM/IVP PRN (13:45)
[2021-01-07] MEDS ORDERED: ALBUTEROL SULFATE/IPRATROPIU 3 ML SOL IH PRN (14:00)
--- NOTE | 2021-01-07 14:06 | NUR ---
Patient resting in high-fowlers with mechanical venilator in place. threat monitoring analyst remains in place. Patient SpO2 100% on ventilator, RR 14. No distress noted at this time. Bed locked in lowest position, side rails x 2 for patient safety.
[2021-01-07 14:10] LABS: PROTHROMBIN TIME 10.5 secs (10.8-13.4)
[2021-01-07] MEDS: NACL 0.9% 1,000 ML IV SCH (14:22)
[2021-01-07 14:26] LABS: MAGNESIUM 2.5 mg/dL (1.8-2.4); PHOSPHORUS 4.1 mg/dL (2.5-4.9); THYROID STIMULATING HORMONE 1.7 uIU/mL (0.34-3.74)
--- NOTE | 2021-01-07 15:30 | NUR ---
Patient sitting in high-fowlers position. quality assurance monitor final remains in place. SpO2 100% on ventilator. Respirations 15. Bed locked in lowest position, side rails x 2 for patient safety.
--- NOTE | 2021-01-07 16:15 | NUR ---
Patient is sitting with both eyes closed in high-fowlers position. human resources services specialist remains in place. SpO2 100% on ventilator. Respirations 16. Respirations even/unlabored. Bed locked in lowest position, side rails x 2 for patient safety.
--- NOTE | 2021-01-07 16:20 | NUR ---
Report given via telephone to Cristino, advised of 10 minute ETA for RT and EMT.
--- NOTE | 2021-01-07 16:24 | NUR ---
Mercedes from RT notified of patient transport. RT advised she will be over right now.
[2021-01-07 16:35] VITALS: BP 100/46
--- NOTE | 2021-01-07 16:35 | NUR ---
RECEIVED REPORT FROM ER NURSE FOR CONTINUITY OF CARE. PATIENT WAS TRANSFERRED TO THE FLOOR BY NOHEMI LIZARRAGA TO VENT. FIO2 40%. O2 100%. AAOX0. NOT ABLE TO MAKE NEEDS KNOWN. IV TO RIGHT WRIST 22G. ABDOMEN DISTENDED. G TUBE IN PLACE, DRESSING SOILED WILL CHANGE. INCONTINENT. CONTACT ISOLATION WITH HISTORY OF ESBL IN URINE. SIGN POSTED. MRSA SWAB COLLECTED, SAFETY MEASURES IN PLACE, WILL CONTINUE TO MONITOR.
--- NOTE | 2021-01-07 16:40 | NUR ---
Patient will be admitted to care of Dr. Oshea. Admited to Telemetry. Will go to room 125-B. Belongings list completed. Report to SHIV Gregg.
--- NOTE | 2021-01-07 17:00 | NUR ---
TRANSFERRED PT TO TELE WITH NO ISSUES, VENT PLUGGED INTO RED OUTLET, BVM AT BEDSIDE, AND ALARMS ON AND AUDIBLE. WILL CONTINUE TO MONITOR.
[2021-01-07] MEDS: metroNIDAZOLE 500 MG TAB PO SCH (17:24)
--- NOTE | 2021-01-07 17:24 | NUR ---
FLAGYL GIVEN VIA G TUBE. G TUBE SITE DRESSING CHANGED. PATIENT TOLERATED WELL, O2 SAT 100%. HR 70, WILL CONTINUE TO MONITOR.
[2021-01-07] MEDS: ALBUTEROL SULFATE/IPRATROPIU 3 ML SOL IH SCH (19:00)
--- NOTE | 2021-01-07 19:35 | NUR ---
ENDORSED PATIENT TO CHEMICAL EDUCATOR RN FOR CONTINUITY OF CARE, PATIENT IN STABLE CONDITION.
[2021-01-07] MEDS ORDERED: MEMANTINE 10 MG TAB PO SCH (21:00)
[2021-01-07] MEDS ORDERED: DOCUSATE SODIUM 100 MG GELCAP PO SCH (21:00)
[2021-01-07] MEDS ORDERED: NON-FORMULARY ITEM (Lactobacillus Acidophilus (Acidophilus) 1 EACH) PO SCH (21:00)
[2021-01-07] MEDS: MEMANTINE 10 MG TAB GT SCH (21:19)
[2021-01-07] MEDS: DOCUSATE SODIUM 100 MG GELCAP PO SCH (21:20)
[2021-01-07] MEDS: ZOLPIDEM 5 MG TAB PO PRN (21:22)
--- NOTE | 2021-01-07 23:05 | NUR ---
i received pt in bed awke , non verbal ON VENT SETTINGS PER MD ORDERS ,VSS , SR . ON IV FLUIDS SITE INTACT, PT EEMS COMFORTABLE , POSITION CHANGED
--- NOTE | 2021-01-07 23:49 | NUR ---
AT 2221 REASSESSED PT FOR EFFECT OF A SLEEPING PILL , SHE WAS SLEEPING SOUNDLY
[2021-01-08] VITALS (10 sets, daily range): BP systolic 116–145; BP diastolic 39–80
--- NOTE | 2021-01-08 00:49 | NUR ---
PT WAS TRANSFFERED TO RM 23B , SHE IS SLEEEEEEEPING WELL
--- NOTE | 2021-01-08 04:38 | NUR ---
PT SLEPT WELL , POSITION WAS CHANGED DEVENDRA 2HR , VSS, NO SIGN OF JACKSON , SR
[2021-01-08 05:46] LABS: BASOPHILS % (AUTO) 0.3 % (0.0-2.0); EOSINOPHILS # (AUTO) 0.6 K/uL (0-0.4); EOSINOPHILS % (AUTO) 4.3 % (0.0-4.0); HEMATOCRIT 27.9 % (36-48); HEMOGLOBIN 9.1 g/dL (12.0-16.0); LYMPHOCYTES # (AUTO) 1.6 K/uL (2.5-16.5); LYMPHOCYTES % (AUTO) 11.5 % (20.5-51.1); MEAN CORPUSCULAR HEMOGLOBIN 30 pg (27-31); MEAN CORPUSCULAR HGB CONC 33 g/dL (33-37); MEAN CORPUSCULAR VOLUME 92.6 fL (80-94); MONOCYTES # (AUTO) 0.9 K/uL (0.8-1.0); MONOCYTES % (AUTO) 6.8 % (1.7-9.3); NEUTROPHILS # (AUTO) 10.7 K/uL (1.8-7.7); NEUTROPHILS % (AUTO) 77.1 % (42.2-75.2); PLATELET COUNT (AUTO) 292 K/uL (140-450); RED BLOOD CELL COUNT(AUTO) 3.01 MIL/uL (4.20-5.40); RED CELL DISTRIBUTION WIDTH 14.3 % (11.6-13.7); WHITE BLOOD COUNT (AUTO) 13.9 K/uL (4.8-10.8)
[2021-01-08 06:08] LABS: ANION GAP 11.7 (8-16); CARBON DIOXIDE 27.4 mmol/L (21-32); CHLORIDE 108 mmol/L (98-107); CREATININE 0.8 mg/dL (0.6-1.3); GLUCOSE 108 mg/dL (74-106); POTASSIUM 4.1 mmol/L (3.5-5.1); SODIUM SERUM 143 mmol/L (136-145); UREA NITROGEN, BLOOD 24 mg/dL (7-18)
[2021-01-08] MEDS: NACL 0.9% 1,000 ML IV SCH ×2 (06:25→23:07)
[2021-01-08 06:29] LABS: CHOL/HDL RATIO 3.1 (1-4.5); MAGNESIUM 2.3 mg/dL (1.8-2.4); PHOSPHORUS 3.4 mg/dL (2.5-4.9)
[2021-01-08] MEDS: ALBUTEROL SULFATE/IPRATROPIU 3 ML SOL IH SCH ×3 (07:00→19:55)
--- NOTE | 2021-01-08 07:00 | NUR ---
REC'D PT ON CARESCAPE VENT SETTINGS AC 14 VT450 ITIME 0.91 PEEP 5 FIO2 40% ALARMS ON AND AUDIBLE AND VENT IS PLUGGED INTO RED OUTLET, BVM AT HOB, B\S ARE DIMINISHED BILATERALLY, SXN PT LITTLE CLEAR SECRETIONS, PT IS TRACH WITH PORTEX 8 PT IS SLEEPING WITH NO SIGNS OF DISTRESS NOTED AT THIS TIME WILL CONTINUE TO MONITOR PT
[2021-01-08 07:08] LABS: T4 (THYROXINE) 9.3 ug/dL (4.5-12.0)
--- NOTE | 2021-01-08 07:10 | NUR ---
RECEIVED REPORT FROM NIGHT NURSE DUANE PT IS SLEEPING, NON VERBAL,NOT ALERT, DIMINISHED LUNG SOUNDS, TRACH TO VENT TV 450 FIO2 35 PEEP 5 RR 14, ON TUBE FEEDING NO RESIDUALS, VITAL 1.2 AT 50 CC, WATERFLUSH 100 Q4H, INCONTINENT, SKIN INTACT WITH SACRAL REDNESS, IV INTACT ON RIGHT WRIST.CONTACT PRECAUTION FOR ESBL URINE. SAFETY MEASURES IN PLACE AND CALL LIGHT WITHIN REACH. WILL CONTINUE TO MONITOR.
--- NOTE | 2021-01-08 08:58 | NUR ---
FNS CONSULT FOR GANGA LESS THAN 12 AND REFERRAL FOR TUBE FEEDING AND GANGA LESS THAN 12. PATIENT HAS BEEN SCREENED AND CATEGORIZED HIGH NUTRITION RISK. PATIENT WILL BE SEEN WITHIN 1-2 DAYS OF ADMISSION. 01/08/21-01/09/[address]
[2021-01-08] MEDS ORDERED: NON-FORMULARY ITEM (Multivitamin (Multi-Vitamin Daily) 1 EACH) GT SCH (09:00)
[2021-01-08] MEDS ORDERED: AMIODARONE 200 MG TAB PO SCH (09:00)
--- NOTE | 2021-01-08 09:19 | NUR ---
DC [age] YRS OLD FEMALE PAT[place] [facility] [place] OF [place]. PT HAS A HX OF CHRONIC RESP FAILURE TRACH TO VENT, G-TUBE FEEDING, DEMENTIA, PARKINSON, DVT, A-FIB AND CAD. CXR SHOWED PNEUMONIA, RAPID COVID TEST NEGATIVE. BLOOD URINE AND SPUTUM CULTURE PENDING. STARTED ON IV ABX ROCEPHIN AND FLAGYL AND CONTINUED HOME MEDS. CONSULTED WITH PULMO AND ID. DC PLAN [place] [facility] [place]. CM TO FOLLOW. Addendum: 01/11/21 at 1134 by Nanci Hernandez CM DC [facility] PHYSICIAN: PLAN FOR PATIENT TO DC BACK TO [facility] TODAY. FAXED PACKET WILL FOLLOW UP. Addendum: 01/11/21 at 1317 by Nanci Hernandez CM DC [facility] PHYSICIAN: OBED GLEZ AT [facility] PATIENT CAN RETURN TO ROOM 121-A Addendum: 01/11/21 at 1335 by Nanci Hernandez CM PATTY NICHOLS: ARRANGED TRANSPORTATION WITH [facility] [phone] FOR 3:00 PM. NOTIFIED SHIV RAYGOZA. [facility] [phone] [address] [place] [address] [address] DWOD
[2021-01-08] MEDS: metroNIDAZOLE 500 MG TAB PO SCH ×3 (09:35→17:04)
[2021-01-08] MEDS: LACTOBACILLUS RHAMNOSUS GG 1 EACH CAP PO SCH (09:36)
[2021-01-08] MEDS: AMIODARONE 200 MG TAB GT SCH (09:36)
[2021-01-08] MEDS: MULTIVITAMIN 1 TAB PO SCH (09:36)
[2021-01-08] MEDS: DOCUSATE SODIUM 100 MG GELCAP PO SCH ×2 (09:37→21:40)
[2021-01-08] MEDS: LEVOTHYROXINE 0.025 MG TAB PO SCH (09:39)
[2021-01-08] MEDS: MEMANTINE 10 MG TAB GT SCH ×2 (09:39→21:41)
--- NOTE | 2021-01-08 09:52 | NUR ---
SCHEDULED MEDICATION GIVEN CHECK VITAL SIGNS PRIOR TO MEDICATION BP 116/44 CA 69 NO RESIDUALS AND PT ABLE TO TOLERATE WELL.
--- NOTE | 2021-01-08 11:00 | NUR ---
MADE ROUNDS PATIENT IS SLEEPING NO DISTRESS NOTED.
--- NOTE | 2021-01-08 11:08 | NUR ---
SOCIAL WORK NOTE: SW WAS UNABLE TO MEET PATIENT AT BEDSIDE. SW CONTACTED PATIENT'S SON JEFF BENAVIDES [phone] AND WAS UNABLE TO LEAVE . SW CONTACTED RN WHO STATED THAT NO FAMILY HAS CALLED YET. SW WILL FOLLOW UP TO COMPLETE ASSESSMENT.
--- NOTE | 2021-01-08 13:07 | NUR ---
SCHEDULED MEDICATION GIVEN NO RESIDUALS PT TOLERATING TUBE FEEDING.
--- NOTE | 2021-01-08 14:01 | NUR ---
01/08/21 INITIAL ASSESSMENT COMPLETED PLEASE REFER TO NUTRITION ASSESSMENT UNDER CARE ACTIVITY FOR ESTIMATED NUTRITIONAL NEEDS. 1. CONTINUE VITAL AF 1.2 @ 50 ML/HR -THIS PROVIDES 1440 KCAL AND 90 GM OF PROTEIN, MEETING 100% OF ESTIMATED KCAL AND PROTEIN NEEDS. 2. CONTINUE FREE WATER FLUSH OF [address] TO FOLLOW-UP 2-3 DAYS, HIGH RISK JEREMIAS RAMOS, GINGER
--- NOTE | 2021-01-08 17:27 | NUR ---
MEDICATION DUE GIVEN NO RESIDUALS.
--- NOTE | 2021-01-08 18:40 | NUR ---
ECHOCARDIOGRAM ONGOING PT IS STABLE.
--- NOTE | 2021-01-08 19:32 | NUR ---
ENDORSED TO NIGHT NURSE FOR CONTINUITY OF CARE. PT IS STABLE
--- NOTE | 2021-01-08 19:33 | NUR ---
RECEIVED BEDSIDE ENDORSEMENT FROM AM SHIFT RN. PT IS ON TRACH TO VENT, O2 SAT WNL, ON GT FEEDING, VITAL 1.2 AT 50 ML/HR. IVF INFUSING, CONTRACT PRECAUTION IN PLACE, SAFETY MEASURES IN PLACE, PLAN OF CARE DISCUSSED, CALL LIGHT WITHIN REACH.
--- NOTE | 2021-01-08 21:41 | NUR ---
HOB ELEVATED WHILE FEEDING IS ON, CHECKED GT PLACEMENT VIA AUSCULTATION, IN PLACE, NO RESIDUAL, DUE MEDS GIVEN ORDERED, TOLERATED WELL, PERINEAL CARE DONE, KEPT CLEAN, DRY AND COMFORTABLE, CALL LIGHT WITHIN REACH.
--- NOTE | 2021-01-08 23:08 | NUR ---
IVF FINISHED, HANGED A NEW BAG OF NS 1L AT 60 ML/HR. IV SITE PATENT, O2 SAT 98%, CALL LIGHT WITHIN REACH.
[2021-01-09] VITALS (10 sets, daily range): BP systolic 109–132; BP diastolic 39–59
--- NOTE | 2021-01-09 02:40 | NUR ---
RT CAME IN AND CHECKED PT, SUCTIONED PT WELL, WILL CONTINUE TO MONITOR.
--- NOTE | 2021-01-09 05:00 | NUR ---
RT IS AT BEDSIDE.
[2021-01-09 05:59] LABS: BASOPHILS # (AUTO) 0.1 K/uL (0.00-0.22); BASOPHILS % (AUTO) 0.5 % (0.0-2.0); EOSINOPHILS # (AUTO) 0.5 K/uL (0-0.4); EOSINOPHILS % (AUTO) 3.8 % (0.0-4.0); HEMATOCRIT 28.6 % (36-48); HEMOGLOBIN 9.2 g/dL (12.0-16.0); LYMPHOCYTES # (AUTO) 1.6 K/uL (2.5-16.5); LYMPHOCYTES % (AUTO) 13.3 % (20.5-51.1); MEAN CORPUSCULAR HEMOGLOBIN 30 pg (27-31); MEAN CORPUSCULAR HGB CONC 32 g/dL (33-37); MEAN CORPUSCULAR VOLUME 93.2 fL (80-94); MONOCYTES # (AUTO) 0.9 K/uL (0.8-1.0); MONOCYTES % (AUTO) 7.3 % (1.7-9.3); NEUTROPHILS # (AUTO) 8.9 K/uL (1.8-7.7); NEUTROPHILS % (AUTO) 75.1 % (42.2-75.2); PLATELET COUNT (AUTO) 339 K/uL (140-450); RED BLOOD CELL COUNT(AUTO) 3.07 MIL/uL (4.20-5.40); RED CELL DISTRIBUTION WIDTH 14.3 % (11.6-13.7); WHITE BLOOD COUNT (AUTO) 11.9 K/uL (4.8-10.8)
--- NOTE | 2021-01-09 06:00 | NUR ---
O2 SAT 99%, NOTED CHEST RISE, KEPT COMFORTABLE, CALL LIGHT WITHIN REACH.
[2021-01-09 06:49] LABS: ANION GAP 14.6 (8-16); CARBON DIOXIDE 25.5 mmol/L (21-32); CHLORIDE 108 mmol/L (98-107); CREATININE 0.8 mg/dL (0.6-1.3); GLUCOSE 113 mg/dL (74-106); POTASSIUM 4.1 mmol/L (3.5-5.1); SODIUM SERUM 144 mmol/L (136-145); UREA NITROGEN, BLOOD 20 mg/dL (7-18)
[2021-01-09 07:06] LABS: PHOSPHORUS 3.4 mg/dL (2.5-4.9)
[2021-01-09] MEDS: ALBUTEROL SULFATE/IPRATROPIU 3 ML SOL IH SCH ×3 (07:26→19:49)
--- NOTE | 2021-01-09 07:31 | NUR ---
PT STABLE, NO DISTRESS, KEPT COMFORTABLE, BEDSIDE ENDORSEMENT GIVEN TO AM SHIFT RN FOR CONTINUITY OF CARE.
--- NOTE | 2021-01-09 07:35 | NUR ---
RECEIVED BEDSIDE ENDORSEMENT FROM NIGHTSIDFT NURSE FOR CONTINUITY OF CARE.
[2021-01-09 08:30] LABS: MAGNESIUM 2.2 mg/dL (1.8-2.4)
[2021-01-09] MEDS: LACTOBACILLUS RHAMNOSUS GG 1 EACH CAP PO SCH (09:58)
[2021-01-09] MEDS: metroNIDAZOLE 500 MG TAB PO SCH ×3 (09:59→17:22)
[2021-01-09] MEDS: MULTIVITAMIN 1 TAB PO SCH (09:59)
[2021-01-09] MEDS: DOCUSATE SODIUM 100 MG GELCAP PO SCH ×2 (09:59→21:18)
[2021-01-09] MEDS: MEMANTINE 10 MG TAB GT SCH ×2 (10:00→21:19)
[2021-01-09] MEDS: AMIODARONE 200 MG TAB GT SCH (10:00)
[2021-01-09] MEDS: LEVOTHYROXINE 0.025 MG TAB PO SCH (10:00)
--- NOTE | 2021-01-09 10:18 | NUR ---
ADMINISTERED PRESCRIBED MEDS PER MD ORDER. PATIENT TOLERATED WELL, GTUBE RESIDUALS 40 ML. MEDICATION EDUCATION REINFORCEMENT NEEDED. SAFETY MEASURES IN PLACE. WILL CONTINUE TO MONITOR.
--- NOTE | 2021-01-09 14:05 | NUR ---
ADMINISTERED PRESCRIBED MEDS PER MD ORDER. PATIENT TOLERATED WELL. MEDICATION EDUCATION REINFORCEMENT NEEDED. SAFETY MEASURES IN PLACE. WILL CONTINUE TO MONITOR
--- NOTE | 2021-01-09 14:55 | NUR ---
ADMINISTERED PRESCRIBED MEDS PER MD ORDER. PATIENT TOLERATED WELL. MEDICATION EDUCATION REINFORCEMENT NEEDED. SAFETY MEASURES IN PLACE. WILL CONTINUE TO MONITOR.
[2021-01-09] MEDS: NACL 0.9% 1,000 ML IV SCH (16:08)
--- NOTE | 2021-01-09 16:14 | NUR ---
PT. WITH LOW GANGA SCALE AT HIGH RISK, CONTINUE TO FOLLOW PRESSURE INJURY PREVENTION INTERVENTIONS. -APPLY FOAM DRESSING TO SACRALCOCCYX PREVENTION -TURN AND REPOSITION PATIENT Q 2H -ASSESS AND MONITOR SKIN CONDITION DURING POSITION CHANGE -OFFLOAD BILATERAL HEELS BY PLACING PILLOWS UNDER CALVES AT ALL TIMES, UNLESS OTHERWISE CONTRAINDICATED -PRESSURE REDISTRIBUTION BY PLACING PILLOWS AND OFFLOADING SACRALCOCCYX -KEEP SKIN CLEAN AND DRY AT ALL TIMES.
--- NOTE | 2021-01-09 16:14 | NUR ---
ADMINISTERED IV FLUIDS PER MD ORDER. PATIENT RESTING IN BED. PATIENT RESTING IN BED, SPONTANEOUSLY OPENS EYES. PATIENT SHOWS NO SIGNS OF DISTRESS. SAFETY MEASURES IN PLACE. WILL CONTINUE TO MONITOR.
--- NOTE | 2021-01-09 19:20 | NUR ---
BEDSIDE ENDORSEMENT PROVIDED TO NIGHTSHIFT NURSE FOR CONTINUITY OF CARE.
--- NOTE | 2021-01-09 19:20 | NUR ---
BEDSIDE ENDORSEMENT PROVIDED TO NIGHTSHIFT NURSE FOR CONTINUITY OF CARE.
--- NOTE | 2021-01-09 19:21 | NUR ---
RECEIVED BEDSIDE ENDORSEMENT FROM AM SHIFT RN. PT IS ON FOWLERS POSITION, ON TRACH TO VENT, FIO2 28%, O2 SAT 97% W/ ON GOING GT FEEDING, IVF INFUSING, SAFETY MEASURES IN PLACE, PLAN OF CARE DISCUSSED, CALL LIGHT WITHIN REACH.
--- NOTE | 2021-01-09 21:39 | NUR ---
HOB ELEVATED WHILE FEEDING IS ON, CHECKED GT PLACEMENT, IN PLACE, INTACT, NO RESIDUAL, DUE MEDS GIVEN ORDERED, TOLERATED WELL, KEPT COMFORTABLE, O2 SAT 98%, CALL LIGHT WITHIN REACH.
--- NOTE | 2021-01-09 23:31 | NUR ---
SUCTIONED PT, MINIMUM SECRETION NOTED, O2 SAT 99%, WILL CONTINUE TO MONITOR, CALL LIGHT WITHIN REACH.
[2021-01-10] VITALS (9 sets, daily range): BP systolic 104–140; BP diastolic 46–69
--- NOTE | 2021-01-10 00:15 | NUR ---
PATIENT ASLEEP IN BED. RESPIRATIONS EVEN UNLABORED. NO DISTRESS NOTED, O2 SAT 98%. FLACC 0. SAFETY MEASURES IN PLACE. CALL LIGHT WITHIN REACH. WILL CONTINUE TO MONITOR Addendum: 01/11/21 at 0017 by Alton Arce RN DATE 01/11/21
[2021-01-10] MEDS: ZOLPIDEM 5 MG TAB PO PRN (00:58)
--- NOTE | 2021-01-10 01:22 | NUR ---
RT CAME IN AND CHECKED THE PT.
--- NOTE | 2021-01-10 03:44 | NUR ---
ASLEEP, RESPIRATION EVEN AND UNLABORED, O2 SAT WNL, CALL LIGHT WITHIN REACH.
[2021-01-10 05:23] LABS: BASOPHILS # (AUTO) 0.1 K/uL (0.00-0.22); BASOPHILS % (AUTO) 0.5 % (0.0-2.0); EOSINOPHILS # (AUTO) 0.4 K/uL (0-0.4); EOSINOPHILS % (AUTO) 3.7 % (0.0-4.0); HEMATOCRIT 26.8 % (36-48); HEMOGLOBIN 8.9 g/dL (12.0-16.0); LYMPHOCYTES # (AUTO) 1.2 K/uL (2.5-16.5); LYMPHOCYTES % (AUTO) 11.1 % (20.5-51.1); MEAN CORPUSCULAR HEMOGLOBIN 31 pg (27-31); MEAN CORPUSCULAR HGB CONC 33 g/dL (33-37); MEAN CORPUSCULAR VOLUME 92.1 fL (80-94); MONOCYTES # (AUTO) 0.8 K/uL (0.8-1.0); MONOCYTES % (AUTO) 7.9 % (1.7-9.3); NEUTROPHILS # (AUTO) 7.9 K/uL (1.8-7.7); NEUTROPHILS % (AUTO) 76.8 % (42.2-75.2); PLATELET COUNT (AUTO) 291 K/uL (140-450); RED BLOOD CELL COUNT(AUTO) 2.91 MIL/uL (4.20-5.40); RED CELL DISTRIBUTION WIDTH 14.3 % (11.6-13.7); WHITE BLOOD COUNT (AUTO) 10.4 K/uL (4.8-10.8)
[2021-01-10 05:53] LABS: ANION GAP 12.2 (8-16); CARBON DIOXIDE 24.8 mmol/L (21-32); CHLORIDE 108 mmol/L (98-107); CREATININE 0.7 mg/dL (0.6-1.3); GLUCOSE 111 mg/dL (74-106); SODIUM SERUM 141 mmol/L (136-145); UREA NITROGEN, BLOOD 18 mg/dL (7-18)
[2021-01-10 06:02] LABS: MAGNESIUM 2.1 mg/dL (1.8-2.4)
--- NOTE | 2021-01-10 06:53 | NUR ---
PT STABLE, NO DISTRESS, ALL NEEDS ATTENDED, KEPT COMFORTABLE, CALL LIGHT WITHIN REACH.
[2021-01-10] MEDS: ALBUTEROL SULFATE/IPRATROPIU 3 ML SOL IH SCH ×3 (07:00→19:00)
--- NOTE | 2021-01-10 07:32 | NUR ---
BEDSIDE ENDORSEMENT GIVEN TO AM SHIFT RN FOR CONTINUITY OF CARE, PT STABLE.
--- NOTE | 2021-01-10 07:34 | NUR ---
RECEIVED REPORT FROM NIGHT NURSE PATIENT IS TRACH TO VENT FIO2 28 PEEP 5 TV 450 RATE 14 AND ON A/C VC SETTING, ON TUBE FEEDING VITAL AF 1.2 50 ML AND WATER FLUSH 100 Q4H SKIN INTACT WITH SACRAL REDNESS IV INTACT ON RIGHT WRIST LAST BOWEL MOVEMENT 01/10/21 PATIENT INCONTINENT. SAFETY MEASURES IN PLACE AND CALL LIGHT WITHIN REACH. WILL CONTINUE TO MONITOR.
[2021-01-10] MEDS: NACL 0.9% 1,000 ML IV SCH (08:29)
--- NOTE | 2021-01-10 08:29 | NUR ---
IV FLUIDS CHANGED SODIUM CHLORIDE 0.9% 1000 ML AT 60 ML/HR RATE INFUSING WELL.
[2021-01-10] MEDS: LEVOTHYROXINE 0.025 MG TAB PO SCH (09:31)
[2021-01-10] MEDS: MEMANTINE 10 MG TAB GT SCH ×2 (09:31→20:46)
[2021-01-10] MEDS: DOCUSATE SODIUM 100 MG GELCAP PO SCH ×2 (09:32→20:46)
[2021-01-10] MEDS: metroNIDAZOLE 500 MG TAB PO SCH ×3 (09:32→16:58)
[2021-01-10] MEDS: AMIODARONE 200 MG TAB GT SCH (09:33)
[2021-01-10] MEDS: LACTOBACILLUS RHAMNOSUS GG 1 EACH CAP PO SCH (09:33)
[2021-01-10] MEDS: MULTIVITAMIN 1 TAB PO SCH (09:33)
--- NOTE | 2021-01-10 09:44 | NUR ---
MEDICATIONS DUE GIVEN NO RESIDUALS AND CHECK VITAL SIGNS PRIOR TO MEDICATION BP 135/55 MO 92. PT IS STABLE NO DISTRESS NOTED.
--- NOTE | 2021-01-10 13:33 | NUR ---
MEDICATION DUE GIVEN NO RESIDUALS PT IS SLEEPING
--- NOTE | 2021-01-10 15:20 | NUR ---
RECEIVED REPORT FROM LAB URINE CULTURE RESULTED POSITIVE E COLI, MDRO - ESBL URINE DR PICKETT AWARE AND ORDERED CONTACT ISOLATION.
--- NOTE | 2021-01-10 17:00 | NUR ---
SCHEDULED MEDICATION GIVEN RESIDUAL 30 ML PT TOLERATED WELL.
--- NOTE | 2021-01-10 19:31 | NUR ---
ENDORSED TO NIGHT NURSE FOR CONTINUITY OF CARE.PT IS STABLE
--- NOTE | 2021-01-10 19:32 | NUR ---
RECEIVED REPORT FROM DAY SHIV RAYGOZA. PT RESTING IN BED, TRACH TO VENT. NO S/S RESPIRATORY DISTRESS. FIO2 28 TV 450 RATE 14 PEEP 5. FLACC 0. IV SITE R WRIST 22G PATENT INTACT INFUSING NS @60ML/HR. G TUBE IN PLACE, INFUSING VITAL AF @50ML/HR, WATER FLUSH 100 Q4H. SAFETY MEASURES IN PLACE. CALL LIGHT WITHIN REACH. WILL CONTINUE TO MONITOR
--- NOTE | 2021-01-10 20:55 | NUR ---
NO GTUBE RESIDUAL. ADMINISTERED SCHEDULED MEDICATIONS. NO DISTRESS NOTED. WILL CONTINUE TO MONITOR
[2021-01-11] VITALS (7 sets, daily range): BP systolic 125–138; BP diastolic 51–61
[2021-01-11] MEDS: NACL 0.9% 1,000 ML IV SCH (00:57)
[2021-01-11 05:59] LABS: BASOPHILS # (AUTO) 0.1 K/uL (0.00-0.22); BASOPHILS % (AUTO) 0.7 % (0.0-2.0); EOSINOPHILS # (AUTO) 0.5 K/uL (0-0.4); EOSINOPHILS % (AUTO) 4.5 % (0.0-4.0); HEMATOCRIT 27.8 % (36-48); HEMOGLOBIN 9.2 g/dL (12.0-16.0); LYMPHOCYTES # (AUTO) 1.5 K/uL (2.5-16.5); LYMPHOCYTES % (AUTO) 14.3 % (20.5-51.1); MEAN CORPUSCULAR HEMOGLOBIN 31 pg (27-31); MEAN CORPUSCULAR HGB CONC 33 g/dL (33-37); MONOCYTES # (AUTO) 0.9 K/uL (0.8-1.0); MONOCYTES % (AUTO) 8.1 % (1.7-9.3); NEUTROPHILS # (AUTO) 7.8 K/uL (1.8-7.7); NEUTROPHILS % (AUTO) 72.4 % (42.2-75.2); PLATELET COUNT (AUTO) 336 K/uL (140-450); RED BLOOD CELL COUNT(AUTO) 2.99 MIL/uL (4.20-5.40); RED CELL DISTRIBUTION WIDTH 14.5 % (11.6-13.7); WHITE BLOOD COUNT (AUTO) 10.8 K/uL (4.8-10.8)
--- NOTE | 2021-01-11 06:08 | NUR ---
CLEANED CHANGED REPOSITIONED PATIENT. TOLERATED WELL. NO DISTRESS NOTED. WILL CONTINUE TO MONITOR
[2021-01-11 06:43] LABS: ANION GAP 12.1 (8-16); CARBON DIOXIDE 25.8 mmol/L (21-32); CHLORIDE 108 mmol/L (98-107); CREATININE 0.7 mg/dL (0.6-1.3); GLUCOSE 106 mg/dL (74-106); POTASSIUM 3.9 mmol/L (3.5-5.1); SODIUM SERUM 142 mmol/L (136-145); UREA NITROGEN, BLOOD 16 mg/dL (7-18)
[2021-01-11 06:47] LABS: MAGNESIUM 2.1 mg/dL (1.8-2.4); PHOSPHORUS 3.2 mg/dL (2.5-4.9)
--- NOTE | 2021-01-11 07:19 | NUR ---
ENDORSED PATIENT TO DAY RN FOR CONTINUITY OF CARE. PATIENT IS IN STABLE CONDITION
--- NOTE | 2021-01-11 07:22 | NUR ---
RECEIVED REPORT FROM SPOOL CARRIER PATIENT IS TRACH TO VENT FIO2 28 PEEP 5 TV 450 RATE 14, ON TUBE FEEDING VITAL 1.2 AT 50 WATER FLUSH 100 Q4H, INCONTINENT, IV INTACT ON RIGHT WRIST SKIN INTACT WITH SACRAL REDNESS, NO RESIDUALS. SAFETY MEASURES IN PLACE AND CALL LIGHT WITHIN REACH. WILL CONTINUE TO MONITOR.
[2021-01-11] MEDS: ALBUTEROL SULFATE/IPRATROPIU 3 ML SOL IH SCH ×2 (07:59→13:26)
--- NOTE | 2021-01-11 07:59 | NUR ---
RECEIVED ON A [employer] R860 VENTILATOR PLUGGED INTO RED OUTLET TOLERATING WELL WITHOUT ADVERSE REACTIONS NOTED TO A PORTEX DCT #8 AIRWAY SECURED WITH A ROBBIN TRACH TIE CUFF PRESSURE CHECKED NOTED AMBU BAG AT BEDSIDE EQUAL CHEST RISE DEEP TRACHEAL SUCTION FOR LARGE SEMI THICK WHITE SECRETIONS AIRWAY PATENT
[2021-01-11] MEDS: metroNIDAZOLE 500 MG TAB PO SCH ×2 (09:40→13:13)
[2021-01-11] MEDS: MEMANTINE 10 MG TAB GT SCH (09:40)
[2021-01-11] MEDS: LACTOBACILLUS RHAMNOSUS GG 1 EACH CAP PO SCH (09:41)
[2021-01-11] MEDS: DOCUSATE SODIUM 100 MG GELCAP PO SCH (09:41)
[2021-01-11] MEDS: LEVOTHYROXINE 0.025 MG TAB PO SCH (09:41)
[2021-01-11] MEDS: MULTIVITAMIN 1 TAB PO SCH (09:41)
[2021-01-11] MEDS: AMIODARONE 200 MG TAB GT SCH (09:41)
--- NOTE | 2021-01-11 09:56 | NUR ---
MEDICATION DUE GIVEN CHECK VITAL SIGNS BP 139/44 ND 81 RESIDUALS OF 50 ML PT TOLERATED WELL.
--- NOTE | 2021-01-11 12:10 | NUR ---
STABLE GOOD CHEST RISE DEEP TRACHEAL SUCTION FOR SMALL SEMI THICK PALE YELLOW SECRETIONS AIRWAY PATENT
--- NOTE | 2021-01-11 13:26 | NUR ---
NO DISTRESS NOTED GOOD CHEST RISE DEEP TRACHEAL SUCTION FOR SMALL SEMI THICK PALE YELLOW SECRETIONS AIRWAY PATENT
--- NOTE | 2021-01-11 13:57 | NUR ---
GAVE REPORT TO ANGELA SOLORIO NURSE. GAVE UPDATES AND DISCHARGE INSTRUCTIONS.
--- NOTE | 2021-01-11 14:58 | NUR ---
STABLE GOOD CHEST RISE AND AERATION THROUGHOUT BILATERAL LUNG CABRALES AIRWAY PATENT [facility] AT BEDSIDE FOR PATIENT TRANSPORT
--- NOTE | 2021-01-11 15:00 | NUR ---
DISCHARGE INSTRUCTIONS GIVEN TO [facility]. INSTRUCTED TO CONTINUE MEDICATIONS. IV INTACT, REMOVED ID BANDS AND TUBE FEEDING, CHANGED PT DRESSING AND CLEAN PT. PAT[place] IS BEING [place]SF[place] [facility]. PT IS STABLE.
== END 2021-01-11 15:10 | DRG 870 ==
LOC: MED 11:55 → MMU 13:34 → MTU 01-08 00:32
PROC: 5A1955Z Respiratory Ventilation, Greater than 96 Consecutive Hours (ICD-10-PCS; principal; 2021-01-07)
PROC: 0BH17EZ Insertion of Endotracheal Airway into Trachea, Via Natural or Artificial Opening (ICD-10-PCS; 2021-01-07)
DX: A41.9 Sepsis, unspecified organism (principal); J69.0 Pneumonitis due to inhalation of food and vomit; N39.0 Urinary tract infection, site not specified; I13.0 Hypertensive heart and chronic kidney disease with heart failure and stage 1 through stage 4 chronic kidney disease, or unspecified chronic kidney disease; J96.10 Chronic respiratory failure, unspecified whether with hypoxia or hypercapnia; I48.20 Chronic atrial fibrillation, unspecified; I50.9 Heart failure, unspecified; F03.90 Unspecified dementia, unspecified severity, without behavioral disturbance, psychotic disturbance, mood disturbance, and anxiety; N18.9 Chronic kidney disease, unspecified; E03.9 Hypothyroidism, unspecified; G20 Parkinson's disease; F02.80 Dementia in other diseases classified elsewhere, unspecified severity, without behavioral disturbance, psychotic disturbance, mood disturbance, and anxiety; I25.10 Atherosclerotic heart disease of native coronary artery without angina pectoris; K59.00 Constipation, unspecified; E86.0 Dehydration; Z86.718 Personal history of other venous thrombosis and embolism; Z20.822 Contact with and (suspected) exposure to COVID-19; Z93.0 Tracheostomy status
CPT/HCPCS: 36415; 71045; 76770; 80048; 80053; 81001; 82140; 82150; 83036; 83605; 83690; 83735; 83880; 84100; 84436; 84443; 84484; 85025; 85610; 85730; 87040; 87070; 87081; 87086; 87205; 93005; 94002; 94003; 94640; 96365; 99285; C1758; J0696; J1644; J7030; J7060

== ENCOUNTER 2021-10-01 22:27 | Inpatient (IN) | payer OTHER, MEDICAID, SELFPAY ==
[~2021-10-01] VITALS: Ht 165.1 cm; Wt 69.9 kg
[2021-10-01 22:27] VITALS: BP 117/69
[~2021-10-01 22:27] MED LIST changes: +AMIO200T66 GT; +DOCU-299 GT; -LACT-2; +MEMA10TA GT; +MULT-2253 GT; -PIPE1PDS26 IV; +SYN.05 GT; -SYN.05 PO
--- NOTE | 2021-10-01 22:27 | NUR ---
PT BERRY ALS.
--- NOTE | 2021-10-01 22:27 | NUR ---
85 YO/F BIBA FROM [facility] FOR C/O FEVER BEGINNING IN THE MORNING TODAY + A RASH FROM ABDOMEN/BACK. PT CURRENT RECTAL TEMP 100.4. PT TRACH TO VENT AT 32% FiO2 450vt, PEEP 5. PT GCS 9 (UNK BASELINE), S1S2 PRESENT, SKIN WARM AND DRY, +2 RADIAL PULSES, LUNG SOUNDS CLEAR, RASH/REDNESS FROM L SIDE ABDOMEN TO L BACK SIDE OF PT + WARMTH. CONNECTED TO MONITOR. PT LAYING IN BED , HOB ELEVATED, X2 SIDERAILS UP FOR PT SAFETY. ERMD MADE AWARE OF PT STATUS. PMH: RESP FAILURE , CHF, HTN, AFIB, ASTHMA, DEMENTIA (SEE CHART) ALLERGIES (CHOCOLATE)
--- NOTE | 2021-10-01 22:27 | NUR ---
RT AT BEDSIDE
[2021-10-01] MEDS ORDERED: NACL 0.9% 1,000 ML IV SCH (22:35)
[2021-10-01] MEDS ORDERED: cefTRIAXone 1,000 MG in DEXT 5% MINI-BAG PLUS 50 ML IV ONE (22:35)
--- NOTE | 2021-10-01 22:42 | NUR ---
X-Ray at bedside.
[2021-10-01] MEDS ORDERED: cefTRIAXone 1,000 MG VIAL ONE (23:12)
[2021-10-01 23:26] LABS: ALBUMIN 2.7 g/dL (3.4-5.0); ANION GAP 11.7 (8-16); ASPARTATE AMINOTRANSFERASE 21 U/L (15-37); CARBON DIOXIDE 28.3 mmol/L (21-32); CHLORIDE 106 mmol/L (98-107); CREATININE 1.2 mg/dL (0.6-1.3); GLUCOSE 127 mg/dL (74-106); SODIUM SERUM 142 mmol/L (136-145); TOTAL BILIRUBIN 0.4 mg/dL (0.0-1.0); UREA NITROGEN, BLOOD 31 mg/dL (7-18)
[2021-10-02 00:36] LABS: HEMATOCRIT 33.6 % (36-48); HEMOGLOBIN 10.9 g/dL (12.0-16.0); MEAN CORPUSCULAR HEMOGLOBIN 29 pg (27-31); MEAN CORPUSCULAR HGB CONC 33 g/dL (33-37); PLATELET COUNT (AUTO) 231 K/uL (140-450); RED BLOOD CELL COUNT(AUTO) 3.74 MIL/uL (4.20-5.40); RED CELL DISTRIBUTION WIDTH 16.3 % (11.6-13.7)
[2021-10-02 00:44] LABS: WHITE BLOOD COUNT (AUTO) 29.8 K/uL (4.8-10.8)
[2021-10-02 01:06] LABS: APPEARANCE,URINE SL CLOUDY (CLEAR); BILIRUBIN,URINE 1+ (NEGATIVE); BLOOD, URINE 2+ (NEGATIVE); COLOR,URINE YELLOW (YELLOW); LEUKOCYTE ESTERASE ,URINE 2+ (NEGATIVE); NITRITE, URINE NEGATIVE (NEGATIVE); UGLUCOSE NEGATIVE (NEGATIVE)
[2021-10-02] MEDS ORDERED: ROB1 GT (01:19)
[2021-10-02] MEDS ORDERED: ATOR20TA GT (01:19)
[2021-10-02] MEDS ORDERED: ONDA4TAB GT (01:19)
[2021-10-02] MEDS ORDERED: APIX2.5 PO (01:19)
[2021-10-02] MEDS ORDERED: ALBU0.0912 IH (01:19)
[2021-10-02] MEDS ORDERED: DEXT1DRO4 OP (01:19)
[2021-10-02 01:24] LABS: WBC,URINE TOO MANY TO COUNT /HPF (0-5)
[2021-10-02 01:28] LABS: LYMPHOCYTES % (MANUAL) 5 % (20-46)
--- NOTE | 2021-10-02 02:43 | NUR ---
PT VOMITEED X1 YELLOW FLUIDS, PT CLEANED, PT PROVIDED W PERINEAL CARE, REPOSITIONNING. PT RECTAL TEMP 102.2, MD DOWD MADE AWARE. COOLING MEASURES INITIATED.
--- NOTE | 2021-10-02 03:43 | NUR ---
CALLED DR DOWD VIA TELEPHONE. PROVIDED W PT UPDATE OF LACTIC ACID, FEVER, AND VOMITING. NEW ORDERS ADDED.
[2021-10-02] MEDS ORDERED: ONDANSETRON 4 MG/2 ML VIAL IVP PRN (03:45)
[2021-10-02] MEDS ORDERED: ACETAMINOPHEN 325 MG SUPP RC PRN (03:45)
[2021-10-02] MEDS ORDERED: NACL 0.9% 1,000 ML IV SCH (03:45)
[2021-10-02] MEDS ORDERED: NACL 0.9% 1,000 ML IV ONE (03:45)
--- NOTE | 2021-10-02 04:39 | NUR ---
ILNCOLN SWABS COLLECTED FROM PT NARES AND SENT TO LAB.
[2021-10-02] MEDS ORDERED: PIPERACILLIN/TAZOBACTAM 3.375 GM VIAL IV ONE ×3 (05:26→21:21)
[2021-10-02] MEDS: PIPERACILLIN/TAZOBACTAM 3.375 GM in DEXTROSE 5% 50 ML IV SCH ×3 (05:41→21:32)
--- NOTE | 2021-10-02 06:07 | NUR ---
PT LAYING IN BED IN SUPINE POSITION CONNECTD TO MOMITOR AND VENT. BED LOCKED IN LOWEST POSITION W X2 SIDERAILS UP FOR PT SAFETY. BREATHING EVEN AND UNLABORED. NAD NOTED, WILL CONTINUE TO MONITOR.
[2021-10-02 07:00] VITALS: BP 128/61
--- NOTE | 2021-10-02 07:00 | NUR ---
RECEIVED ON A XtoneSCAPE R860 VENTILATOR PLUGGED INTO RED OUTLET TOLERATING WELL WITHOUT ADVERSE REACTIONS NOTED TO A PORTEX DCT #8 AIRWAY SECURED WITH A ROBBIN TRACH TIE CUFF PRESSURE CHECKED NOTED AMBU BAG AT BEDSIDE RESTING COMFORTABLY NO DISTRESS NOTED GOOD CHEST RISE DEEP TRACHEAL SUCTION FOR LARGE FROTHY TO THIN PALE WHITE SECRETIONS AIRWAY PATENT
--- NOTE | 2021-10-02 07:17 | NUR ---
Pt report given to SHVI OVIEDO. Transfer of care at this time.
--- NOTE | 2021-10-02 07:22 | NUR ---
ASSUMED PATIENT CARE 85 YEARS OLD FEMALE TRACH DEPENDENT FROM [facility] HOME PRESENTS TO ER WITH FEVER, CONDITION IMPROVED AFTER TREATMENT VITAL STABLE NO SOB, NO ACUTE DISTRESS AWAITING FOR ADMIT BED. WILL CONTINUE TO MONITOR.
[2021-10-02 09:18] VITALS: BP 113/54
--- NOTE | 2021-10-02 09:18 | NUR ---
RESTING WELL NO EVIDENCE OF PULMONARY DISTRESS NOTED EQUAL CHEST RISE DEEP TRACHEAL SUCTION FOR SMALL PLAE WHITE SECRETONS AIRWAY PATENT Addendum: 10/02/21 at 1035 by Karel Diaz RT SATURATION 99% ON FIO2 OF 32% PEEP 5cmH2O TITRATED FIO2 TO 28% PREET/SHIV NOTIFIED
--- NOTE | 2021-10-02 10:11 | NUR ---
PATIENT WITH ABD/BACK RED, INCONTINENT OF LOOSE STOOL PERICARE GIVEN TOLERATED WELL.
[2021-10-02] MEDS ORDERED: ONDANSETRON 4 MG TAB GT PRN (10:35)
[2021-10-02] MEDS ORDERED: MIDODRINE 5 MG TAB GT PRN (10:40)
[2021-10-02] MEDS: MAGNESIUM HYDROXIDE 2400 MG/30 ML UDC GT SCH ×2 (11:15→21:18)
[2021-10-02] MEDS ORDERED: MAG SULF 2000 MG/WATER PREMIX 50 ML IV PRN (12:00)
[2021-10-02] MEDS ORDERED: POTASSIUM CHLORIDE 10 MEQ TABER PO PRN (12:00)
[2021-10-02] MEDS ORDERED: HYDROcodone/APAP 5/325 MG 1 TAB TAB PO PRN (12:00)
[2021-10-02] MEDS ORDERED: DOCUSATE SODIUM 100 MG GELCAP PO PRN (12:00)
[2021-10-02] MEDS ORDERED: ACETAMINOPHEN 325 MG TAB PO PRN (12:00)
[2021-10-02] MEDS ORDERED: ONDANSETRON 4 MG/2 ML VIAL IM/IVP PRN (12:00)
[2021-10-02] MEDS ORDERED: ZOLPIDEM 5 MG TAB PO PRN (12:00)
[2021-10-02] MEDS ORDERED: LORazepam 2 MG/ML VIAL IM/IVP PRN (12:00)
[2021-10-02] MEDS: NACL 0.9% 1,000 ML IV SCH (12:15)
[2021-10-02 12:22] LABS: BASOPHILS % (AUTO) 0.2 % (0.0-2.0); HEMATOCRIT 32.5 % (36-48); HEMOGLOBIN 10.5 g/dL (12.0-16.0); LYMPHOCYTES # (AUTO) 0.7 K/uL (2.5-16.5); LYMPHOCYTES % (AUTO) 2.8 % (20.5-51.1); MEAN CORPUSCULAR HEMOGLOBIN 29 pg (27-31); MEAN CORPUSCULAR HGB CONC 32 g/dL (33-37); MEAN CORPUSCULAR VOLUME 90.7 fL (80-94); MONOCYTES # (AUTO) 0.7 K/uL (0.8-1.0); MONOCYTES % (AUTO) 2.7 % (1.7-9.3); NEUTROPHILS # (AUTO) 23.2 K/uL (1.8-7.7); NEUTROPHILS % (AUTO) 94.3 % (42.2-75.2); PLATELET COUNT (AUTO) 205 K/uL (140-450); RED BLOOD CELL COUNT(AUTO) 3.58 MIL/uL (4.20-5.40); RED CELL DISTRIBUTION WIDTH 16.3 % (11.6-13.7); WHITE BLOOD COUNT (AUTO) 24.6 K/uL (4.8-10.8)
[2021-10-02 12:44] LABS: ANION GAP 14.7 (8-16); CARBON DIOXIDE 22.9 mmol/L (21-32); CHLORIDE 108 mmol/L (98-107); CREATININE 1.2 mg/dL (0.6-1.3); GLUCOSE 111 mg/dL (74-106); POTASSIUM 4.6 mmol/L (3.5-5.1); SODIUM SERUM 141 mmol/L (136-145); UREA NITROGEN, BLOOD 28 mg/dL (7-18)
[2021-10-02 13:06] LABS: THYROID STIMULATING HORMONE 0.65 uIU/mL (0.34-3.74)
[2021-10-02 13:49] VITALS: BP 106/54
[2021-10-02 15:12] VITALS: BP 129/48
--- NOTE | 2021-10-02 15:12 | NUR ---
PATIENT RESTING WELL. SUCTIONED SMALL THIN WHITE SECRETION Cinthia ALVARADO, RT STUDENT
--- NOTE | 2021-10-02 15:22 | NUR ---
PATIENT HAS BEEN SCREENED AND CATEGORIZED HIGH NUTRITION RISK. PATIENT WILL BE SEEN WITHIN 1-2 DAYS OF ADMISSION. 10/02/21-10/03/[address]
--- NOTE | 2021-10-02 16:36 | NUR ---
PATIENT REASSESS VITAL STABLE, NO SOB, NO ACUTE CHANGES, TELE BED PENDING.
[2021-10-02 17:33] VITALS: BP 132/47
--- NOTE | 2021-10-02 17:33 | NUR ---
STABLE NO APPARENT DISTRESS NOTED EQUAL CHEST RISE DEEP TRACHEAL SUCTION FOR MODERATE THIN PALE WHITE SECRETIONS AIRWAY PATENT
[2021-10-02 19:15] VITALS: BP 131/51
[2021-10-02] MEDS: ATORVASTATIN 20 MG TAB GT SCH (21:18)
[2021-10-02] MEDS: DOCUSATE 100 MG/10 ML UDC GT SCH (21:18)
[2021-10-02] MEDS: MEMANTINE 10 MG TAB GT SCH (21:19)
[2021-10-02] MEDS: APIXABAN 2.5 MG TAB PO SCH (21:19)
--- NOTE | 2021-10-02 22:05 | NUR ---
ADMITTED A 85 Y/O FEMALE FROM ER AWAKE NON VERBAL TRACH TO VENT, SETTING: FIO2 24 VT 450 RATE 14 PEEP 5. CC: FEVER , RASH AT THE BACK. DX: FEVER , UTI. NO ACUTE DISTRESS. RESPIRATION EVEN UNLABORED. PATIENT IS NON VERBAL. G-TUBE IN PLACE ON THE LEFT UPPER ABDOMEN. HEAD OF BED ELEVATED TO 45 DEGREES. MRSA SCREENING DONE. ALL SAFETY PRECAUTIONS ARE IN PLACE. WILL CONTINUE TO MONITOR.
[2021-10-03] VITALS (7 sets, daily range): BP systolic 107–158; BP diastolic 37–85
--- NOTE | 2021-10-03 02:30 | NUR ---
CLEANED , CHANGED AND REPOSITIONED PT. PT IS STABLE
[2021-10-03] MEDS: NACL 0.9% 1,000 ML IV SCH ×2 (04:40→21:11)
[2021-10-03] MEDS: PIPERACILLIN/TAZOBACTAM 3.375 GM in DEXTROSE 5% 50 ML IV SCH ×3 (05:15→21:12)
--- NOTE | 2021-10-03 05:15 | NUR ---
ZOSYN IVPB ADMINISTERED ORDERED.
[2021-10-03 07:08] LABS: BASOPHILS % (AUTO) 0.2 % (0.0-2.0); EOSINOPHILS # (AUTO) 0.3 K/uL (0-0.4); EOSINOPHILS % (AUTO) 1.9 % (0.0-4.0); HEMATOCRIT 28.6 % (36-48); HEMOGLOBIN 9.5 g/dL (12.0-16.0); LYMPHOCYTES % (AUTO) 5.5 % (20.5-51.1); MEAN CORPUSCULAR HEMOGLOBIN 30 pg (27-31); MEAN CORPUSCULAR HGB CONC 33 g/dL (33-37); MEAN CORPUSCULAR VOLUME 89.8 fL (80-94); MONOCYTES # (AUTO) 0.9 K/uL (0.8-1.0); MONOCYTES % (AUTO) 4.8 % (1.7-9.3); NEUTROPHILS # (AUTO) 15.5 K/uL (1.8-7.7); NEUTROPHILS % (AUTO) 87.6 % (42.2-75.2); PLATELET COUNT (AUTO) 175 K/uL (140-450); RED BLOOD CELL COUNT(AUTO) 3.18 MIL/uL (4.20-5.40); RED CELL DISTRIBUTION WIDTH 15.8 % (11.6-13.7); WHITE BLOOD COUNT (AUTO) 17.7 K/uL (4.8-10.8)
[2021-10-03 07:12] LABS: ANION GAP 13.8 (8-16); CHLORIDE 110 mmol/L (98-107); CREATININE 0.9 mg/dL (0.6-1.3); GLUCOSE 79 mg/dL (74-106); POTASSIUM 3.8 mmol/L (3.5-5.1); SODIUM SERUM 142 mmol/L (136-145); UREA NITROGEN, BLOOD 24 mg/dL (7-18)
[2021-10-03 07:30] LABS: MAGNESIUM 2.7 mg/dL (1.8-2.4); PHOSPHORUS 1.9 mg/dL (2.5-4.9)
[2021-10-03 07:33] LABS: CHOL/HDL RATIO 3.4 (1-4.5)
--- NOTE | 2021-10-03 07:51 | NUR ---
ENDORSED PATIENT TO AM NURSE FOR CONTINUITY OF CARE. PT IS STABLE. NO DISTRESS NOTED.
--- NOTE | 2021-10-03 07:51 | NUR ---
RECEIVED REPORT FROM WHEEL INSTALLER FOR CONTINUITY OF CARE. BREATHING SYMMETRICAL. NO S/S OF DISTRESS. CALL LIGHT IN REACH. ALL SAFETY MEASURES IN PLACE. TRACH TO VENT. IV RUNNING PER MD ORDER
--- NOTE | 2021-10-03 08:03 | NUR ---
RECEIVED ON A FreshBooksSCAPE R860 VENTILATOR PLUGGED INTO RED OUTLET TOLERATING WELL WITHOUT ADVERSE REACTIONS NOTED TO A PORTEX DCT #8 AIRWAY SECURED WITH A ROBBIN TRACH TIE CUFF PRESSURE CHECKED NOTED AMBU BAG AT BEDSIDE RESTING COMFORTABLY NO APPARENT DISTRESS NOTED EQUAL CHEST RISE DEEP TRACHEAL SUCTION FOR MODERATE THIN PALE YELLOW SECRETIONS AIRWAY PATENT
[2021-10-03] MEDS ORDERED: NON-FORMULARY ITEM (Multivitamin (Multivitamins) 1 CAP) PO SCH (09:00)
[2021-10-03] MEDS: MAGNESIUM HYDROXIDE 2400 MG/30 ML UDC GT SCH ×2 (09:54→21:07)
[2021-10-03] MEDS: DOCUSATE 100 MG/10 ML UDC GT SCH ×2 (09:54→21:09)
[2021-10-03] MEDS: AMIODARONE 200 MG TAB GT SCH (09:54)
[2021-10-03] MEDS: MEMANTINE 10 MG TAB GT SCH ×2 (09:55→21:08)
[2021-10-03] MEDS: APIXABAN 2.5 MG TAB PO SCH ×2 (09:55→21:07)
[2021-10-03] MEDS: MULTIVITAMIN 1 TAB GT SCH (09:56)
[2021-10-03] MEDS: LEVOTHYROXINE 0.05 MG TAB GT SCH (09:57)
[2021-10-03] MEDS: GLYCOPYRROLATE 1 MG TAB GT SCH ×3 (09:57→21:05)
--- NOTE | 2021-10-03 10:34 | NUR ---
PT RESTING IN BED. BREATHING SYMMETRICAL. NO S/S OF DISTRESS. CALL LIGHT IN REACH. ALL SAFETY MEASURES IN PLACE. TRACH TO VENT. IV RUNNING PER MD ORDER
--- NOTE | 2021-10-03 10:42 | NUR ---
NO EVIDENCE OF SOB NOTED GOOD CHEST RISE DEEP TRACHEAL SUCTION FOR MODERATE THIN PALE YELLOW SECRETIONS AIRWAY PATENT
--- NOTE | 2021-10-03 13:34 | NUR ---
PT RESTING IN BED, EYES CLOSED. BREATHING SYMMETRICAL. NO S/S OF DISTRESS. CALL LIGHT IN REACH. ALL SAFETY MEASURES IN PLACE. TRACH TO VENT. IV RUNNING PER MD ORDER
--- NOTE | 2021-10-03 13:54 | NUR ---
NO DISTRESS NOTED GOOD CHEST RISE DEEP TRACHEAL SUCTION FOR MODERATE THIN YELLOW SECRETIONS AIRWAY PATENT
--- NOTE | 2021-10-03 14:44 | NUR ---
10/03/21 RD INITIAL ASSESSMENT COMPLETED PLEASE REFER TO NUTRITION ASSESSMENT UNDER CARE ACTIVITY FOR ESTIMATED NUTRITIONAL NEEDS. 1. RECOMMEND JEVITY 1.2 @ 65 ML/HR -WATER FLUSH: 150 ML Q6H -START AT 20 ML/HR AND INCREASE BY 20 ML Q4H -WILL PROVIDE 1872 KCAL, 86 GM PROTEIN AND 1858 ML WATER, MEETING ESTIMATED NUTRITIONAL GOALS 2. RD TO FOLLOW-UP 2-3 DAYS, HIGH RISK BLAYNE CHANCE RD
--- NOTE | 2021-10-03 16:56 | NUR ---
STABLE GOOD CHEST RISE DEEP TRACHEAL SUCTION FOR SMALL THIN PALE YELLOW SECRETIONS
--- NOTE | 2021-10-03 17:06 | NUR ---
WAITING FOR CLEAN ROOM TO MOVE PATIENT.
--- NOTE | 2021-10-03 19:26 | NUR ---
PT TRANSFERRED FROM 108 TO RM 124 W/ NO ADVERSE EVENTS WILL CONTINUE TO MONITOR
--- NOTE | 2021-10-03 19:54 | NUR ---
ENDORSED PT TO COPYRIGHT MANAGER NURSE. ALL SAFETY MEASURES IN PLACE. PT TRANSFERRED TO BED 124B.
--- NOTE | 2021-10-03 19:55 | NUR ---
RECEIVED REPORT FROM DAY SHIFT FOR CONTINUITY OF CARE.PT APHASIC.PT ON TRACH TO VENT A/C PRVC FIO2 24, VT 450, RT 14 PEEP 5. BREATHING EVEN AND UNLABORED. NO S/SX OF DISTRESS. CALL LIGHT IN REACH. ALL SAFETY MEASURES IN PLACE. WILL CONTINUE TO MONITOR.
[2021-10-03] MEDS: ATORVASTATIN 20 MG TAB GT SCH (21:08)
--- NOTE | 2021-10-03 21:15 | NUR ---
SCHEDULED MEDICATIONS GIVEN.PT TOLERATED WELL.TRACH SUCTIONED WITH CLEAR WHITE SECRETIONS. G TUBE WITH NO RESIDUALS.ALL PRECAUTIONS IN PLACE.WILL CONTINUE TO MONITOR.
--- NOTE | 2021-10-03 23:30 | NUR ---
[employer] 1.2 STARTED RUNNING AT 20ML/HR.PT TOLERATING WELL. ALL PRECAUTIONS IN PLACE. WILL CONTINUE TO MONITOR.
[2021-10-04] VITALS: BP 126/85
--- NOTE | 2021-10-04 02:16 | NUR ---
PT ASLEEP. VISIBLE CHEST RISE AND FALL NOTED. ALL PRECAUTIONS IN PLACE. WILL CONTINUE TO MONITOR.
[2021-10-04 04:00] VITALS: BP 126/85
[2021-10-04] MEDS: PIPERACILLIN/TAZOBACTAM 3.375 GM in DEXTROSE 5% 50 ML IV SCH ×2 (05:07→13:08)
--- NOTE | 2021-10-04 05:15 | NUR ---
SCHEDULED MEDICATIONS GIVEN.PT TOLERATED WELL.TRACH SUCTIONED WITH CLEAR WHITE SECRETIONS. G TUBE WITH NO RESIDUALS.ALL PRECAUTIONS IN PLACE.WILL CONTINUE TO MONITOR.
[2021-10-04 06:05] LABS: BASOPHILS % (AUTO) 0.4 % (0.0-2.0); EOSINOPHILS # (AUTO) 0.3 K/uL (0-0.4); EOSINOPHILS % (AUTO) 2.8 % (0.0-4.0); HEMATOCRIT 27.9 % (36-48); HEMOGLOBIN 9.5 g/dL (12.0-16.0); LYMPHOCYTES # (AUTO) 1.1 K/uL (2.5-16.5); LYMPHOCYTES % (AUTO) 10.3 % (20.5-51.1); MEAN CORPUSCULAR HEMOGLOBIN 30 pg (27-31); MEAN CORPUSCULAR HGB CONC 34 g/dL (33-37); MONOCYTES # (AUTO) 0.6 K/uL (0.8-1.0); MONOCYTES % (AUTO) 5.9 % (1.7-9.3); NEUTROPHILS # (AUTO) 8.8 K/uL (1.8-7.7); NEUTROPHILS % (AUTO) 80.6 % (42.2-75.2); PLATELET COUNT (AUTO) 194 K/uL (140-450); RED BLOOD CELL COUNT(AUTO) 3.14 MIL/uL (4.20-5.40); RED CELL DISTRIBUTION WIDTH 15.8 % (11.6-13.7); WHITE BLOOD COUNT (AUTO) 10.9 K/uL (4.8-10.8)
--- NOTE | 2021-10-04 06:26 | NUR ---
PT IS STABLE. NO ACUTE EVENTS THROUGHOUT THE NIGHT. ALL NEEDS ATTENDED.ALL PRECAUTIONS IN PLACE. WILL ENDORSE TO AM SHIFT NURSE.
[2021-10-04 06:29] LABS: ANION GAP 12.3 (8-16); CARBON DIOXIDE 21.3 mmol/L (21-32); CHLORIDE 113 mmol/L (98-107); GLUCOSE 91 mg/dL (74-106); POTASSIUM 3.6 mmol/L (3.5-5.1); SODIUM SERUM 143 mmol/L (136-145); UREA NITROGEN, BLOOD 23 mg/dL (7-18)
[2021-10-04 06:40] LABS: MAGNESIUM 2.5 mg/dL (1.8-2.4); PHOSPHORUS 2.3 mg/dL (2.5-4.9)
--- NOTE | 2021-10-04 07:18 | NUR ---
ENDORSED TO AM SHIFT NURSE FOR CONTINUITY OF CARE. PT IS STABLE.
--- NOTE | 2021-10-04 07:19 | NUR ---
PT HAS BEEN ENDORSED FROM LONG TERM CARE ADMINISTRATOR NURSE FOR CONTINUITY OF CARE, POC DISCUSSED. PT IS IN BED TRACH TO VENT WITH CHEST RISING AND FALLING EVEN AND UNLABORED. NO ACUTE S/S OF DISTRESS, SATURATIONS AT 98%. PT HAS A GTUBE RUNNING 65ML, RIGHT FOREARM 22G RUNNING NS @60. PT SKIN INTACT. ALL SAFETY MEASURES IN PLACE, CALL LIGHT WITHIN REACH. WILL CONTINUE TO MONITOR.
[2021-10-04] MEDS: ALBUTEROL SULFATE/IPRATROPIU 3 ML SOL IH PRN (07:45)
--- NOTE | 2021-10-04 07:45 | NUR ---
RECEIVED ON A [employer]APE R860 VENTILATOR WITH COMPRESSOR ON AND FUNCTIONING WELL PLUGGED INTO RED OUTLET TOLERATING WELL WITHOUT ADVERSE REACTIONS NOTED TO A PORTEX DCT #8 AIRWAY SECURED WITH A ROBBIN TRACH TIE AMBU BAG AT BEDSIDE STABLE GOOD CHEST RISE DEEP TRACHEAL SUCTION FOR MODERATE THIN YELLOW SECRETIONS AIRWAY PATENT
[2021-10-04 08:00] VITALS: BP 133/61
[2021-10-04] MEDS: MEMANTINE 10 MG TAB GT SCH (09:07)
[2021-10-04] MEDS: MAGNESIUM HYDROXIDE 2400 MG/30 ML UDC GT SCH (09:09)
[2021-10-04] MEDS: DOCUSATE 100 MG/10 ML UDC GT SCH (09:09)
[2021-10-04] MEDS: MULTIVITAMIN 1 TAB GT SCH (09:09)
[2021-10-04] MEDS: GLYCOPYRROLATE 1 MG TAB GT SCH ×2 (09:09→21:00)
[2021-10-04] MEDS: AMIODARONE 200 MG TAB GT SCH (09:09)
[2021-10-04] MEDS: LEVOTHYROXINE 0.05 MG TAB GT SCH (09:09)
[2021-10-04] MEDS: APIXABAN 2.5 MG TAB PO SCH (09:10)
--- NOTE | 2021-10-04 09:42 | NUR ---
VIDAL MEDICATION ADMINISTERED PER MD ORDER, PT TOLERATED ADMINISTRATION. PT IS STABLE IN BED SATURATIONS AT 98%, TRACH TO VENT. NO SUCTION NEEDED AT THIS TIME. PT HAD 10CC RESIDUAL, FLUSHED WITH 10CC PRIOR TO AND AFTER ADMINISTRATION. PT ABDOMEN IS DISTENDED AND HARD. IV IS PATENT AND INTACT. ALL SAFETY MEASURES IN PLACE, CALL LIGHT WITHIN REACH. WILL CONTINUE TO MONITOR.
--- NOTE | 2021-10-04 11:13 | NUR ---
NO SOB NOTED GOOD CHEST RISE DEEP TRACHEAL SUCTION FOR SMALL THIN YELLOW SECRETIONS AIRWAY PATENT
[2021-10-04 12:00] VITALS: BP 132/65
--- NOTE | 2021-10-04 12:24 | NUR ---
PT IV DISCONNECTED, PT CLEANED AND NEW GOWN PROVIDED. PT RECONNECTED TO IV. ALL SAFETY MEASURES IN PLACE, CALL LIGHT WITHIN REACH. WILL CONTINUE TO MONITOR.
[2021-10-04] MEDS: NACL 0.9% 1,000 ML IV SCH (13:08)
--- NOTE | 2021-10-04 13:45 | NUR ---
VIDAL MEDICATION ADMINISTERED PER MD ORDER. IV INTACT AND PATENT. PT NEEDING SUCTIONING, MINIMAL PRODUCTION NOTED. O2 SAT AT 96%. ALL SAFETY MEASURES IN PLACE, CALL LIGHT WITHIN REACH. WILL CONTINUE TO MONITOR.
--- NOTE | 2021-10-04 13:50 | NUR ---
NO APPARENT DISTRESS NOTED EQUAL CHEST RISE AIRWAY PATENT
--- NOTE | 2021-10-04 14:34 | NUR ---
PATIENT HAS A LARGE LOOSE BM, PT HAS BEEN CLEANED, REPOSITIONED AND LINEN CHANGED. PT REMAINED STABLE DURING CLEANING. ALL SAFETY MEASURES IN PLACE. CALL LIGHT WITHIN REACH. WILL CONTINUE TO MONITOR.
--- NOTE | 2021-10-04 15:38 | NUR ---
SUCTIONING PREFORMED. PT IS STABLE WITH O2 SAT @ 98. ALL SAFETY MEASURES IN PLCE. CALL LIGHT WITHIN REACH WILL CONTINUE TO MONITOR.
[2021-10-04 16:00] VITALS: BP 128/54
--- NOTE | 2021-10-04 17:34 | NUR ---
PT IS STABLE IN BED WITH NO ACUTE S/S OF DISTRESS. ALL SAFETY MEASURES IN PLACE. CALL LIGHT WITHIN REACH. WILL CONTINUE TO MONITOR.
[2021-10-04] MEDS ORDERED: cefTRIAXone 1,000 MG VIAL ONE (18:18)
--- NOTE | 2021-10-04 18:25 | NUR ---
VIDAL MEDICATION ADMINISTERED PER MD. NURSE MADE, PHARMACY NOT HERE
--- NOTE | 2021-10-04 18:56 | NUR ---
ALL NEEDS ARE MET, ALL SAFETY MEASURES ARE IN PLACE, CALL LIGHT WITHIN REACH. PT WILL BE ENDORSED TO DATA WAREHOUSE ANALYST NURSE IN STABLE CONDITION.
--- NOTE | 2021-10-04 19:30 | NUR ---
RECEIVED REPORT AT BEDSIDE FOR CONTINUITY OF CARE, PT IN STABLE CONDITION.
[2021-10-04 20:00] VITALS: BP 120/46
--- NOTE | 2021-10-04 20:30 | NUR ---
PT LYING IN BED HOB UP 45%. SHE IS A TRACH TO VENT WITH VENT SETTINGS FOLLOWS: FI02 AT 24% PEEP 5 VT 450 RR 14 AND PEEP OF 5. PT ALSO HAS A R F/A 22G RUNNING NORMAL SALINE AT 60MLS/HR. PT HAS G TUBE MILD REDNESS AROUND SITE. G TUBE INTACT WITH JEVITY RUNNING AT 65MLS/HR WITH H20 FLUSH OF 150 Q 6HRS. ALL ORDERED FALLS AND ASPIRATION PRECAUTIONS IN PLACE.
--- NOTE | 2021-10-04 21:00 | NUR ---
ROUNDS DONE PT LYING IN BED HOB UP 45% TRACH TO VENT NO S/S OF DISTRESS WITH ALL CURRENT VENT SETTINGS. V/S FOLLOWS: T 97.3 P 65 R 20 B/P 120/46 02 97% WITH ALL CURRENT TRACH TO VENT SETTINGS. PT REPOSITIONED IN BED.
--- NOTE | 2021-10-04 21:25 | NUR ---
PT GIVEN ALL DUE MEDS OF COLACE, LIPITOR, NAMENDA, ROBINUL AND ELIQUIS. PT UNABLE TO VERBALIZE UNDERSTANDING OF ALL THESE ORDERED HOME MEDICATIONS. PT GIVEN MEDS VIA GT. NO RESIDUAL NOTED. ALL ORDERED PRECAUTIONS IN PLACE.
[2021-10-05] VITALS: BP 136/54
[2021-10-05] MEDS: APIXABAN 2.5 MG TAB PO SCH ×3 (00:09→20:40)
[2021-10-05] MEDS: DOCUSATE 100 MG/10 ML UDC GT SCH ×3 (00:13→20:36)
[2021-10-05] MEDS: ATORVASTATIN 20 MG TAB GT SCH ×2 (00:13→20:36)
[2021-10-05] MEDS: MEMANTINE 10 MG TAB GT SCH ×3 (00:13→20:36)
--- NOTE | 2021-10-05 00:15 | NUR ---
ROUNDS DONE, PT REPOSITIONED IN BED. V/S FOLLOWS: T 98.0 P 73 R 20 B/P 136/54 02 99%.PT SUCTIONED X1 ALL ORDERED PRECAUTIONS IN PLACE.
--- NOTE | 2021-10-05 02:00 | NUR ---
PT TURNED, CHANGED AND REPOSITIONED IN BED. SHE HAD A SMALL BM X1 AND VOID X2 LINENS CHANGED AT THIS TIME AND NEW JEVITY HUNG AND RUNNING ORDERED. ASPIRATION AND FALLS PRECAUTIONS IN PLACE.
[2021-10-05 04:00] VITALS: BP 147/60
[2021-10-05 06:26] LABS: BASOPHILS % (AUTO) 0.3 % (0.0-2.0); EOSINOPHILS # (AUTO) 0.3 K/uL (0-0.4); EOSINOPHILS % (AUTO) 3.2 % (0.0-4.0); HEMATOCRIT 28.5 % (36-48); HEMOGLOBIN 9.6 g/dL (12.0-16.0); LYMPHOCYTES # (AUTO) 1.3 K/uL (2.5-16.5); LYMPHOCYTES % (AUTO) 12.6 % (20.5-51.1); MEAN CORPUSCULAR HEMOGLOBIN 30 pg (27-31); MEAN CORPUSCULAR HGB CONC 34 g/dL (33-37); MEAN CORPUSCULAR VOLUME 90.1 fL (80-94); MONOCYTES # (AUTO) 0.7 K/uL (0.8-1.0); MONOCYTES % (AUTO) 7.2 % (1.7-9.3); NEUTROPHILS # (AUTO) 7.8 K/uL (1.8-7.7); NEUTROPHILS % (AUTO) 76.7 % (42.2-75.2); PLATELET COUNT (AUTO) 213 K/uL (140-450); RED BLOOD CELL COUNT(AUTO) 3.17 MIL/uL (4.20-5.40); RED CELL DISTRIBUTION WIDTH 15.9 % (11.6-13.7); WHITE BLOOD COUNT (AUTO) 10.1 K/uL (4.8-10.8)
[2021-10-05 06:59] LABS: CARBON DIOXIDE 23.9 mmol/L (21-32); CHLORIDE 114 mmol/L (98-107); CREATININE 0.9 mg/dL (0.6-1.3); GLUCOSE 120 mg/dL (74-106); POTASSIUM 3.9 mmol/L (3.5-5.1); SODIUM SERUM 146 mmol/L (136-145); UREA NITROGEN, BLOOD 18 mg/dL (7-18)
[2021-10-05 07:05] LABS: MAGNESIUM 2.5 mg/dL (1.8-2.4); PHOSPHORUS 3.1 mg/dL (2.5-4.9)
--- NOTE | 2021-10-05 07:13 | NUR ---
RECEIVED ON A [employer]APE R860 VENTILATOR WITH COMPRESSOR ON PLUGGED INTO RED OUTLET TOLERATING WELL WITHOUT ADVERSE REACTIONS NOTED TO A PORTEX #8 AIRWAY SECURED WITH A ROBBIN TRACH TIE CUFF PRESSURE CHECKED NOTED AMBU BAG AT BEDSIDE RESTING COMFORTABLY NO EVIDENCE OF RESPIRATORY DISTRESS NOTED EQUAL CHEST RISE DEEP TRACHEAL SUCTION FOR SMALL THI PALE YELLOW SECRETIONS AIRWAY PATENT
--- NOTE | 2021-10-05 07:25 | NUR ---
RECEIVED PATIENT FROM SAP PORTAL ARCHITECT NURSE FOR CONTINUITY OF CARE. PATIENT IS RESTING IN BED, EYE OPEN WITH PAIN, APHASIC. RESPIRATORY EVEN AND UNLABORED, TRACH TO VENT, VENT SETTING A/C PRVC FIO2 24, VT 450, PEEP 5, RATE 14, O2 SAT 98%. NO SIGN OF DISTRESS NOTED. SKIN WARM, DRY, NON DIAPHORETIC. IV ON RIGHT FA 22G, INTACT AND PATENT, IS INFUSING FLUID ORDER. G-TUBE IN PLACE, RUNNING WITH JEVITY 1.2 @65 MLS/HR, WATER FLUSH 150ML Q6H. HOB ELEVATED. PATIENT UNABLE TO MAKE NEED KNOWN. PLAN OF CARE DISCUSSED. PRECAUTION IN PLACE. CALL LIGHT WITHIN REACH. WILL CONTINUE TO MONITOR.
[2021-10-05 08:00] VITALS: BP 131/69
[2021-10-05] MEDS: NACL 0.9% 1,000 ML IV SCH ×2 (08:00→16:58)
[2021-10-05] MEDS: MULTIVITAMIN 1 TAB GT SCH (08:25)
[2021-10-05] MEDS: LEVOTHYROXINE 0.05 MG TAB GT SCH (08:25)
--- NOTE | 2021-10-05 08:25 | NUR ---
NO RESIDUAL NOTED. SCHEDULE MEDICATIONS GIVEN THROUGH G-TUBE. PATIENT TOLERATED WELL. NO SIGN OF DISTRESS NOTED. PRECAUTION IN PLACE. CALL LIGHT WITHIN REACH. WILL CONTINUE TO MONITOR.
[2021-10-05] MEDS: GLYCOPYRROLATE 1 MG TAB GT SCH ×2 (08:26→20:36)
[2021-10-05] MEDS: AMIODARONE 200 MG TAB GT SCH (08:26)
--- NOTE | 2021-10-05 09:35 | NUR ---
NO DISTRESS NOTED GOOD CHEST RISE AND AERATION THROUGHOUT BILATERAL LUNG CABRALES AIRWAY PATENT
--- NOTE | 2021-10-05 10:00 | NUR ---
PROVIDED ORAL CARE AND REPOSITION. PATIENT TOLERATED WELL. NO SIGN OF DISTRESS NOTED. PRECAUTION IN PLACE. CALL LIGHT WITHIN REACH. WILL CONTINUE TO MONITOR.
--- NOTE | 2021-10-05 10:59 | NUR ---
EQUAL CHEST RISE DEEP TRACHEAL SUCTION FOR LARGE THIN TO FROTHY PALE YELLOW SECRETIONS AIRWAY PATENT
[2021-10-05 12:00] VITALS: BP 149/57
--- NOTE | 2021-10-05 12:00 | NUR ---
REPOSITION PATIENT, PATIENT TOLERATED WELL. VS WNL. NO SIGN OF DISTRESS NOTED. PRECAUTION IN PLACE. CALL LIGHT WITHIN REACH. WILL CONTINUE TO MONITOR.
--- NOTE | 2021-10-05 12:14 | NUR ---
(10/05/21) RD FOLLOW UP COMPLETED PLEASE REFER TO NUTRITION PROGRESS NOTE UNDER CARE ACTIVITY FOR ESTIMATED NUTRITION NEEDS. RD RECOMMENDATIONS: 1. RECOMMEND JEVITY 1.2 @ 65 ML/HR -WATER FLUSH: 150 ML Q6H -START AT 20 ML/HR AND INCREASE BY 20 ML Q4H -WILL PROVIDE 1872 KCAL, 86 GM PROTEIN AND 1858 ML WATER, MEETING ESTIMATED NUTRITIONAL GOALS 2. RD TO FOLLOW-UP 2-3 DAYS, HIGH RISK HUSSAIN MONTGOMERY MS, RDN
--- NOTE | 2021-10-05 13:39 | NUR ---
NO EVIDENCE OF RESPIRATORY DISTRESS NOTED EQUAL CHEST RISE AIRWAY PATENT
--- NOTE | 2021-10-05 14:00 | NUR ---
PATIENT RESTING IN BED, EYE OPEN SPONTANEOUS. NO SIGN OF DISTRESS NOTED. PRECAUTION IN PLACE. CALL LIGHT WITHIN REACH. WILL CONTINUE TO MONITOR.
[2021-10-05 16:00] VITALS: BP 159/63
--- NOTE | 2021-10-05 16:00 | NUR ---
CHANGE AND REPOSITION PATIENT. PATIENT HAS LARGE BM. LOOSE STOOL. NO SIGN OF DISTRESS NOTED. PRECAUTION IN PLACE. CALL LIGHT WITHIN REACH. WILL CONTINUE TO MONITOR.
--- NOTE | 2021-10-05 16:30 | NUR ---
RESTING COMFORTABLY NO DISTRESS NOTED GOOD CHEST RISE DEEP TRACHEAL SUCTION FOR MODERATE SEMI THICK YELLOW SECRETIONS AIRWAY PATENT
--- NOTE | 2021-10-05 19:20 | NUR ---
ENDORSED PATIENT TO FITTER MACHINIST NURSE FOR CONTINUITY OF CARE. PATIENT IS STABLE.
--- NOTE | 2021-10-05 19:32 | NUR ---
RECEIVED PT ON TRACH PORTEX 8, SETTINGS PRVC F16, VT450, PEEP5, FIO2 24%. NO SIGNS OF RESPIRATORY DISTRESS PT IS SATING 98%. BS REVEALED; RUL;RML: COARSE AND ANNA;LLL: CLEAR/DIMINISHED, SX SMALL PALE YELLOW THICK SECRETIONS. ORAL CARE WAS DONE, AMBU BAG AT BEDSIDE, VENT PLUGGED INTO RED OUTLET. WILL CONTINUE TO MONITOR.
[2021-10-05 20:00] VITALS: BP 129/63
--- NOTE | 2021-10-05 20:00 | NUR ---
RECEIVED BEDSIDE REPORT FROM DAY RN REGARDING THE PATIENT FOR CONTINUITY OF CARE. PT AWAKE BUT NON VERBAL. PT ON TRACH TO VENT SETTING WITH FIO2, 24%, Vt- 450, RATE-14, PEEP-5. VSS, AFEBRILE, SATING 97% ON TRACH TO VENT SETTING. SR ON HOME CARE GIVER, HR-68. NO SIGN AND SYMPTOMS OF DISTRESS NOTED AT THIS TIME. IVF AND GTF BOTH INFUSING ORDERED. NO RESIDUAL NOTED ON THE G TUBE. HOB ELEVATED TO PREVENT ASPIRATION. BED IN LOW AND LOCKED POSITION. WILL CONTINUE POC AND MONITORING.
--- NOTE | 2021-10-05 22:00 | NUR ---
DUE MEDS GIVEN. PATIENT TOLERATED IT WELL. NO ADVERSE DRUG REACTION NOTED . SAFETY MEASURES IN PLACED. WILL CONTINUE MONITORING.
--- NOTE | 2021-10-05 23:34 | NUR ---
PT PRESENTS LAYING IN BED HOB ELEVATED W/ NO SIGNS OF RESPIRATORY DISTRESS SATING 96%. BS CLEAR SX SCANT WHITE THICK. WILL CONTINUE TO MONITOR.
[2021-10-06] VITALS: BP 163/57
--- NOTE | 2021-10-06 | NUR ---
PT VITAL SIGNS STABLE, AFEBRILE, SATING 98% ON TRACH TO VENT SETTING, FIO2- 24%. SR ON TELE MONITOR, HR- 70. NOT IN ANY DISTRESS AT THIS TIME. CALL LIGHT WITHIN REACH.WILL CONTINUE MONITORING.
--- NOTE | 2021-10-06 01:52 | NUR ---
NO SIGNS OF RESPIRATORY DISTRESS, HOB ELEVATED, SATING 98%. BS REVEALED RUL, RML, RLL; COARSE, ANNA, LLL; CLEAR. SX SMALL PALE YELLOW THICK. WILL CONTINUE TO MONITOR.
--- NOTE | 2021-10-06 02:14 | NUR ---
PATIENT ASLEEP AT THIS TIME. VISIBLE CHEST RISE AND FALL NOTED. PT NOT IN ANY DISTRESS. SAFETY MEASURES IN PLACED. WILL CONTINUE TO OBSERVE THE PATIENT.
[2021-10-06 04:00] VITALS: BP 121/51
--- NOTE | 2021-10-06 04:00 | NUR ---
PT VITAL SIGNS STABLE, AFEBRILE, SATING 97% ON TRACH TO VENT SETTING, FIO2- 24%. SR ON TELE MONITOR, HR- 75. NOT IN ANY DISTRESS AT THIS TIME. CALL LIGHT WITHIN REACH.WILL CONTINUE MONITORING.
--- NOTE | 2021-10-06 04:55 | NUR ---
PT LAYING IN BED W/ NO SIGNS OF RESPIRATORY DISTRESS SATING 98%, NO USE OF ACCESSORY MUSCLES, HOB ELEVATED, ORAL CARE DONE, BS COARSE SX SMALL YELLOW THICK, TRACH DRESSINGS CHANGED DRAINING DRY YELLOW SECRETIONS. WILL CONTINUE TO MONITOR.
[2021-10-06 06:26] LABS: HEMATOCRIT 27.7 % (36-48); HEMOGLOBIN 9.2 g/dL (12.0-16.0); MEAN CORPUSCULAR HEMOGLOBIN 30 pg (27-31); MEAN CORPUSCULAR HGB CONC 33 g/dL (33-37); MEAN CORPUSCULAR VOLUME 89.2 fL (80-94); PLATELET COUNT (AUTO) 268 K/uL (140-450); RED CELL DISTRIBUTION WIDTH 15.9 % (11.6-13.7); WHITE BLOOD COUNT (AUTO) 14.1 K/uL (4.8-10.8)
--- NOTE | 2021-10-06 06:30 | NUR ---
NO ACUTE EVENT THROUGHOUT THE NIGHT. PATIENT STABLE AND NOT IN ANY DISTRESS. NO COMPLAIN AT THIS TIME. ALL NEEDS ATTENDED.CALL LIGHT WITHIN REACH. WILL ENDORSE THE PT TO THE ONCOMING RN FOR CONTINUITY OF CARE.
[2021-10-06 06:35] LABS: ANION GAP 13.5 (8-16); CARBON DIOXIDE 23.6 mmol/L (21-32); CHLORIDE 112 mmol/L (98-107); CREATININE 0.7 mg/dL (0.6-1.3); GLUCOSE 104 mg/dL (74-106); POTASSIUM 4.1 mmol/L (3.5-5.1); SODIUM SERUM 145 mmol/L (136-145); UREA NITROGEN, BLOOD 15 mg/dL (7-18)
[2021-10-06 07:01] LABS: MAGNESIUM 2.2 mg/dL (1.8-2.4); PHOSPHORUS 3.5 mg/dL (2.5-4.9)
[2021-10-06] MEDS: ALBUTEROL SULFATE/IPRATROPIU 3 ML SOL IH PRN (07:34)
--- NOTE | 2021-10-06 07:34 | NUR ---
RECEIVED ON [employer] Intelligence[employer]APE R860 VENTILATOR PLUGGED INTO RED OUTLET TOLERATING WELL WITHOUT ADVERSE REACTIONS NOTED TO A PORTEX DCT#8 AIRWAY SECURED WITH A ROBBIN TRACH TIE AMBU BAG AT BEDSIDE RESTING WELL GOOD CHEST RISE DEEP TRACHEAL SUCTION FOR SMALL SEMI THICK YELLOW SECRETIONS AIRWAY PATENT
--- NOTE | 2021-10-06 07:35 | NUR ---
RECEIVED BEDSIDE REPORT FROM BEATING MACHINE OPERATOR NURSE FOR CONTINUITY OF CARE. PT IS STABLE.
[2021-10-06 07:45] LABS: EOSINOPHILS % (MANUAL) 8 % (0-4); LYMPHOCYTES % (MANUAL) 7 % (20-46); MONOCYTES % (MANUAL) 6 % (5-12)
[2021-10-06 08:00] VITALS: BP 128/58
[2021-10-06] MEDS: MEMANTINE 10 MG TAB GT SCH ×2 (10:26→20:14)
[2021-10-06] MEDS: GLYCOPYRROLATE 1 MG TAB GT SCH ×2 (10:26→20:14)
[2021-10-06] MEDS: LEVOTHYROXINE 0.05 MG TAB GT SCH (10:26)
[2021-10-06] MEDS: MULTIVITAMIN 1 TAB GT SCH (10:26)
[2021-10-06] MEDS: DOCUSATE 100 MG/10 ML UDC GT SCH ×2 (10:26→20:15)
[2021-10-06] MEDS: APIXABAN 2.5 MG TAB PO SCH ×2 (10:27→20:16)
[2021-10-06] MEDS: AMIODARONE 200 MG TAB GT SCH (10:28)
--- NOTE | 2021-10-06 10:30 | NUR ---
ALL SCHEDULED MEDS GIVEN. PT IS STABLE. NO DISTRESS NOTED. WILL CONTINUE TO MONITOR.
[2021-10-06 12:00] VITALS: BP 118/57
--- NOTE | 2021-10-06 14:05 | NUR ---
RT AT PATIENT'S BEDSIDE
--- NOTE | 2021-10-06 14:23 | NUR ---
NO DISTRESS NOTED GOOD CHEST RISE DEEP TRACHEAL SUCTION FOR MODERATE SEMI THICK PALE YELLOW SECRETIONS AIRWAY PATENT
--- NOTE | 2021-10-06 14:34 | NUR ---
CHECKED ON PATIENT. PT IS STABLE. NO DISTRESS NOTED. WILL CONTINUE TO MONITOR
[2021-10-06 16:00] VITALS: BP 107/73
[2021-10-06] MEDS: NACL 0.9% 1,000 ML IV SCH (16:12)
--- NOTE | 2021-10-06 17:15 | NUR ---
STABLE GOOD CHEST RISE DEEP TRACHEAL SUCTION FOR MODERATE THIN PALE YELLOW SECRETIONS AIRWAY PATENT
--- NOTE | 2021-10-06 17:18 | NUR ---
RT AT BEDSIDE.
[2021-10-06] MEDS ORDERED: AMPICILLIN/SULBACTAM 3 GM VIAL ONE (18:16)
[2021-10-06] MEDS: AMPICILLIN 2,000 MG in NACL 0.9% 100 ML IV SCH (18:32)
--- NOTE | 2021-10-06 18:36 | NUR ---
ALL SCHEDULED MEDS GIVEN. PT IS STABLE. NO DISTRESS NOTED. WILL CONTINUE TO MONITOR.
--- NOTE | 2021-10-06 19:35 | NUR ---
ENDORSED TO FLAT IRONER NURSE FOR CONTINUITY OF CARE. PT IS STABLE.
[2021-10-06 20:00] VITALS: BP 132/48
--- NOTE | 2021-10-06 20:00 | NUR ---
RECEIVED BEDSIDE REPORT FROM DAY RN REGARDING THE PATIENT FOR CONTINUITY OF CARE. PT AWAKE ABLE TO SAY HELLO AND YES OR NO. PT ON TRACH TO VENT SETTING WITH FIO2, 24%, Vt- 450, RATE-14, PEEP-5. VSS, AFEBRILE, SATING 95% ON TRACH TO VENT SETTING. SR ON HR ADMINISTRATOR, HR-75. NO SIGN AND SYMPTOMS OF DISTRESS NOTED AT THIS TIME. IVF AND GTF BOTH INFUSING ORDERED ON THE RT FOREARM GAUGE 22. NO RESIDUAL NOTED ON THE G TUBE. HOB ELEVATED TO PREVENT ASPIRATION. BED IN LOW AND LOCKED POSITION. WILL CONTINUE POC AND MONITORING.
[2021-10-06] MEDS: ATORVASTATIN 20 MG TAB GT SCH (20:14)
--- NOTE | 2021-10-06 20:24 | NUR ---
RECEIVED PT ON TRACH PORTEX 8, SETTINGS PRVC F16, VT450, PEEP5, FIO2 24%. NO SIGNS OF RESPIRATORY DISTRESS PT IS SATING 97%. BS REVEALED; COARSE AT APICES DIMINISHED AT BASES, SX SMALL PALE YELLOW THICK SECRETIONS. ORAL CARE WAS DONE, AMBU BAG AT BEDSIDE, VENT PLUGGED INTO RED OUTLET. WILL CONTINUE TO MONITOR.
--- NOTE | 2021-10-06 22:04 | NUR ---
ALL DUE MEDS GIVEN. PATIENT TOLERATED IT WELL. NO ADVERSE DRUG REACTION NOTED . SAFETY MEASURES IN PLACED. WILL CONTINUE MONITORING.
--- NOTE | 2021-10-06 22:15 | NUR ---
PT PRESENTS LAYING IN BED ANXIOUS/AGITATED. DISCUSSED WITH RN FOR POSSIBLE MEDICATION TO CALM HER. HOB ELEVATED W/ NO SIGNS OF RESPIRATORY DISTRESS SATING 97%. BS CLEAR/DIMINISHED SX SCANT WHITE THICK. WILL CONTINUE TO MONITOR.
[2021-10-07] VITALS: BP 130/51
--- NOTE | 2021-10-07 | NUR ---
PATIENT VSS, AFEBRILE, SATING 99% ON RA. SR WITH PVC ON AVIATION ENGINEER, HR-88. NO COMPLAIN AT THIS TIME AND NOT IN ANY DISTRESS. CALL LIGHT WITHIN REACH.
[2021-10-07] MEDS: AMPICILLIN 2,000 MG in NACL 0.9% 100 ML IV SCH ×5 (00:56→23:00)
--- NOTE | 2021-10-07 01:25 | NUR ---
NO SIGNS OF RESPIRATORY DISTRESS, HOB ELEVATED, SATING 97%. BS REVEALED CLEAR/DIMINISHED APICES COARSE BASES. SX SMALL PALE YELLOW THICK. WILL CONTINUE TO MONITOR.
[2021-10-07] MEDS ORDERED: AMPICILLIN/SULBACTAM 3 GM VIAL ONE ×2 (01:31→05:42)
--- NOTE | 2021-10-07 02:00 | NUR ---
PATIENT REMAINS AWAKE AND FALLS ASLEEP OFF AND ON. SUCTIONED NEEDED AND MOUTH CARE PROVIDED. NOT IN ANY DISTRESS. WILL CONTINUE TO OBSERVE.
[2021-10-07 04:00] VITALS: BP 106/47
--- NOTE | 2021-10-07 04:00 | NUR ---
PATIENT VSS, AFEBRILE, SATING 96% ON TRACH TO VENT SETTING, FIO2-24% . SR WITH PVC ON DIRECTOR OF FINANCIAL AID, HR-80. NO COMPLAIN AT THIS TIME AND NOT IN ANY DISTRESS. CALL LIGHT WITHIN REACH. WILL CONTINUE POC.
--- NOTE | 2021-10-07 04:46 | NUR ---
PT LAYING IN BED W/ NO SIGNS OF RESPIRATORY DISTRESS SATING 93%, NO USE OF ACCESSORY MUSCLES, HOB ELEVATED, ORAL CARE DONE, BS CLEAR APICES COARSE BASES SX SMALL YELLOW THICK, TRACH DRESSINGS CHANGED DRAINING DRY YELLOW SECRETIONS. WILL CONTINUE TO MONITOR.
[2021-10-07 06:11] LABS: BASOPHILS # (AUTO) 0.1 K/uL (0.00-0.22); BASOPHILS % (AUTO) 0.5 % (0.0-2.0); EOSINOPHILS # (AUTO) 0.4 K/uL (0-0.4); EOSINOPHILS % (AUTO) 3.5 % (0.0-4.0); HEMATOCRIT 27.2 % (36-48); LYMPHOCYTES # (AUTO) 1.5 K/uL (2.5-16.5); LYMPHOCYTES % (AUTO) 11.8 % (20.5-51.1); MEAN CORPUSCULAR HEMOGLOBIN 30 pg (27-31); MEAN CORPUSCULAR HGB CONC 33 g/dL (33-37); MEAN CORPUSCULAR VOLUME 89.6 fL (80-94); MONOCYTES # (AUTO) 1.1 K/uL (0.8-1.0); MONOCYTES % (AUTO) 8.4 % (1.7-9.3); NEUTROPHILS # (AUTO) 9.7 K/uL (1.8-7.7); NEUTROPHILS % (AUTO) 75.8 % (42.2-75.2); PLATELET COUNT (AUTO) 311 K/uL (140-450); RED BLOOD CELL COUNT(AUTO) 3.03 MIL/uL (4.20-5.40); RED CELL DISTRIBUTION WIDTH 15.8 % (11.6-13.7); WHITE BLOOD COUNT (AUTO) 12.8 K/uL (4.8-10.8)
[2021-10-07 06:20] LABS: ANION GAP 13.8 (8-16); CARBON DIOXIDE 23.3 mmol/L (21-32); CHLORIDE 112 mmol/L (98-107); CREATININE 0.8 mg/dL (0.6-1.3); GLUCOSE 111 mg/dL (74-106); POTASSIUM 4.1 mmol/L (3.5-5.1); SODIUM SERUM 145 mmol/L (136-145); UREA NITROGEN, BLOOD 13 mg/dL (7-18)
[2021-10-07 06:22] LABS: MAGNESIUM 1.9 mg/dL (1.8-2.4); PHOSPHORUS 3.8 mg/dL (2.5-4.9)
--- NOTE | 2021-10-07 07:21 | NUR ---
ENDORSED PT TO DAY RN FOR CONTINUITY OF CARE. PT STABLE. SIGNING OFF.
--- NOTE | 2021-10-07 07:22 | NUR ---
RECEIVED REPORT FROM [employer] NURSE. PT IS THRASHING AROUND IN BED. ATTEMPTING TO PULL OUT TRACH. ATTEMPTED TO CALM PT DOWN. PT CONTINUES THRASHING AROUND. WILL ATTEMPT TO CALM DOWN AGAIN. WILL CONTINUE TO MONITOR.
[2021-10-07] MEDS: ALBUTEROL SULFATE/IPRATROPIU 3 ML SOL IH PRN (07:28)
--- NOTE | 2021-10-07 07:28 | NUR ---
RECEIVED ON A [employer]atorisSCAPE R860 VENTILATOR WITH COMPRESSOR ON PLUGGED INTO RED OUTLET TOLERATING WELL WITHOUT ADVERSE REACTIONS NOTED TO A PORTEX DCT #8 SECURED WITH A ROBBIN TRACH TIE CUFF PRESSURE CHECKED NOTED AMBU BAG AT BEDSIDE LOC AWAKE IRRITABLE WITH INCREASED SOB GOOD CHEST RISE DEEP TRACHEAL SUCTION FOR MODERATE THIN PALE YELLOW SECRETIONS AIRWAY PATENT
--- NOTE | 2021-10-07 07:43 | NUR ---
PT THRASHING IN BED. PT PULLING ON TRACH TUBING. ATTEMPTED TO CALM AND REORIENT PT. PT GIVEN ATIVAN. WILL REASSESS. ALL SAFETY MEASURES IN PLACE.
--- NOTE | 2021-10-07 07:44 | NUR ---
PT IN BED. CONTINUES THRASHING AROUND AND ATTEMPTING TO PULL OUT TRACH. ATTEMPTED TO CALM PT DOWN AND REORIENT PT, NOT SUCCESSFUL. RN TO GIVE ATIVAN. WILL CONTINUE TO MONITOR.
[2021-10-07 08:00] VITALS: BP 149/98
--- NOTE | 2021-10-07 08:13 | NUR ---
DISCUSSED AND REVIEWED PLAN OF CARE WITH JEREMIAS MCCONNELL
--- NOTE | 2021-10-07 08:44 | NUR ---
PT CONTINUES WITH RESTLESSNESS, THRASHING, AND ATTEMPTING TO PULL OUT TRACH.
[2021-10-07] MEDS: MORPHINE SULFATE 2 MG/ML SYR IVP PRN ×3 (08:57→21:11)
--- NOTE | 2021-10-07 08:58 | NUR ---
RN MEDICATED PT WITH MORPHINE. WILL CONTINUE TO MONITOR.
[2021-10-07] MEDS: NACL 0.9% 1,000 ML IV SCH (09:00)
--- NOTE | 2021-10-07 09:28 | NUR ---
STABLE NO EVIDENCE OF SOB NOTED GOOD CHEST RISE AIRWAY PATENT
[2021-10-07] MEDS: GLYCOPYRROLATE 1 MG TAB GT SCH ×2 (09:57→21:07)
[2021-10-07] MEDS: AMIODARONE 200 MG TAB GT SCH (09:57)
[2021-10-07] MEDS: DOCUSATE 100 MG/10 ML UDC GT SCH ×2 (09:57→21:06)
[2021-10-07] MEDS: LEVOTHYROXINE 0.05 MG TAB GT SCH (09:57)
[2021-10-07] MEDS: MULTIVITAMIN 1 TAB GT SCH (09:57)
[2021-10-07] MEDS: MEMANTINE 10 MG TAB GT SCH ×2 (09:57→21:07)
--- NOTE | 2021-10-07 09:57 | NUR ---
ADMINISTERED ALL SCHEDULED MEDICATIONS. PT TOLERATED WELL. WILL CONTINUE TO MONITOR.
[2021-10-07] MEDS: APIXABAN 2.5 MG TAB PO SCH ×2 (09:59→21:08)
--- NOTE | 2021-10-07 11:05 | NUR ---
NO DISTRESS NOTED EQUAL CHEST RISE AIRWAY PATENT
[2021-10-07 12:00] VITALS: BP 113/56
--- NOTE | 2021-10-07 12:30 | NUR ---
PT IS IN BED AT THIS TIME, RESPIRATIONS ARE EVEN AND UNLABORED. NO SIGNS OF DISTRESS NOTED. PT HAS OCCASIONAL BOUTS OF WAKING UP AND THRASHING AROUND WELL TRYING TO PULL OUT TRACH. WILL CONTINUE TO MONITOR.
--- NOTE | 2021-10-07 13:37 | NUR ---
RESTING WELL GOOD CHEST RISE DEEP TRACHEAL SUCTION FOR MODERATE THIN PALE YELLOW SECRETIONS AIRWAY PATENT
--- NOTE | 2021-10-07 15:45 | NUR ---
PT CONTINUES TO THRASH AROUND IN BED. PT APPEARS AGITATED. ASSISTED WITH CHANGING AND REPOSITIONING PT. WILL CONTINUE TO MONITOR.
[2021-10-07 16:00] VITALS: BP 142/66
--- NOTE | 2021-10-07 16:55 | NUR ---
PT CONTINUES TO THRASH ABOUT BED, YELLING, AND APPEARS AGITATED. PT CONTINUES TO ATTEMPT TO REMOVE TRACH. PT MEDICATED. WILL CONTINUE TO MONITOR.
--- NOTE | 2021-10-07 17:01 | NUR ---
PT CONTINUES TO ATTEMPT TO PULL OUT TRACH. PT CONTINUES TO THRASH ABOUT BED. SPOKE WITH TOMASA BURGOS TO PLACE ORDER FOR SOFT WRIST RESTRAINTS. WILL APPLY RESTRAINTS AND WILL CONTINUE TO MONITOR.
--- NOTE | 2021-10-07 18:15 | NUR ---
IV MEDICATION ADMINISTERED BY RN. WILL CONTINUE TO MONITOR.
--- NOTE | 2021-10-07 19:44 | NUR ---
ENDORSED PT TO FREIGHT CHECKER NURSE FOR CONTINUITY OF CARE. RESPIRATIONS ARE EVEN AND UNLABORED. NO SIGNS OF DISTRESS NOTED. NO SIGNS OF PAIN OR DISCOMFORT. CHECKED AND RELEASED RESTRAINTS. ALL NEEDS MET THROUGHOUT SHIFT. PT IS STABLE.
[2021-10-07 20:00] VITALS: BP 96/55
--- NOTE | 2021-10-07 20:01 | NUR ---
Received patient from AM shift nurse. Patient is awake no s/s of distress and received care from RT. Chest rise is even and labored and is on a trach. Normal heart sounds are present. Active bowel sounds x4 heard on auscultation, no noted pain with palpation. Will monitor patient throughout the shift. Bed is locked in the lowest position with bed rails up for safety.
[2021-10-07] MEDS: ATORVASTATIN 20 MG TAB GT SCH (21:07)
--- NOTE | 2021-10-07 23:42 | NUR ---
ROUNDS: Patient is resting no s/s of distress is noted at this time. Patient has periods were she shouts but no changes in respiratory status noted. Stimuli to room was decreased, and patient was repositioned for comfort. Call light is within reach, bed is locked in the lowest position with bed rails up. Will continue to monitor. Addendum: 10/07/21 at 2346 by Agency 04 RN RN Restraints noted no adverse s/s due to use. No new injuries or skin irritation.
[2021-10-08] VITALS: BP 131/59
[2021-10-08] MEDS: NACL 0.9% 1,000 ML IV SCH (01:35)
[2021-10-08 04:00] VITALS: BP 129/56
[2021-10-08] MEDS: AMPICILLIN 2,000 MG in NACL 0.9% 100 ML IV SCH ×2 (05:30→12:06)
--- NOTE | 2021-10-08 06:29 | NUR ---
Patient is currently sleeping no s/s of distress is noted. All shift orders have been completed and all current needs have been met. Call light is within reach, bed is locked in the lowest position with bed rails up. Patient continues to be on restraints due to attempts to pull out trach and lines. No skin issue are noted due to restrains. Will differ further care to AM shift nurse for continuity of care.
--- NOTE | 2021-10-08 07:30 | NUR ---
PATIENT RECEIVED FROM NAIL PULLER NURSE, PATIENT RESTING IN BED EYES CLOSED NO S/SX OF DISTRESS AT THIS TIME
[2021-10-08 08:00] VITALS: BP 120/42
[2021-10-08] MEDS: LEVOTHYROXINE 0.05 MG TAB GT SCH (08:54)
[2021-10-08] MEDS: AMIODARONE 200 MG TAB GT SCH (08:54)
[2021-10-08] MEDS: MEMANTINE 10 MG TAB GT SCH (08:54)
[2021-10-08] MEDS: MULTIVITAMIN 1 TAB GT SCH (08:54)
[2021-10-08] MEDS: DOCUSATE 100 MG/10 ML UDC GT SCH (08:55)
[2021-10-08] MEDS: APIXABAN 2.5 MG TAB PO SCH (08:58)
--- NOTE | 2021-10-08 09:25 | NUR ---
PATIENT RESTING IN BED , MEDICATIONS GIVEN PER MD ORDER, PT EDUCATED UNABLE TO VERBALIZE UNDERSTANDING ALL SAFETY MEASURES ARE IN PLACE.
[2021-10-08] MEDS: GLYCOPYRROLATE 1 MG TAB GT SCH (09:29)
[2021-10-08] MEDS ORDERED: IV Zosyn IV (11:01)
--- NOTE | 2021-10-08 11:25 | NUR ---
TUBE FEEDING CHANGED , PATIENT CHANGED AD REPOSITIONED ONE BM AT THIS TIME , ALL SAFETY MEASURES ARE IN PLACE.
[2021-10-08 12:00] VITALS: BP 128/47
--- NOTE | 2021-10-08 12:28 | NUR ---
DC PLANNING: PATIENT ADMITTED FROM [facility] WITH C/O RASH TO ABDOMEN, UA POSITIVE FOR UTI. H/O RESPIRATORY FAILURE WITH TRACH/VENT/PEG. STARTED ON ZOSYN IV, CONSULTS WITH ID AND PULMONOLOGY ORDERED. PATIENT WITH ORDERS TO RETURN TO [facility] TODAY, ASSIGNED ROOM 120C, DR DOWD ACCEPTING. CCT WITH RT TRANSPORT SET UP WITH [facility], 1500 HOUSE OFFICER TIME, PATIENTS RN MONTSERRAT AWARE. CM ATTEMPTED TO REACH THE PATIENTS SON, UNABLE TO LEAVE IT IS NOT SET UP. CM WILL FOLLOW FOR NEEDS.
--- NOTE | 2021-10-08 13:37 | NUR ---
REPORT GIVEN TO HENRI FROM [facility] [phone], NURSE VERBALIZED UNDERSTANDING FOR CONTINUITY OF CARE.
--- NOTE | 2021-10-08 14:05 | NUR ---
PT. WITH LOW GANGA SCALE AT HIGH RISK, CONTINUE TO FOLLOW PRESSURE INJURY PREVENTION INTERVENTIONS. -TURN AND REPOSITION PATIENT Q 2H -ASSESS AND MONITOR SKIN CONDITION DURING POSITION CHANGE -OFFLOAD BILATERAL HEELS BY PLACING PILLOWS UNDER CALVES AT ALL TIMES, UNLESS OTHERWISE CONTRAINDICATED -PRESSURE REDISTRIBUTION SURFACE AND OFFLOADING SACRALCOCCYX -KEEP SKIN CLEAN AND DRY AT ALL TIMES. PLEASE NOTIFIED WOUND CARE NURSE FOR ANY CHANGE OF SKIN CONDITION
--- NOTE | 2021-10-08 15:09 | NUR ---
REPORT GIVEN TO DENYS FOR CONTINUITY OF CARE, PT INSTABLE CONDITION . Addendum: 10/08/21 at 1514 by Susy Roman RN RN [facility] REQUEST TEMPERATURE CHECK 97.5 AT THIS TIME
== END 2021-10-08 15:28 | DRG 870 ==
LOC: MED 22:27 → MTU 10-02 01:27
PROC: 5A1955Z Respiratory Ventilation, Greater than 96 Consecutive Hours (ICD-10-PCS; principal; 2021-10-02)
DX: A40.0 Sepsis due to streptococcus, group A (principal); E43 Unspecified severe protein-calorie malnutrition; I50.43 Acute on chronic combined systolic (congestive) and diastolic (congestive) heart failure; N39.0 Urinary tract infection, site not specified; I13.0 Hypertensive heart and chronic kidney disease with heart failure and stage 1 through stage 4 chronic kidney disease, or unspecified chronic kidney disease; J96.11 Chronic respiratory failure with hypoxia; L03.311 Cellulitis of abdominal wall; B95.2 Enterococcus as the cause of diseases classified elsewhere; E03.9 Hypothyroidism, unspecified; F02.80 Dementia in other diseases classified elsewhere, unspecified severity, without behavioral disturbance, psychotic disturbance, mood disturbance, and anxiety; G20 Parkinson's disease; I25.10 Atherosclerotic heart disease of native coronary artery without angina pectoris; N18.9 Chronic kidney disease, unspecified; E78.5 Hyperlipidemia, unspecified; I48.91 Unspecified atrial fibrillation; Z20.822 Contact with and (suspected) exposure to COVID-19; Z68.25 Body mass index [BMI] 25.0-25.9, adult; Z91.018 Allergy to other foods; Z79.01 Long term (current) use of anticoagulants; Z79.899 Other long term (current) drug therapy; Z86.718 Personal history of other venous thrombosis and embolism
CPT/HCPCS: 36415; 71045; 80048; 80053; 81001; 82150; 83036; 83605; 83690; 83735; 83880; 84100; 84134; 84443; 84484; 85025; 85610; 85730; 87040; 87081; 87086; 87186; 89220; 93005; 94002; 94003; 94640; 96361; 96365; 99285; J0290; J0295; J0696; J2060; J2270; J2405; J2543; J7060; Q0092

== ENCOUNTER 2021-10-22 14:05 | Inpatient (IN) | payer OTHER, MEDICAID, SELFPAY ==
[~2021-10-22] VITALS: Ht 167.6 cm; Wt 90.7 kg
[~2021-10-22 14:05] MED LIST changes: +ALBU0.0912 IH; -AMIO200T70 PO; +APIX2.5 PO; +ATOR20TA GT; +DEXT1DRO4 OP; -DOCU-299 PO; +IV Zosyn IV; -LOV40I SUBQ; -MEMA10TA PO; -MULT-2253 GT; +ONDA4TAB GT; +ROB1 GT; -TRAM50TA1 PO
[2021-10-22 14:08] VITALS: BP 87/49
--- NOTE | 2021-10-22 14:35 | NUR ---
SERVICE MEMBER AT BEDSIDE
[2021-10-22] MEDS ORDERED: VANCOMYCIN 1,000 MG in DEXTROSE 5% 250 ML IV ONE (14:40)
[2021-10-22] MEDS ORDERED: PIPERACILLIN/TAZOBACTAM 3.375 GM in DEXTROSE 5% 50 ML IV ONE (14:40)
[2021-10-22] MEDS ORDERED: NACL 0.9% 1,000 ML IV ONE (14:40)
--- NOTE | 2021-10-22 14:45 | NUR ---
86/F [place] [facility] PER EMS STAFF CALLED 911 STATING PATIENT HAD "1-2 EPISODES OF COFFEE GROUND EMESIS 30 MINS PRIOR TO CALLING 911." PATIENT IS TRACH TO VENT, GTUBE PRESENT, NONVERBAL AND NONAMBULATORY AT BASELINE. PER EMS STAFF DENIES ANY FURTHER COMPLAINTS. PATIENT IS TACHYCARDIC AT 137 AND HYPOTENSIVE AT 87/49 UPON ARRIVAL, DR. BLOOM AWARE OF PATIENT.
[2021-10-22 14:51] LABS: BASOPHILS # (AUTO) 0.1 K/uL (0.00-0.22); BASOPHILS % (AUTO) 0.6 % (0.0-2.0); EOSINOPHILS # (AUTO) 0.4 K/uL (0-0.4); EOSINOPHILS % (AUTO) 3.1 % (0.0-4.0); HEMATOCRIT 33.8 % (36-48); HEMOGLOBIN 11.1 g/dL (12.0-16.0); LYMPHOCYTES # (AUTO) 1.2 K/uL (2.5-16.5); LYMPHOCYTES % (AUTO) 9.1 % (20.5-51.1); MEAN CORPUSCULAR HEMOGLOBIN 29 pg (27-31); MEAN CORPUSCULAR HGB CONC 33 g/dL (33-37); MONOCYTES # (AUTO) 1.1 K/uL (0.8-1.0); MONOCYTES % (AUTO) 8.1 % (1.7-9.3); NEUTROPHILS # (AUTO) 10.3 K/uL (1.8-7.7); NEUTROPHILS % (AUTO) 79.1 % (42.2-75.2); PLATELET COUNT (AUTO) 354 K/uL (140-450); RED CELL DISTRIBUTION WIDTH 16.5 % (11.6-13.7)
[2021-10-22 15:09] LABS: ANION GAP 11.3 (8-16); CARBON DIOXIDE 28.9 mmol/L (21-32); CHLORIDE 105 mmol/L (98-107); CREATININE 0.9 mg/dL (0.6-1.3); GLUCOSE 105 mg/dL (74-106); POTASSIUM 4.2 mmol/L (3.5-5.1); SODIUM SERUM 141 mmol/L (136-145); UREA NITROGEN, BLOOD 34 mg/dL (7-18)
[2021-10-22] MEDS ORDERED: PIPERACILLIN/TAZOBACTAM 3.375 GM VIAL IV ONE (15:20)
[2021-10-22] MEDS ORDERED: VANCOMYCIN 1,000 MG VIAL ONE (15:21)
[2021-10-22 15:29] LABS: ALBUMIN 3.2 g/dL (3.4-5.0); BILIRUBIN,DIRECT 0.1 mg/dL (0.0-0.3); TOTAL BILIRUBIN 0.4 mg/dL (0.0-1.0)
--- NOTE | 2021-10-22 15:59 | NUR ---
ASSISTED IN TRANSPORT OF PATIENT TO CT. VENTILATED PT WITH AMBU BAG ON 15 L. PT REMAINED STABLE THROUGHOUT SCAN AND TRANSPORTED BACK TO ER BED 9. RECONNECTED PT TO VENT. VITALS STABLE WILL CONTINUE TO MONITOR
--- NOTE | 2021-10-22 16:00 | NUR ---
ACCOMPANIED FORENSIC TECHNICIAN AND RT TO CT.
--- NOTE | 2021-10-22 16:16 | NUR ---
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 CXR SHOWED PNEUMONIA, RAPID COVID TEST NEGATIVE. BLOOD URINE AND SPUTUM CULTURE PENDING. STARTED ON IV ABX ROCEPHIN AND FLAGYL AND CONTINUED HOME MEDS. CONSULTED WITH PULMO AND ID. DC PLAN TO GO BACK TO [facility] WHEN STABLE. CM TO FOLLOW. Addendum: 10/25/21 at 1628 by Moraima Ireland RN DC PLANNING: CT ABD SHOWED FECAL IMPACTION CONSULTED WITH GI. ADMINISTERED LAXATIVE . CONTINUE ZOSYN AND VANCO. CALLED [facility] SPOKE WITH [place] PATIENT IS ON BED HOLD DC PLAN TO GO BACK TO [facility] WHEN STABLE CM TO FOLLOW Addendum: 10/28/21 at 1241 by Carla Roy CM DC PLANNING: CLINICAL PACKET FAXED TO [facility] FOR POTENTIAL DC TODAY. CM WILL FOLLOW. Addendum: 10/28/21 at 1549 by Carla Roy CM DC PLANNING: PATIENT ACCEPTED BACK TO [facility] ROOM 129A. SOCIAL WORKER CLINICAL RUFINO SETTING UP CCT TRANSPORT WITH [facility]. CM WILL FOLLOW. Addendum: 10/28/21 at 1601 by Carla Roy CM DC PLANNING: CCT TRANSPORT WITH [facility] ARRANGED FOR 1700. CM WILL FOLLOW.
--- NOTE | 2021-10-22 16:30 | NUR ---
As ordered by ERMD #14 FR straight catheter inserted utilizing sterile technique. Immediate return of 30 ml dark/yellow urine noted. Urine sample collected and sent to lab. Pt tolerated procedure well.
[2021-10-22 17:02] LABS: APPEARANCE,URINE CLEAR (CLEAR); BILIRUBIN,URINE NEGATIVE (NEGATIVE); BLOOD, URINE NEGATIVE (NEGATIVE); COLOR,URINE YELLOW (YELLOW); LEUKOCYTE ESTERASE ,URINE NEGATIVE (NEGATIVE); NITRITE, URINE NEGATIVE (NEGATIVE); UGLUCOSE NEGATIVE (NEGATIVE)
--- NOTE | 2021-10-22 18:05 | NUR ---
PATIENT SOILED HER DIAPER, WITH THE HELP OF JIMMY ERVIN, PATIENTS DIAPER, SHEETS, UNDER PADS AND GOWN CHANGED. PATIENT REPOSITIONED IN BED, EXTRA PILLOWS PROVIDED FOR COMFORT. PATIENT ON BEDSIDE INSPECTOR WELDED PARTS, WILL CONTINUE TO MONITOR.
[2021-10-22] MEDS ORDERED: SODIUM PHOS / POTASSIUM PHOS 1 PKT PDR PO PRN (18:40)
[2021-10-22] MEDS ORDERED: HYDROcodone/APAP 5/325 MG 1 TAB TAB PO PRN (18:40)
[2021-10-22] MEDS ORDERED: POTASSIUM CHLORIDE 10 MEQ TABER PO PRN (18:40)
[2021-10-22] MEDS ORDERED: DOCUSATE SODIUM 100 MG GELCAP PO PRN (18:40)
[2021-10-22] MEDS ORDERED: MORPHINE SULFATE 2 MG/ML SYR IVP PRN (18:40)
[2021-10-22] MEDS ORDERED: ONDANSETRON 4 MG/2 ML VIAL IM/IVP PRN (18:40)
[2021-10-22] MEDS ORDERED: MAGNESIUM OXIDE 400 MG TAB PO PRN (18:40)
[2021-10-22] MEDS ORDERED: VANCOMYCIN PER PHARMACY MC PRN (18:40)
[2021-10-22] MEDS ORDERED: ACETAMINOPHEN 325 MG TAB PO PRN (18:40)
--- NOTE | 2021-10-22 19:00 | NUR ---
PATIENT OXYGEN SATURATION DROPPED INTO THE 70S, HEART RATE IN 40S, CALLED RT AND DR. BLOOM AT BEDSIDE. PATIENT DISCONNECTED FROM VENT AND BAGGED. OXYGEN BACK AT 100% HEART RATE 96. RT SUCTIONED PATIENT AND PLACED BACK ON VENT, WILL CONTINUE TO MONITOR.
[2021-10-22 19:09] LABS: MAGNESIUM 2.3 mg/dL (1.8-2.4); PHOSPHORUS 4.3 mg/dL (2.5-4.9)
--- NOTE | 2021-10-22 19:34 | NUR ---
Pt report given to SHIV TORREZ. Transfer of care at this time.
--- NOTE | 2021-10-22 19:46 | NUR ---
PT IN BED AWAKE SUPINE POSITION. BED LOCKED IN LOWEST POSITION W X2 SIDERAILS UP FOR PT SAFETY. NO SIGNS OF PAIN. TOLERATING VENT SETTINGS WELL. VSS. NAD NOTED, WILL CONTINUE TO MONITOR.
[2021-10-22] MEDS ORDERED: APIXABAN 2.5 MG TAB PO SCH (21:00)
[2021-10-22] MEDS: DEXT 5% /NACL 0.9% 1,000 ML IV SCH (21:07)
[2021-10-22] MEDS: DOCUSATE 100 MG/10 ML UDC GT SCH (21:21)
[2021-10-22] MEDS: ATORVASTATIN 20 MG TAB GT SCH (21:22)
[2021-10-22] MEDS: MEMANTINE 10 MG TAB GT SCH (21:22)
[2021-10-22] MEDS: GLYCOPYRROLATE 1 MG TAB GT SCH (21:22)
[2021-10-22 21:50] VITALS: BP 115/63
--- NOTE | 2021-10-22 21:50 | NUR ---
RECEIVED PT ON VENT W/ TRACH PORTEX 8, SETTINGS PRVC RR14, VT450, PEEP5, FIO2 45% PT PRESENTS WITH NO SIGNS OF RESPIRATORY DISTRESS SATING 100%. BS REVEAL RHONCHI THROUGHOUT. DEEP TRACHEAL SX SMALL RED/YELLOW THICK SECRETIONS. HOB ELEVATED, VENT PLUGGED INTO RED OUTLET. WILL CONTINUE TO MONITOR.
[2021-10-22] MEDS ORDERED: PIPERACILLIN/TAZOBACTAM 2.25 GM VIAL IV ONE (22:44)
[2021-10-22] MEDS: PIPERACILLIN/TAZOBACTAM 2.25 GM in DEXTROSE 5% 50 ML IV SCH (22:56)
--- NOTE | 2021-10-22 23:40 | NUR ---
NO CHANGE IN PT CONDITION. PT IN BED AWAKE SUPINE POSITION. BED LOCKED IN LOWEST POSITION W X2 SIDERAILS UP FOR PT SAFETY. NO SIGNS OF PAIN. TOLERATING VENT SETTINGS WELL. VSS. NAD NOTED, WILL CONTINUE TO MONITOR.
[2021-10-22 23:52] VITALS: BP 134/62
--- NOTE | 2021-10-23 03:38 | NUR ---
PROVIDED PT W SUCTIONING, PT TOLERATED WELL. VSS, NAD NOTED, WILL CONTINUE TO MONITOR.
[2021-10-23 04:21] VITALS: BP 161/44
[2021-10-23] MEDS ORDERED: PIPERACILLIN/TAZOBACTAM 2.25 GM VIAL IV ONE ×4 (04:39→22:12)
[2021-10-23] MEDS: PIPERACILLIN/TAZOBACTAM 2.25 GM in DEXTROSE 5% 50 ML IV SCH ×4 (04:54→23:15)
--- NOTE | 2021-10-23 05:20 | NUR ---
PT APPEARS TO BE RESTING W EYES CLOSED SUPINE POSITION, HOB ELEVATED. PT CONNECTED TO VENT. VSS. BED LOCKED IN LOWEST POSITION W X2 SIDERAILS UP FOR PT SAFETY. NAD NOTED, CONNECNTED TO MONITOR. WILL CONTINUE TO MONITOR.
[2021-10-23] MEDS ORDERED: ALBUTEROL HFA MDI 90 MCG/ACTUATION 8 GM INH SCH (06:00)
--- NOTE | 2021-10-23 06:01 | NUR ---
PROVIDED KAREEN PARKER.
[2021-10-23] MEDS: LEVOTHYROXINE 0.05 MG TAB GT SCH (07:06)
--- NOTE | 2021-10-23 07:19 | NUR ---
Pt report given to SHIV GRAMAJO. Transfer of care at this time.
--- NOTE | 2021-10-23 07:20 | NUR ---
REPORT RECEIVED FROM SHIV TORREZ FOR TRANSFER OF CARE
[2021-10-23 07:40] LABS: BASOPHILS # (AUTO) 0.1 K/uL (0.00-0.22); BASOPHILS % (AUTO) 0.5 % (0.0-2.0); EOSINOPHILS # (AUTO) 0.4 K/uL (0-0.4); EOSINOPHILS % (AUTO) 3.3 % (0.0-4.0); HEMATOCRIT 29.7 % (36-48); HEMOGLOBIN 9.5 g/dL (12.0-16.0); LYMPHOCYTES # (AUTO) 1.4 K/uL (2.5-16.5); LYMPHOCYTES % (AUTO) 12.1 % (20.5-51.1); MEAN CORPUSCULAR HEMOGLOBIN 29 pg (27-31); MEAN CORPUSCULAR HGB CONC 32 g/dL (33-37); MONOCYTES # (AUTO) 1.2 K/uL (0.8-1.0); MONOCYTES % (AUTO) 10.7 % (1.7-9.3); NEUTROPHILS # (AUTO) 8.4 K/uL (1.8-7.7); NEUTROPHILS % (AUTO) 73.4 % (42.2-75.2); PLATELET COUNT (AUTO) 271 K/uL (140-450); RED BLOOD CELL COUNT(AUTO) 3.27 MIL/uL (4.20-5.40); WHITE BLOOD COUNT (AUTO) 11.5 K/uL (4.8-10.8)
[2021-10-23 08:18] LABS: ANION GAP 10.9 (8-16); CARBON DIOXIDE 27.6 mmol/L (21-32); CHLORIDE 110 mmol/L (98-107); CREATININE 0.9 mg/dL (0.6-1.3); GLUCOSE 95 mg/dL (74-106); POTASSIUM 4.5 mmol/L (3.5-5.1); SODIUM SERUM 144 mmol/L (136-145); UREA NITROGEN, BLOOD 31 mg/dL (7-18)
[2021-10-23] MEDS: DOCUSATE 100 MG/10 ML UDC GT SCH ×2 (08:32→23:07)
[2021-10-23] MEDS: AMIODARONE 200 MG TAB GT SCH (08:32)
[2021-10-23] MEDS: LACTOBACILLUS RHAMNOSUS GG 1 EACH CAP GT SCH (08:33)
[2021-10-23] MEDS: GLYCOPYRROLATE 1 MG TAB GT SCH ×2 (08:33→23:05)
[2021-10-23] MEDS: PANTOPRAZOLE 40 MG INJ VIAL IVP SCH (08:33)
[2021-10-23] MEDS: MEMANTINE 10 MG TAB GT SCH ×2 (08:33→23:05)
[2021-10-23] MEDS: DEXT 5% /NACL 0.9% 1,000 ML IV SCH ×2 (08:34→20:15)
--- NOTE | 2021-10-23 08:36 | NUR ---
PT REPOSITIONED AND SUCTIONED BEDSIDE
--- NOTE | 2021-10-23 08:42 | NUR ---
PT ADMITTED 10/22/[address] TROY. PT CURRENTLY TELE HOLD IN ED BED 9
--- NOTE | 2021-10-23 09:56 | NUR ---
Patient appears to be resting comfortably in bed. Vital Signs within normal limits. Respirations even and unlabored.
[2021-10-23] MEDS: ALBUTEROL HFA MDI 90 MCG/ACTUATION 8 GM INH SCH ×2 (12:00→18:11)
[2021-10-23] MEDS: POLYVINYL ALCOHOL 1.4% OP 15 ML SOL OP SCH ×2 (13:47→17:34)
--- NOTE | 2021-10-23 14:01 | NUR ---
Patient appears to be resting comfortably in bed. Vital Signs within normal limits. Respirations even and unlabored.
--- NOTE | 2021-10-23 14:56 | NUR ---
PT CLEANED BEDSIDE AND PROVIDED WITH FRESH LINEN AND DIAPER. PT HAD BM AND URINATED SELF
[2021-10-23] MEDS ORDERED: VANCOMYCIN 1,000 MG in DEXTROSE 5% 250 ML IV SCH (15:00)
[2021-10-23] MEDS ORDERED: VANCOMYCIN 1,000 MG VIAL ONE (15:23)
--- NOTE | 2021-10-23 16:02 | NUR ---
PATIENT HAS BEEN SCREENED AND CATEGORIZED HIGH NUTRITION RISK. PATIENT WILL BE SEEN WITHIN 1-2 DAYS OF ADMISSION. / [address]
[2021-10-23] MEDS ORDERED: PIPERACILLIN/TAZOBACTAM 3.375 GM VIAL IV ONE (17:17)
--- NOTE | 2021-10-23 18:11 | NUR ---
Patient appears to be resting comfortably in bed. Vital Signs within normal limits. Respirations even and unlabored.
--- NOTE | 2021-10-23 19:38 | NUR ---
received report from Eda CHANEY for continuation of care.
--- NOTE | 2021-10-23 19:38 | NUR ---
Pt report given to SHIV FOX. Transfer of care at this time.
--- NOTE | 2021-10-23 20:49 | NUR ---
RT at bedside
[2021-10-23] MEDS: ATORVASTATIN 20 MG TAB GT SCH (23:05)
--- NOTE | 2021-10-24 03:48 | NUR ---
patient changed diapers, provided chucks, and repositioned patient to the right side-- patient tolerated well. safety measures in place, patient placed on the monitor and will continue to monitor patient.
[2021-10-24] MEDS: PIPERACILLIN/TAZOBACTAM 2.25 GM in DEXTROSE 5% 50 ML IV SCH ×4 (04:00→22:56)
--- NOTE | 2021-10-24 04:21 | NUR ---
RT at bedside and suctioning patient.
--- NOTE | 2021-10-24 06:57 | NUR ---
patient repositioned to supine. no signs of distress noted, suctioned patient and safety measures applied, attached to monitor and vent. will continue to monitor patient.
--- NOTE | 2021-10-24 07:12 | NUR ---
Pt report given to Eda CHANEY. Transfer of care at this time.
--- NOTE | 2021-10-24 07:20 | NUR ---
Selina urena in [facility] - 10/24/21 at 9057 by BETH REPORT RECEIVED FROM SHIV FOX FOR TRANSFER OF CARE
--- NOTE | 2021-10-24 07:20 | NUR ---
REPORT RECEIVED FROM SHIV FOX FOR TRANSFER OF CARE
[2021-10-24] MEDS: LEVOTHYROXINE 0.05 MG TAB GT SCH (07:27)
[2021-10-24] MEDS: DEXT 5% /NACL 0.9% 1,000 ML IV SCH (08:10)
[2021-10-24] MEDS: DOCUSATE 100 MG/10 ML UDC GT SCH (08:52)
[2021-10-24] MEDS: PANTOPRAZOLE 40 MG INJ VIAL IVP SCH (08:53)
[2021-10-24] MEDS: MEMANTINE 10 MG TAB GT SCH (08:53)
[2021-10-24] MEDS: AMIODARONE 200 MG TAB GT SCH (08:53)
[2021-10-24] MEDS: POLYVINYL ALCOHOL 1.4% OP 15 ML SOL OP SCH ×3 (08:57→17:31)
[2021-10-24] MEDS: GLYCOPYRROLATE 1 MG TAB GT SCH ×2 (09:21→23:16)
[2021-10-24] MEDS: LACTOBACILLUS RHAMNOSUS GG 1 EACH CAP GT SCH (09:21)
--- NOTE | 2021-10-24 10:03 | NUR ---
Patient appears to be resting comfortably in bed. Vital Signs within normal limits. Respirations even and unlabored.
[2021-10-24] MEDS ORDERED: PIPERACILLIN/TAZOBACTAM 2.25 GM VIAL IV ONE ×3 (10:08→22:46)
[2021-10-24 10:13] LABS: BASOPHILS # (AUTO) 0.1 K/uL (0.00-0.22); BASOPHILS % (AUTO) 0.8 % (0.0-2.0); EOSINOPHILS # (AUTO) 0.5 K/uL (0-0.4); EOSINOPHILS % (AUTO) 4.9 % (0.0-4.0); HEMATOCRIT 27.8 % (36-48); HEMOGLOBIN 9.1 g/dL (12.0-16.0); LYMPHOCYTES % (AUTO) 10.1 % (20.5-51.1); MEAN CORPUSCULAR HEMOGLOBIN 30 pg (27-31); MEAN CORPUSCULAR HGB CONC 33 g/dL (33-37); MEAN CORPUSCULAR VOLUME 90.4 fL (80-94); MONOCYTES # (AUTO) 0.9 K/uL (0.8-1.0); MONOCYTES % (AUTO) 9.5 % (1.7-9.3); NEUTROPHILS # (AUTO) 7.5 K/uL (1.8-7.7); NEUTROPHILS % (AUTO) 74.7 % (42.2-75.2); PLATELET COUNT (AUTO) 254 K/uL (140-450); RED BLOOD CELL COUNT(AUTO) 3.08 MIL/uL (4.20-5.40); RED CELL DISTRIBUTION WIDTH 16.7 % (11.6-13.7)
[2021-10-24 10:25] LABS: ANION GAP 12.1 (8-16); CARBON DIOXIDE 25.7 mmol/L (21-32); CHLORIDE 111 mmol/L (98-107); CREATININE 0.9 mg/dL (0.6-1.3); GLUCOSE 91 mg/dL (74-106); POTASSIUM 3.8 mmol/L (3.5-5.1); SODIUM SERUM 145 mmol/L (136-145); UREA NITROGEN, BLOOD 21 mg/dL (7-18)
--- NOTE | 2021-10-24 11:43 | NUR ---
10/24/21 RD INITIAL ASSESSMENT COMPLETED PLEASE REFER TO NUTRITION ASSESSMENT UNDER CARE ACTIVITY FOR ESTIMATED NUTRITIONAL NEEDS. 1. WHEN/IF MEDICALLY APPROPRIATE, RECOMMEND VITAL AF 1.2 @ 60 ML/HR -WATER FLUSH: 150 ML Q6H -START AT 10 ML/HR AND INCREASE BY 10 ML Q4H TOLERATED -WILL PROVIDE 1728 KCAL AND 108 GM PROTEIN, MEETING ESTIMATED NUTRITIONAL GOALS 2. MONITOR GI SYMPTOMS 3. RD TO FOLLOW-UP 2-3 DAYS, HIGH RISK [address]NE [address]
--- NOTE | 2021-10-24 11:44 | NUR ---
ROVIDED PT W SUCTIONING, PT TOLERATED WELL. VSS, NAD NOTED, WILL CONTINUE TO MONITOR.
--- NOTE | 2021-10-24 13:48 | NUR ---
Patient appears to be resting comfortably in bed. Vital Signs within normal limits. Respirations even and unlabored.
[2021-10-24] MEDS ORDERED: FUROSEMIDE 20 MG/2 ML VIAL IVP SCH (14:20)
--- NOTE | 2021-10-24 15:05 | NUR ---
PT REPOSITIONED AND PLACED ON R SIDE. PT PROVIDED WITH FRESH LINEN AND DIAPER
--- NOTE | 2021-10-24 15:06 | NUR ---
PROVIDED PT W SUCTIONING, PT TOLERATED WELL. VSS, NAD NOTED, WILL CONTINUE TO MONITOR
[2021-10-24] MEDS: SENNA 8.6 MG TAB PO SCH (17:00)
[2021-10-24] MEDS: VANCOMYCIN HCL 1.25 GM in DEXTROSE 5% 250 ML IV SCH (17:31)
--- NOTE | 2021-10-24 17:58 | NUR ---
Patient appears to be resting comfortably in bed. Vital Signs within normal limits. Respirations even and unlabored.
[2021-10-24] MEDS: METOCLOPRAMIDE 10 MG/2 ML INJ VIAL IVP SCH (19:17)
--- NOTE | 2021-10-24 19:27 | NUR ---
Pt report given to SHIV CROOK. Transfer of care at this time.
[2021-10-24 19:33] VITALS: BP 142/75
[2021-10-24] MEDS: ALBUTEROL HFA MDI 90 MCG/ACTUATION 8 GM INH SCH (19:33)
--- NOTE | 2021-10-24 19:58 | NUR ---
patient c/o pain 05/21. patient tachycardic in the high 120s. AAOx4. VSS. Safety measures in place, attached to monitor and will continue to monitor patient.
[2021-10-24] MEDS: POLYETHYLENE GLYCOL 17 GM/PKT PO SCH (23:16)
[2021-10-24] MEDS: ATORVASTATIN 20 MG TAB GT SCH (23:17)
[2021-10-24 23:46] VITALS: BP 155/57
[2021-10-25] MEDS: METOCLOPRAMIDE 10 MG/2 ML INJ VIAL IVP SCH ×3 (00:30→11:22)
--- NOTE | 2021-10-25 01:15 | NUR ---
PT WAS SUCTIONED, DAIPER AND LINENS CHANGED. PT APPEARS MORE COMFORTABLE AND PLACED IN SEMI FOWLERS (30 DEGREE), BED IN LOWEST POSITION AND RAILS UP X2.
[2021-10-25] MEDS ORDERED: LORazepam 2 MG/ML VIAL IVP SCH (01:35)
[2021-10-25] MEDS ORDERED: LORazepam 2 MG/ML VIAL ONE (01:41)
[2021-10-25] MEDS: DEXT 5% /NACL 0.9% 1,000 ML IV SCH (03:09)
--- NOTE | 2021-10-25 03:25 | NUR ---
RT AT BEDSIDE
[2021-10-25 03:28] VITALS: BP 155/57
--- NOTE | 2021-10-25 04:23 | NUR ---
TUBE FEEDING INITIATED. NO RESIDUAL NOTED, NORMOACTIVE BOWEL SOUNDS ALL 4 QUADRANTS.
--- NOTE | 2021-10-25 05:07 | NUR ---
RT at bedside.
[2021-10-25 05:39] VITALS: BP 119/56
[2021-10-25] MEDS ORDERED: PIPERACILLIN/TAZOBACTAM 2.25 GM VIAL IV ONE (06:32)
[2021-10-25] MEDS: LEVOTHYROXINE 0.05 MG TAB GT SCH (06:50)
[2021-10-25] MEDS: PIPERACILLIN/TAZOBACTAM 2.25 GM in DEXTROSE 5% 50 ML IV SCH ×4 (06:52→21:24)
[2021-10-25] MEDS: ALBUTEROL HFA MDI 90 MCG/ACTUATION 8 GM INH SCH ×3 (06:54→19:27)
--- NOTE | 2021-10-25 07:25 | NUR ---
RECEIVED REPORT FROM ARMAAN CHANEY, TRANSFER OF CARE AT THIS TIME. PT RESTING IN BED. PT ON PAVING BED MAKER, VSS. PT ON VENT-TOLERATING WELL.
--- NOTE | 2021-10-25 08:00 | NUR ---
Patient will be admitted to care of cristino best. Admited to telemetry. Will go to room 126b. Belongings list completed. Report to korin hudson.
--- NOTE | 2021-10-25 08:43 | NUR ---
PT TAKEN TO TELEMETRY UNIT WITH DIRECTOR OF PRIMARY AND RT. MAINTAINE FLUIDS AND GTUBE FEEDING STOPPED AT THIS TIME AND WILL CONTINUE ON THE FLOOR.
--- NOTE | 2021-10-25 08:44 | NUR ---
TRANSFERRED PATIENT TO [facility] 126-B REMOVED FROM VENTILATOR PLACED ON SUPPLEMENTAL OXYGEN AT 15 LPM VIA E-TANK TO AMBU BAG/INLINE SUCTION CATHETER/TRACHEOSTOMY TUBE BAG DEPRESSION EVERY 6-8 SECONDS TOLERATED TRANSFER WELL WITHOUT COMPLICATIONS NOTED SATURATION 100% HR 70'S
[2021-10-25 09:00] VITALS: BP 129/81
--- NOTE | 2021-10-25 09:00 | NUR ---
RECEIVED PT FROM ED NURSE TO ROOM 126B . PT IS IN BED. BREATHING IS EVEN AND UNLABORED. NO SS OF DISTRESS AND ON TRACH TO VENT AT 35% FIO2, WITH O2 SAT AT 100% AND VS WNL. SIDE RAILS UP. BED ON LOW AND LOCKED. CALL LIGHT WITHIN REACH. ALL SAFETY MEASURES IN PLACE. PT IS STABLE
[2021-10-25] MEDS: AMIODARONE 200 MG TAB GT SCH (09:42)
[2021-10-25] MEDS: SENNA 8.6 MG TAB PO SCH ×3 (09:42→17:23)
[2021-10-25] MEDS: LACTOBACILLUS RHAMNOSUS GG 1 EACH CAP GT SCH (09:42)
[2021-10-25] MEDS: GLYCOPYRROLATE 1 MG TAB GT SCH ×2 (09:42→21:23)
[2021-10-25] MEDS: PANTOPRAZOLE 40 MG INJ VIAL IVP SCH (09:43)
[2021-10-25] MEDS: POLYETHYLENE GLYCOL 17 GM/PKT PO SCH ×2 (09:43→21:23)
[2021-10-25] MEDS: POLYVINYL ALCOHOL 1.4% OP 15 ML SOL OP SCH ×3 (09:45→17:23)
[2021-10-25] MEDS ORDERED: MAGNESIUM CITRATE 300 ML BTL PO SCH (10:00)
[2021-10-25 10:30] LABS: ANION GAP 14.9 (8-16); CARBON DIOXIDE 25.5 mmol/L (21-32); CHLORIDE 108 mmol/L (98-107); GLUCOSE 94 mg/dL (74-106); POTASSIUM 3.4 mmol/L (3.5-5.1); SODIUM SERUM 145 mmol/L (136-145); UREA NITROGEN, BLOOD 17 mg/dL (7-18)
[2021-10-25 11:22] LABS: BASOPHILS # (AUTO) 0.1 K/uL (0.00-0.22); BASOPHILS % (AUTO) 0.6 % (0.0-2.0); EOSINOPHILS # (AUTO) 0.3 K/uL (0-0.4); EOSINOPHILS % (AUTO) 2.9 % (0.0-4.0); HEMATOCRIT 28.2 % (36-48); HEMOGLOBIN 9.3 g/dL (12.0-16.0); LYMPHOCYTES # (AUTO) 1.1 K/uL (2.5-16.5); LYMPHOCYTES % (AUTO) 11.4 % (20.5-51.1); MEAN CORPUSCULAR HEMOGLOBIN 30 pg (27-31); MEAN CORPUSCULAR HGB CONC 33 g/dL (33-37); MEAN CORPUSCULAR VOLUME 89.8 fL (80-94); MONOCYTES # (AUTO) 0.8 K/uL (0.8-1.0); NEUTROPHILS # (AUTO) 7.8 K/uL (1.8-7.7); NEUTROPHILS % (AUTO) 77.1 % (42.2-75.2); PLATELET COUNT (AUTO) 261 K/uL (140-450); RED BLOOD CELL COUNT(AUTO) 3.13 MIL/uL (4.20-5.40); RED CELL DISTRIBUTION WIDTH 16.9 % (11.6-13.7); WHITE BLOOD COUNT (AUTO) 10.1 K/uL (4.8-10.8)
[2021-10-25] MEDS: LORazepam 2 MG/ML VIAL IVP PRN ×2 (11:22→21:28)
[2021-10-25 12:00] VITALS: BP 154/52
--- NOTE | 2021-10-25 12:00 | NUR ---
PT IS IN BED. BREATHING IS EVEN AND UNLABORED. NO SS OF DISTRESS AND ON TRACH TO VENT AT 35% FIO2, WITH O2 SAT AT 98% AND VS WNL. SIDE RAILS UP. BED ON LOW AND LOCKED. CALL LIGHT WITHIN REACH. ALL SAFETY MEASURES IN PLACE. PT IS STABLE
[2021-10-25] MEDS ORDERED: FUROSEMIDE 20 MG/2 ML VIAL IVP SCH (14:00)
[2021-10-25] MEDS ORDERED: POTASSIUM CHLORIDE 20% 40 MEQ/15 ML UDC GT SCH (14:00)
[2021-10-25] MEDS ORDERED: MINERAL OIL 135 ML ENEM RC SCH (15:30)
[2021-10-25 16:00] VITALS: BP 148/71
[2021-10-25] MEDS: VANCOMYCIN HCL 1.25 GM in DEXTROSE 5% 250 ML IV SCH (17:23)
--- NOTE | 2021-10-25 19:35 | NUR ---
ENDORSED TO SALES FLOOR ASSOCIATE NURSE FOR CONTINUITY OF CARE.
[2021-10-25 20:00] VITALS: BP 152/112
--- NOTE | 2021-10-25 20:00 | NUR ---
Received patient from AM shift. Patient is unable to make needs known, no s/s of distress is noted. Chest rise is even and unlabored. Normal heart sounds are present and on tele monitoring. Bowel sounds hypo active, some tenderness and distention on upper abdomen noted. Bed is locked, in the lowest position with bed rails up. Will continue to monitor throughout the shift.
[2021-10-25] MEDS: ATORVASTATIN 20 MG TAB GT SCH (21:23)
[2021-10-26] VITALS: BP 146/89
--- NOTE | 2021-10-26 00:30 | NUR ---
Round. Patient is currently sleeping no s/s of distress at this time. Patient has been suctioned and cleaned. Bed is locekd in the lowest position with bed rails up. Will continue to monitor throughout the shift.
[2021-10-26 04:00] VITALS: BP 140/70
[2021-10-26] MEDS: PIPERACILLIN/TAZOBACTAM 2.25 GM in DEXTROSE 5% 50 ML IV SCH ×4 (04:26→21:31)
[2021-10-26] MEDS: LORazepam 2 MG/ML VIAL IVP PRN (05:03)
[2021-10-26] MEDS: LEVOTHYROXINE 0.05 MG TAB GT SCH (05:41)
--- NOTE | 2021-10-26 07:40 | NUR ---
RECEIVED PT FROM RETORT FURNACE OPERATOR NURSE FOR CONTINUITY OF CARE. PT IS AOX1 APHASIC. TRACH TO VENT FIO2 AT 35%. NO DISTRESS NOTED. SKIN IS WARM, DRY, AND INTACT. IV ACCESS ON LFA 20 G INTACT AND PATENT. INCONTINENT PLAN OF CARE DISCUSSED. SAFETY PRECAUTIONS IN PLACE. SIDE RAILS UP. BED ON LOW AND LOCKED. CALL LIGHT WITHIN REACH. WILL CONTINUE TO MONITOR.
--- NOTE | 2021-10-26 07:42 | NUR ---
Patient is currently in bed resting no s/s of distress is noted at this time. All current needs have been met. Will differ further care to AM shift nurse for continuity of care.
[2021-10-26 08:00] VITALS: BP 117/60
[2021-10-26 08:16] LABS: BASOPHILS # (AUTO) 0.1 K/uL (0.00-0.22); BASOPHILS % (AUTO) 0.8 % (0.0-2.0); EOSINOPHILS # (AUTO) 0.3 K/uL (0-0.4); EOSINOPHILS % (AUTO) 2.6 % (0.0-4.0); HEMATOCRIT 26.7 % (36-48); LYMPHOCYTES # (AUTO) 1.1 K/uL (2.5-16.5); LYMPHOCYTES % (AUTO) 10.7 % (20.5-51.1); MEAN CORPUSCULAR HEMOGLOBIN 30 pg (27-31); MEAN CORPUSCULAR HGB CONC 34 g/dL (33-37); MEAN CORPUSCULAR VOLUME 88.8 fL (80-94); MONOCYTES # (AUTO) 1.2 K/uL (0.8-1.0); NEUTROPHILS # (AUTO) 7.9 K/uL (1.8-7.7); NEUTROPHILS % (AUTO) 74.9 % (42.2-75.2); PLATELET COUNT (AUTO) 254 K/uL (140-450); RED CELL DISTRIBUTION WIDTH 16.6 % (11.6-13.7); WHITE BLOOD COUNT (AUTO) 10.5 K/uL (4.8-10.8)
[2021-10-26] MEDS: ALBUTEROL HFA MDI 90 MCG/ACTUATION 8 GM INH SCH ×2 (08:21→12:47)
[2021-10-26 09:21] LABS: ANION GAP 11.6 (8-16); CHLORIDE 110 mmol/L (98-107); CREATININE 1.1 mg/dL (0.6-1.3); GLUCOSE 99 mg/dL (74-106); POTASSIUM 3.6 mmol/L (3.5-5.1); SODIUM SERUM 145 mmol/L (136-145); UREA NITROGEN, BLOOD 15 mg/dL (7-18)
[2021-10-26] MEDS: POLYVINYL ALCOHOL 1.4% OP 15 ML SOL OP SCH ×3 (10:38→17:12)
[2021-10-26] MEDS: LACTOBACILLUS RHAMNOSUS GG 1 EACH CAP GT SCH (10:38)
[2021-10-26] MEDS: PANTOPRAZOLE 40 MG INJ VIAL IVP SCH (10:38)
[2021-10-26] MEDS: AMIODARONE 200 MG TAB GT SCH (10:38)
[2021-10-26] MEDS: POLYETHYLENE GLYCOL 17 GM/PKT PO SCH ×2 (10:38→21:02)
[2021-10-26] MEDS: GLYCOPYRROLATE 1 MG TAB GT SCH ×2 (10:38→21:01)
[2021-10-26] MEDS: SENNA 8.6 MG TAB PO SCH ×3 (10:38→17:12)
--- NOTE | 2021-10-26 10:40 | NUR ---
ALL SCHEDULED MEDS GIVEN. PT IS STABLE. NO DISTRESS NOTED. WILL CONTINUE TO MONITOR.
--- NOTE | 2021-10-26 11:15 | NUR ---
RT AT BEDSIDE.
[2021-10-26 12:00] VITALS: BP 126/64
--- NOTE | 2021-10-26 12:46 | NUR ---
(10/26/21) RD FOLLOW UP COMPLETED PLEASE REFER TO NUTRITION PROGRESS NOTE UNDER CARE ACTIVITY FOR ESTIMATED NUTRITION NEEDS. RD RECOMMENDATIONS: 1. CONTINUE JEVITY 1.2 AT 50 ML/HR WITH FWF 50 ML Q4H VIA GTUBE TOLERATED. THIS PROVIDES 1200 ML TOTAL VOLUME, 1440 KCAL, 67 GM PROTEIN, WHICH MEETS 81% EST UPPER-END KCAL NEEDS AND 94% EST UPPER-END PROTEIN NEEDS; ADEQUATE. 2. IF PT STILL DOES NOT HAVE A BM, CONTINUES WITH ABD DISTENTION, CONSIDER HIGH FIBER FORMULA FOR TF. CONSIDER CHANGING FORMULA TO VITAL AF 1.2 TO RUN AT 50 ML/HR WITH FWF 50 ML Q4H. THIS WILL PROVIDE 1200 ML TOTAL VOLUME, 1440 KCAL, AND 90 GM PROTEIN TO MEET 81% EST KCAL NEEDS AND >100% EST PROTEIN NEEDS. 3. RD TO FOLLOW-UP 2-3 DAYS, HIGH RISK HUSSAIN MONTGOMERY, MS, RDN
--- NOTE | 2021-10-26 15:50 | NUR ---
ALL SCHEDULED MEDS GIVEN. PT IS STABLE. NO DISTRESS NOTED. WILL CONTINUE TO MONITOR.
[2021-10-26 16:00] VITALS: BP 121/67
[2021-10-26] MEDS: VANCOMYCIN HCL 1.25 GM in DEXTROSE 5% 250 ML IV SCH (17:12)
--- NOTE | 2021-10-26 19:40 | NUR ---
ENDORSED TO AUTOMOBILE MECHANIC SUPERVISOR NURSE FOR CONTINUITY OF CARE. PT IS STABLE.
[2021-10-26 20:00] VITALS: BP 111/56
[2021-10-26] MEDS: ATORVASTATIN 20 MG TAB GT SCH (21:01)
--- NOTE | 2021-10-26 21:01 | NUR ---
ALL SCHEDULED MEDICATIONS ADMINISTERED ORDERED.
[2021-10-27] VITALS: BP 110/58
--- NOTE | 2021-10-27 02:23 | NUR ---
PATIENT SLEEPING, TRACH TO VENT. NO S/S OF RESPIRATORY DISTRESS. BREATHING EVEN UNLABORED. ALL SAFETY PRECAUTIONS ARE IN PLACE. CALL LIGHT WITHIN REACH.
[2021-10-27 04:00] VITALS: BP 122/59
[2021-10-27] MEDS: PIPERACILLIN/TAZOBACTAM 2.25 GM in DEXTROSE 5% 50 ML IV SCH ×4 (04:09→22:10)
--- NOTE | 2021-10-27 04:09 | NUR ---
ZOSYN ADMINISTERED SCHEDULED.
[2021-10-27] MEDS: ALBUTEROL HFA MDI 90 MCG/ACTUATION 8 GM INH SCH ×3 (06:52→20:44)
[2021-10-27] MEDS: LEVOTHYROXINE 0.05 MG TAB GT SCH (07:12)
--- NOTE | 2021-10-27 07:28 | NUR ---
ENDORSED PATIENT TO AM NURSE FOR CONTINUITY OF CARE.
--- NOTE | 2021-10-27 07:35 | NUR ---
RECEIVED PT FROM CRAWLER CRANE OPERATOR NURSE FOR CONTINUITY OF CARE. PT IS AOX1 APHASIC. TRACH TO VENT FIO2 AT 35%. NO DISTRESS NOTED. SKIN IS WARM, DRY, AND INTACT. IV ACCESS ON LFA 20 G INTACT AND PATENT. INCONTINENT PLAN OF CARE DISCUSSED. SAFETY PRECAUTIONS IN PLACE. SIDE RAILS UP. BED ON LOW AND LOCKED. CALL LIGHT WITHIN REACH. WILL CONTINUE TO MONITOR.
[2021-10-27] MEDS ORDERED: VANCOMYCIN PER PHARMACY MC PRN (07:45)
[2021-10-27 08:00] VITALS: BP 126/58
[2021-10-27 08:07] LABS: BASOPHILS # (AUTO) 0.1 K/uL (0.00-0.22); BASOPHILS % (AUTO) 0.7 % (0.0-2.0); EOSINOPHILS # (AUTO) 0.7 K/uL (0-0.4); EOSINOPHILS % (AUTO) 6.4 % (0.0-4.0); HEMATOCRIT 28.9 % (36-48); HEMOGLOBIN 9.4 g/dL (12.0-16.0); LYMPHOCYTES # (AUTO) 1.5 K/uL (2.5-16.5); LYMPHOCYTES % (AUTO) 12.7 % (20.5-51.1); MEAN CORPUSCULAR HEMOGLOBIN 30 pg (27-31); MEAN CORPUSCULAR HGB CONC 33 g/dL (33-37); MEAN CORPUSCULAR VOLUME 90.3 fL (80-94); MONOCYTES % (AUTO) 8.2 % (1.7-9.3); NEUTROPHILS # (AUTO) 8.4 K/uL (1.8-7.7); PLATELET COUNT (AUTO) 252 K/uL (140-450); RED CELL DISTRIBUTION WIDTH 16.9 % (11.6-13.7); WHITE BLOOD COUNT (AUTO) 11.7 K/uL (4.8-10.8)
[2021-10-27 08:50] LABS: ANION GAP 13.1 (8-16); CARBON DIOXIDE 26.6 mmol/L (21-32); CHLORIDE 106 mmol/L (98-107); CREATININE 0.9 mg/dL (0.6-1.3); GLUCOSE 72 mg/dL (74-106); POTASSIUM 4.7 mmol/L (3.5-5.1); SODIUM SERUM 141 mmol/L (136-145)
[2021-10-27] MEDS: POLYETHYLENE GLYCOL 17 GM/PKT PO SCH ×2 (09:59→20:54)
[2021-10-27] MEDS: SENNA 8.6 MG TAB PO SCH ×3 (09:59→16:47)
[2021-10-27] MEDS: LACTOBACILLUS RHAMNOSUS GG 1 EACH CAP GT SCH (09:59)
[2021-10-27] MEDS: GLYCOPYRROLATE 1 MG TAB GT SCH ×2 (09:59→20:53)
[2021-10-27] MEDS: POLYVINYL ALCOHOL 1.4% OP 15 ML SOL OP SCH ×3 (09:59→16:47)
[2021-10-27] MEDS: AMIODARONE 200 MG TAB GT SCH (09:59)
[2021-10-27] MEDS: PANTOPRAZOLE 40 MG INJ VIAL IVP SCH (09:59)
--- NOTE | 2021-10-27 10:00 | NUR ---
ALL SCHEDULED MEDS GIVEN. PT IS STABLE. NO DISTRESS NOTED. WILL CONTINUE TO MONITOR.
[2021-10-27 10:19] LABS: UREA NITROGEN, BLOOD 16 mg/dL (7-18)
[2021-10-27 12:00] VITALS: BP 136/61
--- NOTE | 2021-10-27 12:15 | NUR ---
CHECKED ON PATIENT. PT IS STABLE. NO DISTRESS NOTED. WILL CONTINUE TO MONITOR.
[2021-10-27 16:00] VITALS: BP 140/71
--- NOTE | 2021-10-27 17:00 | NUR ---
ALL SCHEDULED MEDS GIVEN. PT IS STABLE. NO DISTRESS NOTED. WILL CONTINUE TO MONITOR.
--- NOTE | 2021-10-27 19:24 | NUR ---
ENDORSED TO CAREER ADVISOR NURSE FOR CONTINUITY OF CARE. PT IS STABLE.
[2021-10-27 20:00] VITALS: BP 132/73
--- NOTE | 2021-10-27 20:00 | NUR ---
RECEIVED REPORT.PT IS STABLE.TRACH TO VENT W/O S/S OF ANY RESP.DISTRESS.HR IS SR.VS STABLE.LUNGS DIMINISHED. WILL CONT.MONITORING.
--- NOTE | 2021-10-27 20:44 | NUR ---
RECEIVED PT WITH A PORTEX 8 TRACH TO VENT ON A TRILOGY AC/VC VT450, RR14, PEEP5, 35% WITH NO SIGNS OF RESPIRATORY DISTRESS SATING 97%. BS REVEALED BILATERAL COARSE CRACKLES, SX SMALL YELLOW/RED THICK, HOB ELEVATED, WILL CONTINUE TO MONITOR.
[2021-10-27] MEDS: ATORVASTATIN 20 MG TAB GT SCH (20:53)
--- NOTE | 2021-10-27 23:23 | NUR ---
PT PRESENTS LAYING IN BED WITH NO SIGNS OF RESPIRATORY DISTRESS SATING 100%. BS REVEALED BILATERAL COARSE CRACKLES THROUGHOUT, SX SMALL YELLOW/RED THICK, PT SHAKES HER ARMS AND INTERMITTENTLY PULLS ON HER TUBING AND DISCONNECTS HER SELF. VENT PLUGGED INTO RED OUTLET, HOB ELEVATED, WILL CONTINUE TO MONITOR.
[2021-10-28] VITALS: BP 117/62
--- NOTE | 2021-10-28 03:43 | NUR ---
SLEEPING W/O ANY DISTRESS.NO DISTRESS NOTED NOW.
[2021-10-28] MEDS: PIPERACILLIN/TAZOBACTAM 2.25 GM in DEXTROSE 5% 50 ML IV SCH ×3 (03:45→16:24)
[2021-10-28 04:00] VITALS: BP 122/70
[2021-10-28] MEDS: LEVOTHYROXINE 0.05 MG TAB GT SCH (06:45)
[2021-10-28 07:02] LABS: ANION GAP 14.6 (8-16); CARBON DIOXIDE 25.8 mmol/L (21-32); CHLORIDE 106 mmol/L (98-107); GLUCOSE 75 mg/dL (74-106); POTASSIUM 3.4 mmol/L (3.5-5.1); SODIUM SERUM 143 mmol/L (136-145); UREA NITROGEN, BLOOD 12 mg/dL (7-18)
[2021-10-28] MEDS: ALBUTEROL HFA MDI 90 MCG/ACTUATION 8 GM INH SCH (07:26)
--- NOTE | 2021-10-28 07:50 | NUR ---
RECEIVED REPORT FROM RIVER BOAT CAPTAIN NURSE. PT IN BED, ASLEEP. ON TRACH TO VENT WITH SETTINGS FIO2 40% PEEP 5 VT 450 RATE 16. BREATHING SYMMETRICAL. GT INTACT AND PATENT WITH LFA 20G ON SALINE LOCK. HOB KEPT ELEVATED. ALL SAFETY MEASURES IN PLACE. Addendum: 10/28/21 at 1345 by Lolis Ayers RN [id number] AT 35
[2021-10-28 08:00] VITALS: BP 157/74
[2021-10-28] MEDS ORDERED: POTASSIUM CHLORIDE 20% 40 MEQ/15 ML UDC GT PRN (08:20)
--- NOTE | 2021-10-28 08:58 | NUR ---
ENDORSED TO AM SHIFT RN IN STABLE CONDITION.NO RESP DISTRESS NOTED.VS STABLE.
[2021-10-28] MEDS: SENNA 8.6 MG TAB PO SCH (09:00)
[2021-10-28] MEDS: LACTOBACILLUS RHAMNOSUS GG 1 EACH CAP GT SCH (09:00)
[2021-10-28] MEDS: POLYETHYLENE GLYCOL 17 GM/PKT PO SCH (09:00)
[2021-10-28] MEDS: PANTOPRAZOLE 40 MG INJ VIAL IVP SCH (09:00)
[2021-10-28] MEDS: AMIODARONE 200 MG TAB GT SCH (09:00)
[2021-10-28] MEDS: POLYVINYL ALCOHOL 1.4% OP 15 ML SOL OP SCH ×2 (09:00→13:44)
[2021-10-28] MEDS: GLYCOPYRROLATE 1 MG TAB GT SCH (09:00)
--- NOTE | 2021-10-28 10:32 | NUR ---
SCHEDULED AM MEDICATIONS GIVEN VIA GT PER MD ORDER. ALSO GIVEN PRN K FOR 3.4 LEVEL.
[2021-10-28] MEDS ORDERED: IV Zosyn IV (10:51)
[2021-10-28] MEDS ORDERED: OMEP20TC10 PO (10:53)
[2021-10-28 11:29] VITALS: BP 157/74
[2021-10-28 12:00] VITALS: BP 126/73
--- NOTE | 2021-10-28 12:00 | NUR ---
PT FOR DISCHARGE TO [facility], AWAITING FOR ROOM NUMBER.
[2021-10-28] MEDS ORDERED: POTASSIUM CHLORIDE 20% 40 MEQ/15 ML UDC GT SCH (13:15)
[2021-10-28] MEDS ORDERED: FUROSEMIDE 40 MG/5 ML ORAL SOL UDC GT SCH (13:15)
--- NOTE | 2021-10-28 13:45 | NUR ---
PT IN BED ASLEEP. ON TRACH TO VENT, BREATHING SYMMETRICAL. SCHEDULED AFTERNOON MEDICATIONS GIVEN VIA GT PER MD ORDER. HOB KEPT ELEVATED. FLACC 0. ALL SAFETY MEASURES IN PLACE.
[2021-10-28 16:00] VITALS: BP 150/66
--- NOTE | 2021-10-28 16:15 | NUR ---
CALLED [facility] AND SPOKE WITH NURSE ÁLVAREZ TO GIVE REPORT.
--- NOTE | 2021-10-28 16:28 | NUR ---
PT IN BED, ON TRACH TO VENT, BREATHING SYMMETRICAL. PT HAS EPISODE OF PULLING TRACH TUBE. EXPLAINED RISKS. ATB ZOSYN ADMINISTERED PER MD ORDER. WILL CONTINUE TO MONITOR.
--- NOTE | 2021-10-28 17:15 | NUR ---
PT DISCHARGED, PICKED UP BY [facility] [employer] ADVISOR [facility] DISCHARGE PAPERS GIVEN. PT IN STABLE CONDITION. ON TRACH TO VENT. FLACC 0.
[2021-10-28] MEDS ORDERED: SENNA 8.6 MG TAB PO SCH (21:00)
[2021-10-29] MEDS ORDERED: POLYETHYLENE GLYCOL 17 GM/PKT PO SCH (09:00)
[2021-10-29] MEDS ORDERED: amLODIPine 5 MG TAB PO SCH (09:00)
== END 2021-10-28 17:15 | DRG 870 ==
LOC: MED 14:05 → MTU 18:48 → MMU 10-25 04:34
PROVIDERS: ADMIT Hospitalist; ATTEND Hospitalist
PROC: 5A1955Z Respiratory Ventilation, Greater than 96 Consecutive Hours (ICD-10-PCS; principal; 2021-10-22)
DX: A41.9 Sepsis, unspecified organism (principal); J96.20 Acute and chronic respiratory failure, unspecified whether with hypoxia or hypercapnia; K57.31 Diverticulosis of large intestine without perforation or abscess with bleeding; J69.0 Pneumonitis due to inhalation of food and vomit; J15.1 Pneumonia due to Pseudomonas; E44.1 Mild protein-calorie malnutrition; I13.0 Hypertensive heart and chronic kidney disease with heart failure and stage 1 through stage 4 chronic kidney disease, or unspecified chronic kidney disease; M48.56XA Collapsed vertebra, not elsewhere classified, lumbar region, initial encounter for fracture; Z20.822 Contact with and (suspected) exposure to COVID-19; J45.909 Unspecified asthma, uncomplicated; I48.91 Unspecified atrial fibrillation; I50.9 Heart failure, unspecified; F03.90 Unspecified dementia, unspecified severity, without behavioral disturbance, psychotic disturbance, mood disturbance, and anxiety; D63.8 Anemia in other chronic diseases classified elsewhere; E86.0 Dehydration; M47.896 Other spondylosis, lumbar region; K86.89 Other specified diseases of pancreas; N28.1 Cyst of kidney, acquired; I70.0 Atherosclerosis of aorta; M85.80 Other specified disorders of bone density and structure, unspecified site; E78.5 Hyperlipidemia, unspecified; R91.1 Solitary pulmonary nodule; G20 Parkinson's disease; N18.9 Chronic kidney disease, unspecified; E03.9 Hypothyroidism, unspecified; Z90.49 Acquired absence of other specified parts of digestive tract; Z93.0 Tracheostomy status; Z91.018 Allergy to other foods; Z79.01 Long term (current) use of anticoagulants; Z79.899 Other long term (current) drug therapy; Z93.1 Gastrostomy status; Z90.710 Acquired absence of both cervix and uterus; Z68.32 Body mass index [BMI] 32.0-32.9, adult
CPT/HCPCS: 36415; 71045; 74018; 80048; 80076; 80202; 81003; 82150; 83605; 83690; 83735; 84100; 84484; 85025; 86886; 86900; 86901; 87040; 87070; 87081; 87086; 87205; 93005; 94003; 94664; 96365; 96366; 96367; 99285; C9113; J1940; J2060; J2543; J2765; J3370; J3535; J7060; Q0092

== ENCOUNTER 2021-12-04 19:40 | Inpatient (IN) | payer OTHER, MEDICAID, SELFPAY ==
[~2021-12-04] VITALS: Ht 167.6 cm; Wt 72.6 kg
[2021-12-04 19:40] VITALS: BP 120/50
[~2021-12-04 19:40] MED LIST changes: +OMEP20TC10 PO
[2021-12-04] MEDS ORDERED: PIPERACILLIN/TAZOBACTAM 4.5 GM in DEXTROSE 5% 100 ML IV ONE (20:20)
[2021-12-04 20:59] LABS: HEMOGLOBIN 10.9 g/dL (12.0-16.0); MEAN CORPUSCULAR HEMOGLOBIN 28 pg (27-31); MEAN CORPUSCULAR HGB CONC 32 g/dL (33-37); MEAN CORPUSCULAR VOLUME 88.3 fL (80-94); PLATELET COUNT (AUTO) 374 K/uL (140-450); RED BLOOD CELL COUNT(AUTO) 3.86 MIL/uL (4.20-5.40); RED CELL DISTRIBUTION WIDTH 16.2 % (11.6-13.7)
[2021-12-04] MEDS ORDERED: PIPERACILLIN/TAZOBACTAM 4.5 GM VIAL IV ONE (21:02)
[2021-12-04 21:04] LABS: WHITE BLOOD COUNT (AUTO) 25.3 K/uL (4.8-10.8)
[2021-12-04 21:25] LABS: ANION GAP 15.7 (8-16); ASPARTATE AMINOTRANSFERASE 19 U/L (15-37); CARBON DIOXIDE 25.1 mmol/L (21-32); CHLORIDE 105 mmol/L (98-107); CREATININE 1.1 mg/dL (0.6-1.3); GLUCOSE 127 mg/dL (74-106); LIPASE 9 U/L (73-393); POTASSIUM 3.8 mmol/L (3.5-5.1); SODIUM SERUM 142 mmol/L (136-145); TOTAL BILIRUBIN 0.5 mg/dL (0.0-1.0); UREA NITROGEN, BLOOD 30 mg/dL (7-18)
[2021-12-04 21:34] LABS: CREATINE KINASE MB 0.6 ng/mL (0-3.6)
[2021-12-04 21:38] LABS: LYMPHOCYTES % (MANUAL) 2 % (20-46); MONOCYTES % (MANUAL) 1 % (5-12)
[2021-12-04] MEDS: NACL 0.9% 1,000 ML IV SCH (21:55)
[2021-12-04] MEDS ORDERED: HYDROcodone/APAP 5/325 MG 1 TAB TAB PO PRN (21:55)
[2021-12-04] MEDS ORDERED: MORPHINE SULFATE 2 MG/ML SYR IVP PRN (21:55)
[2021-12-04] MEDS ORDERED: DOCUSATE SODIUM 100 MG GELCAP PO PRN (21:55)
[2021-12-04] MEDS ORDERED: ONDANSETRON 4 MG/2 ML VIAL IM/IVP PRN (21:55)
[2021-12-04] MEDS ORDERED: SODIUM PHOS / POTASSIUM PHOS 1 PKT PDR PO PRN (21:55)
[2021-12-04] MEDS ORDERED: POTASSIUM CHLORIDE 40 MEQ, LIDOCAINE MPF 1% 25 MG in NACL 0.9% 250 ML IV PRN (21:55)
[2021-12-04] MEDS ORDERED: ACETAMINOPHEN 325 MG TAB PO PRN (21:55)
[2021-12-04] MEDS ORDERED: MAG SULF 2000 MG/WATER PREMIX 50 ML IV PRN (21:55)
[2021-12-04 22:17] LABS: MAGNESIUM 2.4 mg/dL (1.8-2.4); PHOSPHORUS 3.7 mg/dL (2.5-4.9)
[2021-12-04 23:18] LABS: APPEARANCE,URINE CLOUDY (CLEAR); BILIRUBIN,URINE NEGATIVE (NEGATIVE); BLOOD, URINE 1+ (NEGATIVE); COLOR,URINE YELLOW (YELLOW); LEUKOCYTE ESTERASE ,URINE 2+ (NEGATIVE); NITRITE, URINE NEGATIVE (NEGATIVE); PH,URINE 5.5 (5.0-9.0); UGLUCOSE NEGATIVE (NEGATIVE)
[2021-12-05] MEDS ORDERED: PIPERACILLIN/TAZOBACTAM 2.25 GM VIAL IV ONE ×2 (00:16→05:39)
[2021-12-05 01:10] VITALS: BP 135/95
[2021-12-05] MEDS: PIPERACILLIN/TAZOBACTAM 2.25 GM in DEXTROSE 5% 50 ML IV SCH ×5 (01:58→23:11)
[2021-12-05 04:00] VITALS: BP 113/80
[2021-12-05 06:14] LABS: BASOPHILS % (AUTO) 0.1 % (0.0-2.0); EOSINOPHILS # (AUTO) 0.1 K/uL (0-0.4); EOSINOPHILS % (AUTO) 0.3 % (0.0-4.0); HEMATOCRIT 32.3 % (36-48); HEMOGLOBIN 10.4 g/dL (12.0-16.0); LYMPHOCYTES # (AUTO) 1.3 K/uL (2.5-16.5); LYMPHOCYTES % (AUTO) 6.4 % (20.5-51.1); MEAN CORPUSCULAR HEMOGLOBIN 29 pg (27-31); MEAN CORPUSCULAR HGB CONC 32 g/dL (33-37); MEAN CORPUSCULAR VOLUME 88.1 fL (80-94); MONOCYTES # (AUTO) 1.5 K/uL (0.8-1.0); MONOCYTES % (AUTO) 7.1 % (1.7-9.3); NEUTROPHILS # (AUTO) 18.3 K/uL (1.8-7.7); NEUTROPHILS % (AUTO) 86.1 % (42.2-75.2); PLATELET COUNT (AUTO) 341 K/uL (140-450); RED BLOOD CELL COUNT(AUTO) 3.66 MIL/uL (4.20-5.40); RED CELL DISTRIBUTION WIDTH 16.1 % (11.6-13.7); WHITE BLOOD COUNT (AUTO) 21.2 K/uL (4.8-10.8)
[2021-12-05 06:28] LABS: CARBON DIOXIDE 27.7 mmol/L (21-32); CHLORIDE 106 mmol/L (98-107); GLUCOSE 103 mg/dL (74-106); POTASSIUM 4.7 mmol/L (3.5-5.1); SODIUM SERUM 141 mmol/L (136-145); UREA NITROGEN, BLOOD 31 mg/dL (7-18)
[2021-12-05 08:00] VITALS: BP 144/98
[2021-12-05] MEDS: PANTOPRAZOLE 40 MG INJ VIAL IVP SCH (08:38)
[2021-12-05] MEDS: NACL 0.9% 1,000 ML IV SCH ×2 (10:33→23:10)
[2021-12-05 12:00] VITALS: BP 119/75
[2021-12-05 16:00] VITALS: BP 111/68
[2021-12-05] MEDS ORDERED: CRUSHER, PILL MC ONE (21:41)
[2021-12-05 22:29] VITALS: BP 115/72
[2021-12-06] MEDS ORDERED: ALBUTEROL SULFATE/IPRATROPIU 3 ML SOL IH PRN (01:35)
[2021-12-06 04:13] VITALS: BP 119/74
[2021-12-06] MEDS: PIPERACILLIN/TAZOBACTAM 2.25 GM in DEXTROSE 5% 50 ML IV SCH ×4 (05:34→23:14)
[2021-12-06] MEDS: LEVOTHYROXINE 0.05 MG TAB GT SCH (05:45)
[2021-12-06] MEDS ORDERED: bisacodyL 10 MG SUPP RC SCH (06:00)
[2021-12-06 06:13] LABS: ANION GAP 9.6 (8-16); CHLORIDE 110 mmol/L (98-107); GLUCOSE 74 mg/dL (74-106); POTASSIUM 3.6 mmol/L (3.5-5.1); SODIUM SERUM 143 mmol/L (136-145); UREA NITROGEN, BLOOD 30 mg/dL (7-18)
[2021-12-06 06:24] LABS: BASOPHILS # (AUTO) 0.1 K/uL (0.00-0.22); BASOPHILS % (AUTO) 0.6 % (0.0-2.0); EOSINOPHILS # (AUTO) 0.6 K/uL (0-0.4); HEMATOCRIT 27.6 % (36-48); HEMOGLOBIN 9.1 g/dL (12.0-16.0); LYMPHOCYTES # (AUTO) 1.3 K/uL (2.5-16.5); LYMPHOCYTES % (AUTO) 12.5 % (20.5-51.1); MEAN CORPUSCULAR HEMOGLOBIN 29 pg (27-31); MEAN CORPUSCULAR HGB CONC 33 g/dL (33-37); MONOCYTES # (AUTO) 0.8 K/uL (0.8-1.0); MONOCYTES % (AUTO) 7.8 % (1.7-9.3); NEUTROPHILS # (AUTO) 7.3 K/uL (1.8-7.7); NEUTROPHILS % (AUTO) 73.1 % (42.2-75.2); PLATELET COUNT (AUTO) 267 K/uL (140-450); RED CELL DISTRIBUTION WIDTH 15.8 % (11.6-13.7)
[2021-12-06 08:00] VITALS: BP 119/52
[2021-12-06] MEDS ORDERED: MINERAL OIL 135 ML ENEM RC SCH ×3 (08:00→16:00)
[2021-12-06] MEDS: GLYCOPYRROLATE 1 MG TAB GT SCH ×2 (09:00→20:13)
[2021-12-06] MEDS: PANTOPRAZOLE 40 MG INJ VIAL IVP SCH (09:00)
[2021-12-06] MEDS: MEMANTINE 10 MG TAB GT SCH ×2 (09:00→20:14)
[2021-12-06] MEDS: AMIODARONE 200 MG TAB GT SCH (09:00)
[2021-12-06] MEDS: APIXABAN 2.5 MG TAB PO SCH ×2 (09:00→20:14)
[2021-12-06] MEDS: NACL 0.9% 1,000 ML IV SCH (11:25)
[2021-12-06 12:00] VITALS: BP 137/66
[2021-12-06 12:08] LABS: HEPATITIS A ANTIBODY IGM Negative (Negative); HEPATITIS B CORE AB TOTAL Negative (Negative); HEPATITIS B SURFACE ANTIBODY Non Reactive (.); HEPATITIS B SURFACE ANTIGEN Negative (Negative)
[2021-12-06 16:00] VITALS: BP 120/56
[2021-12-06 20:00] VITALS: BP 120/47
[2021-12-06] MEDS: DOCUSATE 100 MG/10 ML UDC GT PRN (20:13)
[2021-12-06] MEDS: ATORVASTATIN 20 MG TAB GT SCH (20:14)
[2021-12-07] VITALS: BP 122/51
[2021-12-07 04:00] VITALS: BP 107/45
[2021-12-07] MEDS: NACL 0.9% 1,000 ML IV SCH (04:41)
[2021-12-07] MEDS: PIPERACILLIN/TAZOBACTAM 2.25 GM in DEXTROSE 5% 50 ML IV SCH ×4 (05:03→23:17)
[2021-12-07] MEDS: LEVOTHYROXINE 0.05 MG TAB GT SCH (06:05)
[2021-12-07 06:28] LABS: BASOPHILS % (AUTO) 0.5 % (0.0-2.0); EOSINOPHILS # (AUTO) 0.3 K/uL (0-0.4); EOSINOPHILS % (AUTO) 4.8 % (0.0-4.0); HEMOGLOBIN 8.7 g/dL (12.0-16.0); LYMPHOCYTES % (AUTO) 14.4 % (20.5-51.1); MEAN CORPUSCULAR HEMOGLOBIN 29 pg (27-31); MEAN CORPUSCULAR HGB CONC 32 g/dL (33-37); MEAN CORPUSCULAR VOLUME 88.9 fL (80-94); MONOCYTES # (AUTO) 0.5 K/uL (0.8-1.0); MONOCYTES % (AUTO) 7.6 % (1.7-9.3); NEUTROPHILS # (AUTO) 4.8 K/uL (1.8-7.7); NEUTROPHILS % (AUTO) 72.7 % (42.2-75.2); PLATELET COUNT (AUTO) 253 K/uL (140-450); RED BLOOD CELL COUNT(AUTO) 3.04 MIL/uL (4.20-5.40); RED CELL DISTRIBUTION WIDTH 15.8 % (11.6-13.7); WHITE BLOOD COUNT (AUTO) 6.6 K/uL (4.8-10.8)
[2021-12-07 06:52] LABS: ANION GAP 13.1 (8-16); CARBON DIOXIDE 23.2 mmol/L (21-32); CHLORIDE 110 mmol/L (98-107); CREATININE 0.9 mg/dL (0.6-1.3); GLUCOSE 72 mg/dL (74-106); POTASSIUM 3.3 mmol/L (3.5-5.1); SODIUM SERUM 143 mmol/L (136-145); UREA NITROGEN, BLOOD 22 mg/dL (7-18)
[2021-12-07 08:00] VITALS: BP 126/85
[2021-12-07] MEDS: PANTOPRAZOLE 40 MG INJ VIAL IVP SCH (08:53)
[2021-12-07] MEDS: MEMANTINE 10 MG TAB GT SCH ×2 (08:53→20:58)
[2021-12-07] MEDS: GLYCOPYRROLATE 1 MG TAB GT SCH ×2 (08:53→20:58)
[2021-12-07] MEDS: AMIODARONE 200 MG TAB GT SCH (08:55)
[2021-12-07] MEDS: DOCUSATE 100 MG/10 ML UDC GT PRN ×2 (08:55→20:58)
[2021-12-07] MEDS: APIXABAN 2.5 MG TAB PO SCH ×2 (11:13→21:00)
[2021-12-07 12:00] VITALS: BP 119/83
[2021-12-07 16:00] VITALS: BP 118/59
[2021-12-07 20:00] VITALS: BP 94/54
[2021-12-07] MEDS: ATORVASTATIN 20 MG TAB GT SCH (20:58)
[2021-12-08] VITALS: BP 117/65
[2021-12-08 04:00] VITALS: BP 123/59
[2021-12-08] MEDS: PIPERACILLIN/TAZOBACTAM 2.25 GM in DEXTROSE 5% 50 ML IV SCH ×3 (05:34→17:07)
[2021-12-08] MEDS: LEVOTHYROXINE 0.05 MG TAB GT SCH (05:35)
[2021-12-08 06:17] LABS: BASOPHILS % (AUTO) 0.4 % (0.0-2.0); EOSINOPHILS # (AUTO) 0.3 K/uL (0-0.4); EOSINOPHILS % (AUTO) 4.6 % (0.0-4.0); HEMATOCRIT 26.7 % (36-48); HEMOGLOBIN 8.7 g/dL (12.0-16.0); LYMPHOCYTES % (AUTO) 15.5 % (20.5-51.1); MEAN CORPUSCULAR HEMOGLOBIN 29 pg (27-31); MEAN CORPUSCULAR HGB CONC 33 g/dL (33-37); MEAN CORPUSCULAR VOLUME 88.3 fL (80-94); MONOCYTES # (AUTO) 0.5 K/uL (0.8-1.0); MONOCYTES % (AUTO) 7.4 % (1.7-9.3); NEUTROPHILS # (AUTO) 4.5 K/uL (1.8-7.7); NEUTROPHILS % (AUTO) 72.1 % (42.2-75.2); PLATELET COUNT (AUTO) 254 K/uL (140-450); RED BLOOD CELL COUNT(AUTO) 3.02 MIL/uL (4.20-5.40); RED CELL DISTRIBUTION WIDTH 15.8 % (11.6-13.7); WHITE BLOOD COUNT (AUTO) 6.3 K/uL (4.8-10.8)
[2021-12-08 06:42] LABS: CARBON DIOXIDE 22.6 mmol/L (21-32); CHLORIDE 111 mmol/L (98-107); CREATININE 0.8 mg/dL (0.6-1.3); GLUCOSE 120 mg/dL (74-106); POTASSIUM 3.6 mmol/L (3.5-5.1); SODIUM SERUM 143 mmol/L (136-145); UREA NITROGEN, BLOOD 14 mg/dL (7-18)
[2021-12-08 08:00] VITALS: BP 125/93
[2021-12-08] MEDS: DOCUSATE 100 MG/10 ML UDC GT PRN ×2 (09:33→20:56)
[2021-12-08] MEDS: AMIODARONE 200 MG TAB GT SCH (09:33)
[2021-12-08] MEDS: MEMANTINE 10 MG TAB GT SCH ×2 (09:33→20:56)
[2021-12-08] MEDS: PANTOPRAZOLE 40 MG INJ VIAL IVP SCH (09:33)
[2021-12-08] MEDS: GLYCOPYRROLATE 1 MG TAB GT SCH ×2 (09:33→20:55)
[2021-12-08] MEDS: APIXABAN 2.5 MG TAB PO SCH ×2 (09:34→20:55)
[2021-12-08] MEDS: NACL 0.9% 1,000 ML IV SCH (11:44)
[2021-12-08 12:00] VITALS: BP 119/56
[2021-12-08] MEDS ORDERED: LACTULOSE 20 GM/30 ML UDC PO SCH (12:10)
[2021-12-08 16:00] VITALS: BP 118/54
[2021-12-08] MEDS: DEXT 5% /NACL 0.9% 1,000 ML IV SCH (16:23)
[2021-12-08 20:00] VITALS: BP 105/51
[2021-12-08] MEDS: ATORVASTATIN 20 MG TAB GT SCH (20:56)
[2021-12-09] VITALS: BP 116/45
[2021-12-09] MEDS: PIPERACILLIN/TAZOBACTAM 2.25 GM in DEXTROSE 5% 50 ML IV SCH ×2 (00:23→06:08)
[2021-12-09 04:00] VITALS: BP 118/67
[2021-12-09 05:13] LABS: BASOPHILS % (AUTO) 0.6 % (0.0-2.0); EOSINOPHILS # (AUTO) 0.3 K/uL (0-0.4); EOSINOPHILS % (AUTO) 4.3 % (0.0-4.0); HEMATOCRIT 25.3 % (36-48); HEMOGLOBIN 8.3 g/dL (12.0-16.0); LYMPHOCYTES # (AUTO) 1.2 K/uL (2.5-16.5); LYMPHOCYTES % (AUTO) 17.7 % (20.5-51.1); MEAN CORPUSCULAR HEMOGLOBIN 29 pg (27-31); MEAN CORPUSCULAR HGB CONC 33 g/dL (33-37); MONOCYTES # (AUTO) 0.5 K/uL (0.8-1.0); MONOCYTES % (AUTO) 7.9 % (1.7-9.3); NEUTROPHILS # (AUTO) 4.8 K/uL (1.8-7.7); NEUTROPHILS % (AUTO) 69.5 % (42.2-75.2); PLATELET COUNT (AUTO) 255 K/uL (140-450); RED BLOOD CELL COUNT(AUTO) 2.88 MIL/uL (4.20-5.40); RED CELL DISTRIBUTION WIDTH 16.2 % (11.6-13.7); WHITE BLOOD COUNT (AUTO) 6.9 K/uL (4.8-10.8)
[2021-12-09 05:30] LABS: ANION GAP 11.2 (8-16); CARBON DIOXIDE 25.2 mmol/L (21-32); CHLORIDE 112 mmol/L (98-107); CREATININE 0.9 mg/dL (0.6-1.3); GLUCOSE 89 mg/dL (74-106); POTASSIUM 3.4 mmol/L (3.5-5.1); SODIUM SERUM 145 mmol/L (136-145); UREA NITROGEN, BLOOD 9 mg/dL (7-18)
[2021-12-09 05:36] LABS: MAGNESIUM 2.2 mg/dL (1.8-2.4); PHOSPHORUS 2.4 mg/dL (2.5-4.9)
[2021-12-09] MEDS: LEVOTHYROXINE 0.05 MG TAB GT SCH (06:08)
[2021-12-09 08:00] VITALS: BP 141/96
[2021-12-09 08:16] VITALS: BP 141/102
[2021-12-09] MEDS: AMIODARONE 200 MG TAB GT SCH (09:00)
[2021-12-09] MEDS: GLYCOPYRROLATE 1 MG TAB GT SCH (09:00)
[2021-12-09] MEDS: APIXABAN 2.5 MG TAB PO SCH (09:00)
[2021-12-09] MEDS: MEMANTINE 10 MG TAB GT SCH (09:00)
[2021-12-09] MEDS: PANTOPRAZOLE 40 MG INJ VIAL IVP SCH (09:49)
[2021-12-09] MEDS ORDERED: CEFTAZIDIME IV (10:00)
[2021-12-09] MEDS ORDERED: DOCU-299 PO (10:04)
[2021-12-09 12:00] VITALS: BP 152/72
[2021-12-09] MEDS: DEXT 5% /NACL 0.9% 1,000 ML IV SCH (12:21)
== END 2021-12-09 13:25 | DRG 870 ==
LOC: MED 19:40 → MTU 21:57
PROVIDERS: ADMIT Hospitalist; ATTEND Hospitalist
PROC: 5A1955Z Respiratory Ventilation, Greater than 96 Consecutive Hours (ICD-10-PCS; principal; 2021-12-04)
DX: A41.9 Sepsis, unspecified organism (principal); J69.0 Pneumonitis due to inhalation of food and vomit; J96.21 Acute and chronic respiratory failure with hypoxia; N39.0 Urinary tract infection, site not specified; E44.0 Moderate protein-calorie malnutrition; M48.56XA Collapsed vertebra, not elsewhere classified, lumbar region, initial encounter for fracture; J98.11 Atelectasis; E03.9 Hypothyroidism, unspecified; G20 Parkinson's disease; F02.80 Dementia in other diseases classified elsewhere, unspecified severity, without behavioral disturbance, psychotic disturbance, mood disturbance, and anxiety; E78.5 Hyperlipidemia, unspecified; I25.10 Atherosclerotic heart disease of native coronary artery without angina pectoris; I48.91 Unspecified atrial fibrillation; R13.10 Dysphagia, unspecified; M47.816 Spondylosis without myelopathy or radiculopathy, lumbar region; M85.80 Other specified disorders of bone density and structure, unspecified site; I70.0 Atherosclerosis of aorta; K57.30 Diverticulosis of large intestine without perforation or abscess without bleeding; K63.89 Other specified diseases of intestine; D63.8 Anemia in other chronic diseases classified elsewhere; Z20.822 Contact with and (suspected) exposure to COVID-19; Z86.718 Personal history of other venous thrombosis and embolism; Z93.0 Tracheostomy status; Z79.01 Long term (current) use of anticoagulants; Z79.899 Other long term (current) drug therapy
CPT/HCPCS: 36415; 71045; 74018; 80048; 80053; 81001; 82550; 82553; 83605; 83690; 83735; 84100; 84484; 85025; 86704; 86706; 86708; 86709; 86803; 86886; 86900; 86901; 87040; 87070; 87081; 87086; 87205; 87340; 89220; 93005; 94003; 96365; 99285; C9113; J2001; J2270; J2405; J2543; J3480; J7030; J7060; Q0092

== ENCOUNTER 2023-08-26 11:07 | Inpatient (IN) | payer OTHER, MEDICAID ==
[2023-08-26] VITALS (7 sets, daily range): BP systolic 115; BP diastolic 55; PULSE 79–91; RESP 14–18; TEMP 98.1; O2SAT 94–100
[~2023-08-26] VITALS: Ht 160 cm; Wt 59.0 kg
[~2023-08-26 11:07] MED LIST changes: +AMIO200T62 GT; -AMIO200T66 GT; +CEFTAZIDIME IV; +DOCU-299 PO; -IV Zosyn IV; +OMEP-303 PO; -OMEP20TC10 PO
[2023-08-26 12:19] LABS: BASOPHILS # (AUTO) 0.1 K/uL (0.00-0.22); BASOPHILS % (AUTO) 0.5 % (0.0-2.0); EOSINOPHILS # (AUTO) 0.7 K/uL (0-0.4); EOSINOPHILS % (AUTO) 4.7 % (0.0-4.0); HEMATOCRIT 39.2 % (36-48); HEMOGLOBIN 12.6 g/dL (12.0-16.0); LYMPHOCYTES # (AUTO) 1.9 K/uL (2.5-16.5); LYMPHOCYTES % (AUTO) 12.7 % (20.5-51.1); MEAN CORPUSCULAR HEMOGLOBIN 29 pg (27-31); MEAN CORPUSCULAR HGB CONC 32 g/dL (33-37); MEAN CORPUSCULAR VOLUME 90.2 fL (80-94); MONOCYTES # (AUTO) 1.4 K/uL (0.8-1.0); MONOCYTES % (AUTO) 9.5 % (1.7-9.3); NEUTROPHILS # (AUTO) 10.6 K/uL (1.8-7.7); NEUTROPHILS % (AUTO) 72.6 % (42.2-75.2); PLATELET COUNT (AUTO) 259 K/uL (140-450); RED BLOOD CELL COUNT(AUTO) 4.34 MIL/uL (4.20-5.40); RED CELL DISTRIBUTION WIDTH 16.2 % (11.6-13.7); WHITE BLOOD COUNT (AUTO) 14.6 K/uL (4.8-10.8)
[2023-08-26 12:34] LABS: ALANINE AMINOTRANSFERASE 22 U/L (12-78); ALBUMIN 2.9 g/dL (3.4-5.0); ALKALINE PHOSPHATASE 130 U/L (50-136); ANION GAP 13.9 (8-16); ASPARTATE AMINOTRANSFERASE 21 U/L (15-37); CARBON DIOXIDE 27.3 mmol/L (21-32); CHLORIDE 104 mmol/L (98-107); CREATININE 1.3 mg/dL (0.6-1.3); GLUCOSE 118 mg/dL (74-106); POTASSIUM 3.2 mmol/L (3.5-5.1); SODIUM SERUM 142 mmol/L (136-145); TOTAL BILIRUBIN 0.6 mg/dL (0.0-1.0); UREA NITROGEN, BLOOD 30 mg/dL (7-18)
[2023-08-26 13:01] LABS: LACTIC ACID 2.5 mmol/L (0.4-2.0)
[2023-08-26 13:28] LABS: CREATINE KINASE, TOTAL 51 U/L (26-192)
[2023-08-26 13:36] LABS: INR 1.05 (0.8-1.2); PARTIAL THROMBOPLASTIN TIME 30.2 secs (22-35.6)
[2023-08-26] MEDS ORDERED: PIPERACILLIN/TAZOBACTAM 3.375 GM in DEXTROSE 5% 50 ML IV ONE (14:05)
[2023-08-26] MEDS ORDERED: DEXT 5% / NACL 0.45% 1,000 ML IV ONE (14:35)
[2023-08-26] MEDS ORDERED: PIPERACILLIN/TAZOBACTAM 3.375 GM VIAL IV ONE (14:57)
[2023-08-26] MEDS ORDERED: KCL 20 MEQ IN 100 mL PREMIX 100 ML IV ONE (17:56)
[2023-08-26] MEDS ORDERED: KCL 20 MEQ IN 100 mL PREMIX 100 ML IV SCH (18:10)
[2023-08-26] MEDS ORDERED: PIPERACILLIN/TAZOBACTAM 3.375 GM in DEXTROSE 5% 50 ML IV SCH (21:00)
[2023-08-26] MEDS ORDERED: cefTRIAXone 1,000 MG VIAL ONE (21:13)
[2023-08-26] MEDS: metroNIDAZOLE 500 MG/NS PREMIX 100 ML IV SCH (21:50)
[2023-08-26] MEDS ORDERED: ONDANSETRON 4 MG/2 ML VIAL IVP PRN (22:25)
[2023-08-26] MEDS ORDERED: ALBUTEROL 0.083% 2.5 MG/3 ML NEBU INH PRN (22:25)
[2023-08-26] MEDS ORDERED: ACETAMINOPHEN 325 MG TAB GT PRN (22:25)
[2023-08-26] MEDS ORDERED: HYDROcodone/APAP 5/325 MG 1 TAB TAB GT PRN (22:25)
[2023-08-26] MEDS: PIPERACILLIN/TAZOBACTAM 2.25 GM in DEXTROSE 5% 50 ML IV SCH (23:53)
[2023-08-27] VITALS (15 sets, daily range): BP systolic 101–132; BP diastolic 33–57; PULSE 71–95; RESP 15–20; TEMP 96.7–99.1; O2SAT 98–100
[2023-08-27] MEDS: metroNIDAZOLE 500 MG/NS PREMIX 100 ML IV SCH ×3 (04:46→20:58)
[2023-08-27] MEDS: PIPERACILLIN/TAZOBACTAM 2.25 GM in DEXTROSE 5% 50 ML IV SCH (05:31)
[2023-08-27 05:41] LABS: BASOPHILS # (AUTO) 0.1 K/uL (0.00-0.22); BASOPHILS % (AUTO) 0.6 % (0.0-2.0); EOSINOPHILS # (AUTO) 0.8 K/uL (0-0.4); EOSINOPHILS % (AUTO) 5.7 % (0.0-4.0); HEMATOCRIT 37.5 % (36-48); HEMOGLOBIN 12.2 g/dL (12.0-16.0); LYMPHOCYTES # (AUTO) 1.5 K/uL (2.5-16.5); LYMPHOCYTES % (AUTO) 10.3 % (20.5-51.1); MEAN CORPUSCULAR HEMOGLOBIN 30 pg (27-31); MEAN CORPUSCULAR HGB CONC 33 g/dL (33-37); MEAN CORPUSCULAR VOLUME 90.7 fL (80-94); MONOCYTES # (AUTO) 1.4 K/uL (0.8-1.0); MONOCYTES % (AUTO) 9.8 % (1.7-9.3); NEUTROPHILS # (AUTO) 10.5 K/uL (1.8-7.7); NEUTROPHILS % (AUTO) 73.6 % (42.2-75.2); PLATELET COUNT (AUTO) 253 K/uL (140-450); RED BLOOD CELL COUNT(AUTO) 4.13 MIL/uL (4.20-5.40); RED CELL DISTRIBUTION WIDTH 16.3 % (11.6-13.7); WHITE BLOOD COUNT (AUTO) 14.3 K/uL (4.8-10.8)
[2023-08-27 06:27] LABS: ANION GAP 7.2 (8-16); CALCIUM 8.9 mg/dL (8.5-10.1); CARBON DIOXIDE 29.8 mmol/L (21-32); CHLORIDE 106 mmol/L (98-107); GLUCOSE 90 mg/dL (74-106); SODIUM SERUM 139 mmol/L (136-145); UREA NITROGEN, BLOOD 28 mg/dL (7-18)
[2023-08-27 07:24] LABS: CREATININE 1.1 mg/dL (0.6-1.3)
[2023-08-27] MEDS: LACTOBACILLUS RHAMNOSUS GG 1 EACH CAP GT SCH (08:51)
[2023-08-27] MEDS: MEMANTINE 10 MG TAB GT SCH ×2 (08:51→20:58)
[2023-08-27] MEDS: AMIODARONE 200 MG TAB GT SCH (08:51)
[2023-08-27] MEDS: LANSOPRAZOLE 30 MG CAPDR GT SCH (08:52)
[2023-08-27] MEDS: GLYCOPYRROLATE 1 MG TAB GT SCH ×2 (08:52→20:58)
[2023-08-27] MEDS: MULTIVITAMIN 1 TAB GT SCH (08:52)
[2023-08-27] MEDS: LEVOTHYROXINE 0.05 MG TAB GT SCH (08:52)
[2023-08-27] MEDS: APIXABAN 2.5 MG TAB PO SCH ×2 (08:54→20:59)
[2023-08-27] MEDS ORDERED: NON-FORMULARY ITEM (Multivitamin (Multivitamins) 1 CAP) GT SCH (09:00)
[2023-08-27] MEDS ORDERED: NON-FORMULARY ITEM (Omeprazole 20 MG) GT SCH (09:00)
[2023-08-27] MEDS ORDERED: NON-FORMULARY ITEM (Lactobacillus Acidophilus (Acidophilus) 1 EACH) GT SCH (09:00)
[2023-08-27] MEDS ORDERED: PIPERACILLIN/TAZOBACTAM 2.25 GM in DEXTROSE 5% 50 ML IV SCH (12:00)
[2023-08-27] MEDS: ATORVASTATIN 20 MG TAB GT SCH (20:58)
[2023-08-28] VITALS (15 sets, daily range): BP systolic 107–142; BP diastolic 36–50; PULSE 74–130; RESP 14–18; TEMP 96.2–98.6; O2SAT 98–100
[2023-08-28] MEDS: LORazepam 2 MG/ML VIAL IVP PRN (04:58)
[2023-08-28] MEDS: metroNIDAZOLE 500 MG/NS PREMIX 100 ML IV SCH ×2 (04:58→15:19)
[2023-08-28] MEDS: LEVOTHYROXINE 0.05 MG TAB GT SCH (08:52)
[2023-08-28] MEDS: LACTOBACILLUS RHAMNOSUS GG 1 EACH CAP GT SCH (08:52)
[2023-08-28] MEDS: LANSOPRAZOLE 30 MG CAPDR GT SCH (08:52)
[2023-08-28] MEDS: MULTIVITAMIN 1 TAB GT SCH (08:53)
[2023-08-28] MEDS: MEMANTINE 10 MG TAB GT SCH ×2 (08:53→21:27)
[2023-08-28] MEDS: GLYCOPYRROLATE 1 MG TAB GT SCH ×2 (08:54→21:27)
[2023-08-28] MEDS: AMIODARONE 200 MG TAB GT SCH (08:56)
[2023-08-28] MEDS: APIXABAN 2.5 MG TAB PO SCH ×2 (09:12→21:29)
[2023-08-28] MEDS: PIPERACILLIN/TAZOBACTAM 2.25 GM in DEXTROSE 5% 50 ML IV SCH ×2 (18:33→23:56)
[2023-08-28] MEDS ORDERED: PIPERACILLIN/TAZOBACTAM 3.375 GM in DEXTROSE 5% 50 ML IV SCH (21:00)
[2023-08-28] MEDS: ATORVASTATIN 20 MG TAB GT SCH (21:28)
[2023-08-29] VITALS (11 sets, daily range): BP systolic 105–120; BP diastolic 40–65; PULSE 65–104; RESP 14–16; TEMP 97–98.1; O2SAT 99–100
[2023-08-29] MEDS: LORazepam 2 MG/ML VIAL IVP PRN (03:03)
[2023-08-29] MEDS: PIPERACILLIN/TAZOBACTAM 2.25 GM in DEXTROSE 5% 50 ML IV SCH ×3 (05:21→17:10)
[2023-08-29 07:14] LABS: BASOPHILS # (AUTO) 0.1 K/uL (0.00-0.22); BASOPHILS % (AUTO) 0.6 % (0.0-2.0); EOSINOPHILS # (AUTO) 0.7 K/uL (0-0.4); EOSINOPHILS % (AUTO) 6.9 % (0.0-4.0); HEMATOCRIT 33.9 % (36-48); HEMOGLOBIN 11.1 g/dL (12.0-16.0); LYMPHOCYTES # (AUTO) 1.3 K/uL (2.5-16.5); LYMPHOCYTES % (AUTO) 11.7 % (20.5-51.1); MEAN CORPUSCULAR HEMOGLOBIN 30 pg (27-31); MEAN CORPUSCULAR HGB CONC 33 g/dL (33-37); MONOCYTES # (AUTO) 0.8 K/uL (0.8-1.0); MONOCYTES % (AUTO) 7.5 % (1.7-9.3); NEUTROPHILS # (AUTO) 7.9 K/uL (1.8-7.7); NEUTROPHILS % (AUTO) 73.3 % (42.2-75.2); PLATELET COUNT (AUTO) 225 K/uL (140-450); RED BLOOD CELL COUNT(AUTO) 3.76 MIL/uL (4.20-5.40); RED CELL DISTRIBUTION WIDTH 16.2 % (11.6-13.7); WHITE BLOOD COUNT (AUTO) 10.8 K/uL (4.8-10.8)
[2023-08-29 07:53] LABS: CALCIUM 8.8 mg/dL (8.5-10.1); CARBON DIOXIDE 26.1 mmol/L (21-32); CREATININE 0.9 mg/dL (0.6-1.3); GLUCOSE 84 mg/dL (74-106); UREA NITROGEN, BLOOD 15 mg/dL (7-18)
[2023-08-29 08:13] LABS: ANION GAP 10.5 (8-16); CHLORIDE 107 mmol/L (98-107); POTASSIUM 3.6 mmol/L (3.5-5.1); SODIUM SERUM 140 mmol/L (136-145)
[2023-08-29] MEDS: MULTIVITAMIN 1 TAB GT SCH (09:27)
[2023-08-29] MEDS: LEVOTHYROXINE 0.05 MG TAB GT SCH (09:27)
[2023-08-29] MEDS: LANSOPRAZOLE 30 MG CAPDR GT SCH (09:28)
[2023-08-29] MEDS: LACTOBACILLUS RHAMNOSUS GG 1 EACH CAP GT SCH (09:28)
[2023-08-29] MEDS: GLYCOPYRROLATE 1 MG TAB GT SCH ×2 (09:29→21:45)
[2023-08-29] MEDS: MEMANTINE 10 MG TAB GT SCH ×2 (09:29→21:45)
[2023-08-29] MEDS: AMIODARONE 200 MG TAB GT SCH (09:30)
[2023-08-29] MEDS: APIXABAN 2.5 MG TAB PO SCH ×2 (09:37→21:45)
[2023-08-29] MEDS: ATORVASTATIN 20 MG TAB GT SCH (21:46)
[2023-08-30] VITALS (16 sets, daily range): BP systolic 120–155; BP diastolic 40–100; PULSE 62–85; RESP 0–20; TEMP 96.7–98.5; O2SAT 97–100
[2023-08-30] MEDS: PIPERACILLIN/TAZOBACTAM 2.25 GM in DEXTROSE 5% 50 ML IV SCH ×4 (00:50→17:50)
[2023-08-30 07:08] LABS: BASOPHILS # (AUTO) 0.1 K/uL (0.00-0.22); BASOPHILS % (AUTO) 0.6 % (0.0-2.0); EOSINOPHILS # (AUTO) 0.8 K/uL (0-0.4); EOSINOPHILS % (AUTO) 7.6 % (0.0-4.0); HEMATOCRIT 34.5 % (36-48); HEMOGLOBIN 11.4 g/dL (12.0-16.0); LYMPHOCYTES # (AUTO) 1.4 K/uL (2.5-16.5); LYMPHOCYTES % (AUTO) 12.3 % (20.5-51.1); MEAN CORPUSCULAR HEMOGLOBIN 30 pg (27-31); MEAN CORPUSCULAR HGB CONC 33 g/dL (33-37); MEAN CORPUSCULAR VOLUME 90.6 fL (80-94); MONOCYTES # (AUTO) 0.8 K/uL (0.8-1.0); MONOCYTES % (AUTO) 7.3 % (1.7-9.3); NEUTROPHILS % (AUTO) 72.2 % (42.2-75.2); PLATELET COUNT (AUTO) 249 K/uL (140-450); RED BLOOD CELL COUNT(AUTO) 3.81 MIL/uL (4.20-5.40); RED CELL DISTRIBUTION WIDTH 16.1 % (11.6-13.7)
[2023-08-30 07:32] LABS: CALCIUM 8.5 mg/dL (8.5-10.1); CARBON DIOXIDE 26.9 mmol/L (21-32); CHLORIDE 108 mmol/L (98-107); CREATININE 0.9 mg/dL (0.6-1.3); GLUCOSE 112 mg/dL (74-106); POTASSIUM 3.9 mmol/L (3.5-5.1); SODIUM SERUM 144 mmol/L (136-145); UREA NITROGEN, BLOOD 15 mg/dL (7-18)
[2023-08-30] MEDS: LEVOTHYROXINE 0.05 MG TAB GT SCH (08:46)
[2023-08-30] MEDS: MULTIVITAMIN 1 TAB GT SCH (08:46)
[2023-08-30] MEDS: LANSOPRAZOLE 30 MG CAPDR GT SCH (08:46)
[2023-08-30] MEDS: GLYCOPYRROLATE 1 MG TAB GT SCH ×2 (08:46→21:06)
[2023-08-30] MEDS: APIXABAN 2.5 MG TAB PO SCH ×2 (08:47→21:10)
[2023-08-30] MEDS: LACTOBACILLUS RHAMNOSUS GG 1 EACH CAP GT SCH (08:53)
[2023-08-30] MEDS: MEMANTINE 10 MG TAB GT SCH ×2 (08:53→21:05)
[2023-08-30] MEDS: AMIODARONE 200 MG TAB GT SCH ×2 (08:54→09:00)
[2023-08-30] MEDS: ATORVASTATIN 20 MG TAB GT SCH (21:05)
[2023-08-31] VITALS (13 sets, daily range): BP systolic 110–156; BP diastolic 56–82; PULSE 75–98; RESP 14–25; TEMP 97.1–98.7; O2SAT 94–100
[2023-08-31] MEDS: LORazepam 2 MG/ML VIAL IVP PRN (00:15)
[2023-08-31] MEDS: PIPERACILLIN/TAZOBACTAM 2.25 GM in DEXTROSE 5% 50 ML IV SCH ×3 (01:28→11:36)
[2023-08-31 06:14] LABS: BASOPHILS # (AUTO) 0.1 K/uL (0.00-0.22); BASOPHILS % (AUTO) 0.5 % (0.0-2.0); EOSINOPHILS # (AUTO) 0.8 K/uL (0-0.4); EOSINOPHILS % (AUTO) 5.6 % (0.0-4.0); HEMATOCRIT 36.3 % (36-48); HEMOGLOBIN 11.8 g/dL (12.0-16.0); LYMPHOCYTES # (AUTO) 1.5 K/uL (2.5-16.5); LYMPHOCYTES % (AUTO) 11.3 % (20.5-51.1); MEAN CORPUSCULAR HEMOGLOBIN 29 pg (27-31); MEAN CORPUSCULAR HGB CONC 32 g/dL (33-37); MEAN CORPUSCULAR VOLUME 89.9 fL (80-94); MONOCYTES # (AUTO) 0.7 K/uL (0.8-1.0); MONOCYTES % (AUTO) 5.4 % (1.7-9.3); NEUTROPHILS # (AUTO) 10.4 K/uL (1.8-7.7); NEUTROPHILS % (AUTO) 77.2 % (42.2-75.2); PLATELET COUNT (AUTO) 258 K/uL (140-450); RED BLOOD CELL COUNT(AUTO) 4.04 MIL/uL (4.20-5.40); RED CELL DISTRIBUTION WIDTH 16.3 % (11.6-13.7); WHITE BLOOD COUNT (AUTO) 13.5 K/uL (4.8-10.8)
[2023-08-31] MEDS: LACTOBACILLUS RHAMNOSUS GG 1 EACH CAP GT SCH (08:19)
[2023-08-31] MEDS: MEMANTINE 10 MG TAB GT SCH (08:19)
[2023-08-31] MEDS: GLYCOPYRROLATE 1 MG TAB GT SCH (08:20)
[2023-08-31] MEDS: AMIODARONE 200 MG TAB GT SCH (08:20)
[2023-08-31] MEDS: LEVOTHYROXINE 0.05 MG TAB GT SCH (08:20)
[2023-08-31] MEDS: MULTIVITAMIN 1 TAB GT SCH (08:20)
[2023-08-31] MEDS: LANSOPRAZOLE 30 MG CAPDR GT SCH (08:20)
[2023-08-31] MEDS: APIXABAN 2.5 MG TAB PO SCH (08:21)
[2023-08-31 09:46] LABS: ALANINE AMINOTRANSFERASE 24 U/L (12-78); ALBUMIN 2.8 g/dL (3.4-5.0); ALKALINE PHOSPHATASE 106 U/L (50-136); ANION GAP 18.4 (8-16); ASPARTATE AMINOTRANSFERASE 30 U/L (15-37); CALCIUM 9.3 mg/dL (8.5-10.1); CARBON DIOXIDE 22.7 mmol/L (21-32); CHLORIDE 108 mmol/L (98-107); CREATININE 0.9 mg/dL (0.6-1.3); GLUCOSE 94 mg/dL (74-106); POTASSIUM 4.1 mmol/L (3.5-5.1); SODIUM SERUM 145 mmol/L (136-145); TOTAL BILIRUBIN 0.2 mg/dL (0.0-1.0); TOTAL PROTEIN, SERUM 7.4 g/dL (6.4-8.2); UREA NITROGEN, BLOOD 15 mg/dL (7-18)
[2023-08-31] MEDS ORDERED: PIPE50SO5 IV (15:42)
== END 2023-08-31 16:30 | DRG 870 ==
LOC: MED 11:07 → MTU 14:45
PROVIDERS: ADMIT Preventive Medicine Preventive Medicine/Occupational Environmental Medicine; ATTEND Preventive Medicine Preventive Medicine/Occupational Environmental Medicine
PROC: 5A1955Z Respiratory Ventilation, Greater than 96 Consecutive Hours (ICD-10-PCS; principal; 2023-08-26)
DX: A41.9 Sepsis, unspecified organism (principal); J15.0 Pneumonia due to Klebsiella pneumoniae; J96.20 Acute and chronic respiratory failure, unspecified whether with hypoxia or hypercapnia; J15.1 Pneumonia due to Pseudomonas; Z16.24 Resistance to multiple antibiotics; Z99.11 Dependence on respirator [ventilator] status; K56.7 Ileus, unspecified; K52.9 Noninfective gastroenteritis and colitis, unspecified; K57.90 Diverticulosis of intestine, part unspecified, without perforation or abscess without bleeding; E78.5 Hyperlipidemia, unspecified; E03.9 Hypothyroidism, unspecified; E88.09 Other disorders of plasma-protein metabolism, not elsewhere classified; F03.90 Unspecified dementia, unspecified severity, without behavioral disturbance, psychotic disturbance, mood disturbance, and anxiety; R13.10 Dysphagia, unspecified; E87.6 Hypokalemia; D64.9 Anemia, unspecified; I48.91 Unspecified atrial fibrillation; I12.9 Hypertensive chronic kidney disease with stage 1 through stage 4 chronic kidney disease, or unspecified chronic kidney disease; N18.9 Chronic kidney disease, unspecified; Z79.01 Long term (current) use of anticoagulants; Z86.718 Personal history of other venous thrombosis and embolism; Z86.73 Personal history of transient ischemic attack (TIA), and cerebral infarction without residual deficits; Z90.49 Acquired absence of other specified parts of digestive tract; Z93.0 Tracheostomy status; Z93.1 Gastrostomy status
CPT/HCPCS: 36415; 71045; 74018; 80048; 80053; 82550; 82553; 83605; 83880; 84484; 85025; 85610; 85651; 85730; 86140; 87040; 87070; 87081; 87086; 87205; 89220; 93005; 94003; 94640; 96365; 99285; J0696; J2060; J2405; J2543; J3480; J3490; J7060; Q0092